=== PATIENT | male | born 1945 | race Caucasian/White ===

== ENCOUNTER 2018-03-09 19:54 | Inpatient (IN) | payer BC, MEDICARE ==
[~2018-03-09] VITALS: Ht 185.4 cm; Wt 148.7 kg
[2018-03-09] MEDS ORDERED: ROXICODONE15 MG ORAL (20:05)
[2018-03-09] MEDS ORDERED: METFORMIN HCL500 M1 ORAL (20:05)
[2018-03-09] MEDS ORDERED: PROTONIX40 MG ORAL (20:05)
--- NOTE | 2018-03-09 20:07 | Emergency Room Report ---
History of Present Illness General Chief Complaint: Altered Level of Consciousness Source: Family Member, EMS Present Illness HPI Patient presents with complaints of altered mental status patient has apparently been feeling confused for the past few days Family reports that today he's just started to act more normal However given the several days of decreased activity confusion Patient was reported speaking essentially gibberish is what was reported Here the patient is awake does appear mildly lethargic and slow to respond There was no reports of chest pain or short of breath patient was febrile here as well and found to be tachycardic Allergies: Coded Allergies: No Known Allergies (Unverified , 03/09/18) Patient History Past Medical History: see triage record Pertinent Family History: none Reviewed Nursing Documentation: PMH: Agreed; PSxH: Agreed Nursing Documentation-PMH Hx Diabetes: Yes Review of Systems All Other Systems: negative except mentioned in HPI Physical Exam Vital Signs Date Time Temp Pulse Resp B/P (MAP) Pulse Ox O2 Delivery O2 Flow Rate FiO2 03/09/18 19:53 101.8 127 14 106/88 95 Room Air 101.8 Sp02 EP Interpretation: reviewed, normal General Appearance: mild distress - Obese and tachycardic Head: normocephalic, atraumatic Eyes: bilateral eye PERRL, bilateral eye EOMI ENT: hearing grossly normal, TMs + canals normal, uvula midline, dry mucus membranes Neck: full range of motion, supple, no meningismus, no bony tend Respiratory: lungs clear, normal breath sounds, no rhonchi, no respiratory distress, no retraction, no accessory muscle use Cardiovascular #1: normal peripheral pulses, no gallop, no JVD, no murmur, tachycardia Gastrointestinal: normal bowel sounds, non tender, soft, no mass, no organomegaly, non-distended, no guarding, no hernia, no pulsatile mass, no rebound Genitourinary: no CVA tenderness Musculoskeletal: other - Significant edema and erythema bilateral lower extremity appears cellulitic Neurologic: responsive - Patient does appear somewhat slow and sluggish to respond no obvious focal deficit, market maker III-XII nml as tested, motor strength/ tone normal, sensory intact Psychiatric: mood/affect normal Skin: warm/dry, palpation normal, other - Poor turgor Lymphatic: normal inspection, no adenopathy Medical Decision Making Diagnostic Impression: Primary Impression: UTI (urinary tract infection) Additional Impressions: Sepsis Cellulitis, leg ER Course Multiple differentials considered Patient is complex requiring extensive blood work and imaging Patient's white blood cell count is dangerously elevated raising concerns of sepsis Especially given the patient's confusion Broad-spectrum antibiotic initiated further IV hydration and patient requires admission for further inpatient care Labs Test 03/09/18 20:45 03/09/18 21:43 Sodium Level 137 MMOL/L (136-145) Potassium Level 5.8 MMOL/L (3.5-5.1) Chloride Level 102 MMOL/L (98-107) Carbon Dioxide Level 20 MMOL/L (21-32) Anion Gap 15 mmol/L (5-15) Blood Urea Nitrogen 82 mg/dL (7-18) Creatinine 2.5 MG/DL (0.55-1.30) Estimat Glomerular Filtration Rate mL/min (>60) Glucose Level 290 MG/DL (74-106) Calcium Level 9.4 MG/DL (8.5-10.1) Total Bilirubin 0.7 MG/DL (0.2-1.0) Aspartate Amino Transf (AST/SGOT) 18 U/L (15-37) Alanine Aminotransferase (ALT/SGPT) 17 U/L (12-78) Alkaline Phosphatase 71 U/L (46-116) Total Creatine Kinase 233 U/L (26-308) Creatine Kinase MB 1.4 NG/ML (0.0-3.6) Creatine Kinase MB Relative Index 0.6 Troponin I 0.000 ng/mL (0.000-0.056) Pro-B-Type Natriuretic Peptide 621 pg/mL (0-125) Total Protein 8.7 G/DL (6.4-8.2) Albumin 2.9 G/DL (3.4-5.0) Globulin 5.8 g/dL Albumin/Globulin Ratio 0.5 (1.0-2.7) Lipase 57 U/L (73-393) White Blood Count 26.0 K/UL (4.8-10.8) Red Blood Count 4.41 M/UL (4.70-6.10) Hemoglobin 12.0 G/DL (14.2-18.0) Hematocrit 37.2 % (42.0-52.0) Mean Corpuscular Volume 84 FL (80-99) Mean Corpuscular Hemoglobin 27.2 PG (27.0-31.0) Mean Corpuscular Hemoglobin Concent 32.2 G/DL (32.0-36.0) Red Cell Distribution Width 15.4 % (11.6-14.8) Platelet Count 188 K/UL (150-450) Mean Platelet Volume 10.1 FL (6.5-10.1) Neutrophils (%) (Auto) % (45.0-75.0) Lymphocytes (%) (Auto) % (20.0-45.0) Monocytes (%) (Auto) % (1.0-10.0) Eosinophils (%) (Auto) % (0.0-3.0) Basophils (%) (Auto) % (0.0-2.0) EKG Diagnostic Results Rate: tachycardiac Rhythm: other ST Segments: other Rhythm Strip Diag. Results EP Interpretation: yes Rate: 110 Rhythm: no PVC's, no ectopy Chest X-Ray Diagnostic Results Chest X-Ray Diagnostic Results : Chest X-Ray Ordered: Yes # of Views/Limited/Complete: 1 View Indication: Chest Pain EP Interpretation: Yes Interpretation: no consolidation, no effusion, no pneumothorax Impression: No acute disease Electronically Signed by: Bentley Zamora DO Last Vital Signs Date Time Temp Pulse Resp B/P (MAP) Pulse Ox O2 Delivery O2 Flow Rate FiO2 03/09/18 19:53 101.8 127 14 106/88 95 Room Air 101.8 Status: improved Disposition: ADMITTED INPATIENT Condition: Critical Bentley Zamora DO Mar 09, 2018 20:07
[2018-03-09] MEDS ORDERED: MULTIVITAMINS1 EAC2 ORAL (20:40)
[2018-03-09] MEDS ORDERED: ALEVE220 M2 PO (20:40)
[2018-03-09] MEDS ORDERED: OXYCODONE HCL30 MG ORAL (20:48)
[2018-03-09] MEDS ORDERED: METFORMIN HCL850 M1 ORAL (20:48)
[2018-03-09] MEDS ORDERED: MELOXICAM15 MG PO (20:48)
[2018-03-09] MEDS ORDERED: FUROSEMIDE40 MG ORAL (20:48)
[2018-03-09] MEDS ORDERED: PANTOPRAZOLE SO40 MG ORAL (20:48)
[2018-03-09] MEDS ORDERED: FOSINOPRIL SODI40 MG PO (20:48)
[2018-03-09] MEDS ORDERED: ZANTAC150 MG ORAL (20:48)
[2018-03-09] MEDS ORDERED: ATORVASTATIN CA40 MG ORAL (20:48)
[2018-03-09] MEDS ORDERED: INVOKANA300 MG PO (20:48)
[2018-03-09] MEDS ORDERED: OXYCONTIN80 MG ORAL (20:48)
[2018-03-09] MEDS ORDERED: NORCO 10-325 T1 EACH ORAL (20:48)
[2018-03-09] MEDS ORDERED: cefTRIAXone 1 GM in NS 55 ML IVPB ONE (21:00)
[2018-03-09 21:31] LABS: ANION GAP 15 mmol/L (5-15); BLOOD UREA NITROGEN 82 mg/dL (7-18); CALCIUM 9.4 MG/DL (8.5-10.1); CARBON DIOXIDE 20 MMOL/L (21-32); CHLORIDE 102 MMOL/L (98-107); CREATININE 2.5 MG/DL (0.55-1.30); POTASSIUM 5.8 MMOL/L (3.5-5.1); SODIUM 137 MMOL/L (136-145)
[2018-03-09 21:34] VITALS: BP 133/48
[2018-03-09 21:43] LABS: ALANINE AMINOTRANSFERASE 17 U/L (12-78); ALBUMIN 2.9 G/DL (3.4-5.0); ALBUMIN/GLOBULIN RATIO 0.5 (1.0-2.7); ALKALINE PHOSPHATASE 71 U/L (46-116); ASPARTATE AMINO TRANSFERASE 18 U/L (15-37); BILIRUBIN,TOTAL 0.7 MG/DL (0.2-1.0); CKMB 1.4 NG/ML (0.0-3.6); CREATINE KINASE 233 U/L (26-308)
[2018-03-09 21:58] LABS: HEMATOCRIT 37.2 % (42.0-52.0); MEAN CORPUSCULAR VOLUME 84 FL (80-99); PLATELET COUNT 188 K/UL (150-450); RED BLOOD COUNT 4.41 M/UL (4.70-6.10); RED CELL DISTRIBUTION WIDTH 15.4 % (11.6-14.8)
[2018-03-09] MEDS ORDERED: Insulin Human Regular 100units/ml 3ml IV ONE (22:00)
[2018-03-09 22:11] LABS: APPEARANCE,URINE CLEAR; BILIRUBIN, URINE NEGATIVE (NEGATIVE); COLOR,URINE PALE YELLOW; GLUCOSE, URINE (UA) 4+ (NEGATIVE); KETONES,URINE 3+ (NEGATIVE); LEUKOCYTE ESTERASE ,URINE NEGATIVE (NEGATIVE); NITRITE,URINE NEGATIVE (NEGATIVE); PH,URINE 5 (4.5-8.0); PROTEIN,URINE 1+ (NEGATIVE); UROBILINOGEN,URINE NORMAL MG/DL (0.0-1.0)
[2018-03-09] MEDS ORDERED: Miralax 17gm pkt ORAL PRN (22:15)
[2018-03-09] MEDS ORDERED: Albuterol/Ipratropium 3ml neb HHN PRN (22:15)
[2018-03-09] MEDS ORDERED: Vancomycin 1.5gm/D5W 250ml 250 ML IVPB ONE (22:15)
[2018-03-09] MEDS ORDERED: OXYCONTIN 80 MG ORAL PRN (22:15)
[2018-03-09] MEDS ORDERED: Nitroglycerin Subl 0.4mg tab SL PRN (22:15)
[2018-03-09] MEDS ORDERED: Atorvastatin 80mg tab ORAL SCH (22:32)
[2018-03-09] MEDS ORDERED: Heparin 5000 units/ml inj SUBQ SCH (22:33)
[2018-03-09 23:26] VITALS: BP 112/43
[2018-03-10] VITALS (13 sets, daily range): BP systolic 89–174; BP diastolic 40–81
[2018-03-10] MEDS ORDERED: Vancomycin 1 GM in D5W 275 ML IVPB SCH (00:30)
[2018-03-10] MEDS ORDERED: oxyCONTIN 20mg tab ORAL ONE (01:25)
[2018-03-10] MEDS ORDERED: Albuterol/Ipratropium 3ml neb HHN PRN ×2 (02:30→20:15)
[2018-03-10] MEDS: NovoLOG Insulin Flexpen SUBQ SCH ×4 (06:45→22:08)
[2018-03-10] MEDS ORDERED: oxyCONTIN 20mg tab ORAL PRN (07:30)
[2018-03-10] MEDS ORDERED: Heparin 5000 units/ml inj SUBQ SCH (09:00)
[2018-03-10] MEDS ORDERED: Cefepime HCl 2 GM in D5W 110 ML IV SCH (09:00)
--- NOTE | 2018-03-10 10:19 | Consultation ---
History of Present Illness General Date patient seen: Mar 10, 2018 Chief Complaint: Altered Level of Consciousness Present Illness HPI 72 y/o M with hx of HTN, HLD, GERD, Dm2 presents to ED on 03/09 with AMS, confusion for the last few days per family. In ED found to be tachycardic and febrile to 102, WBC 26. CXR p, u/a neg. Per , patient has chronic leg swelling and chornic pain from legs takin [place] at home. Some time he sweeps from his legs. In the last 2 days patient has been confused, shaking, mumbling and complaining of worsening pain. cannot tell if legs are worse and how long has wound on R foots has been on because she says "she doesn't look at his legs". Per , patient;s DM2 has been controlled int he last few months with insulin regimen. Also denies prior cellulitis, skin abscess. No CP, SOB. Allergies: Coded Allergies: No Known Allergies (Unverified , 03/09/18) Medication History Scheduled Atorvastatin Calcium* (Atorvastatin Calcium*), 40 MG ORAL BEDTIME, (Reported) Canagliflozin (Invokana), 300 MG PO DAILY, (Reported) Fosinopril Sodium (Fosinopril Sodium), 40 MG PO DAILY, (Reported) Furosemide* (Lasix*), 40 MG ORAL DAILY, (Reported) Meloxicam* (Meloxicam*), 15 MG PO DAILY, (Reported) Metformin Hcl* (Metformin Hcl*), 850 MG ORAL TID, (Reported) Multivitamins* (Multivitamins*), 1 TAB ORAL DAILY, (Reported) Pantoprazole* (Pantoprazole*), 40 MG ORAL DAILY, (Reported) Ranitidine Hcl* (Zantac*), 300 MG ORAL DAILY, (Reported) Scheduled PRN Hydrocodone Bit/Acetaminophen 10-325* ([place] 10-325*), 1 TAB ORAL Q6H PRN for For Pain, (Reported) Naproxen Sodium (Aleve), 220 MG PO Q6HR PRN for For Pain, (Reported) Oxycodone Hcl (Oxycodone Hcl), 30 MG ORAL Q6HR PRN for For Pain, (Reported) Oxycodone Hcl Er* (Oxycontin*), 80 MG ORAL EVERY 12 HOURS PRN for For Pain, ( Reported) Patient History Healthcare decision maker N Resuscitation status Full Code Advanced Directive on File No Patient History Narrative Pmhx: as above Shx: reviewed FHx: non contributory Review of Systems ROS Narrative unable to obtain history obtained from . Physical Exam Physical Exam Narrative General Appearance: mild distress - Obese and tachycardic HEENT: normocephalic, atraumatic, dry mucus membranes Neck: full range of motion, supple, no meningismus, no bony tend Respiratory: lungs clear, normal breath sounds, no rhonchi, no respiratory distress, no retraction, no accessory muscle use Cardiovascular no gallop, no JVD, no murmur, tachycardia Gastrointestinal: normal bowel sounds, non tender, soft, no mass, no organomegaly, non-distended, no guarding, no rebound Genitourinary: no CVA tenderness Musculoskeletal: B/L leg with chornic venous stasis changes and lymphedema with superimposed erythema, warmth; on L leg wrythema extend up laterally to distal thigh. On R foot there is a wound with necrotic center ; no purulent discharge. Neurologic: responsive - Patient does appear somewhat slow and sluggish to respond no obvious focal deficit, collections curator III-XII nml as tested, motor strength/ tone normal, sensory intact Skin: warm/dry, palpation normal, other - Poor turgor Last 24 Hour Vital Signs Date Time Temp Pulse Resp B/P (MAP) Pulse Ox O2 Delivery O2 Flow Rate FiO2 03/10/18 09:43 102.2 03/10/18 08:14 90 Nasal Cannula 3.0 03/10/18 08:14 Nasal Cannula 3.0 03/10/18 08:14 116 22 Nasal Cannula 3.0 32 03/10/18 08:00 102.2 128 20 156/63 91 Room Air 102.2 03/10/18 04:00 100 03/10/18 02:00 Nasal Cannula 2.0 03/10/18 02:00 96 Nasal Cannula 2.0 03/10/18 00:00 101.8 122 22 112/43 94 Room Air 101.8 03/09/18 23:26 101.8 122 22 112/43 94 Room Air 101.8 03/09/18 21:34 99.1 129 18 133/48 94 Room Air 99.1 03/09/18 19:53 101.8 127 14 106/88 95 Room Air 101.8 Intake and Output 03/09/18 03/10/18 19:00 07:00 Intake Total 1805 ml Output Total 200 ml Balance 1605 ml Intake Oral 750 ml IV Total 1055 ml Output Urine Total 200 ml # Voids 3 Laboratory Tests Test 03/09/18 20:45 03/09/18 21:43 03/09/18 22:00 03/09/18 23:22 Sodium Level 137 MMOL/L (136-145) Potassium Level 5.8 MMOL/L (3.5-5.1) H Chloride Level 102 MMOL/L (98-107) Carbon Dioxide Level 20 MMOL/L (21-32) L Anion Gap 15 mmol/L (5-15) Blood Urea Nitrogen 82 mg/dL (7-18) H Creatinine 2.5 MG/DL (0.55-1.30) H Estimat Glomerular Filtration Rate mL/min (>60) Glucose Level 290 MG/DL (74-106) H Calcium Level 9.4 MG/DL (8.5-10.1) Total Bilirubin 0.7 MG/DL (0.2-1.0) Aspartate Amino Transf (AST/SGOT) 18 U/L (15-37) Alanine Aminotransferase (ALT/SGPT) 17 U/L (12-78) Alkaline Phosphatase 71 U/L (46-116) Total Creatine Kinase 233 U/L (26-308) Creatine Kinase MB 1.4 NG/ML (0.0-3.6) Creatine Kinase MB Relative Index 0.6 Troponin I 0.000 ng/mL (0.000-0.056) Pro-B-Type Natriuretic Peptide 621 pg/mL (0-125) H Total Protein 8.7 G/DL (6.4-8.2) H Albumin 2.9 G/DL (3.4-5.0) L Globulin 5.8 g/dL Albumin/Globulin Ratio 0.5 (1.0-2.7) L Lipase 57 U/L (73-393) L White Blood Count 26.0 K/UL (4.8-10.8) *H Red Blood Count 4.41 M/UL (4.70-6.10) L Hemoglobin 12.0 G/DL (14.2-18.0) L Hematocrit 37.2 % (42.0-52.0) L Mean Corpuscular Volume 84 FL (80-99) Mean Corpuscular Hemoglobin 27.2 PG (27.0-31.0) Mean Corpuscular Hemoglobin Concent 32.2 G/DL (32.0-36.0) Red Cell Distribution Width 15.4 % (11.6-14.8) H Platelet Count 188 K/UL (150-450) Mean Platelet Volume 10.1 FL (6.5-10.1) Neutrophils (%) (Auto) % (45.0-75.0) Lymphocytes (%) (Auto) % (20.0-45.0) Monocytes (%) (Auto) % (1.0-10.0) Eosinophils (%) (Auto) % (0.0-3.0) Basophils (%) (Auto) % (0.0-2.0) Differential Total Cells Counted 100 Neutrophils % (Manual) 83 % (45-75) H Lymphocytes % (Manual) 4 % (20-45) L Monocytes % (Manual) 2 % (1-10) Eosinophils % (Manual) 0 % (0-3) Basophils % (Manual) 0 % (0-2) Band Neutrophils 11 % (0-8) H Platelet Estimate Adequate Platelet Morphology Normal Polychromasia 1+ Anisocytosis 1+ Lactic Acid Level 2.30 mmol/L (0.4-2.0) H 2.10 mmol/L (0.66-2.22) Urine Color Pale yellow Urine Appearance Clear Urine pH 5 (4.5-8.0) Urine Specific [place] 1.010 (1.005-1.035) Urine Protein 1+ (NEGATIVE) H Urine Glucose (UA) 4+ (NEGATIVE) H Urine Ketones 3+ (NEGATIVE) H Urine Occult Blood 3+ (NEGATIVE) H Urine Nitrite Negative (NEGATIVE) Urine Bilirubin Negative (NEGATIVE) Urine Urobilinogen Normal MG/DL (0.0-1.0) Urine Leukocyte Esterase Negative (NEGATIVE) Urine RBC 0-2 /HPF (0 - 0) H Urine WBC 0-2 /HPF (0 - 0) Urine Squamous Epithelial Cells Few /LPF (NONE/OCC) Urine Amorphous Sediment Few /LPF (NONE) H Urine Bacteria Few /HPF (NONE) Height (Feet): 6 Height (Inches): 1.00 Weight (Pounds): 367 Medications Current Medications Medications (Trade) Dose Ordered Sig/Nancy Route PRN Reason Start Time Stop Time Status Last Admin Dose Admin Acetaminophen (Tylenol) 650 mg Q4H PRN ORAL fever 03/09/18 22:15 04/08/18 22:14 03/10/18 09:43 Albuterol/ Ipratropium (Albuterol/ Ipratropium) 3 ml Q4H PRN HHN Shortness of Breath 03/10/18 02:30 03/14/18 22:14 Atorvastatin Calcium (Lipitor) 40 mg BEDTIME ORAL 03/10/18 21:00 04/09/18 20:59 Cefepime HCl 2 gm/ Dextrose 110 ml @ 220 mls/hr EVERY 12 HOURS IV 03/10/18 09:00 03/17/18 08:59 03/10/18 09:42 Dextrose (Dextrose 50%) STAT PRN IV Hypoglycemia 03/09/18 22:15 04/08/18 22:14 Heparin Sodium (Porcine) (Heparin 5000 units/ml) 5,000 units EVERY 12 HOURS SUBQ 03/10/18 09:00 04/09/18 08:59 03/10/18 09:44 Insulin Aspart (NovoLOG) BEFORE MEALS AND HS SUBQ 03/10/18 06:30 04/09/18 06:29 03/10/18 06:45 Nitroglycerin (Ntg) 0.4 mg Q5M PRN SL Prn Chest Pain 03/09/18 22:15 04/08/18 22:14 Ondansetron HCl (Zofran) 4 mg Q6H PRN IVP Nausea & Vomiting 03/09/18 22:15 04/08/18 22:14 Oxycodone HCl (OxyCONTIN) 80 mg EVERY 12 HOURS PRN ORAL For Pain 03/10/18 07:30 03/17/18 07:29 Polyethylene Glycol (Miralax) 17 gm DAILYPRN PRN ORAL Constipation 03/09/18 22:15 04/08/18 22:14 Temazepam (Restoril) 15 mg HSPRN PRN ORAL Insomnia 03/09/18 22:15 03/16/18 22:14 Vancomycin HCl 1 gm/Dextrose 275 ml @ 183.3 mls/ hr Q24H IVPB 6/8/18 00:30 03/15/18 00:29 Vancomycin HCl/ Dextrose 250 ml @ 166.667 mls/hr Q24H IVPB 03/10/18 22:00 03/15/18 21:59 Assessment/Plan Assessment/Plan Abx: IV Vanco 03/09- Ceftriaxone x1 03/09 Cefepime 03/10- Assessment: Sepsis 2ry to severe b/l Leg soft tissue infection, R foot necrotic ulcer- suspect bacteremia (Strep > Staph); r/o early necrotizing fascitis, r/o R foot OM +/- abscess. -u/a neg -CXR p -Bcx p Fever/Leukocytosis Lactic acidosis, resolved JOSE HTN HLD GERD Dm2 Plan: -Continue IV Vancomycin and Switch Cefepime to Zosyn and add IV Clindamycin -MRI R foot -Venous and arterial duplex BLE -f/u cx, CXR -Monitor CBC/BMP, temperatures -Cdiff, influenza sc -Sx eval- to monitor for nec fascitis -Pod eval= for R plantar foot ulcer- may need debridement. Thank you for this consultation. Will continue to follow along with you. Discussed with RN, Dr Curry and at bedside. Maranda Wiggins M.D. Mar 10, 2018 10:19
[2018-03-10] MEDS ORDERED: Gadavist 7.5mMol/7.5ml vial IV PRN ×2 (10:45→20:15)
[2018-03-10 11:24] LABS: HEMATOCRIT 30.9 % (42.0-52.0); HEMOGLOBIN 10.2 G/DL (14.2-18.0); MEAN CORPUSCULAR VOLUME 85 FL (80-99); PLATELET COUNT 194 K/UL (150-450); RED BLOOD COUNT 3.65 M/UL (4.70-6.10); RED CELL DISTRIBUTION WIDTH 15.4 % (11.6-14.8); WHITE BLOOD COUNT 15.6 K/UL (4.8-10.8)
[2018-03-10 11:35] LABS: ALANINE AMINOTRANSFERASE 15 U/L (12-78); ALBUMIN 2.1 G/DL (3.4-5.0); ALBUMIN/GLOBULIN RATIO 0.4 (1.0-2.7); ALKALINE PHOSPHATASE 64 U/L (46-116); ANION GAP 9 mmol/L (5-15); ASPARTATE AMINO TRANSFERASE 31 U/L (15-37); BILIRUBIN,TOTAL 0.5 MG/DL (0.2-1.0); BLOOD UREA NITROGEN 71 mg/dL (7-18); CALCIUM 8.8 MG/DL (8.5-10.1); CARBON DIOXIDE 24 MMOL/L (21-32); CHLORIDE 107 MMOL/L (98-107); CREATININE 2.2 MG/DL (0.55-1.30); POTASSIUM 4.8 MMOL/L (3.5-5.1); SODIUM 140 MMOL/L (136-145)
[2018-03-10] MEDS ORDERED: Morphine Sulfate 4mg/ml Inj IVP PRN (12:00)
[2018-03-10] MEDS ORDERED: Piperacillin/Tazobactam 3.375 GM in D5W 110 ML IVPB SCH (12:00)
[2018-03-10] MEDS ORDERED: Clindamycin 600mg 50 ML IV SCH (12:00)
--- NOTE | 2018-03-10 12:33 | Diagnostic Imaging Report ---
Indication: Chest pain Comparison: None A single view chest radiograph was obtained. Findings: No definite infiltrate or pulmonary vascular congestion identified. The heart is enlarged. The aorta is mildly enlarged consistent with atherosclerotic vascular disease. The bones are osteopenic. Impression: No acute disease
--- NOTE | 2018-03-10 12:54 | Pulmonolgy Critical Care Note ---
Critical Care - Asmt/Plan Problems: (1) Acute encephalopathy (2) Sepsis (3) ATN (acute tubular necrosis) (4) Cellulitis, leg (5) UTI (urinary tract infection) (6) Diabetes mellitus (7) Obesity Respiratory: monitor respiratory rate, adjust FIO2, CXR Cardiac: continue to monitor HR/BP, other - echocardiogram Renal: F/U I&O, increase IV fluid, check electrolytes, other Gastrointestinal: continue feedings/current rate Endocrine: monitor blood sugar Hematologic: monitor H/H Neurologic: PRN Ativan, keep patient comfortable Affect: PRN ativan Disposition: keep in ICU Discussed with: nurses, consultants, caser shoe partssr. media manager - Objective Last 24 Hour Vital Signs Date Time Temp Pulse Resp B/P (MAP) Pulse Ox O2 Delivery O2 Flow Rate FiO2 03/10/18 10:42 101.2 03/10/18 09:43 102.2 03/10/18 08:14 90 Nasal Cannula 3.0 03/10/18 08:14 Nasal Cannula 3.0 03/10/18 08:14 116 22 Nasal Cannula 3.0 32 03/10/18 08:11 128 03/10/18 08:00 102.2 128 20 156/63 91 Room Air 102.2 03/10/18 04:00 100 03/10/18 02:00 Nasal Cannula 2.0 03/10/18 02:00 96 Nasal Cannula 2.0 03/10/18 00:00 101.8 122 22 112/43 94 Room Air 101.8 03/09/18 23:26 101.8 122 22 112/43 94 Room Air 101.8 03/09/18 21:34 99.1 129 18 133/48 94 Room Air 99.1 03/09/18 19:53 101.8 127 14 106/88 95 Room Air 101.8 Status: awake Condition: critical, improving HEENT: atraumatic Lungs: clear Heart: HR/BP stable Abdomen: soft Extremities: no C/C/E, edema Accucheck: 197 Critical Care - Subjective ROS Limited/Unobtainable: Yes Interval Events: 72 year old male with hx of CAD, HTN, DM, obesity brought in by paramedics for ALOC. Pt was found to be septic with extensive bilateral lower extremity cellulitis. Condition: critical EKG Rhythm: Sinus Rhythm FI02: 32 Sputum Amount: None I&O: Intake and Output 03/09/18 03/10/18 19:00 07:00 Intake Total 1805 ml Output Total 200 ml Balance 1605 ml Intake Oral 750 ml IV Total 1055 ml Output Urine Total 200 ml # Voids 3 CXR: TAYLA Labs: Laboratory Tests Test 03/09/18 20:45 03/09/18 21:43 03/09/18 22:00 03/09/18 23:22 Sodium Level 137 MMOL/L (136-145) Potassium Level 5.8 MMOL/L (3.5-5.1) H Chloride Level 102 MMOL/L (98-107) Carbon Dioxide Level 20 MMOL/L (21-32) L Anion Gap 15 mmol/L (5-15) Blood Urea Nitrogen 82 mg/dL (7-18) H Creatinine 2.5 MG/DL (0.55-1.30) H Estimat Glomerular Filtration Rate mL/min (>60) Glucose Level 290 MG/DL (74-106) H Calcium Level 9.4 MG/DL (8.5-10.1) Total Bilirubin 0.7 MG/DL (0.2-1.0) Aspartate Amino Transf (AST/SGOT) 18 U/L (15-37) Alanine Aminotransferase (ALT/SGPT) 17 U/L (12-78) Alkaline Phosphatase 71 U/L (46-116) Total Creatine Kinase 233 U/L (26-308) Creatine Kinase MB 1.4 NG/ML (0.0-3.6) Creatine Kinase MB Relative Index 0.6 Troponin I 0.000 ng/mL (0.000-0.056) Pro-B-Type Natriuretic Peptide 621 pg/mL (0-125) H Total Protein 8.7 G/DL (6.4-8.2) H Albumin 2.9 G/DL (3.4-5.0) L Globulin 5.8 g/dL Albumin/Globulin Ratio 0.5 (1.0-2.7) L Lipase 57 U/L (73-393) L White Blood Count 26.0 K/UL (4.8-10.8) *H Red Blood Count 4.41 M/UL (4.70-6.10) L Hemoglobin 12.0 G/DL (14.2-18.0) L Hematocrit 37.2 % (42.0-52.0) L Mean Corpuscular Volume 84 FL (80-99) Mean Corpuscular Hemoglobin 27.2 PG (27.0-31.0) Mean Corpuscular Hemoglobin Concent 32.2 G/DL (32.0-36.0) Red Cell Distribution Width 15.4 % (11.6-14.8) H Platelet Count 188 K/UL (150-450) Mean Platelet Volume 10.1 FL (6.5-10.1) Neutrophils (%) (Auto) % (45.0-75.0) Lymphocytes (%) (Auto) % (20.0-45.0) Monocytes (%) (Auto) % (1.0-10.0) Eosinophils (%) (Auto) % (0.0-3.0) Basophils (%) (Auto) % (0.0-2.0) Differential Total Cells Counted 100 Neutrophils % (Manual) 83 % (45-75) H Lymphocytes % (Manual) 4 % (20-45) L Monocytes % (Manual) 2 % (1-10) Eosinophils % (Manual) 0 % (0-3) Basophils % (Manual) 0 % (0-2) Band Neutrophils 11 % (0-8) H Platelet Estimate Adequate Platelet Morphology Normal Polychromasia 1+ Anisocytosis 1+ Lactic Acid Level 2.30 mmol/L (0.4-2.0) H 2.10 mmol/L (0.66-2.22) Urine Color Pale yellow Urine Appearance Clear Urine pH 5 (4.5-8.0) Urine Specific [place] 1.010 (1.005-1.035) Urine Protein 1+ (NEGATIVE) H Urine Glucose (UA) 4+ (NEGATIVE) H Urine Ketones 3+ (NEGATIVE) H Urine Occult Blood 3+ (NEGATIVE) H Urine Nitrite Negative (NEGATIVE) Urine Bilirubin Negative (NEGATIVE) Urine Urobilinogen Normal MG/DL (0.0-1.0) Urine Leukocyte Esterase Negative (NEGATIVE) Urine RBC 0-2 /HPF (0 - 0) H Urine WBC 0-2 /HPF (0 - 0) Urine Squamous Epithelial Cells Few /LPF (NONE/OCC) Urine Amorphous Sediment Few /LPF (NONE) H Urine Bacteria Few /HPF (NONE) Test 03/10/18 10:55 White Blood Count 15.6 K/UL (4.8-10.8) H Red Blood Count 3.65 M/UL (4.70-6.10) L Hemoglobin 10.2 G/DL (14.2-18.0) L Hematocrit 30.9 % (42.0-52.0) L Mean Corpuscular Volume 85 FL (80-99) Mean Corpuscular Hemoglobin 28.0 PG (27.0-31.0) Mean Corpuscular Hemoglobin Concent 33.1 G/DL (32.0-36.0) Red Cell Distribution Width 15.4 % (11.6-14.8) H Platelet Count 194 K/UL (150-450) Mean Platelet Volume 10.2 FL (6.5-10.1) H Neutrophils (%) (Auto) % (45.0-75.0) Lymphocytes (%) (Auto) % (20.0-45.0) Monocytes (%) (Auto) % (1.0-10.0) Eosinophils (%) (Auto) % (0.0-3.0) Basophils (%) (Auto) % (0.0-2.0) Differential Total Cells Counted 100 Neutrophils % (Manual) 85 % (45-75) H Lymphocytes % (Manual) 9 % (20-45) L Monocytes % (Manual) 2 % (1-10) Eosinophils % (Manual) 0 % (0-3) Basophils % (Manual) 0 % (0-2) Band Neutrophils 4 % (0-8) Platelet Estimate Adequate Platelet Morphology Normal Hypochromasia 1+ Anisocytosis 1+ Sodium Level 140 MMOL/L (136-145) Potassium Level 4.8 MMOL/L (3.5-5.1) Chloride Level 107 MMOL/L (98-107) Carbon Dioxide Level 24 MMOL/L (21-32) Anion Gap 9 mmol/L (5-15) Blood Urea Nitrogen 71 mg/dL (7-18) H Creatinine 2.2 MG/DL (0.55-1.30) H Estimat Glomerular Filtration Rate mL/min (>60) Glucose Level 223 MG/DL (74-106) H Calcium Level 8.8 MG/DL (8.5-10.1) Total Bilirubin 0.5 MG/DL (0.2-1.0) Aspartate Amino Transf (AST/SGOT) 31 U/L (15-37) Alanine Aminotransferase (ALT/SGPT) 15 U/L (12-78) Alkaline Phosphatase 64 U/L (46-116) Total Protein 7.2 G/DL (6.4-8.2) Albumin 2.1 G/DL (3.4-5.0) L Globulin 5.1 g/dL Albumin/Globulin Ratio 0.4 (1.0-2.7) L Zia Li MD Mar 10, 2018 12:54
[2018-03-10 13:20] LABS: CREATINE KINASE 641 U/L (26-308)
--- NOTE | 2018-03-10 13:36 | Consultation ---
History of Present Illness General Date patient seen: Mar 10, 2018 Chief Complaint: Altered Level of Consciousness Reason for Consultation: bilateral lower extremity infection Present Illness HPI 72 year old obese male with multiple medical comorbidities and chronic bilateral lower extremity worsening wounds and history of prior lower extremity DVT presented with altered mental status. as per family, over the past few days he has been more mumbling and not coherent in speech. as he became more altered they decided to bring him to ED for evaluation. during work up noted to be septic with significant leukocytosis, abnormal labs, and bilateral lower extremity wounds. family states wounds have been present for some time now and he does not take good care of them. surgery called to evaluate for possible necrotizing fascitis given severity of wounds and sepsis. patient seen, chart reviewed, patient examined. Allergies: Coded Allergies: No Known Allergies (Unverified , 03/09/18) Medication History Scheduled Atorvastatin Calcium* (Atorvastatin Calcium*), 40 MG ORAL BEDTIME, (Reported) Canagliflozin (Invokana), 300 MG PO DAILY, (Reported) Fosinopril Sodium (Fosinopril Sodium), 40 MG PO DAILY, (Reported) Furosemide* (Lasix*), 40 MG ORAL DAILY, (Reported) Meloxicam* (Meloxicam*), 15 MG PO DAILY, (Reported) Metformin Hcl* (Metformin Hcl*), 850 MG ORAL TID, (Reported) Multivitamins* (Multivitamins*), 1 TAB ORAL DAILY, (Reported) Pantoprazole* (Pantoprazole*), 40 MG ORAL DAILY, (Reported) Ranitidine Hcl* (Zantac*), 300 MG ORAL DAILY, (Reported) Scheduled PRN Hydrocodone Bit/Acetaminophen 10-325* ([place] 10-325*), 1 TAB ORAL Q6H PRN for For Pain, (Reported) Naproxen Sodium (Aleve), 220 MG PO Q6HR PRN for For Pain, (Reported) Oxycodone Hcl (Oxycodone Hcl), 30 MG ORAL Q6HR PRN for For Pain, (Reported) Oxycodone Hcl Er* (Oxycontin*), 80 MG ORAL EVERY 12 HOURS PRN for For Pain, ( Reported) Patient History Limited by: medical condition History Provided By: Family Member, Medical Record, Caregiver, PMD Healthcare decision maker N Resuscitation status Full Code Advanced Directive on File No Past Medical/Surgical History Past Medical/Surgical History: (1) Sepsis (2) Cellulitis, leg (3) Diabetes mellitus (4) UTI (urinary tract infection) (5) Obesity (6) Acute encephalopathy (7) ATN (acute tubular necrosis) Review of Systems ROS Narrative cannot obtain given patients medical condition Physical Exam General Appearance: lethargic, mild distress Lines, tubes and drains: peripheral HEENT: atraumatic, mucous membranes moist Neck: normal inspection Respiratory/Chest: lungs clear, normal breath sounds, no respiratory distress, no accessory muscle use Cardiovascular/Chest: tachycardia Abdomen: normal bowel sounds, non tender, soft, no organomegaly, no mass, other - obese Extremities: other - bilateral lower extremity cellulitis R>L with skin changes that are chronic, right heel ulceration Neurologic: unresponsiveness Last 24 Hour Vital Signs Date Time Temp Pulse Resp B/P (MAP) Pulse Ox O2 Delivery O2 Flow Rate FiO2 03/10/18 10:42 101.2 03/10/18 09:43 102.2 03/10/18 08:14 90 Nasal Cannula 3.0 03/10/18 08:14 Nasal Cannula 3.0 03/10/18 08:14 116 22 Nasal Cannula 3.0 32 03/10/18 08:11 128 03/10/18 08:00 102.2 128 20 156/63 91 Room Air 102.2 03/10/18 04:00 100 03/10/18 02:00 Nasal Cannula 2.0 03/10/18 02:00 96 Nasal Cannula 2.0 03/10/18 00:00 101.8 122 22 112/43 94 Room Air 101.8 03/09/18 23:26 101.8 122 22 112/43 94 Room Air 101.8 03/09/18 21:34 99.1 129 18 133/48 94 Room Air 99.1 03/09/18 19:53 101.8 127 14 106/88 95 Room Air 101.8 Intake and Output 03/09/18 03/10/18 19:00 07:00 Intake Total 1805 ml Output Total 200 ml Balance 1605 ml Intake Oral 750 ml IV Total 1055 ml Output Urine Total 200 ml # Voids 3 Laboratory Tests Test 03/09/18 20:45 03/09/18 21:43 03/09/18 22:00 03/09/18 23:22 Sodium Level 137 MMOL/L (136-145) Potassium Level 5.8 MMOL/L (3.5-5.1) H Chloride Level 102 MMOL/L (98-107) Carbon Dioxide Level 20 MMOL/L (21-32) L Anion Gap 15 mmol/L (5-15) Blood Urea Nitrogen 82 mg/dL (7-18) H Creatinine 2.5 MG/DL (0.55-1.30) H Estimat Glomerular Filtration Rate mL/min (>60) Glucose Level 290 MG/DL (74-106) H Calcium Level 9.4 MG/DL (8.5-10.1) Total Bilirubin 0.7 MG/DL (0.2-1.0) Aspartate Amino Transf (AST/SGOT) 18 U/L (15-37) Alanine Aminotransferase (ALT/SGPT) 17 U/L (12-78) Alkaline Phosphatase 71 U/L (46-116) Total Creatine Kinase 233 U/L (26-308) Creatine Kinase MB 1.4 NG/ML (0.0-3.6) Creatine Kinase MB Relative Index 0.6 Troponin I 0.000 ng/mL (0.000-0.056) Pro-B-Type Natriuretic Peptide 621 pg/mL (0-125) H Total Protein 8.7 G/DL (6.4-8.2) H Albumin 2.9 G/DL (3.4-5.0) L Globulin 5.8 g/dL Albumin/Globulin Ratio 0.5 (1.0-2.7) L Lipase 57 U/L (73-393) L White Blood Count 26.0 K/UL (4.8-10.8) *H Red Blood Count 4.41 M/UL (4.70-6.10) L Hemoglobin 12.0 G/DL (14.2-18.0) L Hematocrit 37.2 % (42.0-52.0) L Mean Corpuscular Volume 84 FL (80-99) Mean Corpuscular Hemoglobin 27.2 PG (27.0-31.0) Mean Corpuscular Hemoglobin Concent 32.2 G/DL (32.0-36.0) Red Cell Distribution Width 15.4 % (11.6-14.8) H Platelet Count 188 K/UL (150-450) Mean Platelet Volume 10.1 FL (6.5-10.1) Neutrophils (%) (Auto) % (45.0-75.0) Lymphocytes (%) (Auto) % (20.0-45.0) Monocytes (%) (Auto) % (1.0-10.0) Eosinophils (%) (Auto) % (0.0-3.0) Basophils (%) (Auto) % (0.0-2.0) Differential Total Cells Counted 100 Neutrophils % (Manual) 83 % (45-75) H Lymphocytes % (Manual) 4 % (20-45) L Monocytes % (Manual) 2 % (1-10) Eosinophils % (Manual) 0 % (0-3) Basophils % (Manual) 0 % (0-2) Band Neutrophils 11 % (0-8) H Platelet Estimate Adequate Platelet Morphology Normal Polychromasia 1+ Anisocytosis 1+ Lactic Acid Level 2.30 mmol/L (0.4-2.0) H 2.10 mmol/L (0.66-2.22) Urine Color Pale yellow Urine Appearance Clear Urine pH 5 (4.5-8.0) Urine Specific [place] 1.010 (1.005-1.035) Urine Protein 1+ (NEGATIVE) H Urine Glucose (UA) 4+ (NEGATIVE) H Urine Ketones 3+ (NEGATIVE) H Urine Occult Blood 3+ (NEGATIVE) H Urine Nitrite Negative (NEGATIVE) Urine Bilirubin Negative (NEGATIVE) Urine Urobilinogen Normal MG/DL (0.0-1.0) Urine Leukocyte Esterase Negative (NEGATIVE) Urine RBC 0-2 /HPF (0 - 0) H Urine WBC 0-2 /HPF (0 - 0) Urine Squamous Epithelial Cells Few /LPF (NONE/OCC) Urine Amorphous Sediment Few /LPF (NONE) H Urine Bacteria Few /HPF (NONE) Test 03/10/18 10:55 White Blood Count 15.6 K/UL (4.8-10.8) H Red Blood Count 3.65 M/UL (4.70-6.10) L Hemoglobin 10.2 G/DL (14.2-18.0) L Hematocrit 30.9 % (42.0-52.0) L Mean Corpuscular Volume 85 FL (80-99) Mean Corpuscular Hemoglobin 28.0 PG (27.0-31.0) Mean Corpuscular Hemoglobin Concent 33.1 G/DL (32.0-36.0) Red Cell Distribution Width 15.4 % (11.6-14.8) H Platelet Count 194 K/UL (150-450) Mean Platelet Volume 10.2 FL (6.5-10.1) H Neutrophils (%) (Auto) % (45.0-75.0) Lymphocytes (%) (Auto) % (20.0-45.0) Monocytes (%) (Auto) % (1.0-10.0) Eosinophils (%) (Auto) % (0.0-3.0) Basophils (%) (Auto) % (0.0-2.0) Differential Total Cells Counted 100 Neutrophils % (Manual) 85 % (45-75) H Lymphocytes % (Manual) 9 % (20-45) L Monocytes % (Manual) 2 % (1-10) Eosinophils % (Manual) 0 % (0-3) Basophils % (Manual) 0 % (0-2) Band Neutrophils 4 % (0-8) Platelet Estimate Adequate Platelet Morphology Normal Hypochromasia 1+ Anisocytosis 1+ Sodium Level 140 MMOL/L (136-145) Potassium Level 4.8 MMOL/L (3.5-5.1) Chloride Level 107 MMOL/L (98-107) Carbon Dioxide Level 24 MMOL/L (21-32) Anion Gap 9 mmol/L (5-15) Blood Urea Nitrogen 71 mg/dL (7-18) H Creatinine 2.2 MG/DL (0.55-1.30) H Estimat Glomerular Filtration Rate mL/min (>60) Glucose Level 223 MG/DL (74-106) H Uric Acid Pending Calcium Level 8.8 MG/DL (8.5-10.1) Total Bilirubin 0.5 MG/DL (0.2-1.0) Aspartate Amino Transf (AST/SGOT) 31 U/L (15-37) Alanine Aminotransferase (ALT/SGPT) 15 U/L (12-78) Alkaline Phosphatase 64 U/L (46-116) Total Creatine Kinase Pending Total Protein 7.2 G/DL (6.4-8.2) Albumin 2.1 G/DL (3.4-5.0) L Globulin 5.1 g/dL Albumin/Globulin Ratio 0.4 (1.0-2.7) L Height (Feet): 6 Height (Inches): 1.00 Weight (Pounds): 367 Medications Current Medications Medications (Trade) Dose Ordered Sig/Nancy Route PRN Reason Start Time Stop Time Status Last Admin Dose Admin Acetaminophen (Tylenol) 650 mg Q4H PRN ORAL fever 03/09/18 22:15 04/08/18 22:14 03/10/18 09:43 Albuterol/ Ipratropium (Albuterol/ Ipratropium) 3 ml Q4H PRN HHN Shortness of Breath 03/10/18 02:30 03/14/18 22:14 Clindamycin HCl/ Dextrose 50 ml @ 100 mls/hr Q8H IV 03/10/18 12:00 03/17/18 23:59 Dextrose (Dextrose 50%) STAT PRN IV Hypoglycemia 03/09/18 22:15 04/08/18 22:14 Gadobutrol (Gadavist) 7.5 mmol NOW PRN IV Radiology Procedure 03/10/18 10:45 03/14/18 10:39 Heparin Sodium (Porcine) (Heparin 5000 units/ml) 5,000 units EVERY 12 HOURS SUBQ 03/10/18 09:00 04/09/18 08:59 03/10/18 09:44 Insulin Aspart (NovoLOG) BEFORE MEALS AND HS SUBQ 03/10/18 06:30 04/09/18 06:29 03/10/18 12:21 Morphine Sulfate (Morphine Sulfate) 2 mg Q4H PRN IVP Severe Pain (Pain Scale 7-10) 03/10/18 12:00 03/17/18 11:59 Nitroglycerin (Ntg) 0.4 mg Q5M PRN SL Prn Chest Pain 03/09/18 22:15 04/08/18 22:14 Ondansetron HCl (Zofran) 4 mg Q6H PRN IVP Nausea & Vomiting 03/09/18 22:15 04/08/18 22:14 Piperacillin Sod/ Tazobactam Sod 3.375 gm/Dextrose 110 ml @ 27.5 mls/hr Q8H IVPB 03/10/18 12:00 03/17/18 23:59 Sodium Chloride 1,000 ml @ 150 mls/hr Q6H40M IV 03/10/18 13:15 04/09/18 13:14 Vancomycin HCl 1 gm/Dextrose 275 ml @ 183.3 mls/ hr Q24H IVPB 03/10/18 00:30 03/15/18 00:29 Vancomycin HCl/ Dextrose 250 ml @ 166.667 mls/hr Q24H IVPB 03/10/18 22:00 03/15/18 21:59 Assessment/Plan Problem List: (1) Sepsis Assessment & Plan: 72M sepsis with fevers, leukocytosis, altered mental status. chronic bilateral lower extremity wounds with cellulitis. concerns for possible necrotizing fascitis initially. unlikely nec fasc given exam. wounds chronic and skin changes chronic. LRINEC score on admission 10 but given chronicity of wounds, other etiology of sepsis, and physical exam unlikely nec fasc. -no acute surgical intervention necessary. -Abx as per ID -podiatry consult -cont with dressings for now -will follow with you thank you for this consultation ICD Codes: A41.9 - Sepsis, unspecified organism SNOMED: 16613748 Qualifiers: Qualified Codes: A41.9 - Sepsis, unspecified organism (2) Cellulitis, leg ICD Codes: L03.119 - Cellulitis of unspecified part of limb SNOMED: 001370399 Leandro Scott Mar 10, 2018 13:36
[2018-03-10] MEDS ORDERED: LORazepam Inj 2mg/ml 1ml IV PRN (14:30)
--- NOTE | 2018-03-10 16:14 | Consultation ---
Consult Note Assessment/Plan A./ 1) Bilateral leg cellulitis 2) Diabetic foot ulcer right heel 3) Diabetic neuropathy P/ 1) Cont abx per ID 2) Wound Care ordered. No surgical intervention indicated at this time 3) Off loading 4) Will follow Thank you !! Rubens Maxwell DPM Mar 10, 2018 16:14
[2018-03-10] MEDS ORDERED: Nitroglycerin Subl 0.4mg tab SL PRN (20:05)
[2018-03-10] MEDS: Clindamycin 600mg 50 ML IV SCH (20:39)
[2018-03-10] MEDS: Piperacillin/Tazobactam 3.375 GM in D5W 110 ML IVPB SCH (20:40)
[2018-03-10] MEDS ORDERED: Atorvastatin 80mg tab ORAL SCH (21:00)
[2018-03-10] MEDS ORDERED: Pantoprazole Inj IVP SCH (21:00)
[2018-03-10] MEDS: Pantoprazole Inj IVP SCH (21:23)
[2018-03-10] MEDS: Heparin 5000 units/ml inj SUBQ SCH (21:30)
[2018-03-10] MEDS ORDERED: Vancomycin 1250mg/D5W 250ml IVPB SCH (22:00)
[2018-03-10] MEDS: Vancomycin 1250mg/D5W 250ml 250 ML IVPB SCH (22:17)
[2018-03-10] MEDS: LORazepam Inj 2mg/ml 1ml IV PRN (22:20)
[2018-03-10] MEDS: Morphine Sulfate 4mg/ml Inj IVP PRN (22:22)
[2018-03-11] VITALS (24 sets, daily range): BP systolic 90–133; BP diastolic 20–77
--- NOTE | 2018-03-11 | History and Physical Report ---
DATE OF ADMISSION: 03/09/2018 TIME: 4 p.m. CONSULTANTS: 1. Zia Li M.D. 2. Bernardo Hammonds M.D. CHIEF COMPLAINT: UTI, sepsis, shock, edema, and lower extremity cellulitis. BRIEF HISTORY: This is a 72-year-old male who presents to [facility] with history of increased weakness, lethargy, and leg swelling, diagnosed with UTI, sepsis, shock, edema, and lower extremity cellulitis. The patient is admitted to intensive care unit due to a low blood pressure. Currently calm, O2 NC, sleeping in bed, not responding to questions. REVIEW OF SYSTEMS: Unavailable. PAST MEDICAL HISTORY: Diabetes, encephalopathy, ATN, obese. PAST SURGICAL HISTORY: Unknown. ALLERGIES: Denies. SOCIAL HISTORY: Unable to obtain, secondary to the patient's condition. PHYSICAL EXAMINATION: GENERAL: O2 NC, lethargic in bed, not responding to questions. VITAL SIGNS: Temperature 99 degrees, pulse 101, respiratory rate 15, and blood pressure 110/57. CARDIOVASCULAR: No murmurs. LUNGS: Poor air exchange. ABDOMEN: Bowel sounds positive. Nontender and nondistended. EXTREMITIES: No cyanosis or clubbing. 1+ edema below mid maxwell, redness, slight swollen, slightly warm, and slightly scaling. LABORATORY DATA: White count 15, hemoglobin and hematocrit 10/30, and platelets 194. Otherwise CBC is normal. BMP showed BUN and creatinine 31/2.2, glucose 223 normal. Urinalysis shows 3+ occult blood, otherwise normal, 4+ glucose, 3+ ketones. MEDICATIONS: Vancomycin, lorazepam, Zosyn, morphine, clindamycin, heparin, insulin, and albuterol. ASSESSMENT: 1. Urinary tract infection. 2. Sepsis. 3. Shock. 4. Anemia. 5. Edema. 6. Lower extremity cellulitis. 7. Acute tubular necrosis. 8. Diabetes. 9. Encephalopathy. 10. Obesity. PLAN: 1. Continue previous medications. 2. Wound care. 3. Blood pressure and blood sugar. 4. Pain control. 5. Dietary followup. 6. OT and pulmonary treatment. 7. OT, PT, and dietary evaluation. 8. CBC and BMP in the morning. 9. We will continue to follow this patient. 10. Dr. Li, Dr. Hammonds, and Dr. Mena to consult. Ok Curry D.O. DR: RENETTA JOB#: [id number] CC:
[2018-03-11 02:30] LABS: APPEARANCE,URINE SLIGHTLY CLOUDY; BILIRUBIN, URINE NEGATIVE (NEGATIVE); COLOR,URINE PALE YELLOW; GLUCOSE, URINE (UA) 4+ (NEGATIVE); KETONES,URINE NEGATIVE (NEGATIVE); LEUKOCYTE ESTERASE ,URINE NEGATIVE (NEGATIVE); NITRITE,URINE NEGATIVE (NEGATIVE); PH,URINE 5 (4.5-8.0); PROTEIN,URINE 2+ (NEGATIVE); UROBILINOGEN,URINE NORMAL MG/DL (0.0-1.0)
[2018-03-11] MEDS: Clindamycin 600mg 50 ML IV SCH ×3 (03:39→20:01)
[2018-03-11] MEDS: Piperacillin/Tazobactam 3.375 GM in D5W 110 ML IVPB SCH ×3 (03:40→20:01)
[2018-03-11] MEDS: LORazepam Inj 2mg/ml 1ml IV PRN ×4 (04:08→22:50)
[2018-03-11 05:37] LABS: HEMATOCRIT 29.7 % (42.0-52.0); HEMOGLOBIN 9.8 G/DL (14.2-18.0); MEAN CORPUSCULAR VOLUME 85 FL (80-99); PLATELET COUNT 155 K/UL (150-450); RED BLOOD COUNT 3.49 M/UL (4.70-6.10); RED CELL DISTRIBUTION WIDTH 15.6 % (11.6-14.8); WHITE BLOOD COUNT 12.9 K/UL (4.8-10.8)
[2018-03-11 05:53] LABS: ALANINE AMINOTRANSFERASE 21 U/L (12-78); ALBUMIN 1.8 G/DL (3.4-5.0); ALBUMIN/GLOBULIN RATIO 0.4 (1.0-2.7); ALKALINE PHOSPHATASE 65 U/L (46-116); ANION GAP 12 mmol/L (5-15); ASPARTATE AMINO TRANSFERASE 47 U/L (15-37); BILIRUBIN,TOTAL 0.5 MG/DL (0.2-1.0); BLOOD UREA NITROGEN 65 mg/dL (7-18); CALCIUM 8.5 MG/DL (8.5-10.1); CARBON DIOXIDE 22 MMOL/L (21-32); CHLORIDE 108 MMOL/L (98-107); CREATININE 2.2 MG/DL (0.55-1.30); POTASSIUM 4.8 MMOL/L (3.5-5.1); SODIUM 141 MMOL/L (136-145)
[2018-03-11 06:13] LABS: PHOSPHORUS 4.6 MG/DL (2.5-4.9)
[2018-03-11] MEDS: NovoLOG Insulin Flexpen SUBQ SCH ×4 (06:29→21:11)
--- NOTE | 2018-03-11 07:11 | Pulmonolgy Critical Care Note ---
Critical Care - Asmt/Plan Assessment/Plan: ASSESSMENT Acute encephalopathy( likely secondary to sepsis) Sepsis with bacteremia Bilateral leg cellulitis Diabetic foot ulcer right heel, r/o osteo Diabetes mellitus type 2 with diabetic neuropathy Lactic acidosis Acute kidney injury possibly on CRI Hypertension Hyperlipidemia Hyperkalemia Obesity PLAN of CARE ICU fluid resuscitation Empiric antibiotic, follow up with cultures, blood cx + GPC 01/04 ID follows. MRI R foot - r/o osteo unable to do due to obesity, get bone scan Supplemental oxygen, pulmonary toilet prn CXR negative IV fluids antipruritic prn watch BP ECHO Arterial and Venous Duplex BLE blood sugar management with sliding scale wound care surgery follows to r/o early necrotizing fasciitis podiatry seen and examined, wound care diabetic ulcer R foot as per podiatry bowel regimen monitor renal parameters, electrolytes, correct electrolytes as needed ,avoid nephrotoxic DVT, GI prophylaxis case discussed and evaluated by supervising physician Critical Care - Objective Last 24 Hour Vital Signs Date Time Temp Pulse Resp B/P (MAP) Pulse Ox O2 Delivery O2 Flow Rate FiO2 03/11/18 06:00 101 16 93/20 97 Nasal Cannula 2.0 03/11/18 05:00 104 17 95/30 97 Nasal Cannula 2.0 03/11/18 04:00 104 03/11/18 04:00 104 18 97/37 97 Nasal Cannula 2.0 03/11/18 03:00 99.9 102 18 90/34 97 Nasal Cannula 2.0 99.9 03/11/18 03:00 99.9 03/11/18 02:00 110 18 121/38 97 Nasal Cannula 2.0 03/11/18 01:52 101.3 03/11/18 01:00 101.3 105 18 93/55 100 Nasal Cannula 2.0 101.3 03/11/18 00:00 103 03/11/18 00:00 102 18 95/57 100 Nasal Cannula 2.0 03/10/18 23:00 100 18 103/40 100 Nasal Cannula 2.0 03/10/18 22:00 99 18 112/81 100 Nasal Cannula 2.0 03/10/18 21:00 92 15 108/56 100 Nasal Cannula 2.0 03/10/18 20:00 99.5 92 15 94/59 98 Nasal Cannula 2.0 99.5 03/10/18 20:00 95 03/10/18 19:50 100 Nasal Cannula 3.0 03/10/18 19:50 Nasal Cannula 3.0 03/10/18 19:49 95 20 Nasal Cannula 3.0 32 03/10/18 19:00 93 18 101/68 100 Nasal Cannula 2.0 03/10/18 18:00 100 18 174/60 100 Nasal Cannula 2.0 03/10/18 17:00 96 20 101/54 99 Nasal Cannula 2.0 03/10/18 16:00 99.8 101 15 110/57 97 Nasal Cannula 2.0 99.8 03/10/18 16:00 100 03/10/18 15:11 99.8 03/10/18 15:00 106 20 97/51 96 Nasal Cannula 2.0 03/10/18 14:41 100.2 03/10/18 14:00 111 20 97/51 94 Nasal Cannula 2.0 03/10/18 13:00 102.0 120 20 89/52 93 Nasal Cannula 2.0 102.0 03/10/18 12:00 101.2 122 20 99/52 95 Nasal Cannula 2.0 101.2 03/10/18 11:50 122 03/10/18 10:42 101.2 03/10/18 09:43 102.2 03/10/18 08:14 90 Nasal Cannula 3.0 03/10/18 08:14 Nasal Cannula 3.0 03/10/18 08:14 116 22 Nasal Cannula 3.0 32 03/10/18 08:11 128 03/10/18 08:00 102.2 128 20 156/63 91 Room Air 102.2 Status: awake Condition: critical HEENT: atraumatic Lungs: clear Heart: HR/BP stable Abdomen: soft - obese, non-tender, active bowel sounds Extremities: other - bilateral lower legs cellulitis, with chronic skin changes , R heel ulcer Micro: Microbiology Date/Time Source Procedure Growth Status 03/10/18 17:00 Nasopharynx Influenza Types A,B Antigen (FLORENCIO) - Final Complete Accucheck: 211 Critical Care - Subjective ROS Limited/Unobtainable: Yes Interval Events: leukocytosis trending down , afebrile this am, but febrile at night blood cx 4/4 GPC no signs of resp distress creat down to 2.2 Condition: critical EKG Rhythm: Sinus Rhythm FI02: 32 Sputum Amount: None Fluids: 1/2 NS at 150 I&O: Intake and Output 03/10/18 03/11/18 19:00 07:00 Intake Total 960.0 ml 2118.75 ml Output Total 1400 ml Balance 960.0 ml 718.75 ml Intake Oral 90 ml IV Total 910.0 ml 2028.75 ml Other 50 ml Output Urine Total 1400 ml # Voids 2 CXR: 03/11 Increased pulmonary vascular markings suggestive of congestion. Ramona Cazares [employer] Mar 11, 2018 07:11
[2018-03-11] MEDS: Pantoprazole Inj IVP SCH ×2 (08:34→20:56)
[2018-03-11] MEDS: Heparin 5000 units/ml inj SUBQ SCH ×2 (08:36→20:57)
[2018-03-11] MEDS: Dakin's 0.125% Soln (Quarter Strength) 16oz TOPIC SCH (08:37)
[2018-03-11] MEDS: Morphine Sulfate 4mg/ml Inj IVP PRN ×3 (08:55→20:03)
[2018-03-11] MEDS ORDERED: Dakin's 0.125% Soln (Quarter Strength) 16oz TOPIC SCH (09:00)
--- NOTE | 2018-03-11 09:41 | General Progress Note ---
Assessment/Plan Problem List: (1) Sepsis ICD Codes: A41.9 - Sepsis, unspecified organism SNOMED: 71596971 (2) Cellulitis, leg ICD Codes: L03.119 - Cellulitis of unspecified part of limb SNOMED: 718346374 (3) UTI (urinary tract infection) ICD Codes: N39.0 - Urinary tract infection, site not specified SNOMED: 14596822 (4) Diabetes mellitus ICD Codes: E11.9 - Type 2 diabetes mellitus without complications SNOMED: 35146778 (5) Obesity ICD Codes: E66.9 - Obesity, unspecified SNOMED: 326103942, 264876356 (6) Acute encephalopathy ICD Codes: G93.40 - Encephalopathy, unspecified SNOMED: 15592743, 250221058 (7) ATN (acute tubular necrosis) ICD Codes: N17.0 - Acute kidney failure with tubular necrosis SNOMED: 84931331 Status: unchanged Assessment/Plan o2 pulm tx abx wound care neph f/u cbc bmp am Subjective Constitutional: Reports: weakness Allergies: Coded Allergies: No Known Allergies (Unverified , 03/09/18) All Systems: reviewed and negative except above Subjective 02nc sleep Objective Last 24 Hour Vital Signs Date Time Temp Pulse Resp B/P (MAP) Pulse Ox O2 Delivery O2 Flow Rate FiO2 03/11/18 08:55 98.7 03/11/18 08:00 98.8 96 20 103/47 96 Nasal Cannula 2.0 98.8 03/11/18 07:00 97 18 99/42 97 Nasal Cannula 2.0 03/11/18 06:00 101 16 93/20 97 Nasal Cannula 2.0 03/11/18 05:00 104 17 95/30 97 Nasal Cannula 2.0 03/11/18 04:00 104 03/11/18 04:00 104 18 97/37 97 Nasal Cannula 2.0 03/11/18 03:00 99.9 102 18 90/34 97 Nasal Cannula 2.0 99.9 03/11/18 03:00 99.9 03/11/18 02:00 110 18 121/38 97 Nasal Cannula 2.0 03/11/18 01:52 101.3 03/11/18 01:00 101.3 105 18 93/55 100 Nasal Cannula 2.0 101.3 03/11/18 00:00 103 03/11/18 00:00 102 18 95/57 100 Nasal Cannula 2.0 03/10/18 23:00 100 18 103/40 100 Nasal Cannula 2.0 03/10/18 22:00 99 18 112/81 100 Nasal Cannula 2.0 03/10/18 21:00 92 15 108/56 100 Nasal Cannula 2.0 03/10/18 20:00 99.5 92 15 94/59 98 Nasal Cannula 2.0 99.5 03/10/18 20:00 95 03/10/18 19:50 100 Nasal Cannula 3.0 03/10/18 19:50 Nasal Cannula 3.0 03/10/18 19:49 95 20 Nasal Cannula 3.0 32 03/10/18 19:00 93 18 101/68 100 Nasal Cannula 2.0 03/10/18 18:00 100 18 174/60 100 Nasal Cannula 2.0 03/10/18 17:00 96 20 101/54 99 Nasal Cannula 2.0 03/10/18 16:00 99.8 101 15 110/57 97 Nasal Cannula 2.0 99.8 03/10/18 16:00 100 03/10/18 15:11 99.8 03/10/18 15:00 106 20 97/51 96 Nasal Cannula 2.0 03/10/18 14:41 100.2 03/10/18 14:00 111 20 97/51 94 Nasal Cannula 2.0 03/10/18 13:00 102.0 120 20 89/52 93 Nasal Cannula 2.0 102.0 03/10/18 12:00 101.2 122 20 99/52 95 Nasal Cannula 2.0 101.2 03/10/18 11:50 122 03/10/18 10:42 101.2 03/10/18 09:43 102.2 Intake and Output 03/10/18 03/11/18 19:00 07:00 Intake Total 960.0 ml 2118.75 ml Output Total 1400 ml Balance 960.0 ml 718.75 ml Intake Oral 90 ml IV Total 910.0 ml 2028.75 ml Other 50 ml Output Urine Total 1400 ml # Voids 2 Laboratory Tests 03/10/18 10:55: White Blood Count 15.6H, Red Blood Count 3.65L, Hemoglobin 10.2L, Hematocrit 30.9L, Mean Corpuscular Volume 85, Mean Corpuscular Hemoglobin 28.0, Mean Corpuscular Hemoglobin Concent 33.1, Red Cell Distribution Width 15.4H, Platelet Count 194, Mean Platelet Volume 10.2H, Neutrophils (%) (Auto) , Lymphocytes (%) (Auto) , Monocytes (%) (Auto) , Eosinophils (%) (Auto) , Basophils (%) (Auto) , Differential Total Cells Counted 100, Neutrophils % ( Manual) 85H, Lymphocytes % (Manual) 9L, Monocytes % (Manual) 2, Eosinophils % ( Manual) 0, Basophils % (Manual) 0, Band Neutrophils 4, Platelet Estimate Adequate, Platelet Morphology Normal, Hypochromasia 1+, Anisocytosis 1+, Sodium Level 140, Potassium Level 4.8, Chloride Level 107, Carbon Dioxide Level 24, Anion Gap 9, Blood Urea Nitrogen 71H, Creatinine 2.2H, Estimat Glomerular Filtration Rate , Glucose Level 223H, Uric Acid 10.1H, Calcium Level 8.8, Total Bilirubin 0.5, Aspartate Amino Transf (AST/SGOT) 31, Alanine Aminotransferase ( ALT/SGPT) 15, Alkaline Phosphatase 64, Total Creatine Kinase 641H, Total Protein 7.2, Albumin 2.1L, Globulin 5.1, Albumin/Globulin Ratio 0.4L 03/10/18 17:10: Lactic Acid Level 1.80 03/10/18 22:00: Urine Color Pale yellow, Urine Appearance Slightly cloudy, Urine pH 5, Urine Specific [place] 1.015, Urine Protein 2+H, Urine Glucose (UA) 4+H, Urine Ketones Negative, Urine Occult Blood 4+H, Urine Nitrite Negative, Urine Bilirubin Negative, Urine Urobilinogen Normal, Urine Leukocyte Esterase Negative , Urine RBC 2-4H, Urine WBC 0-2, Urine Squamous Epithelial Cells Occasional, Urine Amorphous Sediment ModerateH, Urine Bacteria Few, Urine Eosinophils None seen, Urine Random Sodium 23, Urine Potassium Timed 33 03/11/18 04:30: White Blood Count 12.9H, Red Blood Count 3.49L, Hemoglobin 9.8L, Hematocrit 29.7L, Mean Corpuscular Volume 85, Mean Corpuscular Hemoglobin 28.2, Mean Corpuscular Hemoglobin Concent 33.1, Red Cell Distribution Width 15.6H, Platelet Count 155, Mean Platelet Volume 10.1, Neutrophils (%) (Auto) , Lymphocytes (%) (Auto) , Monocytes (%) (Auto) , Eosinophils (%) (Auto) , Basophils (%) (Auto) , Neutrophils % (Manual) [Pending], Lymphocytes % (Manual) [Pending], Platelet Estimate [Pending], Platelet Morphology [Pending], Sodium Level 141, Potassium Level 4.8, Chloride Level 108H, Carbon Dioxide Level 22, Anion Gap 12, Blood Urea Nitrogen 65H, Creatinine 2.2H, Estimat Glomerular Filtration Rate , Glucose Level 237H, Calcium Level 8.5, Total Bilirubin 0.5, Aspartate Amino Transf (AST/SGOT) 47H, Alanine Aminotransferase (ALT/SGPT) 21, Alkaline Phosphatase 65, Total Protein 6.8, Albumin 1.8L, Globulin 5.0, Albumin/ Globulin Ratio 0.4L, Erythrocyte Sedimentation Rate 115H, Phosphorus Level 4.6, Magnesium Level 2.8H, C-Reactive Protein, Quantitative 45.8H Height (Feet): 6 Height (Inches): 1.00 Weight (Pounds): 341 General Appearance: lethargic EENT: normal ENT inspection Neck: normal alignment Cardiovascular: normal peripheral pulses, normal rate, regular rhythm Respiratory/Chest: chest wall non-tender, lungs clear, normal breath sounds Abdomen: normal bowel sounds, non tender, soft Extremities: normal inspection Edema: 1+ Arm (L), 1+ Arm (R), 1+ Leg (L), 1+ Leg (R), 1+ Pedal (L), 1+ Pedal ( R), 1+ Generalized Edema: trace edema Neurologic: motor weakness Skin: normal pigmentation, warm/dry Ok Curry DO Mar 11, 2018 09:41
--- NOTE | 2018-03-11 10:11 | Diagnostic Imaging Report ---
INDICATION: Dyspnea COMPARISON: Chest x-ray dated 03/09/18 FINDINGS: Single frontal view demonstrates a normal cardiomediastinal silhouette. Increased pulmonary vascular markings suggestive of congestion. No pleural effusions. The visualized osseous structures are within normal limits. IMPRESSION: Increased pulmonary vascular markings suggestive of congestion.
[2018-03-11] MEDS ORDERED: Tubing IV Secondary IV ONE (10:49)
[2018-03-11] MEDS ORDERED: 1/2 NS 1000ml IV ONE (10:49)
--- NOTE | 2018-03-11 12:56 | General Surgery Progress Note ---
General Surgery-Progress Note Subjective Symptoms: improved Additional Comments leukocytosis improving. still not alert and oriented but more comfortable. Objective Last 24 Hour Vital Signs Date Time Temp Pulse Resp B/P (MAP) Pulse Ox O2 Delivery O2 Flow Rate FiO2 03/11/18 11:00 92 18 98/47 95 Nasal Cannula 2.0 03/11/18 10:00 96 18 93/40 95 Nasal Cannula 2.0 03/11/18 09:25 98.6 03/11/18 09:00 96 18 121/51 97 Nasal Cannula 2.0 03/11/18 08:55 98.7 03/11/18 08:23 95 Nasal Cannula 3.0 03/11/18 08:23 Nasal Cannula 3.0 03/11/18 08:23 95 22 Nasal Cannula 3.0 32 03/11/18 08:00 98.8 96 20 103/47 96 Nasal Cannula 2.0 98.8 03/11/18 08:00 97 03/11/18 07:00 97 18 99/42 97 Nasal Cannula 2.0 03/11/18 06:00 101 16 93/20 97 Nasal Cannula 2.0 03/11/18 05:00 104 17 95/30 97 Nasal Cannula 2.0 03/11/18 04:00 104 03/11/18 04:00 104 18 97/37 97 Nasal Cannula 2.0 03/11/18 03:00 99.9 102 18 90/34 97 Nasal Cannula 2.0 99.9 03/11/18 03:00 99.9 03/11/18 02:00 110 18 121/38 97 Nasal Cannula 2.0 03/11/18 01:52 101.3 03/11/18 01:00 101.3 105 18 93/55 100 Nasal Cannula 2.0 101.3 03/11/18 00:00 103 03/11/18 00:00 102 18 95/57 100 Nasal Cannula 2.0 03/10/18 23:00 100 18 103/40 100 Nasal Cannula 2.0 03/10/18 22:00 99 18 112/81 100 Nasal Cannula 2.0 03/10/18 21:00 92 15 108/56 100 Nasal Cannula 2.0 03/10/18 20:00 99.5 92 15 94/59 98 Nasal Cannula 2.0 99.5 03/10/18 20:00 95 03/10/18 19:50 100 Nasal Cannula 3.0 03/10/18 19:50 Nasal Cannula 3.0 03/10/18 19:49 95 20 Nasal Cannula 3.0 32 03/10/18 19:00 93 18 101/68 100 Nasal Cannula 2.0 03/10/18 18:00 100 18 174/60 100 Nasal Cannula 2.0 03/10/18 17:00 96 20 101/54 99 Nasal Cannula 2.0 03/10/18 16:00 99.8 101 15 110/57 97 Nasal Cannula 2.0 99.8 03/10/18 16:00 100 03/10/18 15:11 99.8 03/10/18 15:00 106 20 97/51 96 Nasal Cannula 2.0 03/10/18 14:41 100.2 03/10/18 14:00 111 20 97/51 94 Nasal Cannula 2.0 03/10/18 13:00 102.0 120 20 89/52 93 Nasal Cannula 2.0 102.0 I&O Intake and Output 03/10/18 03/11/18 19:00 07:00 Intake Total 960.0 ml 2118.75 ml Output Total 1400 ml Balance 960.0 ml 718.75 ml Intake Oral 90 ml IV Total 910.0 ml 2028.75 ml Other 50 ml Output Urine Total 1400 ml # Voids 2 Wound: clean, dry Drains: none Cardiovascular: RSR Respiratory: clear Abdomen: soft, flat, non-tender, present bowel sounds Extremities: edema, tenderness Laboratory Tests Test 03/10/18 17:10 03/10/18 22:00 03/11/18 04:30 Lactic Acid Level 1.80 mmol/L (0.4-2.0) Urine Color Pale yellow Urine Appearance Slightly cloudy Urine pH 5 (4.5-8.0) Urine Specific [place] 1.015 (1.005-1.035) Urine Protein 2+ (NEGATIVE) H Urine Glucose (UA) 4+ (NEGATIVE) H Urine Ketones Negative (NEGATIVE) Urine Occult Blood 4+ (NEGATIVE) H Urine Nitrite Negative (NEGATIVE) Urine Bilirubin Negative (NEGATIVE) Urine Urobilinogen Normal MG/DL (0.0-1.0) Urine Leukocyte Esterase Negative (NEGATIVE) Urine RBC 2-4 /HPF (0 - 0) H Urine WBC 0-2 /HPF (0 - 0) Urine Squamous Epithelial Cells Occasional /LPF Urine Amorphous Sediment Moderate /LPF (NONE) H Urine Bacteria Few /HPF (NONE) Urine Eosinophils None seen Urine Random Sodium 23 mmol/L (20-110) Urine Potassium Timed 33 mmol/L (12-62) White Blood Count 12.9 K/UL (4.8-10.8) H Red Blood Count 3.49 M/UL (4.70-6.10) L Hemoglobin 9.8 G/DL (14.2-18.0) L Hematocrit 29.7 % (42.0-52.0) L Mean Corpuscular Volume 85 FL (80-99) Mean Corpuscular Hemoglobin 28.2 PG (27.0-31.0) Mean Corpuscular Hemoglobin Concent 33.1 G/DL (32.0-36.0) Red Cell Distribution Width 15.6 % (11.6-14.8) H Platelet Count 155 K/UL (150-450) Mean Platelet Volume 10.1 FL (6.5-10.1) Neutrophils (%) (Auto) % (45.0-75.0) Lymphocytes (%) (Auto) % (20.0-45.0) Monocytes (%) (Auto) % (1.0-10.0) Eosinophils (%) (Auto) % (0.0-3.0) Basophils (%) (Auto) % (0.0-2.0) Differential Total Cells Counted 100 Neutrophils % (Manual) 81 % (45-75) H Lymphocytes % (Manual) 3 % (20-45) L Monocytes % (Manual) 5 % (1-10) Eosinophils % (Manual) 2 % (0-3) Basophils % (Manual) 1 % (0-2) Band Neutrophils 8 % (0-8) Platelet Estimate Adequate Platelet Morphology Normal Erythrocyte Sedimentation Rate 115 MM/HR (0-20) H Sodium Level 141 MMOL/L (136-145) Potassium Level 4.8 MMOL/L (3.5-5.1) Chloride Level 108 MMOL/L (98-107) H Carbon Dioxide Level 22 MMOL/L (21-32) Anion Gap 12 mmol/L (5-15) Blood Urea Nitrogen 65 mg/dL (7-18) H Creatinine 2.2 MG/DL (0.55-1.30) H Estimat Glomerular Filtration Rate mL/min (>60) Glucose Level 237 MG/DL (74-106) H Calcium Level 8.5 MG/DL (8.5-10.1) Phosphorus Level 4.6 MG/DL (2.5-4.9) Magnesium Level 2.8 MG/DL (1.8-2.4) H Total Bilirubin 0.5 MG/DL (0.2-1.0) Aspartate Amino Transf (AST/SGOT) 47 U/L (15-37) H Alanine Aminotransferase (ALT/SGPT) 21 U/L (12-78) Alkaline Phosphatase 65 U/L (46-116) C-Reactive Protein, Quantitative 45.8 mg/dL (0.00-0.90) H Total Protein 6.8 G/DL (6.4-8.2) Albumin 1.8 G/DL (3.4-5.0) L Globulin 5.0 g/dL Albumin/Globulin Ratio 0.4 (1.0-2.7) L Plan Problems: (1) Sepsis Assessment & Plan: 72M sepsis with fevers, leukocytosis, altered mental status. chronic bilateral lower extremity wounds with cellulitis. concerns for possible necrotizing fascitis initially. unlikely nec fasc given exam. wounds chronic and skin changes chronic. leukocytosis improving today. overall somewhat better today. -no acute surgical intervention necessary. -Abx as per ID -appreciate podiatry input -cont with dressings for now -will follow with you thank you for this consultation (2) Cellulitis, leg Leandro Scott Mar 11, 2018 12:56
--- NOTE | 2018-03-11 16:18 | Consultation ---
Consult Note Consult Note asked to eval for high Cr Patient presents with complaints of altered mental status patient has apparently been feeling confused for the past few days Family reports that today he's just started to act more normal However given the several days of decreased activity confusion Patient was reported speaking essentially gibberish is what was reported Here the patient is awake does appear mildly lethargic and slow to respond There was no reports of chest pain or short of breath patient was febrile here as well and found to be tachycardic No Known Allergies (Unverified , 03/09/18) Hx Diabetes: Yes examined in ICU Meds , data reviewed discussed with RN . Assessment/Plan Renal failure- likely Diabetic nephropathy UTI , Sepsis , Cellulitis DM Obesity Acute Encephalopathy HypoAlbuminemia, Likely NS Pulmonary support- 2D Echo Kidney TIN gomez Antibiotics Monitor renal parameters avoid Nephrotoxics DIA WALSH Mar 11, 2018 16:18
[2018-03-11] MEDS: Vancomycin 1250mg/D5W 250ml 250 ML IVPB SCH (22:21)
[2018-03-12] VITALS (15 sets, daily range): BP systolic 120–145; BP diastolic 48–71
[2018-03-12] MEDS: Clindamycin 600mg 50 ML IV SCH ×3 (04:00→20:37)
[2018-03-12] MEDS: Piperacillin/Tazobactam 3.375 GM in D5W 110 ML IVPB SCH ×2 (04:00→12:39)
[2018-03-12] MEDS: LORazepam Inj 2mg/ml 1ml IV PRN ×2 (04:37→09:35)
[2018-03-12 05:24] LABS: BASOPHILS % (AUTO) 0.7 % (0.0-2.0); EOSINOPHILS % (AUTO) 2.5 % (0.0-3.0); HEMATOCRIT 30.5 % (42.0-52.0); HEMOGLOBIN 9.9 G/DL (14.2-18.0); LYMPHOCYTES % (AUTO) 7.3 % (20.0-45.0); MEAN CORPUSCULAR VOLUME 85 FL (80-99); MONOCYTES % (AUTO) 13.4 % (1.0-10.0); NEUTROPHILS % (AUTO) 76.2 % (45.0-75.0); PLATELET COUNT 158 K/UL (150-450); RED BLOOD COUNT 3.58 M/UL (4.70-6.10); RED CELL DISTRIBUTION WIDTH 16.1 % (11.6-14.8); WHITE BLOOD COUNT 11.8 K/UL (4.8-10.8)
[2018-03-12 05:47] LABS: AMMONIA 17 umol/L (11-32)
[2018-03-12 05:58] LABS: ALANINE AMINOTRANSFERASE 24 U/L (12-78); ALBUMIN 1.8 G/DL (3.4-5.0); ALBUMIN/GLOBULIN RATIO 0.3 (1.0-2.7); ALKALINE PHOSPHATASE 69 U/L (46-116); ANION GAP 13 mmol/L (5-15); ASPARTATE AMINO TRANSFERASE 35 U/L (15-37); BILIRUBIN,TOTAL 0.5 MG/DL (0.2-1.0); BLOOD UREA NITROGEN 53 mg/dL (7-18); CALCIUM 8.9 MG/DL (8.5-10.1); CARBON DIOXIDE 22 MMOL/L (21-32); CHLORIDE 107 MMOL/L (98-107); CHOLESTEROL 92 MG/DL (< 200); CREATINE KINASE 286 U/L (26-308); GAMMA GLUTAMYL TRANSPEPTIDASE 11 U/L (5-85); HDL CHOLESTEROL 12 MG/DL (40-60); POTASSIUM 4.8 MMOL/L (3.5-5.1); SODIUM 142 MMOL/L (136-145); TRIGLYCERIDES 168 MG/DL (30-150)
[2018-03-12] MEDS: NovoLOG Insulin Flexpen SUBQ SCH ×4 (06:10→20:37)
[2018-03-12] MEDS: Morphine Sulfate 4mg/ml Inj IVP PRN ×2 (07:04→11:53)
--- NOTE | 2018-03-12 07:35 | Pulmonolgy Critical Care Note ---
Critical Care - Asmt/Plan Assessment/Plan: ASSESSMENT Acute encephalopathy( likely secondary to sepsis) Sepsis with bacteremia Bilateral leg cellulitis Diabetic foot ulcer right heel, r/o osteo Diabetes mellitus type 2 with diabetic neuropathy Elevated troponin Lactic acidosis Acute kidney injury possibly on CRI moderate pulmonary HTN elevated troponin Hypertension Hyperlipidemia Hyperkalemia Obesity PLAN of CARE ICU decrease IVF rate to 75 watch BP closely single episode of elevated troponin, no cardiac complaints, ECG no acute changes cardio follows will check another troponinx2 but presentation not c/w ACS Empiric antibiotic, follow up with cultures, blood cx + GPC 01/04 ID follows. MRI R foot - r/o osteo unable to do due to obesity, get bone scan on Tuesday Supplemental oxygen, pulmonary toilet prn CXR negative fup with CXR in am IV fluids antipruritic prn ECHO with pEF 55% and RVSP of 55 c/w3 mod pulm HTN Arterial and Venous Duplex BLE blood sugar management with sliding scale pain management, pain specialist consult wound care surgery follows to r/o early necrotizing fasciitis podiatry seen and examined, wound care diabetic ulcer R foot as per podiatry bowel regimen monitor renal parameters, electrolytes, correct electrolytes as needed ,avoid nephrotoxic DVT, GI prophylaxis transfer to [facility] case discussed and evaluated by supervising physician Critical Care - Objective Last 24 Hour Vital Signs Date Time Temp Pulse Resp B/P (MAP) Pulse Ox O2 Delivery O2 Flow Rate FiO2 03/12/18 07:00 93 18 137/64 98 Nasal Cannula 2.0 03/12/18 06:00 93 18 130/60 98 Nasal Cannula 2.0 03/12/18 05:00 93 18 132/58 98 Nasal Cannula 2.0 03/12/18 04:00 98.6 90 18 133/56 98 Nasal Cannula 2.0 98.6 03/12/18 04:00 92 03/12/18 03:00 93 18 123/53 96 Nasal Cannula 2.0 03/12/18 02:00 93 18 120/48 96 Nasal Cannula 2.0 03/12/18 01:00 94 18 127/59 97 Nasal Cannula 2.0 03/12/18 00:00 96 03/12/18 00:00 98.6 95 18 133/58 97 Nasal Cannula 2.0 98.6 03/11/18 23:00 95 18 130/56 97 Nasal Cannula 2.0 03/11/18 22:00 95 17 133/58 97 Nasal Cannula 2.0 03/11/18 21:00 95 18 122/52 97 Nasal Cannula 2.0 03/11/18 20:00 98.7 95 18 115/56 97 Nasal Cannula 2.0 98.7 03/11/18 20:00 93 03/11/18 19:25 96 20 Nasal Cannula 3.0 32 03/11/18 19:25 97 Nasal Cannula 3.0 32 03/11/18 19:25 Nasal Cannula 3.0 32 03/11/18 19:00 95 18 107/52 97 Nasal Cannula 2.0 03/11/18 18:00 91 18 114/50 99 Nasal Cannula 2.0 03/11/18 17:00 93 18 92/41 99 Nasal Cannula 2.0 03/11/18 16:12 98.6 03/11/18 16:00 92 03/11/18 16:00 98.6 94 20 92/44 99 Nasal Cannula 2.0 98.6 03/11/18 15:42 98.8 03/11/18 15:00 92 20 118/46 97 Nasal Cannula 2.0 03/11/18 14:00 91 18 112/46 94 Nasal Cannula 2.0 03/11/18 13:00 94 18 104/46 94 Nasal Cannula 2.0 03/11/18 12:00 96 03/11/18 12:00 98.4 94 20 99/77 97 Nasal Cannula 2.0 98.4 03/11/18 11:00 92 18 98/47 95 Nasal Cannula 2.0 03/11/18 10:00 96 18 93/40 95 Nasal Cannula 2.0 03/11/18 09:00 96 18 121/51 97 Nasal Cannula 2.0 03/11/18 08:55 98.7 03/11/18 08:23 95 Nasal Cannula 3.0 03/11/18 08:23 Nasal Cannula 3.0 03/11/18 08:23 95 22 Nasal Cannula 3.0 32 03/11/18 08:00 98.8 96 20 103/47 96 Nasal Cannula 2.0 98.8 03/11/18 08:00 97 Objective: Status: awake, drowsy Condition: improving HEENT: atraumatic Lungs: clear Heart: HR/BP stable Abdomen: soft, obese, non-tender, active bowel sounds Extremities: bilateral lower legs cellulitis, with chronic skin changes, R heel ulcer Micro: Microbiology Date/Time Source Procedure Growth Status 03/09/18 21:43 Blood Blood Culture - Preliminary Gram Positive Cocci Resulted 03/09/18 21:30 Blood Blood Culture - Preliminary Gram Positive Cocci Resulted 03/10/18 17:00 Nasopharynx Influenza Types A,B Antigen (FLORENCIO) - Final Complete Accucheck: 211 Critical Care - Subjective ROS Limited/Unobtainable: Yes Interval Events: leukocytosis trending down, afebrile BP better elevated troponin this am, pro BNP 2936 creat at 2.0 Condition: improving EKG Rhythm: Sinus Rhythm FI02: 32 Sputum Amount: None Fluids: 1/2 NS at 150 I&O: Intake and Output 03/11/18 03/12/18 19:00 07:00 Intake Total 1910.0 ml 1760.0005 ml Output Total 1800 ml 1060 ml Balance 110.0 ml 700.0005 ml Intake Oral 50 ml 300 ml IV Total 1810.0 ml 1460.0005 ml Other 50 ml Output Urine Total 1800 ml 1060 ml CXR: Increased pulmonary vascular markings suggestive of congestion. Ramona Cazares [employer] Mar 12, 2018 07:35
[2018-03-12] MEDS ORDERED: Albuterol/Ipratropium 3ml neb HHN PRN ×2 (08:15→16:15)
--- NOTE | 2018-03-12 08:45 | General Progress Note ---
Assessment/Plan Problem List: (1) Sepsis ICD Codes: A41.9 - Sepsis, unspecified organism SNOMED: 52294583 Qualifiers: Qualified Codes: A41.9 - Sepsis, unspecified organism (2) Cellulitis, leg ICD Codes: L03.119 - Cellulitis of unspecified part of limb SNOMED: 390521676 (3) UTI (urinary tract infection) ICD Codes: N39.0 - Urinary tract infection, site not specified SNOMED: 32723004 (4) Diabetes mellitus ICD Codes: E11.9 - Type 2 diabetes mellitus without complications SNOMED: 67494602 (5) Obesity ICD Codes: E66.9 - Obesity, unspecified SNOMED: 815658768, 948755725 (6) Acute encephalopathy ICD Codes: G93.40 - Encephalopathy, unspecified SNOMED: 95730746, 685961745 (7) ATN (acute tubular necrosis) ICD Codes: N17.0 - Acute kidney failure with tubular necrosis SNOMED: 85190024 Status: unchanged Assessment/Plan o2 pulm tx abx wound care neph f/u cardio eval cbc bmp am Subjective Constitutional: Reports: weakness Allergies: Coded Allergies: No Known Allergies (Unverified , 03/09/18) All Systems: reviewed and negative except above Subjective 02nc sleep Objective Last 24 Hour Vital Signs Date Time Temp Pulse Resp B/P (MAP) Pulse Ox O2 Delivery O2 Flow Rate FiO2 03/12/18 07:00 93 18 137/64 98 Nasal Cannula 2.0 03/12/18 06:00 93 18 130/60 98 Nasal Cannula 2.0 03/12/18 05:00 93 18 132/58 98 Nasal Cannula 2.0 03/12/18 04:00 98.6 90 18 133/56 98 Nasal Cannula 2.0 98.6 03/12/18 04:00 92 03/12/18 03:00 93 18 123/53 96 Nasal Cannula 2.0 03/12/18 02:00 93 18 120/48 96 Nasal Cannula 2.0 03/12/18 01:00 94 18 127/59 97 Nasal Cannula 2.0 03/12/18 00:00 96 03/12/18 00:00 98.6 95 18 133/58 97 Nasal Cannula 2.0 98.6 03/11/18 23:00 95 18 130/56 97 Nasal Cannula 2.0 03/11/18 22:00 95 17 133/58 97 Nasal Cannula 2.0 03/11/18 21:00 95 18 122/52 97 Nasal Cannula 2.0 03/11/18 20:00 98.7 95 18 115/56 97 Nasal Cannula 2.0 98.7 03/11/18 20:00 93 03/11/18 19:25 96 20 Nasal Cannula 3.0 32 03/11/18 19:25 97 Nasal Cannula 3.0 32 03/11/18 19:25 Nasal Cannula 3.0 32 03/11/18 19:00 95 18 107/52 97 Nasal Cannula 2.0 03/11/18 18:00 91 18 114/50 99 Nasal Cannula 2.0 03/11/18 17:00 93 18 92/41 99 Nasal Cannula 2.0 03/11/18 16:12 98.6 03/11/18 16:00 92 03/11/18 16:00 98.6 94 20 92/44 99 Nasal Cannula 2.0 98.6 03/11/18 15:42 98.8 03/11/18 15:00 92 20 118/46 97 Nasal Cannula 2.0 03/11/18 14:00 91 18 112/46 94 Nasal Cannula 2.0 03/11/18 13:00 94 18 104/46 94 Nasal Cannula 2.0 03/11/18 12:00 96 03/11/18 12:00 98.4 94 20 99/77 97 Nasal Cannula 2.0 98.4 03/11/18 11:00 92 18 98/47 95 Nasal Cannula 2.0 03/11/18 10:00 96 18 93/40 95 Nasal Cannula 2.0 03/11/18 09:00 96 18 121/51 97 Nasal Cannula 2.0 03/11/18 08:55 98.7 Intake and Output 03/11/18 03/12/18 19:00 07:00 Intake Total 1910.0 ml 1760.0005 ml Output Total 1800 ml 1060 ml Balance 110.0 ml 700.0005 ml Intake Oral 50 ml 300 ml IV Total 1810.0 ml 1460.0005 ml Other 50 ml Output Urine Total 1800 ml 1060 ml Laboratory Tests 03/11/18 21:30: Vancomycin Level Trough 9.8 03/12/18 04:55: White Blood Count 11.8H, Red Blood Count 3.58L, Hemoglobin 9.9L, Hematocrit 30.5L, Mean Corpuscular Volume 85, Mean Corpuscular Hemoglobin 27.7, Mean Corpuscular Hemoglobin Concent 32.5, Red Cell Distribution Width 16.1H, Platelet Count 158, Mean Platelet Volume 10.0, Neutrophils (%) (Auto) 76.2H, Lymphocytes (%) (Auto) 7.3L, Monocytes (%) (Auto) 13.4H, Eosinophils (%) (Auto) 2.5, Basophils (%) (Auto) 0.7, Sodium Level 142, Potassium Level 4.8, Chloride Level 107, Carbon Dioxide Level 22, Anion Gap 13, Blood Urea Nitrogen 53H, Creatinine 2.0H, Estimat Glomerular Filtration Rate , Glucose Level 214H, Uric Acid 7.7H, Calcium Level 8.9, Phosphorus Level 4.0, Magnesium Level 3.0H, Total Bilirubin 0.5, Gamma Glutamyl Transpeptidase 11, Aspartate Amino Transf (AST/ SGOT) 35, Alanine Aminotransferase (ALT/SGPT) 24, Alkaline Phosphatase 69, Ammonia 17, Total Creatine Kinase 286, Troponin I 0.130H, Pro-B-Type Natriuretic Peptide [Pending], Total Protein 7.2, Albumin 1.8L, Globulin 5.4, Albumin/Globulin Ratio 0.3L, Triglycerides Level 168H, Cholesterol Level 92, LDL Cholesterol 41, HDL Cholesterol 12L, Cholesterol/HDL Ratio 7.7H, Lipase 631H , Vitamin B12 Level 1378H, Thyroid Stimulating Hormone (TSH) 0.678, Cortisol AM Sample [Pending] Height (Feet): 6 Height (Inches): 1.00 Weight (Pounds): 338 General Appearance: lethargic EENT: normal ENT inspection Neck: normal alignment Cardiovascular: normal peripheral pulses, normal rate, regular rhythm Respiratory/Chest: chest wall non-tender, lungs clear, normal breath sounds Abdomen: normal bowel sounds, non tender, soft Extremities: normal inspection Edema: 1+ Arm (L), 1+ Arm (R), 1+ Leg (L), 1+ Leg (R), 1+ Pedal (L), 1+ Pedal ( R), 1+ Generalized Edema: trace edema Neurologic: motor weakness Skin: normal pigmentation, warm/dry Ok Curry DO Mar 12, 2018 08:45
[2018-03-12] MEDS: Pantoprazole Inj IVP SCH ×2 (08:46→20:15)
[2018-03-12] MEDS: Heparin 5000 units/ml inj SUBQ SCH ×2 (08:47→20:38)
[2018-03-12] MEDS: Dakin's 0.125% Soln (Quarter Strength) 16oz TOPIC SCH (08:49)
--- NOTE | 2018-03-12 10:14 | Nephrology Progress Note ---
Assessment/Plan Problem List: (1) Diabetic nephropathy (2) Cellulitis, leg (3) UTI (urinary tract infection) (4) Sepsis (5) Acute encephalopathy (6) Obesity Assessment Renal failure- likely Diabetic nephropathy UTI , Sepsis , Cellulitis DM Obesity Acute Encephalopathy HypoAlbuminemia, Likely NS Plan Pulmonary support- 2D Echo pending Kidney TIN pending gomez Antibiotics Monitor renal parameters avoid Nephrotoxics Subjective ROS Limited/Unobtainable: No Constitutional: Reports: malaise, weakness Objective Objective Last 24 Hour Vital Signs Date Time Temp Pulse Resp B/P (MAP) Pulse Ox O2 Delivery O2 Flow Rate FiO2 03/12/18 08:00 98.4 91 20 143/62 98 Nasal Cannula 2.0 98.4 03/12/18 07:00 93 18 137/64 98 Nasal Cannula 2.0 03/12/18 06:00 93 18 130/60 98 Nasal Cannula 2.0 03/12/18 05:00 93 18 132/58 98 Nasal Cannula 2.0 03/12/18 04:00 98.6 90 18 133/56 98 Nasal Cannula 2.0 98.6 03/12/18 04:00 92 03/12/18 03:00 93 18 123/53 96 Nasal Cannula 2.0 03/12/18 02:00 93 18 120/48 96 Nasal Cannula 2.0 03/12/18 01:00 94 18 127/59 97 Nasal Cannula 2.0 03/12/18 00:00 96 03/12/18 00:00 98.6 95 18 133/58 97 Nasal Cannula 2.0 98.6 03/11/18 23:00 95 18 130/56 97 Nasal Cannula 2.0 03/11/18 22:00 95 17 133/58 97 Nasal Cannula 2.0 03/11/18 21:00 95 18 122/52 97 Nasal Cannula 2.0 03/11/18 20:00 98.7 95 18 115/56 97 Nasal Cannula 2.0 98.7 03/11/18 20:00 93 03/11/18 19:25 96 20 Nasal Cannula 3.0 32 03/11/18 19:25 97 Nasal Cannula 3.0 32 03/11/18 19:25 Nasal Cannula 3.0 32 03/11/18 19:00 95 18 107/52 97 Nasal Cannula 2.0 03/11/18 18:00 91 18 114/50 99 Nasal Cannula 2.0 03/11/18 17:00 93 18 92/41 99 Nasal Cannula 2.0 03/11/18 16:12 98.6 03/11/18 16:00 92 03/11/18 16:00 98.6 94 20 92/44 99 Nasal Cannula 2.0 98.6 03/11/18 15:42 98.8 03/11/18 15:00 92 20 118/46 97 Nasal Cannula 2.0 03/11/18 14:00 91 18 112/46 94 Nasal Cannula 2.0 03/11/18 13:00 94 18 104/46 94 Nasal Cannula 2.0 03/11/18 12:00 96 03/11/18 12:00 98.4 94 20 99/77 97 Nasal Cannula 2.0 98.4 03/11/18 11:00 92 18 98/47 95 Nasal Cannula 2.0 Intake and Output 03/11/18 03/12/18 19:00 07:00 Intake Total 1910.0 ml 1760.0005 ml Output Total 1800 ml 1060 ml Balance 110.0 ml 700.0005 ml Intake Oral 50 ml 300 ml IV Total 1810.0 ml 1460.0005 ml Other 50 ml Output Urine Total 1800 ml 1060 ml Laboratory Tests 03/11/18 21:30: Vancomycin Level Trough 9.8 03/12/18 04:55: White Blood Count 11.8H, Red Blood Count 3.58L, Hemoglobin 9.9L, Hematocrit 30.5L, Mean Corpuscular Volume 85, Mean Corpuscular Hemoglobin 27.7, Mean Corpuscular Hemoglobin Concent 32.5, Red Cell Distribution Width 16.1H, Platelet Count 158, Mean Platelet Volume 10.0, Neutrophils (%) (Auto) 76.2H, Lymphocytes (%) (Auto) 7.3L, Monocytes (%) (Auto) 13.4H, Eosinophils (%) (Auto) 2.5, Basophils (%) (Auto) 0.7, Sodium Level 142, Potassium Level 4.8, Chloride Level 107, Carbon Dioxide Level 22, Anion Gap 13, Blood Urea Nitrogen 53H, Creatinine 2.0H, Estimat Glomerular Filtration Rate , Glucose Level 214H, Uric Acid 7.7H, Calcium Level 8.9, Phosphorus Level 4.0, Magnesium Level 3.0H, Total Bilirubin 0.5, Gamma Glutamyl Transpeptidase 11, Aspartate Amino Transf (AST/ SGOT) 35, Alanine Aminotransferase (ALT/SGPT) 24, Alkaline Phosphatase 69, Ammonia 17, Total Creatine Kinase 286, Troponin I 0.130H, Pro-B-Type Natriuretic Peptide 2936H, Total Protein 7.2, Albumin 1.8L, Globulin 5.4, Albumin/Globulin Ratio 0.3L, Triglycerides Level 168H, Cholesterol Level 92, LDL Cholesterol 41, HDL Cholesterol 12L, Cholesterol/HDL Ratio 7.7H, Lipase 631H , Vitamin B12 Level 1378H, Thyroid Stimulating Hormone (TSH) 0.678, Cortisol AM Sample [Pending] 03/12/18 10:03: Arterial Blood pH 7.380, Arterial Blood Partial Pressure CO2 38.4, Arterial Blood Partial Pressure O2 86.6, Arterial Blood HCO3 22.7, Arterial Blood Oxygen Saturation 94.6, Arterial Blood Base Excess -2.0, Matt Test Positive Height (Feet): 6 Height (Inches): 1.00 Weight (Pounds): 338 General Appearance: no apparent distress, lethargic Cardiovascular: normal rate Respiratory/Chest: decreased breath sounds Abdomen: distended DIA WALSH Mar 12, 2018 10:14
--- NOTE | 2018-03-12 12:14 | Infectious Diseases Prog Note ---
Assessment/Plan Assessment/Plan Assessment: Sepsis severe b/l Leg soft tissue infection, R foot necrotic ulcer- suspect bacteremia (Strep > Staph); r/o early necrotizing fascitis, r/o R foot OM +/- abscess. Bacteremia -Bcx :GPC in chain -u/a neg -CXR L:NAPD Fever, SP Leukocytosis improving Lactic acidosis, resolved elev lipase Influenza sc : neg JOSE, improving HTN HLD GERD Dm2 Plan: -Continue IV Vancomycin and IV Clindamycin d# 3 , DC Zosyn d # 3 ( iv view of +ve blood Cx : Strp ) 03/10 SP Switch Cefepime d# 1 -MRI R foot -Venous and arterial duplex BLE -f/u cx, CXR -Monitor CBC/BMP, temperatures -Cdiff, -Sx eval- to monitor for nec fascitis -Pod following may need MRI of Back when more stable ( LBP has worsen recently ) Ro discitis . Subjective Allergies: Coded Allergies: No Known Allergies (Unverified , 03/09/18) Subjective Afebrile Objective Vital Signs Last 24 Hour Vital Signs Date Time Temp Pulse Resp B/P (MAP) Pulse Ox O2 Delivery O2 Flow Rate FiO2 03/12/18 11:53 98.4 03/12/18 10:00 91 19 140/68 97 Nasal Cannula 2.0 03/12/18 09:00 94 19 144/68 96 Nasal Cannula 2.0 03/12/18 08:00 98.4 91 20 143/62 98 Nasal Cannula 2.0 98.4 03/12/18 08:00 87 03/12/18 07:00 93 18 137/64 98 Nasal Cannula 2.0 03/12/18 06:00 93 18 130/60 98 Nasal Cannula 2.0 03/12/18 05:00 93 18 132/58 98 Nasal Cannula 2.0 03/12/18 04:00 98.6 90 18 133/56 98 Nasal Cannula 2.0 98.6 03/12/18 04:00 92 03/12/18 03:00 93 18 123/53 96 Nasal Cannula 2.0 03/12/18 02:00 93 18 120/48 96 Nasal Cannula 2.0 03/12/18 01:00 94 18 127/59 97 Nasal Cannula 2.0 03/12/18 00:00 96 03/12/18 00:00 98.6 95 18 133/58 97 Nasal Cannula 2.0 98.6 03/11/18 23:00 95 18 130/56 97 Nasal Cannula 2.0 03/11/18 22:00 95 17 133/58 97 Nasal Cannula 2.0 03/11/18 21:00 95 18 122/52 97 Nasal Cannula 2.0 03/11/18 20:00 98.7 95 18 115/56 97 Nasal Cannula 2.0 98.7 03/11/18 20:00 93 03/11/18 19:25 96 20 Nasal Cannula 3.0 32 03/11/18 19:25 97 Nasal Cannula 3.0 32 03/11/18 19:25 Nasal Cannula 3.0 32 03/11/18 19:00 95 18 107/52 97 Nasal Cannula 2.0 03/11/18 18:00 91 18 114/50 99 Nasal Cannula 2.0 03/11/18 17:00 93 18 92/41 99 Nasal Cannula 2.0 03/11/18 16:12 98.6 03/11/18 16:00 92 03/11/18 16:00 98.6 94 20 92/44 99 Nasal Cannula 2.0 98.6 03/11/18 15:42 98.8 03/11/18 15:00 92 20 118/46 97 Nasal Cannula 2.0 03/11/18 14:00 91 18 112/46 94 Nasal Cannula 2.0 03/11/18 13:00 94 18 104/46 94 Nasal Cannula 2.0 Height (Feet): 6 Height (Inches): 1.00 Weight (Pounds): 338 HEENT: anicteric Respiratory/Chest: normal breath sounds Cardiovascular: regularly irregular Abdomen: non distended Microbiology Date/Time Source Procedure Growth Status 03/09/18 21:43 Blood Blood Culture - Preliminary Gram Positive Cocci Resulted 03/09/18 21:30 Blood Blood Culture - Preliminary Gram Positive Cocci Resulted 03/10/18 17:00 Nasopharynx Influenza Types A,B Antigen (FLORENCIO) - Final Complete Laboratory Tests Test 03/11/18 21:30 03/12/18 04:55 03/12/18 10:03 Vancomycin Level Trough 9.8 ug/mL (5.0-12.0) White Blood Count 11.8 K/UL (4.8-10.8) H Red Blood Count 3.58 M/UL (4.70-6.10) L Hemoglobin 9.9 G/DL (14.2-18.0) L Hematocrit 30.5 % (42.0-52.0) L Mean Corpuscular Volume 85 FL (80-99) Mean Corpuscular Hemoglobin 27.7 PG (27.0-31.0) Mean Corpuscular Hemoglobin Concent 32.5 G/DL (32.0-36.0) Red Cell Distribution Width 16.1 % (11.6-14.8) H Platelet Count 158 K/UL (150-450) Mean Platelet Volume 10.0 FL (6.5-10.1) Neutrophils (%) (Auto) 76.2 % (45.0-75.0) H Lymphocytes (%) (Auto) 7.3 % (20.0-45.0) L Monocytes (%) (Auto) 13.4 % (1.0-10.0) H Eosinophils (%) (Auto) 2.5 % (0.0-3.0) Basophils (%) (Auto) 0.7 % (0.0-2.0) Sodium Level 142 MMOL/L (136-145) Potassium Level 4.8 MMOL/L (3.5-5.1) Chloride Level 107 MMOL/L (98-107) Carbon Dioxide Level 22 MMOL/L (21-32) Anion Gap 13 mmol/L (5-15) Blood Urea Nitrogen 53 mg/dL (7-18) H Creatinine 2.0 MG/DL (0.55-1.30) H Estimat Glomerular Filtration Rate mL/min (>60) Glucose Level 214 MG/DL (74-106) H Uric Acid 7.7 MG/DL (2.6-7.2) H Calcium Level 8.9 MG/DL (8.5-10.1) Phosphorus Level 4.0 MG/DL (2.5-4.9) Magnesium Level 3.0 MG/DL (1.8-2.4) H Total Bilirubin 0.5 MG/DL (0.2-1.0) Gamma Glutamyl Transpeptidase 11 U/L (5-85) Aspartate Amino Transf (AST/SGOT) 35 U/L (15-37) Alanine Aminotransferase (ALT/SGPT) 24 U/L (12-78) Alkaline Phosphatase 69 U/L (46-116) Ammonia 17 umol/L (11-32) Total Creatine Kinase 286 U/L (26-308) Troponin I 0.130 ng/mL (0.000-0.056) Pro-B-Type Natriuretic Peptide 2936 pg/mL (0-125) H Total Protein 7.2 G/DL (6.4-8.2) Albumin 1.8 G/DL (3.4-5.0) L Globulin 5.4 g/dL Albumin/Globulin Ratio 0.3 (1.0-2.7) L Triglycerides Level 168 MG/DL (30-150) H Cholesterol Level 92 MG/DL (< 200) LDL Cholesterol 41 mg/dL (<100) HDL Cholesterol 12 MG/DL (40-60) L Cholesterol/HDL Ratio 7.7 (3.3-4.4) H Lipase 631 U/L (73-393) H Vitamin B12 Level 1378 PG/ML (193-986) H Thyroid Stimulating Hormone (TSH) 0.678 uiU/mL (0.358-3.740) Cortisol AM Sample Pending Arterial Blood pH 7.380 (7.350-7.450) Arterial Blood Partial Pressure CO2 38.4 mmHg (35.0-45.0) Arterial Blood Partial Pressure O2 86.6 mmHg (75.0-100.0) Arterial Blood HCO3 22.7 mmol/L (22.0-26.0) Arterial Blood Oxygen Saturation 94.6 % (92.0-98.0) Arterial Blood Base Excess -2.0 Matt Test Positive Current Medications Medications (Trade) Dose Ordered Sig/Nancy Route PRN Reason Start Time Stop Time Status Last Admin Dose Admin Acetaminophen (Tylenol) 650 mg Q4H PRN ORAL fever (temp>100.5F) 03/10/18 20:15 04/09/18 20:14 03/11/18 01:52 Albuterol/ Ipratropium (Albuterol/ Ipratropium) 3 ml Q4H PRN HHN Shortness of Breath 03/12/18 08:15 03/16/18 08:14 Clindamycin HCl/ Dextrose 50 ml @ 100 mls/hr Q8HR@0400,1200,2000 IV 03/10/18 20:15 03/17/18 20:14 03/12/18 11:52 Dextrose (Dextrose 50%) 25 ml STAT PRN IV Hypoglycemia 03/10/18 20:15 04/09/18 20:14 Dextrose (Dextrose 50%) 50 ml STAT PRN IV Hypoglycemia 03/10/18 20:15 04/08/18 20:14 Gadobutrol (Gadavist) 7.5 mmol NOW PRN IV Radiology Procedure 03/10/18 20:15 03/12/18 20:14 Heparin Sodium (Porcine) (Heparin 5000 units/ml) 5,000 units EVERY 12 HOURS SUBQ 03/10/18 21:00 04/09/18 08:59 03/12/18 08:47 Insulin Aspart (NovoLOG) BEFORE MEALS AND HS SUBQ 03/10/18 21:00 04/09/18 06:29 03/12/18 12:08 Lorazepam (Ativan 2mg/ml 1ml) 1 mg Q4H PRN IV For Anxiety 03/10/18 20:15 03/17/18 20:14 03/12/18 09:35 Morphine Sulfate (Morphine Sulfate) 2 mg Q4H PRN IVP Severe Pain (Pain Scale 7-10) 03/10/18 20:15 03/17/18 20:14 03/12/18 11:53 Nitroglycerin (Ntg) 0.4 mg Q5M PRN SL Prn Chest Pain 03/10/18 20:05 04/08/18 22:14 Ondansetron HCl (Zofran) 4 mg Q6H PRN IVP Nausea & Vomiting 03/10/18 20:15 04/08/18 20:14 Pantoprazole (Protonix) 40 mg EVERY 12 HOURS IVP 03/10/18 21:00 04/09/18 20:59 03/12/18 08:46 Piperacillin Sod/ Tazobactam Sod 3.375 gm/Dextrose 110 ml @ 27.5 mls/hr Q8HR@0400,1200,2000 IVPB 03/10/18 20:15 03/17/18 20:14 03/12/18 04:00 Sodium Hypochlorite (Dakin's Quarter Strength) 1 applic DAILY TOPIC 03/11/18 09:00 04/10/18 08:59 03/12/18 08:49 Sodium Chloride 1,000 ml @ 75 mls/hr [id number] IV 03/12/18 20:15 04/09/18 20:14 Vancomycin HCl (Vanco rx to dose) 1 ea DAILY PRN MISC RX TO DOSE VANCO 03/11/18 09:00 04/09/18 13:59 Vancomycin HCl/ Dextrose 250 ml @ 166.667 mls/hr Q24H IVPB 03/10/18 22:00 03/15/18 21:59 03/11/18 22:21 Bernardo Hammonds MD Mar 12, 2018 12:14
--- NOTE | 2018-03-12 13:13 | Consultation ---
History of Present Illness General Date patient seen: Mar 12, 2018 Chief Complaint: Altered Level of Consciousness Reason for Consultation: bilateral lower extremity infection Present Illness Allergies: Coded Allergies: No Known Allergies (Unverified , 03/09/18) Medication History Scheduled Atorvastatin Calcium* (Atorvastatin Calcium*), 40 MG ORAL BEDTIME, (Reported) Canagliflozin (Invokana), 300 MG PO DAILY, (Reported) Fosinopril Sodium (Fosinopril Sodium), 40 MG PO DAILY, (Reported) Furosemide* (Lasix*), 40 MG ORAL DAILY, (Reported) Meloxicam* (Meloxicam*), 15 MG PO DAILY, (Reported) Metformin Hcl* (Metformin Hcl*), 850 MG ORAL TID, (Reported) Multivitamins* (Multivitamins*), 1 TAB ORAL DAILY, (Reported) Pantoprazole* (Pantoprazole*), 40 MG ORAL DAILY, (Reported) Ranitidine Hcl* (Zantac*), 300 MG ORAL DAILY, (Reported) Scheduled PRN Hydrocodone Bit/Acetaminophen 10-325* ([place] 10-325*), 1 TAB ORAL Q6H PRN for For Pain, (Reported) Naproxen Sodium (Aleve), 220 MG PO Q6HR PRN for For Pain, (Reported) Oxycodone Hcl (Oxycodone Hcl), 30 MG ORAL Q6HR PRN for For Pain, (Reported) Oxycodone Hcl Er* (Oxycontin*), 80 MG ORAL EVERY 12 HOURS PRN for For Pain, ( Reported) Patient History Healthcare decision maker N Resuscitation status Full Code Advanced Directive on File No Physical Exam Last 24 Hour Vital Signs Date Time Temp Pulse Resp B/P (MAP) Pulse Ox O2 Delivery O2 Flow Rate FiO2 03/12/18 12:38 98.4 03/12/18 11:53 98.4 03/12/18 10:00 91 19 140/68 97 Nasal Cannula 2.0 03/12/18 09:00 94 19 144/68 96 Nasal Cannula 2.0 03/12/18 08:00 98.4 91 20 143/62 98 Nasal Cannula 2.0 98.4 03/12/18 08:00 87 03/12/18 07:00 93 18 137/64 98 Nasal Cannula 2.0 03/12/18 06:00 93 18 130/60 98 Nasal Cannula 2.0 03/12/18 05:00 93 18 132/58 98 Nasal Cannula 2.0 03/12/18 04:00 98.6 90 18 133/56 98 Nasal Cannula 2.0 98.6 03/12/18 04:00 92 03/12/18 03:00 93 18 123/53 96 Nasal Cannula 2.0 03/12/18 02:00 93 18 120/48 96 Nasal Cannula 2.0 03/12/18 01:00 94 18 127/59 97 Nasal Cannula 2.0 03/12/18 00:00 96 03/12/18 00:00 98.6 95 18 133/58 97 Nasal Cannula 2.0 98.6 03/11/18 23:00 95 18 130/56 97 Nasal Cannula 2.0 03/11/18 22:00 95 17 133/58 97 Nasal Cannula 2.0 03/11/18 21:00 95 18 122/52 97 Nasal Cannula 2.0 03/11/18 20:00 98.7 95 18 115/56 97 Nasal Cannula 2.0 98.7 03/11/18 20:00 93 03/11/18 19:25 96 20 Nasal Cannula 3.0 32 03/11/18 19:25 97 Nasal Cannula 3.0 32 03/11/18 19:25 Nasal Cannula 3.0 32 03/11/18 19:00 95 18 107/52 97 Nasal Cannula 2.0 03/11/18 18:00 91 18 114/50 99 Nasal Cannula 2.0 03/11/18 17:00 93 18 92/41 99 Nasal Cannula 2.0 03/11/18 16:00 92 03/11/18 16:00 98.6 94 20 92/44 99 Nasal Cannula 2.0 98.6 03/11/18 15:42 98.8 03/11/18 15:00 92 20 118/46 97 Nasal Cannula 2.0 03/11/18 14:00 91 18 112/46 94 Nasal Cannula 2.0 Intake and Output 03/11/18 03/12/18 19:00 07:00 Intake Total 1910.0 ml 1760.0005 ml Output Total 1800 ml 1060 ml Balance 110.0 ml 700.0005 ml Intake Oral 50 ml 300 ml IV Total 1810.0 ml 1460.0005 ml Other 50 ml Output Urine Total 1800 ml 1060 ml Laboratory Tests Test 6/9/18 21:30 03/12/18 04:55 03/12/18 10:03 03/12/18 12:25 Vancomycin Level Trough 9.8 ug/mL (5.0-12.0) White Blood Count 11.8 K/UL (4.8-10.8) H Red Blood Count 3.58 M/UL (4.70-6.10) L Hemoglobin 9.9 G/DL (14.2-18.0) L Hematocrit 30.5 % (42.0-52.0) L Mean Corpuscular Volume 85 FL (80-99) Mean Corpuscular Hemoglobin 27.7 PG (27.0-31.0) Mean Corpuscular Hemoglobin Concent 32.5 G/DL (32.0-36.0) Red Cell Distribution Width 16.1 % (11.6-14.8) H Platelet Count 158 K/UL (150-450) Mean Platelet Volume 10.0 FL (6.5-10.1) Neutrophils (%) (Auto) 76.2 % (45.0-75.0) H Lymphocytes (%) (Auto) 7.3 % (20.0-45.0) L Monocytes (%) (Auto) 13.4 % (1.0-10.0) H Eosinophils (%) (Auto) 2.5 % (0.0-3.0) Basophils (%) (Auto) 0.7 % (0.0-2.0) Sodium Level 142 MMOL/L (136-145) Potassium Level 4.8 MMOL/L (3.5-5.1) Chloride Level 107 MMOL/L (98-107) Carbon Dioxide Level 22 MMOL/L (21-32) Anion Gap 13 mmol/L (5-15) Blood Urea Nitrogen 53 mg/dL (7-18) H Creatinine 2.0 MG/DL (0.55-1.30) H Estimat Glomerular Filtration Rate mL/min (>60) Glucose Level 214 MG/DL (74-106) H Uric Acid 7.7 MG/DL (2.6-7.2) H Calcium Level 8.9 MG/DL (8.5-10.1) Phosphorus Level 4.0 MG/DL (2.5-4.9) Magnesium Level 3.0 MG/DL (1.8-2.4) H Total Bilirubin 0.5 MG/DL (0.2-1.0) Gamma Glutamyl Transpeptidase 11 U/L (5-85) Aspartate Amino Transf (AST/SGOT) 35 U/L (15-37) Alanine Aminotransferase (ALT/SGPT) 24 U/L (12-78) Alkaline Phosphatase 69 U/L (46-116) Ammonia 17 umol/L (11-32) Total Creatine Kinase 286 U/L (26-308) Troponin I 0.130 ng/mL (0.000-0.056) 0.099 ng/mL (0.000-0.056) Pro-B-Type Natriuretic Peptide 2936 pg/mL (0-125) H Total Protein 7.2 G/DL (6.4-8.2) Albumin 1.8 G/DL (3.4-5.0) L Globulin 5.4 g/dL Albumin/Globulin Ratio 0.3 (1.0-2.7) L Triglycerides Level 168 MG/DL (30-150) H Cholesterol Level 92 MG/DL (< 200) LDL Cholesterol 41 mg/dL (<100) HDL Cholesterol 12 MG/DL (40-60) L Cholesterol/HDL Ratio 7.7 (3.3-4.4) H Lipase 631 U/L (73-393) H Vitamin B12 Level 1378 PG/ML (193-986) H Thyroid Stimulating Hormone (TSH) 0.678 uiU/mL (0.358-3.740) Cortisol AM Sample Pending Arterial Blood pH 7.380 (7.350-7.450) Arterial Blood Partial Pressure CO2 38.4 mmHg (35.0-45.0) Arterial Blood Partial Pressure O2 86.6 mmHg (75.0-100.0) Arterial Blood HCO3 22.7 mmol/L (22.0-26.0) Arterial Blood Oxygen Saturation 94.6 % (92.0-98.0) Arterial Blood Base Excess -2.0 Matt Test Positive Height (Feet): 6 Height (Inches): 1.00 Weight (Pounds): 338 Medications Current Medications Medications (Trade) Dose Ordered Sig/Nancy Route PRN Reason Start Time Stop Time Status Last Admin Dose Admin Acetaminophen (Tylenol) 650 mg Q4H PRN ORAL fever (temp>100.5F) 03/10/18 20:15 04/09/18 20:14 03/11/18 01:52 Albuterol/ Ipratropium (Albuterol/ Ipratropium) 3 ml Q4H PRN HHN Shortness of Breath 03/12/18 08:15 03/16/18 08:14 Clindamycin HCl/ Dextrose 50 ml @ 100 mls/hr Q8HR@0400,1200,2000 IV 03/10/18 20:15 03/17/18 20:14 03/12/18 11:52 Dextrose (Dextrose 50%) 25 ml STAT PRN IV Hypoglycemia 03/10/18 20:15 04/09/18 20:14 Dextrose (Dextrose 50%) 50 ml STAT PRN IV Hypoglycemia 03/10/18 20:15 04/08/18 20:14 Gadobutrol (Gadavist) 7.5 mmol NOW PRN IV Radiology Procedure 03/10/18 20:15 03/12/18 20:14 Heparin Sodium (Porcine) (Heparin 5000 units/ml) 5,000 units EVERY 12 HOURS SUBQ 03/10/18 21:00 04/09/18 08:59 03/12/18 08:47 Insulin Aspart (NovoLOG) BEFORE MEALS AND HS SUBQ 03/10/18 21:00 04/09/18 06:29 03/12/18 12:08 Lorazepam (Ativan 2mg/ml 1ml) 1 mg Q4H PRN IV For Anxiety 03/10/18 20:15 03/17/18 20:14 03/12/18 09:35 Morphine Sulfate (Morphine Sulfate) 2 mg Q4H PRN IVP Severe Pain (Pain Scale 7-10) 03/10/18 20:15 03/17/18 20:14 03/12/18 11:53 Nitroglycerin (Ntg) 0.4 mg Q5M PRN SL Prn Chest Pain 03/10/18 20:05 04/08/18 22:14 Ondansetron HCl (Zofran) 4 mg Q6H PRN IVP Nausea & Vomiting 03/10/18 20:15 04/08/18 20:14 Pantoprazole (Protonix) 40 mg EVERY 12 HOURS IVP 03/10/18 21:00 04/09/18 20:59 03/12/18 08:46 Piperacillin Sod/ Tazobactam Sod 3.375 gm/Dextrose 110 ml @ 27.5 mls/hr Q8HR@0400,1200,2000 IVPB 03/10/18 20:15 03/17/18 20:14 03/12/18 12:39 Sodium Hypochlorite (Dakin's Quarter Strength) 1 applic DAILY TOPIC 03/11/18 09:00 04/10/18 08:59 03/12/18 08:49 Sodium Chloride 1,000 ml @ 75 mls/hr [id number] IV 03/12/18 20:15 04/09/18 20:14 Vancomycin HCl (Vanco rx to dose) 1 ea DAILY PRN MISC RX TO DOSE VANCO 03/11/18 09:00 04/09/18 13:59 Vancomycin HCl/ Dextrose 250 ml @ 166.667 mls/hr Q24H IVPB 03/10/18 22:00 03/15/18 21:59 03/11/18 22:21 Assessment/Plan Assessment/Plan (1) Altered level of consciousness (2) Acute encephalopathy (3) B/L LE cellulitis (4) Right heel ulcer (5) Peripheral neuropathy (6) Chronic pain syndrome (7) Narcotic tolerance seen dictated Antonio Whitten Mar 12, 2018 13:13
[2018-03-12] MEDS ORDERED: Hydromorphone 0.5mg/0.5ml inj IVP PRN (13:15)
--- NOTE | 2018-03-12 13:36 | General Surgery Progress Note ---
General Surgery-Progress Note Subjective Symptoms: improved Additional Comments leukocytosis improving. trop trending down Objective Last 24 Hour Vital Signs Date Time Temp Pulse Resp B/P (MAP) Pulse Ox O2 Delivery O2 Flow Rate FiO2 03/12/18 12:38 98.4 03/12/18 12:00 94 21 137/61 96 Nasal Cannula 2.0 03/12/18 11:53 98.4 03/12/18 11:00 93 21 136/66 97 Nasal Cannula 2.0 03/12/18 10:00 91 19 140/68 97 Nasal Cannula 2.0 03/12/18 09:00 94 19 144/68 96 Nasal Cannula 2.0 03/12/18 08:00 98.4 91 20 143/62 98 Nasal Cannula 2.0 98.4 03/12/18 08:00 87 03/12/18 07:00 93 18 137/64 98 Nasal Cannula 2.0 03/12/18 06:00 93 18 130/60 98 Nasal Cannula 2.0 03/12/18 05:00 93 18 132/58 98 Nasal Cannula 2.0 03/12/18 04:00 98.6 90 18 133/56 98 Nasal Cannula 2.0 98.6 03/12/18 04:00 92 03/12/18 03:00 93 18 123/53 96 Nasal Cannula 2.0 03/12/18 02:00 93 18 120/48 96 Nasal Cannula 2.0 03/12/18 01:00 94 18 127/59 97 Nasal Cannula 2.0 03/12/18 00:00 96 03/12/18 00:00 98.6 95 18 133/58 97 Nasal Cannula 2.0 98.6 03/11/18 23:00 95 18 130/56 97 Nasal Cannula 2.0 03/11/18 22:00 95 17 133/58 97 Nasal Cannula 2.0 03/11/18 21:00 95 18 122/52 97 Nasal Cannula 2.0 03/11/18 20:00 98.7 95 18 115/56 97 Nasal Cannula 2.0 98.7 03/11/18 20:00 93 03/11/18 19:25 96 20 Nasal Cannula 3.0 32 03/11/18 19:25 97 Nasal Cannula 3.0 32 03/11/18 19:25 Nasal Cannula 3.0 32 03/11/18 19:00 95 18 107/52 97 Nasal Cannula 2.0 03/11/18 18:00 91 18 114/50 99 Nasal Cannula 2.0 03/11/18 17:00 93 18 92/41 99 Nasal Cannula 2.0 03/11/18 16:00 92 03/11/18 16:00 98.6 94 20 92/44 99 Nasal Cannula 2.0 98.6 03/11/18 15:42 98.8 03/11/18 15:00 92 20 118/46 97 Nasal Cannula 2.0 03/11/18 14:00 91 18 112/46 94 Nasal Cannula 2.0 I&O Intake and Output 03/11/18 03/12/18 19:00 07:00 Intake Total 1910.0 ml 1910.0005 ml Output Total 1800 ml 1060 ml Balance 110.0 ml 850.0005 ml Intake Oral 50 ml 300 ml IV Total 1810.0 ml 1610.0005 ml Other 50 ml Output Urine Total 1800 ml 1060 ml Dressing: dry Wound: clean Drains: none Cardiovascular: RSR Respiratory: clear Abdomen: soft Extremities: edema, tenderness, cyanosis Laboratory Tests Test 03/11/18 21:30 03/12/18 04:55 03/12/18 10:03 03/12/18 12:25 Vancomycin Level Trough 9.8 ug/mL (5.0-12.0) White Blood Count 11.8 K/UL (4.8-10.8) H Red Blood Count 3.58 M/UL (4.70-6.10) L Hemoglobin 9.9 G/DL (14.2-18.0) L Hematocrit 30.5 % (42.0-52.0) L Mean Corpuscular Volume 85 FL (80-99) Mean Corpuscular Hemoglobin 27.7 PG (27.0-31.0) Mean Corpuscular Hemoglobin Concent 32.5 G/DL (32.0-36.0) Red Cell Distribution Width 16.1 % (11.6-14.8) H Platelet Count 158 K/UL (150-450) Mean Platelet Volume 10.0 FL (6.5-10.1) Neutrophils (%) (Auto) 76.2 % (45.0-75.0) H Lymphocytes (%) (Auto) 7.3 % (20.0-45.0) L Monocytes (%) (Auto) 13.4 % (1.0-10.0) H Eosinophils (%) (Auto) 2.5 % (0.0-3.0) Basophils (%) (Auto) 0.7 % (0.0-2.0) Sodium Level 142 MMOL/L (136-145) Potassium Level 4.8 MMOL/L (3.5-5.1) Chloride Level 107 MMOL/L (98-107) Carbon Dioxide Level 22 MMOL/L (21-32) Anion Gap 13 mmol/L (5-15) Blood Urea Nitrogen 53 mg/dL (7-18) H Creatinine 2.0 MG/DL (0.55-1.30) H Estimat Glomerular Filtration Rate mL/min (>60) Glucose Level 214 MG/DL (74-106) H Uric Acid 7.7 MG/DL (2.6-7.2) H Calcium Level 8.9 MG/DL (8.5-10.1) Phosphorus Level 4.0 MG/DL (2.5-4.9) Magnesium Level 3.0 MG/DL (1.8-2.4) H Total Bilirubin 0.5 MG/DL (0.2-1.0) Gamma Glutamyl Transpeptidase 11 U/L (5-85) Aspartate Amino Transf (AST/SGOT) 35 U/L (15-37) Alanine Aminotransferase (ALT/SGPT) 24 U/L (12-78) Alkaline Phosphatase 69 U/L (46-116) Ammonia 17 umol/L (11-32) Total Creatine Kinase 286 U/L (26-308) Troponin I 0.130 ng/mL (0.000-0.056) 0.099 ng/mL (0.000-0.056) Pro-B-Type Natriuretic Peptide 2936 pg/mL (0-125) H Total Protein 7.2 G/DL (6.4-8.2) Albumin 1.8 G/DL (3.4-5.0) L Globulin 5.4 g/dL Albumin/Globulin Ratio 0.3 (1.0-2.7) L Triglycerides Level 168 MG/DL (30-150) H Cholesterol Level 92 MG/DL (< 200) LDL Cholesterol 41 mg/dL (<100) HDL Cholesterol 12 MG/DL (40-60) L Cholesterol/HDL Ratio 7.7 (3.3-4.4) H Lipase 631 U/L (73-393) H Vitamin B12 Level 1378 PG/ML (193-986) H Thyroid Stimulating Hormone (TSH) 0.678 uiU/mL (0.358-3.740) Cortisol AM Sample Pending Arterial Blood pH 7.380 (7.350-7.450) Arterial Blood Partial Pressure CO2 38.4 mmHg (35.0-45.0) Arterial Blood Partial Pressure O2 86.6 mmHg (75.0-100.0) Arterial Blood HCO3 22.7 mmol/L (22.0-26.0) Arterial Blood Oxygen Saturation 94.6 % (92.0-98.0) Arterial Blood Base Excess -2.0 Matt Test Positive Plan Problems: (1) Sepsis Assessment & Plan: 72M sepsis with fevers, leukocytosis, altered mental status. chronic bilateral lower extremity wounds with cellulitis. concerns for possible necrotizing fascitis initially. unlikely nec fasc given exam. wounds chronic and skin changes chronic. LRINEC score on admission 10 but given chronicity of wounds, other etiology of sepsis, and physical exam unlikely nec fasc. -no acute surgical intervention necessary. -Abx as per ID -podiatry consult -cont with dressings for now -will follow with you thank you for this consultation (2) Cellulitis, leg Leandro Scott Mar 12, 2018 13:36
[2018-03-12] MEDS ORDERED: Nitroglycerin Subl 0.4mg tab SL PRN (15:45)
[2018-03-12] MEDS ORDERED: Gadavist 7.5mMol/7.5ml vial IV PRN (15:45)
[2018-03-12] MEDS ORDERED: LORazepam Inj 2mg/ml 1ml IV PRN (16:15)
[2018-03-12] MEDS ORDERED: 1/2 NS 1000ml IV ONE (17:13)
[2018-03-12] MEDS ORDERED: NS 500ML ONE (17:13)
--- NOTE | 2018-03-12 17:15 | Cardiac Electrophysiology PN ---
Subjective Subjective [id number] Objective Last 24 Hour Vital Signs Date Time Temp Pulse Resp B/P (MAP) Pulse Ox O2 Delivery O2 Flow Rate FiO2 03/12/18 16:00 95 03/12/18 15:21 98.4 03/12/18 12:38 98.4 03/12/18 12:00 98.7 94 21 137/61 96 Nasal Cannula 2.0 98.7 03/12/18 12:00 93 03/12/18 11:53 98.4 03/12/18 11:00 93 21 136/66 97 Nasal Cannula 2.0 03/12/18 10:01 Nasal Cannula 2.0 28 03/12/18 10:01 93 20 Nasal Cannula 2.0 28 03/12/18 10:01 96 Nasal Cannula 2.0 28 03/12/18 10:00 91 19 140/68 97 Nasal Cannula 2.0 03/12/18 09:00 94 19 144/68 96 Nasal Cannula 2.0 03/12/18 08:00 98.4 91 20 143/62 98 Nasal Cannula 2.0 98.4 03/12/18 08:00 87 03/12/18 07:00 93 18 137/64 98 Nasal Cannula 2.0 03/12/18 06:00 93 18 130/60 98 Nasal Cannula 2.0 03/12/18 05:00 93 18 132/58 98 Nasal Cannula 2.0 03/12/18 04:00 98.6 90 18 133/56 98 Nasal Cannula 2.0 98.6 03/12/18 04:00 92 03/12/18 03:00 93 18 123/53 96 Nasal Cannula 2.0 03/12/18 02:00 93 18 120/48 96 Nasal Cannula 2.0 03/12/18 01:00 94 18 127/59 97 Nasal Cannula 2.0 03/12/18 00:00 96 03/12/18 00:00 98.6 95 18 133/58 97 Nasal Cannula 2.0 98.6 03/11/18 23:00 95 18 130/56 97 Nasal Cannula 2.0 03/11/18 22:00 95 17 133/58 97 Nasal Cannula 2.0 03/11/18 21:00 95 18 122/52 97 Nasal Cannula 2.0 03/11/18 20:00 98.7 95 18 115/56 97 Nasal Cannula 2.0 98.7 03/11/18 20:00 93 03/11/18 19:25 96 20 Nasal Cannula 3.0 32 03/11/18 19:25 97 Nasal Cannula 3.0 32 03/11/18 19:25 Nasal Cannula 3.0 32 03/11/18 19:00 95 18 107/52 97 Nasal Cannula 2.0 03/11/18 18:00 91 18 114/50 99 Nasal Cannula 2.0 Intake and Output 03/11/18 03/12/18 19:00 07:00 Intake Total 1910.0 ml 1910.0005 ml Output Total 1800 ml 1060 ml Balance 110.0 ml 850.0005 ml Intake Oral 50 ml 300 ml IV Total 1810.0 ml 1610.0005 ml Other 50 ml Output Urine Total 1800 ml 1060 ml Laboratory Tests Test 03/11/18 21:30 03/12/18 04:55 03/12/18 10:03 03/12/18 12:25 Vancomycin Level Trough 9.8 ug/mL (5.0-12.0) White Blood Count 11.8 K/UL (4.8-10.8) H Red Blood Count 3.58 M/UL (4.70-6.10) L Hemoglobin 9.9 G/DL (14.2-18.0) L Hematocrit 30.5 % (42.0-52.0) L Mean Corpuscular Volume 85 FL (80-99) Mean Corpuscular Hemoglobin 27.7 PG (27.0-31.0) Mean Corpuscular Hemoglobin Concent 32.5 G/DL (32.0-36.0) Red Cell Distribution Width 16.1 % (11.6-14.8) H Platelet Count 158 K/UL (150-450) Mean Platelet Volume 10.0 FL (6.5-10.1) Neutrophils (%) (Auto) 76.2 % (45.0-75.0) H Lymphocytes (%) (Auto) 7.3 % (20.0-45.0) L Monocytes (%) (Auto) 13.4 % (1.0-10.0) H Eosinophils (%) (Auto) 2.5 % (0.0-3.0) Basophils (%) (Auto) 0.7 % (0.0-2.0) Sodium Level 142 MMOL/L (136-145) Potassium Level 4.8 MMOL/L (3.5-5.1) Chloride Level 107 MMOL/L (98-107) Carbon Dioxide Level 22 MMOL/L (21-32) Anion Gap 13 mmol/L (5-15) Blood Urea Nitrogen 53 mg/dL (7-18) H Creatinine 2.0 MG/DL (0.55-1.30) H Estimat Glomerular Filtration Rate mL/min (>60) Glucose Level 214 MG/DL (74-106) H Uric Acid 7.7 MG/DL (2.6-7.2) H Calcium Level 8.9 MG/DL (8.5-10.1) Phosphorus Level 4.0 MG/DL (2.5-4.9) Magnesium Level 3.0 MG/DL (1.8-2.4) H Total Bilirubin 0.5 MG/DL (0.2-1.0) Gamma Glutamyl Transpeptidase 11 U/L (5-85) Aspartate Amino Transf (AST/SGOT) 35 U/L (15-37) Alanine Aminotransferase (ALT/SGPT) 24 U/L (12-78) Alkaline Phosphatase 69 U/L (46-116) Ammonia 17 umol/L (11-32) Total Creatine Kinase 286 U/L (26-308) Troponin I 0.130 ng/mL (0.000-0.056) 0.099 ng/mL (0.000-0.056) Pro-B-Type Natriuretic Peptide 2936 pg/mL (0-125) H Total Protein 7.2 G/DL (6.4-8.2) Albumin 1.8 G/DL (3.4-5.0) L Globulin 5.4 g/dL Albumin/Globulin Ratio 0.3 (1.0-2.7) L Triglycerides Level 168 MG/DL (30-150) H Cholesterol Level 92 MG/DL (< 200) LDL Cholesterol 41 mg/dL (<100) HDL Cholesterol 12 MG/DL (40-60) L Cholesterol/HDL Ratio 7.7 (3.3-4.4) H Lipase 631 U/L (73-393) H Vitamin B12 Level 1378 PG/ML (193-986) H Thyroid Stimulating Hormone (TSH) 0.678 uiU/mL (0.358-3.740) Cortisol AM Sample Pending Arterial Blood pH 7.380 (7.350-7.450) Arterial Blood Partial Pressure CO2 38.4 mmHg (35.0-45.0) Arterial Blood Partial Pressure O2 86.6 mmHg (75.0-100.0) Arterial Blood HCO3 22.7 mmol/L (22.0-26.0) Arterial Blood Oxygen Saturation 94.6 % (92.0-98.0) Arterial Blood Base Excess -2.0 Matt Test Positive Microbiology Date/Time Source Procedure Growth Status 03/09/18 21:43 Blood Blood Culture - Preliminary Gram Positive Cocci Resulted 03/09/18 21:30 Blood Blood Culture - Preliminary Gram Positive Cocci Resulted 03/10/18 17:00 Nasopharynx Influenza Types A,B Antigen (FLORENCIO) - Final Complete Yong Oconnell MD Mar 12, 2018 17:15
[2018-03-12] MEDS: Hydromorphone 0.5mg/0.5ml inj IVP PRN (20:14)
--- NOTE | 2018-03-12 21:30 | Consultation ---
DATE OF CONSULTATION: 03/12/2018 PAIN MANAGEMENT CONSULTATION CONSULTING PHYSICIAN: Pennie Liz M.D. REFERRING PHYSICIAN: Zia Li M.D. PHYSICIAN TANK COOPER: ALKA Enriquez. CHIEF COMPLAINT: Generalized body pain. HISTORY OF PRESENT ILLNESS: This is a 72-year-old male, who is being seen on the ICU of [facility] for initial comprehensive pain management consultation. The patient at this time is lying in the bed and is disoriented. is at bedside who has provided most of the history for the patient. I discussed the patient's care with the nurse as well. He was found to have severe lethargy, weakness, possible UTI, sepsis with lower extremity cellulitis and open wounds. He has history of high doses of opioid usage due to chronic pain caused by low back surgeries and was taking OxyContin 80 mg twice a day at times as per the patient's , oxycodone 30 mg 3 times a day as needed as well, and [place] 10/325mg 4 times a day as needed for pain which was prescribed by Dr. Kaur, the residential installer, seen on [facility]. At this time, the patient again is disoriented and not answering questions, moaning and groaning in the bed, on morphine 2 mg IV every 4 hours with minimal pain relief, having issues with kidney function, being seen by Dr. Mena who diagnosed the patient with diabetic nephropathy and renal failure. At this time, I discussed with the patient's at bedside. The patient is not medically stable enough to receive high doses of opioids and that the patient's pain will be taken care of to the best of our abilities to keep the patient stable and not make the patient have any further issues such as respiratory depression which is caused by opioid medication. Morphine will be discontinued due to it being excreted through the kidneys. We will start the patient on Dilaudid 0.5 mg IV every 4 hours as needed for severe pain as well as adding parameters to hold for oversedation or systolic blood pressure below 90 or diastolic blood pressure below 60 or respiratory rate below 12 or oxygen saturation below 90%. The patient's at bedside understands and agrees with the plan at this time. PAST MEDICAL HISTORY: As per the patient's , morbid obesity and diabetes mellitus. PAST SURGICAL HISTORY: Lumbar surgery and left wrist open reduction and internal fixation. SOCIAL HISTORY: Unknown. ALLERGIES: No known drug allergies. MEDICATIONS: On Richmond, oxycodone, OxyContin. REVIEW OF SYSTEMS: Unable to obtain due to the patient's mental status. PHYSICAL EXAMINATION: GENERAL: Altered mental status. VITAL SIGNS: Blood pressure 140/68, heart rate is 91, oxygen saturation 93%, respirations 19, temperature is 98.4 degrees Fahrenheit. HEENT: PERRLA. NECK: Range of motion is decreased due to patients condition. LUNGS: Decreased breath sounds bilaterally. HEART: S1 and S2 regular. ABDOMEN: Obese. BACK: Range of motion is decreased in flexion and extension with surgical scar noted in midline of lumbar spine. EXTREMITIES: No cyanosis, no clubbing with wounds noted on the lower extremities. Bandages applied. ASSESSMENT AND PLAN: This is a 72-year-old male with acute loss of consciousness, acute encephalopathy, bilateral lower extremity cellulitis, right foot ulcer, peripheral neuropathy, chronic pain syndrome, and narcotic tolerance. The patient will be discontinued off the morphine and started on Dilaudid 0.5 mg IV every 4 hours as needed for severe pain. Parameters will be set to hold for opioids for oversedation or systolic blood pressure below 90 or diastolic blood pressure below 60 or respiratory rate below 12 or oxygen saturation below 92%. The patient's family at bedside understands and agrees with the plan. The patient was discussed with Dr. Liz and Dr. Liz concurred. We will follow the patient. Thank you very much for the courtesy of this consultation. Pennie Liz M.D. ALKA Miller DR: Praveen JOB#: [id number] CC: BLAYNE
[2018-03-12] MEDS ORDERED: Vancomycin 1250mg/D5W 250ml 250 ML IVPB SCH (22:00)
--- NOTE | 2018-03-12 22:45 | Consultation ---
DATE OF CONSULTATION: 03/12/2018 CARDIOLOGY CONSULTATION. CONSULTING PHYSICIAN: Yong Oconnell M.D. REFERRING PHYSICIAN: Ok Curry D.O. REASON FOR CONSULTATION: Hypertension and tachycardia. HISTORY OF PRESENT ILLNESS: The patient is a 72-year-old gentleman with history of hypertension and diabetes, was brought in to the emergency room for altered mental status over the last two days. The patient was admitted and found to be tachycardic and a temperature of 101.8. The heart rate was about 130 beats per minute. The patient was evaluated by Infectious Diseases and was started on IV antibiotics. At the time of my evaluation, the patient is still altered and was not able to provide any meaningful information. Most information was obtained by review of the records and interviewing the patient's at the bedside. REVIEW OF SYSTEMS: Cannot be obtained. PAST MEDICAL HISTORY: Includes as mentioned above. SOCIAL HISTORY: He lives at home. Does not smoke or drink alcohol. FAMILY HISTORY: Noncontributory. PHYSICAL EXAMINATION: VITAL SIGNS: Blood pressure is 137/61, pulse 94, respirations 18, and he is afebrile. HEAD AND NECK: Showed no JVD. LUNGS: Clear. CARDIOVASCULAR: Shows regular S1 and S2 with no gallop or murmur. ABDOMEN: Obese. EXTREMITIES: Bilateral lower extremity edema and cellulitis. LABORATORY DATA: [place] [address], today is 11.8, hemoglobin 9.9, hematocrit of 30, and platelet count was 158. Sodium 142, potassium 4.8, BUN of 53, creatinine of 2, and glucose of 214. Troponin is . BNP is 2936. Lactic acid is 1.8. BUN was 31 and creatinine of 2.2. ASSESSMENT AND PLAN: 1. Troponin elevation. EKG showed sinus rhythm with nonspecific ST-T wave abnormalities. His echocardiogram showed an ejection fraction of 55%. Repeat troponin in the morning. We will start on IV antibiotics. Hold off on beta-karis in view of borderline low blood pressure and sepsis. 2. History of hypertension, currently off antihypertensives. 3. Sepsis, on broad-spectrum IV antibiotics, vancomycin and clindamycin. Further evaluation by Infectious Disease and Surgery. 4. Diabetes. 5. Urinary tract infection. 6. Cellulitis of the legs. 7. Hyperkalemia. 8. Renal failure. 9. Elevated brain natriuretic peptide. Ejection fraction is normal. It could be due to diastolic dysfunction. Thank you very much, Dr. Curry, for allowing me to participate in the care of this patient. Please do not hesitate to contact me for any questions regarding my evaluation. The case was discussed in detail with the patient's at the bedside. Yong Oconnell M.D. DR: Ismael JOB#: [id number] CC:
[2018-03-13] VITALS: BP 144/59
[2018-03-13] MEDS: Hydromorphone 0.5mg/0.5ml inj IVP PRN ×6 (00:28→22:33)
[2018-03-13] MEDS: Clindamycin 600mg 50 ML IV SCH (03:48)
[2018-03-13 04:00] VITALS: BP 129/70
[2018-03-13] MEDS: NovoLOG Insulin Flexpen SUBQ SCH ×4 (06:02→22:02)
[2018-03-13 06:45] LABS: BASOPHILS % (AUTO) 0.6 % (0.0-2.0); EOSINOPHILS % (AUTO) 0.6 % (0.0-3.0); HEMATOCRIT 32.2 % (42.0-52.0); LYMPHOCYTES % (AUTO) 8.2 % (20.0-45.0); MEAN CORPUSCULAR VOLUME 85 FL (80-99); MONOCYTES % (AUTO) 11.6 % (1.0-10.0); PLATELET COUNT 182 K/UL (150-450); RED BLOOD COUNT 3.79 M/UL (4.70-6.10); RED CELL DISTRIBUTION WIDTH 15.7 % (11.6-14.8); WHITE BLOOD COUNT 10.8 K/UL (4.8-10.8)
[2018-03-13 07:07] LABS: ANION GAP 15 mmol/L (5-15); BLOOD UREA NITROGEN 45 mg/dL (7-18); CALCIUM 9.9 MG/DL (8.5-10.1); CARBON DIOXIDE 21 MMOL/L (21-32); CHLORIDE 110 MMOL/L (98-107); CHOLESTEROL 114 MG/DL (< 200); CREATININE 1.8 MG/DL (0.55-1.30); HDL CHOLESTEROL 15 MG/DL (40-60); POTASSIUM 4.8 MMOL/L (3.5-5.1); SODIUM 146 MMOL/L (136-145); TRIGLYCERIDES 159 MG/DL (30-150)
[2018-03-13 08:00] VITALS: BP 144/65
[2018-03-13] MEDS ORDERED: Dakin's 0.125% Soln (Quarter Strength) 16oz TOPIC SCH (09:00)
[2018-03-13] MEDS: Pantoprazole Inj IVP SCH ×2 (09:25→21:58)
[2018-03-13] MEDS: Heparin 5000 units/ml inj SUBQ SCH ×2 (09:27→22:00)
--- NOTE | 2018-03-13 10:08 | Infectious Diseases Prog Note ---
Assessment/Plan Assessment/Plan Sepsis;improving severe b/l Leg soft tissue infection, improving GBS bacteremia- 2ry to above -/ Bcx /+ R Foot necrotic ulcer- r/o OM, abscess -u/a neg -CXR L:NAPD Fever, SP Leukocytosis, resolved Lactic acidosis, resolved elev lipase Influenza sc : neg JOSE, improving HTN HLD GERD Dm2 Plan: -Switch IV Vancomycin and IV Clindamycin d# 4 to IV Unasyn for GBS bacteremia , cellulitis and R foot necrotic ulcer -03/12 SP Zosyn #3 -03/10 SP Cefepime d# 1 -f/u Venous and arterial duplex BLE -f/u Bone scan (could not fit on CT or MRI machine due to body habitus) -f/u cx -Monitor CBC/BMP, temperatures -Sx, Podiatry f/u Subjective Allergies: Coded Allergies: No Known Allergies (Unverified , 03/09/18) Subjective afebrile in >48hrs leukocytosis resolved for bone scan today Objective Vital Signs Last 24 Hour Vital Signs Date Time Temp Pulse Resp B/P (MAP) Pulse Ox O2 Delivery O2 Flow Rate FiO2 03/13/18 09:11 98.7 03/13/18 08:00 98.7 86 24 144/65 94 Nasal Cannula 2.0 98.7 03/13/18 07:32 86 22 Nasal Cannula 2.0 28 03/13/18 07:32 94 Nasal Cannula 2.0 28 03/13/18 07:32 Nasal Cannula 2.0 28 03/13/18 04:00 88 03/13/18 04:00 98.7 88 24 129/70 94 Nasal Cannula 2.0 98.7 03/13/18 00:00 92 03/13/18 00:00 98.8 90 24 144/59 94 Nasal Cannula 2.0 98.8 03/12/18 20:00 96 03/12/18 20:00 98.9 94 24 145/68 95 Nasal Cannula 2.0 98.9 03/12/18 19:41 96 Nasal Cannula 2.0 28 03/12/18 19:41 Nasal Cannula 2.0 28 03/12/18 19:41 96 20 Nasal Cannula 2.0 28 03/12/18 16:00 99.3 94 20 142/71 93 Nasal Cannula 2.0 99.3 03/12/18 16:00 95 03/12/18 15:21 98.4 03/12/18 12:38 98.4 03/12/18 12:00 98.7 94 21 137/61 96 Nasal Cannula 2.0 98.7 03/12/18 12:00 93 03/12/18 11:53 98.4 03/12/18 11:00 93 21 136/66 97 Nasal Cannula 2.0 03/12/18 10:01 Nasal Cannula 2.0 28 03/12/18 10:01 93 20 Nasal Cannula 2.0 28 03/12/18 10:01 96 Nasal Cannula 2.0 28 03/12/18 10:00 91 19 140/68 97 Nasal Cannula 2.0 Height (Feet): 6 Height (Inches): 1.00 Weight (Pounds): 343 Objective General Appearance: obese, no acute distress HEENT: normocephalic, atraumatic, dry mucus membranes Neck: full range of motion, supple, no meningismus, no bony tend Respiratory: lungs clear, normal breath sounds, no rhonchi, no respiratory distress, no retraction, no accessory muscle use Cardiovascular no gallop, no JVD, no murmur, tachycardia Gastrointestinal: normal bowel sounds, non tender, soft, no mass, no organomegaly, non-distended, no guarding, no rebound Musculoskeletal: B/L leg with chornic venous stasis changes and lymphedema with superimposed erythema, warmth; on L leg wrythema extend up laterally to distal thigh. On R foot there is a wound with necrotic center ; no purulent discharge.; improving Microbiology Date/Time Source Procedure Growth Status 03/10/18 17:00 Nasopharynx Influenza Types A,B Antigen (FLORENCIO) - Final Complete 03/10/18 22:00 Urine,Clean Catch Urine Culture - Preliminary NO GROWTH Resulted Laboratory Tests Test 03/12/18 10:03 03/12/18 12:25 03/12/18 18:00 03/12/18 18:20 Arterial Blood pH 7.380 (7.350-7.450) Arterial Blood Partial Pressure CO2 38.4 mmHg (35.0-45.0) Arterial Blood Partial Pressure O2 86.6 mmHg (75.0-100.0) Arterial Blood HCO3 22.7 mmol/L (22.0-26.0) Arterial Blood Oxygen Saturation 94.6 % (92.0-98.0) Arterial Blood Base Excess -2.0 Matt Test Positive Troponin I 0.099 ng/mL (0.000-0.056) 0.072 ng/mL (0.000-0.056) Urine Collection Time 24 HRS Urine Total Volume 5700 ML Urine Total Protein mg/dL 86 mg/dL Urine Total Protein 24 Hour 85.5 G/24HR (< 0.1) H Test 03/13/18 05:15 White Blood Count 10.8 K/UL (4.8-10.8) Red Blood Count 3.79 M/UL (4.70-6.10) L Hemoglobin 10.0 G/DL (14.2-18.0) L Hematocrit 32.2 % (42.0-52.0) L Mean Corpuscular Volume 85 FL (80-99) Mean Corpuscular Hemoglobin 26.4 PG (27.0-31.0) L Mean Corpuscular Hemoglobin Concent 31.1 G/DL (32.0-36.0) L Red Cell Distribution Width 15.7 % (11.6-14.8) H Platelet Count 182 K/UL (150-450) Mean Platelet Volume 10.2 FL (6.5-10.1) H Neutrophils (%) (Auto) 79.0 % (45.0-75.0) H Lymphocytes (%) (Auto) 8.2 % (20.0-45.0) L Monocytes (%) (Auto) 11.6 % (1.0-10.0) H Eosinophils (%) (Auto) 0.6 % (0.0-3.0) Basophils (%) (Auto) 0.6 % (0.0-2.0) Sodium Level 146 MMOL/L (136-145) H Potassium Level 4.8 MMOL/L (3.5-5.1) Chloride Level 110 MMOL/L (98-107) H Carbon Dioxide Level 21 MMOL/L (21-32) Anion Gap 15 mmol/L (5-15) Blood Urea Nitrogen 45 mg/dL (7-18) H Creatinine 1.8 MG/DL (0.55-1.30) H Estimat Glomerular Filtration Rate mL/min (>60) Glucose Level 234 MG/DL (74-106) H Calcium Level 9.9 MG/DL (8.5-10.1) Troponin I 0.094 ng/mL (0.000-0.056) Triglycerides Level 159 MG/DL (30-150) H Cholesterol Level 114 MG/DL (< 200) LDL Cholesterol 70 mg/dL (<100) HDL Cholesterol 15 MG/DL (40-60) L Cholesterol/HDL Ratio 7.6 (3.3-4.4) H Thyroid Stimulating Hormone (TSH) 0.612 uiU/mL (0.358-3.740) Free Thyroxine 0.93 NG/DL (0.76-1.46) Current Medications Medications (Trade) Dose Ordered Sig/Nancy Route PRN Reason Start Time Stop Time Status Last Admin Dose Admin Acetaminophen (Tylenol) 650 mg Q4H PRN ORAL fever (temp>100.5F) 03/12/18 16:15 04/09/18 20:14 Albuterol/ Ipratropium (Albuterol/ Ipratropium) 3 ml Q4H PRN HHN Shortness of Breath 03/12/18 16:15 03/16/18 08:14 Clindamycin HCl/ Dextrose 50 ml @ 100 mls/hr Q8HR@0400,1200,2000 IV 03/12/18 20:00 03/17/18 20:14 03/13/18 03:48 Dextrose (Dextrose 50%) 25 ml STAT PRN IV Hypoglycemia 03/12/18 16:00 04/09/18 15:59 Dextrose (Dextrose 50%) 50 ml STAT PRN IV Hypoglycemia 03/12/18 16:00 04/08/18 15:59 Heparin Sodium (Porcine) (Heparin 5000 units/ml) 5,000 units EVERY 12 HOURS SUBQ 03/12/18 21:00 04/09/18 08:59 03/13/18 09:27 Hydromorphone HCl (Dilaudid) 0.5 mg Q4H PRN IVP severe pain (7-10) 03/12/18 19:21 03/19/18 19:20 03/13/18 09:11 Insulin Aspart (NovoLOG) BEFORE MEALS AND HS SUBQ 03/12/18 16:30 04/09/18 06:29 03/13/18 06:02 Lidocaine (Xylocaine 5% cream) 1 applic Q6H TOPIC 03/12/18 20:00 04/11/18 13:59 03/13/18 09:38 Lorazepam (Ativan 2mg/ml 1ml) 1 mg Q4H PRN IV For Anxiety 03/12/18 16:15 03/17/18 20:14 Nitroglycerin (Ntg) 0.4 mg Q5M PRN SL Prn Chest Pain 03/12/18 15:45 04/08/18 22:14 Ondansetron HCl (Zofran) 4 mg Q6H PRN IVP Nausea & Vomiting 03/12/18 16:00 04/08/18 15:59 Pantoprazole (Protonix) 40 mg EVERY 12 HOURS IVP 03/12/18 21:00 04/09/18 20:59 03/13/18 09:25 Sodium Hypochlorite (Dakin's Quarter Strength) 1 applic DAILY TOPIC 03/13/18 09:00 04/10/18 08:59 03/13/18 09:00 Sodium Chloride 1,000 ml @ 75 mls/hr [id number] IV 03/12/18 16:00 04/09/18 15:59 03/13/18 05:12 Vancomycin HCl (Vanco rx to dose) 1 ea DAILY PRN MISC RX TO DOSE VANCO 03/13/18 09:00 04/09/18 13:59 Vancomycin HCl/ Dextrose 250 ml @ 166.667 mls/hr Q24H IVPB 03/12/18 22:00 03/15/18 21:59 03/12/18 22:20 Maranda Wiggins M.D. Mar 13, 2018 10:08
--- NOTE | 2018-03-13 10:08 | Diagnostic Imaging Report ---
Indication: Cough, shortness of breath Technique: One view of the chest Comparison: 03/11/2018 Findings: Body habitus limits evaluation. Patient is slightly rotated to the right. There is mild interstitial congestion which appears stable. The heart is borderline enlarged. Pleural spaces are grossly clear Impression: Unchanged, over one day, findings as above.
--- NOTE | 2018-03-13 10:52 | Pulmonology Progress Note ---
Assessment/Plan Problems: (1) Acute encephalopathy (2) Bacteremia (3) ATN (acute tubular necrosis) (4) Sepsis (5) Cellulitis, leg (6) UTI (urinary tract infection) (7) Diabetic nephropathy (8) Obesity (9) Diabetes mellitus Respiratory: monitor respiratory rate, adjust FIO2 Cardiac: continue to monitor HR/BP Renal: F/U I&O, keep IV fluid Infectious Disease: check cultures, continue antibiotics Endocrine: monitor blood sugar Hematologic: monitor H/H, transfuse if hgb<8.5 Neurologic: keep patient comfortable Affect: PRN ativan Prophylaxis: Protonix, Heparin Time Spent (Minutes): 40 Notes Reviewed: synthetic chemist, cardio Discussed with: nurses, consultants, bilingual case manager Subjective Interval Events: mental status better, responds to simple questions Allergies: Coded Allergies: No Known Allergies (Unverified , 03/09/18) Objective Last 24 Hour Vital Signs Date Time Temp Pulse Resp B/P (MAP) Pulse Ox O2 Delivery O2 Flow Rate FiO2 03/13/18 09:11 98.7 03/13/18 08:00 98.7 86 24 144/65 94 Nasal Cannula 2.0 98.7 03/13/18 07:32 86 22 Nasal Cannula 2.0 28 03/13/18 07:32 94 Nasal Cannula 2.0 28 03/13/18 07:32 Nasal Cannula 2.0 28 03/13/18 04:00 88 03/13/18 04:00 98.7 88 24 129/70 94 Nasal Cannula 2.0 98.7 03/13/18 00:00 92 03/13/18 00:00 98.8 90 24 144/59 94 Nasal Cannula 2.0 98.8 03/12/18 20:00 96 03/12/18 20:00 98.9 94 24 145/68 95 Nasal Cannula 2.0 98.9 03/12/18 19:41 96 Nasal Cannula 2.0 28 03/12/18 19:41 Nasal Cannula 2.0 28 03/12/18 19:41 96 20 Nasal Cannula 2.0 28 03/12/18 16:00 99.3 94 20 142/71 93 Nasal Cannula 2.0 99.3 03/12/18 16:00 95 03/12/18 15:21 98.4 03/12/18 12:38 98.4 03/12/18 12:00 98.7 94 21 137/61 96 Nasal Cannula 2.0 98.7 03/12/18 12:00 93 03/12/18 11:53 98.4 03/12/18 11:00 93 21 136/66 97 Nasal Cannula 2.0 Intake and Output 03/12/18 03/13/18 19:00 07:00 Intake Total 340.0 ml 1325.000 ml Output Total 1930 ml 2850 ml Balance -1590.0 ml -1525.000 ml Intake Oral 0 ml 75 ml IV Total 340.0 ml 1250.000 ml Output Urine Total 1930 ml 2850 ml General Appearance: WD/WN HEENT: normocephalic, atraumatic Respiratory/Chest: chest wall non-tender, lungs clear, normal breath sounds Cardiovascular: normal peripheral pulses, normal rate Abdomen: normal bowel sounds, soft, non tender Genitourinary: normal external genitalia Skin: rash Microbiology Date/Time Source Procedure Growth Status 03/10/18 17:00 Nasopharynx Influenza Types A,B Antigen (FLORENCIO) - Final Complete 03/10/18 22:00 Urine,Clean Catch Urine Culture - Preliminary NO GROWTH Resulted Laboratory Tests 03/12/18 12:25: Troponin I 0.099H 03/12/18 18:00: Urine Collection Time 24, Urine Total Volume 5700, Urine Total Protein mg/dL 86 , Urine Total Protein 24 Hour 85.5H 03/12/18 18:20: Troponin I 0.072H 03/13/18 05:15: Troponin I 0.094H, White Blood Count 10.8, Red Blood Count 3.79L, Hemoglobin 10.0L, Hematocrit 32.2L, Mean Corpuscular Volume 85, Mean Corpuscular Hemoglobin 26.4L, Mean Corpuscular Hemoglobin Concent 31.1L, Red Cell Distribution Width 15.7H, Platelet Count 182, Mean Platelet Volume 10.2H, Neutrophils (%) (Auto) 79.0H, Lymphocytes (%) (Auto) 8.2L, Monocytes (%) (Auto) 11.6H, Eosinophils (%) (Auto) 0.6, Basophils (%) (Auto) 0.6, Sodium Level 146H, Potassium Level 4.8, Chloride Level 110H, Carbon Dioxide Level 21, Anion Gap 15 , Blood Urea Nitrogen 45H, Creatinine 1.8H, Estimat Glomerular Filtration Rate , Glucose Level 234H, Calcium Level 9.9, Triglycerides Level 159H, Cholesterol Level 114, LDL Cholesterol 70, HDL Cholesterol 15L, Cholesterol/HDL Ratio 7.6H, Thyroid Stimulating Hormone (TSH) 0.612, Free Thyroxine 0.93 Current Medications Medications (Trade) Dose Ordered Sig/Nancy Route PRN Reason Start Time Stop Time Status Last Admin Dose Admin Acetaminophen (Tylenol) 650 mg Q4H PRN ORAL fever (temp>100.5F) 03/12/18 16:15 04/09/18 20:14 Albuterol/ Ipratropium (Albuterol/ Ipratropium) 3 ml Q4H PRN HHN Shortness of Breath 03/12/18 16:15 03/16/18 08:14 Ampicillin Sodium/ Sulbactam Sodium 3 gm/Sodium Chloride 275 ml @ 275 mls/hr Q6HR IVPB 03/13/18 12:00 03/20/18 11:59 Dextrose (Dextrose 50%) 25 ml STAT PRN IV Hypoglycemia 03/12/18 16:00 04/09/18 15:59 Dextrose (Dextrose 50%) 50 ml STAT PRN IV Hypoglycemia 03/12/18 16:00 04/08/18 15:59 Heparin Sodium (Porcine) (Heparin 5000 units/ml) 5,000 units EVERY 12 HOURS SUBQ 03/12/18 21:00 04/09/18 08:59 03/13/18 09:27 Hydromorphone HCl (Dilaudid) 0.5 mg Q4H PRN IVP severe pain (7-10) 03/12/18 19:21 03/19/18 19:20 03/13/18 09:11 Insulin Aspart (NovoLOG) BEFORE MEALS AND HS SUBQ 03/12/18 16:30 04/09/18 06:29 03/13/18 06:02 Lidocaine (Xylocaine 5% cream) 1 applic Q6H TOPIC 03/12/18 20:00 04/11/18 13:59 03/13/18 09:38 Lorazepam (Ativan 2mg/ml 1ml) 1 mg Q4H PRN IV For Anxiety 03/12/18 16:15 03/17/18 20:14 Nitroglycerin (Ntg) 0.4 mg Q5M PRN SL Prn Chest Pain 03/12/18 15:45 04/08/18 22:14 Ondansetron HCl (Zofran) 4 mg Q6H PRN IVP Nausea & Vomiting 03/12/18 16:00 04/08/18 15:59 Pantoprazole (Protonix) 40 mg EVERY 12 HOURS IVP 03/12/18 21:00 04/09/18 20:59 03/13/18 09:25 Sodium Hypochlorite (Dakin's Quarter Strength) 1 applic DAILY TOPIC 03/13/18 09:00 04/10/18 08:59 03/13/18 09:00 Sodium Chloride 1,000 ml @ 75 mls/hr [id number] IV 03/12/18 16:00 04/09/18 15:59 03/13/18 05:12 Zia Li MD Mar 13, 2018 10:52
[2018-03-13 12:00] VITALS: BP 146/75
[2018-03-13] MEDS ORDERED: SULBACTAM SOD IVPB SCH (12:00)
[2018-03-13] MEDS ORDERED: NS IVPB SCH (12:00)
[2018-03-13] MEDS ORDERED: AMPICILLIN IVPB SCH (12:00)
[2018-03-13] MEDS ORDERED: Hydromorphone 0.5mg/0.5ml inj IVP PRN (13:30)
--- NOTE | 2018-03-13 13:33 | Cardiology Report ---
APPROVED REPORT EKG Measurement Heart [id number] Normal sinus rhythm Low voltage QRS Borderline ECG
--- NOTE | 2018-03-13 13:46 | General Progress Note ---
Assessment/Plan Problem List: (1) Sepsis ICD Codes: A41.9 - Sepsis, unspecified organism SNOMED: 01367204 Qualifiers: Qualified Codes: A41.9 - Sepsis, unspecified organism (2) Cellulitis, leg ICD Codes: L03.119 - Cellulitis of unspecified part of limb SNOMED: 887183818 (3) UTI (urinary tract infection) ICD Codes: N39.0 - Urinary tract infection, site not specified SNOMED: 16548524 (4) Diabetes mellitus ICD Codes: E11.9 - Type 2 diabetes mellitus without complications SNOMED: 86744950 (5) Obesity ICD Codes: E66.9 - Obesity, unspecified SNOMED: 624149012, 089039988 (6) Acute encephalopathy ICD Codes: G93.40 - Encephalopathy, unspecified SNOMED: 03470515, 436822313 (7) ATN (acute tubular necrosis) ICD Codes: N17.0 - Acute kidney failure with tubular necrosis SNOMED: 78776008 Status: unchanged Assessment/Plan o2 pulm tx abx wound care neph f/u cardio eval cbc bmp am ltach eval aru eval Subjective Constitutional: Reports: weakness Allergies: Coded Allergies: No Known Allergies (Unverified , 03/09/18) All Systems: reviewed and negative except above Subjective 02nc sleep Objective Last 24 Hour Vital Signs Date Time Temp Pulse Resp B/P (MAP) Pulse Ox O2 Delivery O2 Flow Rate FiO2 03/13/18 13:15 98.7 03/13/18 09:41 98.7 03/13/18 09:11 98.7 03/13/18 08:00 98.7 86 24 144/65 94 Nasal Cannula 2.0 98.7 03/13/18 08:00 87 03/13/18 07:32 86 22 Nasal Cannula 2.0 28 03/13/18 07:32 94 Nasal Cannula 2.0 28 03/13/18 07:32 Nasal Cannula 2.0 28 03/13/18 04:00 88 03/13/18 04:00 98.7 88 24 129/70 94 Nasal Cannula 2.0 98.7 03/13/18 00:00 92 03/13/18 00:00 98.8 90 24 144/59 94 Nasal Cannula 2.0 98.8 03/12/18 20:00 96 03/12/18 20:00 98.9 94 24 145/68 95 Nasal Cannula 2.0 98.9 03/12/18 19:41 96 Nasal Cannula 2.0 28 03/12/18 19:41 Nasal Cannula 2.0 28 03/12/18 19:41 96 20 Nasal Cannula 2.0 28 03/12/18 16:00 99.3 94 20 142/71 93 Nasal Cannula 2.0 99.3 03/12/18 16:00 95 03/12/18 15:21 98.4 Intake and Output 03/12/18 03/13/18 19:00 07:00 Intake Total 340.0 ml 1325.000 ml Output Total 1930 ml 2850 ml Balance -1590.0 ml -1525.000 ml Intake Oral 0 ml 75 ml IV Total 340.0 ml 1250.000 ml Output Urine Total 1930 ml 2850 ml Laboratory Tests 03/12/18 18:00: Urine Collection Time 24, Urine Total Volume 5700, Urine Total Protein mg/dL 86 , Urine Total Protein 24 Hour 85.5H 03/12/18 18:20: Troponin I 0.072H 03/13/18 05:15: Troponin I 0.094H, White Blood Count 10.8, Red Blood Count 3.79L, Hemoglobin 10.0L, Hematocrit 32.2L, Mean Corpuscular Volume 85, Mean Corpuscular Hemoglobin 26.4L, Mean Corpuscular Hemoglobin Concent 31.1L, Red Cell Distribution Width 15.7H, Platelet Count 182, Mean Platelet Volume 10.2H, Neutrophils (%) (Auto) 79.0H, Lymphocytes (%) (Auto) 8.2L, Monocytes (%) (Auto) 11.6H, Eosinophils (%) (Auto) 0.6, Basophils (%) (Auto) 0.6, Sodium Level 146H, Potassium Level 4.8, Chloride Level 110H, Carbon Dioxide Level 21, Anion Gap 15 , Blood Urea Nitrogen 45H, Creatinine 1.8H, Estimat Glomerular Filtration Rate , Glucose Level 234H, Calcium Level 9.9, Triglycerides Level 159H, Cholesterol Level 114, LDL Cholesterol 70, HDL Cholesterol 15L, Cholesterol/HDL Ratio 7.6H, Thyroid Stimulating Hormone (TSH) 0.612, Free Thyroxine 0.93 Height (Feet): 6 Height (Inches): 1.00 Weight (Pounds): 343 General Appearance: lethargic EENT: normal ENT inspection Neck: normal alignment Cardiovascular: normal peripheral pulses, normal rate, regular rhythm Respiratory/Chest: chest wall non-tender, decreased breath sounds Abdomen: normal bowel sounds, non tender, soft Extremities: normal inspection Edema: 1+ Arm (L), 1+ Arm (R), 1+ Leg (L), 1+ Leg (R), 1+ Pedal (L), 1+ Pedal ( R), 1+ Generalized Edema: trace edema Neurologic: motor weakness Skin: normal pigmentation, warm/dry Ok Curry DO Mar 13, 2018 13:46
--- NOTE | 2018-03-13 15:17 | General Surgery Progress Note ---
General Surgery-Progress Note Subjective Symptoms: improved Additional Comments leukocytosis resolved. wounds stable. Objective Last 24 Hour Vital Signs Date Time Temp Pulse Resp B/P (MAP) Pulse Ox O2 Delivery O2 Flow Rate FiO2 03/13/18 13:15 98.7 03/13/18 12:00 98.3 88 22 146/75 94 Nasal Cannula 2.0 98.3 03/13/18 12:00 88 03/13/18 09:41 98.7 03/13/18 09:11 98.7 03/13/18 08:00 98.7 86 24 144/65 94 Nasal Cannula 2.0 98.7 03/13/18 08:00 87 03/13/18 07:32 86 22 Nasal Cannula 2.0 28 03/13/18 07:32 94 Nasal Cannula 2.0 28 03/13/18 07:32 Nasal Cannula 2.0 28 03/13/18 04:00 88 03/13/18 04:00 98.7 88 24 129/70 94 Nasal Cannula 2.0 98.7 03/13/18 00:00 92 03/13/18 00:00 98.8 90 24 144/59 94 Nasal Cannula 2.0 98.8 03/12/18 20:00 96 03/12/18 20:00 98.9 94 24 145/68 95 Nasal Cannula 2.0 98.9 03/12/18 19:41 96 Nasal Cannula 2.0 28 03/12/18 19:41 Nasal Cannula 2.0 28 03/12/18 19:41 96 20 Nasal Cannula 2.0 28 03/12/18 16:00 99.3 94 20 142/71 93 Nasal Cannula 2.0 99.3 03/12/18 16:00 95 03/12/18 15:21 98.4 I&O Intake and Output 03/12/18 03/13/18 19:00 07:00 Intake Total 340.0 ml 1325.000 ml Output Total 1930 ml 2850 ml Balance -1590.0 ml -1525.000 ml Intake Oral 0 ml 75 ml IV Total 340.0 ml 1250.000 ml Output Urine Total 1930 ml 2850 ml Wound: clean, dry Drains: none Cardiovascular: RSR Respiratory: clear Abdomen: soft, flat, non-tender, present bowel sounds Extremities: edema, tenderness Laboratory Tests Test 03/12/18 18:00 03/12/18 18:20 03/13/18 05:15 Urine Collection Time 24 HRS Urine Total Volume 5700 ML Urine Total Protein mg/dL 86 mg/dL Urine Total Protein 24 Hour 85.5 G/24HR (< 0.1) H Troponin I 0.072 ng/mL (0.000-0.056) 0.094 ng/mL (0.000-0.056) White Blood Count 10.8 K/UL (4.8-10.8) Red Blood Count 3.79 M/UL (4.70-6.10) L Hemoglobin 10.0 G/DL (14.2-18.0) L Hematocrit 32.2 % (42.0-52.0) L Mean Corpuscular Volume 85 FL (80-99) Mean Corpuscular Hemoglobin 26.4 PG (27.0-31.0) L Mean Corpuscular Hemoglobin Concent 31.1 G/DL (32.0-36.0) L Red Cell Distribution Width 15.7 % (11.6-14.8) H Platelet Count 182 K/UL (150-450) Mean Platelet Volume 10.2 FL (6.5-10.1) H Neutrophils (%) (Auto) 79.0 % (45.0-75.0) H Lymphocytes (%) (Auto) 8.2 % (20.0-45.0) L Monocytes (%) (Auto) 11.6 % (1.0-10.0) H Eosinophils (%) (Auto) 0.6 % (0.0-3.0) Basophils (%) (Auto) 0.6 % (0.0-2.0) Sodium Level 146 MMOL/L (136-145) H Potassium Level 4.8 MMOL/L (3.5-5.1) Chloride Level 110 MMOL/L (98-107) H Carbon Dioxide Level 21 MMOL/L (21-32) Anion Gap 15 mmol/L (5-15) Blood Urea Nitrogen 45 mg/dL (7-18) H Creatinine 1.8 MG/DL (0.55-1.30) H Estimat Glomerular Filtration Rate mL/min (>60) Glucose Level 234 MG/DL (74-106) H Calcium Level 9.9 MG/DL (8.5-10.1) Triglycerides Level 159 MG/DL (30-150) H Cholesterol Level 114 MG/DL (< 200) LDL Cholesterol 70 mg/dL (<100) HDL Cholesterol 15 MG/DL (40-60) L Cholesterol/HDL Ratio 7.6 (3.3-4.4) H Thyroid Stimulating Hormone (TSH) 0.612 uiU/mL (0.358-3.740) Free Thyroxine 0.93 NG/DL (0.76-1.46) Plan Problems: (1) Sepsis Assessment & Plan: 72M sepsis with fevers, leukocytosis, altered mental status. chronic bilateral lower extremity wounds with cellulitis. concerns for possible necrotizing fascitis initially. unlikely nec fasc given exam. wounds chronic and skin changes chronic. LRINEC score on admission 10 but given chronicity of wounds, other etiology of sepsis, and physical exam unlikely nec fasc. leukocytosis since resolved. edema improving. cellulitis improving. -no acute surgical intervention necessary. -keep legs elevated -cont with dressings for now -will follow with you thank you for this consultation (2) Cellulitis, leg Leandro Scott Mar 13, 2018 15:16
[2018-03-13 16:00] VITALS: BP 144/75
--- NOTE | 2018-03-13 16:13 | Nephrology Progress Note ---
Assessment/Plan Problem List: (1) Diabetic nephropathy (2) Cellulitis, leg (3) UTI (urinary tract infection) (4) Sepsis (5) Acute encephalopathy (6) Obesity Assessment Renal failure- likely Diabetic nephropathy Cr lower UTI , Sepsis , Cellulitis DM Obesity Acute Encephalopathy HypoAlbuminemia, Likely NS Plan Pulmonary support- 2D Echo 55% EjFx Kidney TIN pending gomez Antibiotics Monitor renal parameters avoid Nephrotoxics Subjective ROS Limited/Unobtainable: No Constitutional: Reports: malaise Objective Objective Last 24 Hour Vital Signs Date Time Temp Pulse Resp B/P (MAP) Pulse Ox O2 Delivery O2 Flow Rate FiO2 03/13/18 13:45 98.7 03/13/18 13:15 98.7 03/13/18 12:00 98.3 88 22 146/75 94 Nasal Cannula 2.0 98.3 03/13/18 12:00 88 03/13/18 09:11 98.7 03/13/18 08:00 98.7 86 24 144/65 94 Nasal Cannula 2.0 98.7 03/13/18 08:00 87 03/13/18 07:32 86 22 Nasal Cannula 2.0 28 03/13/18 07:32 94 Nasal Cannula 2.0 28 03/13/18 07:32 Nasal Cannula 2.0 28 03/13/18 04:00 88 03/13/18 04:00 98.7 88 24 129/70 94 Nasal Cannula 2.0 98.7 03/13/18 00:00 92 03/13/18 00:00 98.8 90 24 144/59 94 Nasal Cannula 2.0 98.8 03/12/18 20:00 96 03/12/18 20:00 98.9 94 24 145/68 95 Nasal Cannula 2.0 98.9 03/12/18 19:41 96 Nasal Cannula 2.0 28 03/12/18 19:41 Nasal Cannula 2.0 28 03/12/18 19:41 96 20 Nasal Cannula 2.0 28 Intake and Output 03/12/18 03/13/18 19:00 07:00 Intake Total 340.0 ml 1325.000 ml Output Total 1930 ml 2850 ml Balance -1590.0 ml -1525.000 ml Intake Oral 0 ml 75 ml IV Total 340.0 ml 1250.000 ml Output Urine Total 1930 ml 2850 ml Laboratory Tests 03/12/18 18:00: Urine Collection Time 24, Urine Total Volume 5700, Urine Total Protein mg/dL 86 , Urine Total Protein 24 Hour 85.5H 03/12/18 18:20: Troponin I 0.072H 03/13/18 05:15: Troponin I 0.094H, White Blood Count 10.8, Red Blood Count 3.79L, Hemoglobin 10.0L, Hematocrit 32.2L, Mean Corpuscular Volume 85, Mean Corpuscular Hemoglobin 26.4L, Mean Corpuscular Hemoglobin Concent 31.1L, Red Cell Distribution Width 15.7H, Platelet Count 182, Mean Platelet Volume 10.2H, Neutrophils (%) (Auto) 79.0H, Lymphocytes (%) (Auto) 8.2L, Monocytes (%) (Auto) 11.6H, Eosinophils (%) (Auto) 0.6, Basophils (%) (Auto) 0.6, Sodium Level 146H, Potassium Level 4.8, Chloride Level 110H, Carbon Dioxide Level 21, Anion Gap 15 , Blood Urea Nitrogen 45H, Creatinine 1.8H, Estimat Glomerular Filtration Rate , Glucose Level 234H, Calcium Level 9.9, Triglycerides Level 159H, Cholesterol Level 114, LDL Cholesterol 70, HDL Cholesterol 15L, Cholesterol/HDL Ratio 7.6H, Thyroid Stimulating Hormone (TSH) 0.612, Free Thyroxine 0.93 Height (Feet): 6 Height (Inches): 1.00 Weight (Pounds): 343 DIA WALSH Mar 13, 2018 16:13
[2018-03-13] MEDS ORDERED: Tubing IV Secondary IV ONE (17:02)
[2018-03-13] MEDS ORDERED: 1/2 NS 1000ml IV ONE (17:02)
[2018-03-13] MEDS ORDERED: Nitroglycerin Subl 0.4mg tab SL PRN (17:20)
--- NOTE | 2018-03-13 17:44 | General Progress Note ---
Assessment/Plan Assessment/Plan (1) Altered level of consciousness (2) Acute encephalopathy (3) B/L LE cellulitis (4) Right heel ulcer (5) Peripheral neuropathy (6) Chronic pain syndrome (7) Narcotic tolerance Patient will be continued on Dilaudid D/w Dr. Liz and he concurred. Subjective Date patient seen: Mar 13, 2018 Time patient seen: 05:15 - pm Constitutional: Reports: weakness HEENT: Reports: no symptoms Cardiovascular: Reports: no symptoms Respiratory: Reports: no symptoms Gastrointestinal/Abdominal: Reports: no symptoms Genitourinary: Reports: no symptoms Neurologic/Psychiatric: Reports: numbness, weakness Endocrine: Reports: no symptoms Hematologic/Lymphatic: Reports: no symptoms Allergies: Coded Allergies: No Known Allergies (Unverified , 03/09/18) Subjective Patient is more alert and answers simple questions. In bed with daughter at bed side. He continues to have pain which has been tolerated. Dilaudid was given 6 doses in the last 24hrs and was changed to Q3H PRN as per Dr. Li. Objective Last 24 Hour Vital Signs Date Time Temp Pulse Resp B/P (MAP) Pulse Ox O2 Delivery O2 Flow Rate FiO2 03/13/18 16:22 98.7 03/13/18 16:00 99.6 83 24 144/75 94 Nasal Cannula 2.0 99.6 03/13/18 16:00 84 03/13/18 13:45 98.7 03/13/18 13:15 98.7 03/13/18 12:00 98.3 88 22 146/75 94 Nasal Cannula 2.0 98.3 03/13/18 12:00 88 03/13/18 09:11 98.7 03/13/18 08:00 98.7 86 24 144/65 94 Nasal Cannula 2.0 98.7 03/13/18 08:00 87 03/13/18 07:32 86 22 Nasal Cannula 2.0 28 03/13/18 07:32 94 Nasal Cannula 2.0 28 03/13/18 07:32 Nasal Cannula 2.0 28 03/13/18 04:00 88 03/13/18 04:00 98.7 88 24 129/70 94 Nasal Cannula 2.0 98.7 03/13/18 00:00 92 03/13/18 00:00 98.8 90 24 144/59 94 Nasal Cannula 2.0 98.8 03/12/18 20:00 96 03/12/18 20:00 98.9 94 24 145/68 95 Nasal Cannula 2.0 98.9 03/12/18 19:41 96 Nasal Cannula 2.0 28 03/12/18 19:41 Nasal Cannula 2.0 28 03/12/18 19:41 96 20 Nasal Cannula 2.0 28 Intake and Output 03/12/18 03/13/18 19:00 07:00 Intake Total 340.0 ml 1325.000 ml Output Total 1930 ml 2850 ml Balance -1590.0 ml -1525.000 ml Intake Oral 0 ml 75 ml IV Total 340.0 ml 1250.000 ml Output Urine Total 1930 ml 2850 ml Laboratory Tests 03/12/18 18:00: Urine Collection Time 24, Urine Total Volume 5700, Urine Total Protein mg/dL 86 , Urine Total Protein 24 Hour 85.5H 03/12/18 18:20: Troponin I 0.072H 03/13/18 05:15: Troponin I 0.094H, White Blood Count 10.8, Red Blood Count 3.79L, Hemoglobin 10.0L, Hematocrit 32.2L, Mean Corpuscular Volume 85, Mean Corpuscular Hemoglobin 26.4L, Mean Corpuscular Hemoglobin Concent 31.1L, Red Cell Distribution Width 15.7H, Platelet Count 182, Mean Platelet Volume 10.2H, Neutrophils (%) (Auto) 79.0H, Lymphocytes (%) (Auto) 8.2L, Monocytes (%) (Auto) 11.6H, Eosinophils (%) (Auto) 0.6, Basophils (%) (Auto) 0.6, Sodium Level 146H, Potassium Level 4.8, Chloride Level 110H, Carbon Dioxide Level 21, Anion Gap 15 , Blood Urea Nitrogen 45H, Creatinine 1.8H, Estimat Glomerular Filtration Rate , Glucose Level 234H, Calcium Level 9.9, C-Reactive Protein, Quantitative > 70.0H, Triglycerides Level 159H, Cholesterol Level 114, LDL Cholesterol 70, HDL Cholesterol 15L, Cholesterol/HDL Ratio 7.6H, Thyroid Stimulating Hormone (TSH) 0.612, Free Thyroxine 0.93 Height (Feet): 6 Height (Inches): 1.00 Weight (Pounds): 343 Objective GENERAL: Alert. HEENT: PERRLA. LUNGS: Decreased breath sounds bilaterally. HEART: S1 and S2 regular. ABDOMEN: Obese. BACK: Range of motion is decreased in flexion and extension with surgical scar noted in midline of lumbar spine. EXTREMITIES: No cyanosis, no clubbing with wounds noted on the lower extremities. Bandages applied. Antonio Whitten Mar 13, 2018 17:44
[2018-03-13] MEDS: NS IVPB SCH (18:40)
[2018-03-13] MEDS: AMPICILLIN IVPB SCH (18:40)
[2018-03-13] MEDS: SULBACTAM SOD IVPB SCH (18:40)
--- NOTE | 2018-03-13 19:29 | Cardiac Electrophysiology PN ---
Assessment/Plan Assessment/Plan 1. Troponin elevation. 0.07 and 0.09. Levels are flat and no CP. EKG showed sinus rhythm with nonspecific ST-T wave abnormalities. His echocardiogram showed an ejection fraction of 55%. Likely due to renal failure. Hold off on beta-karis in view of borderline low blood pressure and sepsis. 2. Hypertension, currently off antihypertensives. 3. Sepsis, on broad-spectrum IV antibiotics, vancomycin and clindamycin. 4. Diabetes. 5. Urinary tract infection. 6. Cellulitis of the legs. 7. Hyperkalemia. 8. Renal failure. 9. Elevated brain natriuretic peptide. Ejection fraction is normal. It could be due to diastolic dysfunction. Subjective Subjective Still confused. On iv Lasix Objective Last 24 Hour Vital Signs Date Time Temp Pulse Resp B/P (MAP) Pulse Ox O2 Delivery O2 Flow Rate FiO2 03/13/18 16:22 98.7 03/13/18 16:00 99.6 83 24 144/75 94 Nasal Cannula 2.0 99.6 03/13/18 16:00 84 03/13/18 13:45 98.7 03/13/18 13:15 98.7 03/13/18 12:00 98.3 88 22 146/75 94 Nasal Cannula 2.0 98.3 03/13/18 12:00 88 03/13/18 09:11 98.7 03/13/18 08:00 98.7 86 24 144/65 94 Nasal Cannula 2.0 98.7 03/13/18 08:00 87 03/13/18 07:32 86 22 Nasal Cannula 2.0 28 03/13/18 07:32 94 Nasal Cannula 2.0 28 03/13/18 07:32 Nasal Cannula 2.0 28 03/13/18 04:00 88 03/13/18 04:00 98.7 88 24 129/70 94 Nasal Cannula 2.0 98.7 03/13/18 00:00 92 03/13/18 00:00 98.8 90 24 144/59 94 Nasal Cannula 2.0 98.8 03/12/18 20:00 96 03/12/18 20:00 98.9 94 24 145/68 95 Nasal Cannula 2.0 98.9 03/12/18 19:41 96 Nasal Cannula 2.0 28 03/12/18 19:41 Nasal Cannula 2.0 28 03/12/18 19:41 96 20 Nasal Cannula 2.0 28 Intake and Output 03/12/18 03/13/18 19:00 07:00 Intake Total 340.0 ml 1325.000 ml Output Total 1930 ml 2850 ml Balance -1590.0 ml -1525.000 ml Intake Oral 0 ml 75 ml IV Total 340.0 ml 1250.000 ml Output Urine Total 1930 ml 2850 ml Laboratory Tests Test 03/13/18 05:15 White Blood Count 10.8 K/UL (4.8-10.8) Red Blood Count 3.79 M/UL (4.70-6.10) L Hemoglobin 10.0 G/DL (14.2-18.0) L Hematocrit 32.2 % (42.0-52.0) L Mean Corpuscular Volume 85 FL (80-99) Mean Corpuscular Hemoglobin 26.4 PG (27.0-31.0) L Mean Corpuscular Hemoglobin Concent 31.1 G/DL (32.0-36.0) L Red Cell Distribution Width 15.7 % (11.6-14.8) H Platelet Count 182 K/UL (150-450) Mean Platelet Volume 10.2 FL (6.5-10.1) H Neutrophils (%) (Auto) 79.0 % (45.0-75.0) H Lymphocytes (%) (Auto) 8.2 % (20.0-45.0) L Monocytes (%) (Auto) 11.6 % (1.0-10.0) H Eosinophils (%) (Auto) 0.6 % (0.0-3.0) Basophils (%) (Auto) 0.6 % (0.0-2.0) Sodium Level 146 MMOL/L (136-145) H Potassium Level 4.8 MMOL/L (3.5-5.1) Chloride Level 110 MMOL/L (98-107) H Carbon Dioxide Level 21 MMOL/L (21-32) Anion Gap 15 mmol/L (5-15) Blood Urea Nitrogen 45 mg/dL (7-18) H Creatinine 1.8 MG/DL (0.55-1.30) H Estimat Glomerular Filtration Rate mL/min (>60) Glucose Level 234 MG/DL (74-106) H Calcium Level 9.9 MG/DL (8.5-10.1) Troponin I 0.094 ng/mL (0.000-0.056) C-Reactive Protein, Quantitative > 70.0 mg/dL (0.00-0.90) H Triglycerides Level 159 MG/DL (30-150) H Cholesterol Level 114 MG/DL (< 200) LDL Cholesterol 70 mg/dL (<100) HDL Cholesterol 15 MG/DL (40-60) L Cholesterol/HDL Ratio 7.6 (3.3-4.4) H Thyroid Stimulating Hormone (TSH) 0.612 uiU/mL (0.358-3.740) Free Thyroxine 0.93 NG/DL (0.76-1.46) Microbiology Date/Time Source Procedure Growth Status 03/10/18 22:00 Urine,Clean Catch Urine Culture - Preliminary NO GROWTH Resulted Objective HEAD AND NECK: Showed no JVD. LUNGS: Clear. CARDIOVASCULAR: Shows regular S1 and S2 with no gallop or murmur. ABDOMEN: Obese. EXTREMITIES: Bilateral lower extremity edema and cellulitis. Yong Oconnell MD Mar 13, 2018 19:29
[2018-03-13 20:00] VITALS: BP 147/71
[2018-03-13] MEDS ORDERED: Albuterol/Ipratropium 3ml neb HHN PRN (20:15)
[2018-03-13] MEDS ORDERED: NovoLOG Insulin Flexpen SUBQ SCH (21:00)
[2018-03-14] VITALS: BP 155/80
[2018-03-14] MEDS: NS IVPB SCH ×5 (01:41→23:56)
[2018-03-14] MEDS: AMPICILLIN IVPB SCH ×5 (01:41→23:56)
[2018-03-14] MEDS: SULBACTAM SOD IVPB SCH ×5 (01:41→23:56)
[2018-03-14] MEDS: Hydromorphone 0.5mg/0.5ml inj IVP PRN ×8 (01:42→23:04)
[2018-03-14 04:00] VITALS: BP 150/75
[2018-03-14] MEDS: NovoLOG Insulin Flexpen SUBQ SCH ×4 (07:04→20:41)
[2018-03-14 07:33] LABS: BASOPHILS % (AUTO) 1.1 % (0.0-2.0); EOSINOPHILS % (AUTO) 0.2 % (0.0-3.0); HEMATOCRIT 32.6 % (42.0-52.0); HEMOGLOBIN 10.4 G/DL (14.2-18.0); LYMPHOCYTES % (AUTO) 9.5 % (20.0-45.0); MEAN CORPUSCULAR VOLUME 85 FL (80-99); MONOCYTES % (AUTO) 12.3 % (1.0-10.0); NEUTROPHILS % (AUTO) 76.9 % (45.0-75.0); PLATELET COUNT 206 K/UL (150-450); RED BLOOD COUNT 3.82 M/UL (4.70-6.10); RED CELL DISTRIBUTION WIDTH 16.2 % (11.6-14.8); WHITE BLOOD COUNT 9.7 K/UL (4.8-10.8)
[2018-03-14 07:48] LABS: BLOOD UREA NITROGEN 2 mg/dL (7-18)
[2018-03-14 07:58] LABS: ALANINE AMINOTRANSFERASE 27 U/L (12-78); ALBUMIN 2.1 G/DL (3.4-5.0); ALKALINE PHOSPHATASE 67 U/L (46-116); ASPARTATE AMINO TRANSFERASE 21 U/L (15-37); BILIRUBIN,DIRECT 0.2 MG/DL (0.0-0.3); BILIRUBIN,TOTAL 0.7 MG/DL (0.2-1.0); PHOSPHORUS 4.8 MG/DL (2.5-4.9)
[2018-03-14 08:00] VITALS: BP 149/75
[2018-03-14 08:00] LABS: ANION GAP 18 mmol/L (5-15); CALCIUM 8.8 MG/DL (8.5-10.1); CARBON DIOXIDE 21 MMOL/L (21-32); CHLORIDE 113 MMOL/L (98-107); CREATININE 1.8 MG/DL (0.55-1.30); POTASSIUM 4.7 MMOL/L (3.5-5.1); SODIUM 151 MMOL/L (136-145)
[2018-03-14] MEDS: Pantoprazole Inj IVP SCH (08:26)
[2018-03-14] MEDS: Heparin 5000 units/ml inj SUBQ SCH ×2 (08:28→19:56)
--- NOTE | 2018-03-14 09:13 | General Progress Note ---
Assessment/Plan Assessment/Plan (1) Altered level of consciousness (2) Acute encephalopathy (3) B/L LE cellulitis (4) Right heel ulcer (5) Peripheral neuropathy (6) Chronic pain syndrome (7) Narcotic tolerance Patient will be continued on Dilaudid increased to 1mg IV Q3H PRN severe pain and start Percocet 10/325mg PO 1 tab Q4H PRN moderate breakthrough pain. D/w Dr. Liz and he concurred. Subjective Date patient seen: Mar 14, 2018 Time patient seen: 07:15 - am Constitutional: Reports: weakness HEENT: Reports: no symptoms Cardiovascular: Reports: no symptoms Respiratory: Reports: no symptoms Gastrointestinal/Abdominal: Reports: no symptoms Genitourinary: Reports: no symptoms Neurologic/Psychiatric: Reports: numbness, tingling, weakness Endocrine: Reports: no symptoms Hematologic/Lymphatic: Reports: no symptoms Allergies: Coded Allergies: No Known Allergies (Unverified , 03/09/18) Subjective Patient laying in the bed and is more oriented. His pain has been severe and has gotten 4 doses of the Dilaudid in the last 24hrs. He has minimal relief with current strength of Dilaudid. Kidney function is still not optimal to start pt on Neurontin or lyrica at this time. I d/w the nurse about medication changes. Objective Last 24 Hour Vital Signs Date Time Temp Pulse Resp B/P (MAP) Pulse Ox O2 Delivery O2 Flow Rate FiO2 03/14/18 04:00 91 03/14/18 04:00 98.7 91 20 150/75 94 Nasal Cannula 2.0 98.7 03/14/18 00:00 92 03/14/18 00:00 98.5 92 20 155/80 93 Nasal Cannula 2.0 98.5 03/13/18 20:00 95 03/13/18 20:00 99.0 89 20 147/71 93 Nasal Cannula 2.0 99.0 03/13/18 19:45 94 Nasal Cannula 2.0 28 03/13/18 19:45 83 20 Nasal Cannula 2.0 28 03/13/18 19:45 Nasal Cannula 2.0 28 03/13/18 16:22 98.7 03/13/18 16:00 99.6 83 24 144/75 94 Nasal Cannula 2.0 99.6 03/13/18 16:00 84 03/13/18 13:45 98.7 03/13/18 13:15 98.7 03/13/18 12:00 98.3 88 22 146/75 94 Nasal Cannula 2.0 98.3 03/13/18 12:00 88 03/13/18 09:11 98.7 Intake and Output 03/13/18 03/14/18 19:00 07:00 Intake Total 35 ml 1575 ml Output Total 400 ml 2000 ml Balance -365 ml -425 ml IV Total 35 ml 1575 ml Output Urine Total 400 ml 2000 ml # Bowel Movements 5 Laboratory Tests 03/14/18 07:00: White Blood Count 9.7, Red Blood Count 3.82L, Hemoglobin 10.4L, Hematocrit 32.6L , Mean Corpuscular Volume 85, Mean Corpuscular Hemoglobin 27.3, Mean Corpuscular Hemoglobin Concent 32.0, Red Cell Distribution Width 16.2H, Platelet Count 206, Mean Platelet Volume 9.3, Neutrophils (%) (Auto) 76.9H, Lymphocytes (%) (Auto) 9.5L, Monocytes (%) (Auto) 12.3H, Eosinophils (%) (Auto) 0.2, Basophils (%) (Auto) 1.1, Erythrocyte Sedimentation Rate 116H, Sodium Level 151H, Potassium Level 4.7, Chloride Level 113H, Carbon Dioxide Level 21, Anion Gap 18H, Blood Urea Nitrogen 2L, Creatinine 1.8H, Estimat Glomerular Filtration Rate , Glucose Level 288H, Uric Acid 10.5H, Calcium Level 8.8, Phosphorus Level 4.8, Magnesium Level 2.7H, Total Bilirubin 0.7, Direct Bilirubin 0.2, Aspartate Amino Transf (AST/SGOT) 21, Alanine Aminotransferase ( ALT/SGPT) 27, Alkaline Phosphatase 67, Troponin I 0.120H, C-Reactive Protein, Quantitative 25.2H, Pro-B-Type Natriuretic Peptide 7548H, Total Protein 6.9, Albumin 2.1L Height (Feet): 6 Height (Inches): 1.00 Weight (Pounds): 343 Objective GENERAL: Alert. Awake. Oriented. HEENT: PERRLA. LUNGS: Decreased breath sounds bilaterally. HEART: S1 and S2 regular. ABDOMEN: Obese. BACK: Range of motion is decreased in flexion and extension with surgical scar noted in midline of lumbar spine. EXTREMITIES: No cyanosis, no clubbing with wounds noted on the lower extremities. Bandages applied. Antonio Whitten Mar 14, 2018 09:13
--- NOTE | 2018-03-14 10:32 | Diagnostic Imaging Report ---
Indication: Reason For Exam: RENAL-A Technique: Grayscale and duplex images of the kidneys, retroperitoneum, and bladder were obtained. Comparison: none Findings: Right kidney measures 13.7 cm in length. Left kidney measures 15.6 cm in length. Both kidneys demonstrate normal echogenicity. No hydronephrosis. No focal abnormality. There is some perinephric fluid bilaterally, however. Normal inferior vena cava. Bladder is not visualized due to overlying bowel gas. Reportedly, there is a Serna catheter. No free fluid demonstrated Impression: Negative for hydronephrosis Bilateral perinephric fluid, nonspecific as regards etiology Nonvisualized bladder due to bowel gas. Probably empty due to the presence of Serna catheter.
[2018-03-14] MEDS: Dakin's 0.125% Soln (Quarter Strength) 16oz TOPIC SCH (11:28)
--- NOTE | 2018-03-14 11:51 | Nephrology Progress Note ---
Assessment/Plan Problem List: (1) Diabetic nephropathy (2) Cellulitis, leg (3) UTI (urinary tract infection) (4) Sepsis (5) Acute encephalopathy (6) Obesity (7) Elevated troponin I level Assessment Renal failure- likely Diabetic nephropathy Cr lower UTI , Sepsis , Cellulitis DM Obesity Acute Encephalopathy HypoAlbuminemia, Likely NS Plan change IV to D5W- start Starlix stool softner Nitro PO Pulmonary support- 2D Echo 55% EjFx Kidney TIN pending gomez Antibiotics Monitor renal parameters avoid Nephrotoxics Subjective ROS Limited/Unobtainable: No Constitutional: Reports: malaise Objective Objective Last 24 Hour Vital Signs Date Time Temp Pulse Resp B/P (MAP) Pulse Ox O2 Delivery O2 Flow Rate FiO2 03/14/18 11:13 97.2 03/14/18 10:11 97.2 03/14/18 08:00 97.2 84 20 149/75 94 Nasal Cannula 2.0 97.2 03/14/18 04:00 91 03/14/18 04:00 98.7 91 20 150/75 94 Nasal Cannula 2.0 98.7 03/14/18 00:00 92 03/14/18 00:00 98.5 92 20 155/80 93 Nasal Cannula 2.0 98.5 03/13/18 20:00 95 03/13/18 20:00 99.0 89 20 147/71 93 Nasal Cannula 2.0 99.0 03/13/18 19:45 94 Nasal Cannula 2.0 28 03/13/18 19:45 83 20 Nasal Cannula 2.0 28 03/13/18 19:45 Nasal Cannula 2.0 28 03/13/18 16:22 98.7 03/13/18 16:00 99.6 83 24 144/75 94 Nasal Cannula 2.0 99.6 03/13/18 16:00 84 03/13/18 13:45 98.7 03/13/18 13:15 98.7 03/13/18 12:00 98.3 88 22 146/75 94 Nasal Cannula 2.0 98.3 03/13/18 12:00 88 Intake and Output 03/13/18 03/14/18 19:00 07:00 Intake Total 35 ml 1575 ml Output Total 400 ml 2000 ml Balance -365 ml -425 ml IV Total 35 ml 1575 ml Output Urine Total 400 ml 2000 ml # Bowel Movements 5 Laboratory Tests 03/14/18 07:00: White Blood Count 9.7, Red Blood Count 3.82L, Hemoglobin 10.4L, Hematocrit 32.6L , Mean Corpuscular Volume 85, Mean Corpuscular Hemoglobin 27.3, Mean Corpuscular Hemoglobin Concent 32.0, Red Cell Distribution Width 16.2H, Platelet Count 206, Mean Platelet Volume 9.3, Neutrophils (%) (Auto) 76.9H, Lymphocytes (%) (Auto) 9.5L, Monocytes (%) (Auto) 12.3H, Eosinophils (%) (Auto) 0.2, Basophils (%) (Auto) 1.1, Erythrocyte Sedimentation Rate 116H, Sodium Level 151H, Potassium Level 4.7, Chloride Level 113H, Carbon Dioxide Level 21, Anion Gap 18H, Blood Urea Nitrogen 2L, Creatinine 1.8H, Estimat Glomerular Filtration Rate , Glucose Level 288H, Uric Acid 10.5H, Calcium Level 8.8, Phosphorus Level 4.8, Magnesium Level 2.7H, Total Bilirubin 0.7, Direct Bilirubin 0.2, Aspartate Amino Transf (AST/SGOT) 21, Alanine Aminotransferase ( ALT/SGPT) 27, Alkaline Phosphatase 67, Troponin I 0.120H, C-Reactive Protein, Quantitative 25.2H, Pro-B-Type Natriuretic Peptide 7548H, Total Protein 6.9, Albumin 2.1L Height (Feet): 6 Height (Inches): 1.00 Weight (Pounds): 343 General Appearance: no apparent distress Cardiovascular: regular rhythm Respiratory/Chest: decreased breath sounds Abdomen: soft Extremities: other - swollen LEs Objective no other change DIA WALSH Mar 14, 2018 11:51
[2018-03-14 12:00] VITALS: BP 168/83
[2018-03-14] MEDS ORDERED: Imdur 30mg tab ORAL ONE (12:00)
[2018-03-14] MEDS: Docusate 100mg cap ORAL SCH ×2 (12:30→17:43)
[2018-03-14] MEDS: Nitroglycerin Patch 0.4mg TDERMAL SCH (12:32)
--- NOTE | 2018-03-14 12:57 | Cardiology Report ---
APPROVED REPORT EXAM: Two-dimensional and M-mode echocardiogram with Doppler and color Doppler. INDICATION Left Ventricular Function M-Mode DIMENSIONS IVSd1.2 (0.7-1.1cm)Left Atrium (MM)3.6 (1.6-4.0cm) LVDd4.4 (3.5-5.6cm)Aortic Root3.3 (2.0-3.7cm) PWd1.1 (0.7-1.1cm)Aortic Cusp Exc.2.3 (1.5-2.0cm) LVDs2.2 (2.5-4.0cm) PWs2.2 cm Technically difficult and limited study due to patient body habitus. Study quality precludes accurate assessment of regional wall motion. Normal left ventricular chamber size, systolic function and wall motion to the extent visualized Left ventricular ejection fraction estimated to be 55 %. Mild left ventricular hypertrophy. No evidence of pericardial effusion. right atrial and right ventricular enlargement. Left atrial chamber sizes is within normal limits. Mild focal aortic valve sclerosis with adequate cusp excursion. Mildly thickened mitral valve leaflets with normal excursion. Mild mitral annulus and aortic root calcification. Pulmonic valve not visualized. Normal tricuspid valve structure. IVC dilated at 2.3 cm without physiological collapse, estimated RAP is 15 mmHg. A color flow and spectral Doppler study was performed and revealed: No aortic insufficiency. Mild mitral regurgitation. Mitral diastolic velocities suggest mild left ventricular diastolic dysfunction (Grade I). Mild tricuspid regurgitation. Tricuspid systolic velocities suggests peak right ventricular systolic pressure of 55 mmHg, consistent with moderate pulmonary hypertension.
--- NOTE | 2018-03-14 14:00 | Pulmonology Progress Note ---
Assessment/Plan Problems: (1) Acute encephalopathy (2) Bacteremia (3) ATN (acute tubular necrosis) (4) Sepsis (5) Cellulitis, leg (6) UTI (urinary tract infection) (7) Diabetic nephropathy (8) Obesity (9) Diabetes mellitus Assessment/Plan improving continue abx check cultures wound care check cultures sliding scale diabetic diet. Subjective ROS Limited/Unobtainable: No Constitutional: Reports: no symptoms HEENT: Repors: no symptoms Respiratory: Reports: no symptoms Allergies: Coded Allergies: No Known Allergies (Unverified , 03/09/18) Objective Last 24 Hour Vital Signs Date Time Temp Pulse Resp B/P (MAP) Pulse Ox O2 Delivery O2 Flow Rate FiO2 03/14/18 12:32 168/83 03/14/18 12:31 168/83 03/14/18 12:30 95 Nasal Cannula 2.0 28 03/14/18 12:30 Nasal Cannula 2.0 28 03/14/18 12:30 95 20 Nasal Cannula 2.0 28 03/14/18 11:13 97.2 03/14/18 10:11 97.2 03/14/18 08:00 97.2 84 20 149/75 94 Nasal Cannula 2.0 97.2 03/14/18 04:00 91 03/14/18 04:00 98.7 91 20 150/75 94 Nasal Cannula 2.0 98.7 03/14/18 00:00 92 03/14/18 00:00 98.5 92 20 155/80 93 Nasal Cannula 2.0 98.5 03/13/18 20:00 95 03/13/18 20:00 99.0 89 20 147/71 93 Nasal Cannula 2.0 99.0 03/13/18 19:45 94 Nasal Cannula 2.0 28 03/13/18 19:45 83 20 Nasal Cannula 2.0 28 03/13/18 19:45 Nasal Cannula 2.0 28 03/13/18 16:22 98.7 03/13/18 16:00 99.6 83 24 144/75 94 Nasal Cannula 2.0 99.6 03/13/18 16:00 84 Intake and Output 03/13/18 03/14/18 19:00 07:00 Intake Total 35 ml 1575 ml Output Total 400 ml 2000 ml Balance -365 ml -425 ml IV Total 35 ml 1575 ml Output Urine Total 400 ml 2000 ml # Bowel Movements 5 General Appearance: WD/WN HEENT: normocephalic, atraumatic Respiratory/Chest: chest wall non-tender, lungs clear Cardiovascular: normal peripheral pulses, normal rate Abdomen: normal bowel sounds, soft, non tender Genitourinary: normal external genitalia Extremities: no clubbing Neurologic/Psychiatric: property handler II-XII grossly normal Microbiology Date/Time Source Procedure Growth Status 03/13/18 10:25 Blood Blood Culture - Preliminary Resulted Laboratory Tests 03/14/18 07:00: White Blood Count 9.7, Red Blood Count 3.82L, Hemoglobin 10.4L, Hematocrit 32.6L , Mean Corpuscular Volume 85, Mean Corpuscular Hemoglobin 27.3, Mean Corpuscular Hemoglobin Concent 32.0, Red Cell Distribution Width 16.2H, Platelet Count 206, Mean Platelet Volume 9.3, Neutrophils (%) (Auto) 76.9H, Lymphocytes (%) (Auto) 9.5L, Monocytes (%) (Auto) 12.3H, Eosinophils (%) (Auto) 0.2, Basophils (%) (Auto) 1.1, Erythrocyte Sedimentation Rate 116H, Sodium Level 151H, Potassium Level 4.7, Chloride Level 113H, Carbon Dioxide Level 21, Anion Gap 18H, Blood Urea Nitrogen 2L, Creatinine 1.8H, Estimat Glomerular Filtration Rate , Glucose Level 288H, Uric Acid 10.5H, Calcium Level 8.8, Phosphorus Level 4.8, Magnesium Level 2.7H, Total Bilirubin 0.7, Direct Bilirubin 0.2, Aspartate Amino Transf (AST/SGOT) 21, Alanine Aminotransferase ( ALT/SGPT) 27, Alkaline Phosphatase 67, Troponin I 0.120H, C-Reactive Protein, Quantitative 25.2H, Pro-B-Type Natriuretic Peptide 7548H, Total Protein 6.9, Albumin 2.1L 03/14/18 12:09: C-Reactive Protein, Quantitative 15.5H Current Medications Medications (Trade) Dose Ordered Sig/Nancy Route PRN Reason Start Time Stop Time Status Last Admin Dose Admin Acetaminophen (Tylenol) 650 mg Q4H PRN ORAL fever (temp>100.5F) 03/13/18 18:00 04/09/18 17:59 Albuterol/ Ipratropium (Albuterol/ Ipratropium) 3 ml Q4H PRN HHN Shortness of Breath 03/13/18 20:15 03/16/18 08:14 Ampicillin Sodium/ Sulbactam Sodium 3 gm/Sodium Chloride 275 ml @ 275 mls/hr Q6HR IVPB 03/13/18 18:00 03/20/18 11:59 03/14/18 12:33 Dextrose 1,000 ml @ 75 mls/hr [id number] IV 03/14/18 11:45 04/13/18 11:44 03/14/18 12:36 Dextrose (Dextrose 50%) 25 ml STAT PRN IV Hypoglycemia 03/13/18 17:30 04/12/18 17:29 Dextrose (Dextrose 50%) 50 ml STAT PRN IV Hypoglycemia 03/13/18 17:30 04/12/18 17:29 Docusate Sodium (Colace) 100 mg THREE TIMES A DAY ORAL 03/14/18 13:00 04/13/18 12:59 03/14/18 12:30 Heparin Sodium (Porcine) (Heparin 5000 units/ml) 5,000 units EVERY 12 HOURS SUBQ 03/13/18 21:00 04/09/18 08:59 03/14/18 08:28 Hydromorphone HCl (Dilaudid) 1 mg Q3H PRN IVP severe pain (7-10) 03/14/18 10:30 03/21/18 10:29 03/14/18 12:30 Insulin Aspart (NovoLOG) BEFORE MEALS AND HS SUBQ 03/13/18 18:00 04/12/18 17:59 03/14/18 11:26 Isosorbide Mononitrate (Imdur) 30 mg DAILY ORAL 03/15/18 09:00 04/14/18 08:59 Lansoprazole (Prevacid) 30 mg BID ORAL 03/14/18 18:00 04/13/18 17:59 Lidocaine (Xylocaine 5% cream) 1 applic Q6H TOPIC 03/13/18 20:00 04/11/18 13:59 03/14/18 11:28 Lorazepam (Ativan 2mg/ml 1ml) 1 mg Q4H PRN IV For Anxiety 03/13/18 20:15 03/17/18 20:14 Nateglinide (Starlix) 60 mg TIAC ORAL 03/14/18 16:30 04/13/18 16:29 Nitroglycerin (Ntg) 0.4 mg Q5M PRN SL Prn Chest Pain 03/13/18 17:20 04/08/18 22:14 Nitroglycerin (Ntg) 1 patch Q24H TDERMAL 03/14/18 12:00 04/13/18 11:59 03/14/18 12:32 Ondansetron HCl (Zofran) 4 mg Q6H PRN IVP Nausea & Vomiting 03/13/18 22:00 04/08/18 15:59 Oxycodone/ Acetaminophen (Percocet 10/325) 1 tab Q4H PRN ORAL moderate break through pain 03/14/18 09:15 03/21/18 09:14 03/14/18 10:11 Sodium Hypochlorite (Dakin's Quarter Strength) 1 applic DAILY TOPIC 03/14/18 09:00 04/10/18 08:59 03/14/18 11:28 Zia Li MD Mar 14, 2018 14:00
--- NOTE | 2018-03-14 14:29 | General Surgery Progress Note ---
General Surgery-Progress Note Subjective Symptoms: improved Additional Comments more responsive today. tracking. comfortable. family at bedside. Objective Last 24 Hour Vital Signs Date Time Temp Pulse Resp B/P (MAP) Pulse Ox O2 Delivery O2 Flow Rate FiO2 03/14/18 12:32 168/83 18 12:31 168/83 03/14/18 12:30 95 Nasal Cannula 2.0 28 03/14/18 12:30 Nasal Cannula 2.0 28 03/14/18 12:30 95 20 Nasal Cannula 2.0 28 03/14/18 12:00 99.0 89 20 168/83 96 Nasal Cannula 2.0 99.0 03/14/18 12:00 89 03/14/18 11:13 97.2 03/14/18 10:11 97.2 03/14/18 08:00 97.2 84 20 149/75 94 Nasal Cannula 2.0 97.2 03/14/18 04:00 91 03/14/18 04:00 98.7 91 20 150/75 94 Nasal Cannula 2.0 98.7 03/14/18 00:00 92 03/14/18 00:00 98.5 92 20 155/80 93 Nasal Cannula 2.0 98.5 03/13/18 20:00 95 03/13/18 20:00 99.0 89 20 147/71 93 Nasal Cannula 2.0 99.0 03/13/18 19:45 94 Nasal Cannula 2.0 28 03/13/18 19:45 83 20 Nasal Cannula 2.0 28 03/13/18 19:45 Nasal Cannula 2.0 28 03/13/18 16:22 98.7 03/13/18 16:00 99.6 83 24 144/75 94 Nasal Cannula 2.0 99.6 03/13/18 16:00 84 I&O Intake and Output 03/13/18 03/14/18 19:00 07:00 Intake Total 35 ml 1575 ml Output Total 400 ml 2000 ml Balance -365 ml -425 ml IV Total 35 ml 1575 ml Output Urine Total 400 ml 2000 ml # Bowel Movements 5 Dressing: dry Wound: clean, dry Drains: none Cardiovascular: RSR Respiratory: clear Abdomen: soft, flat, non-tender Extremities: edema, other - edema much improved Laboratory Tests Test 03/14/18 07:00 03/14/18 12:09 White Blood Count 9.7 K/UL (4.8-10.8) Red Blood Count 3.82 M/UL (4.70-6.10) L Hemoglobin 10.4 G/DL (14.2-18.0) L Hematocrit 32.6 % (42.0-52.0) L Mean Corpuscular Volume 85 FL (80-99) Mean Corpuscular Hemoglobin 27.3 PG (27.0-31.0) Mean Corpuscular Hemoglobin Concent 32.0 G/DL (32.0-36.0) Red Cell Distribution Width 16.2 % (11.6-14.8) H Platelet Count 206 K/UL (150-450) Mean Platelet Volume 9.3 FL (6.5-10.1) Neutrophils (%) (Auto) 76.9 % (45.0-75.0) H Lymphocytes (%) (Auto) 9.5 % (20.0-45.0) L Monocytes (%) (Auto) 12.3 % (1.0-10.0) H Eosinophils (%) (Auto) 0.2 % (0.0-3.0) Basophils (%) (Auto) 1.1 % (0.0-2.0) Erythrocyte Sedimentation Rate 116 MM/HR (0-20) H Sodium Level 151 MMOL/L (136-145) H Potassium Level 4.7 MMOL/L (3.5-5.1) Chloride Level 113 MMOL/L (98-107) H Carbon Dioxide Level 21 MMOL/L (21-32) Anion Gap 18 mmol/L (5-15) H Blood Urea Nitrogen 2 mg/dL (7-18) L Creatinine 1.8 MG/DL (0.55-1.30) H Estimat Glomerular Filtration Rate mL/min (>60) Glucose Level 288 MG/DL (74-106) H Uric Acid 10.5 MG/DL (2.6-7.2) H Calcium Level 8.8 MG/DL (8.5-10.1) Phosphorus Level 4.8 MG/DL (2.5-4.9) Magnesium Level 2.7 MG/DL (1.8-2.4) H Total Bilirubin 0.7 MG/DL (0.2-1.0) Direct Bilirubin 0.2 MG/DL (0.0-0.3) Aspartate Amino Transf (AST/SGOT) 21 U/L (15-37) Alanine Aminotransferase (ALT/SGPT) 27 U/L (12-78) Alkaline Phosphatase 67 U/L (46-116) Troponin I 0.120 ng/mL (0.000-0.056) C-Reactive Protein, Quantitative 25.2 mg/dL (0.00-0.90) H 15.5 mg/dL (0.00-0.90) H Pro-B-Type Natriuretic Peptide 7548 pg/mL (0-125) H Total Protein 6.9 G/DL (6.4-8.2) Albumin 2.1 G/DL (3.4-5.0) L Plan Problems: (1) Sepsis Assessment & Plan: 72M sepsis with fevers, leukocytosis, altered mental status. chronic bilateral lower extremity wounds with cellulitis. concerns for possible necrotizing fascitis initially. unlikely nec fasc given exam. wounds chronic and skin changes chronic. LRINEC score on admission 10 but given chronicity of wounds, other etiology of sepsis, and physical exam unlikely nec fasc. leukocytosis since resolved. edema improving. cellulitis improving. -no acute surgical intervention necessary. -keep legs elevated -cont with dressings for now -will follow with you thank you for this consultation (2) Cellulitis, leg Leandro Scott Mar 14, 2018 14:29
--- NOTE | 2018-03-14 14:48 | General Progress Note ---
Assessment/Plan Problem List: (1) Sepsis ICD Codes: A41.9 - Sepsis, unspecified organism SNOMED: 58768325 Qualifiers: Qualified Codes: A41.9 - Sepsis, unspecified organism (2) Cellulitis, leg ICD Codes: L03.119 - Cellulitis of unspecified part of limb SNOMED: 177297115 (3) UTI (urinary tract infection) ICD Codes: N39.0 - Urinary tract infection, site not specified SNOMED: 36825148 (4) Diabetes mellitus ICD Codes: E11.9 - Type 2 diabetes mellitus without complications SNOMED: 25928289 (5) Obesity ICD Codes: E66.9 - Obesity, unspecified SNOMED: 816379354, 892058947 (6) Acute encephalopathy ICD Codes: G93.40 - Encephalopathy, unspecified SNOMED: 07730670, 772498247 (7) ATN (acute tubular necrosis) ICD Codes: N17.0 - Acute kidney failure with tubular necrosis SNOMED: 08645505 Status: unchanged Assessment/Plan o2 pulm tx abx wound care neph f/u cardio eval cbc bmp am ltach eval aru eval Subjective Constitutional: Reports: weakness Allergies: Coded Allergies: No Known Allergies (Unverified , 03/09/18) All Systems: reviewed and negative except above Subjective 02nc sleep Objective Last 24 Hour Vital Signs Date Time Temp Pulse Resp B/P (MAP) Pulse Ox O2 Delivery O2 Flow Rate FiO2 03/14/18 12:32 168/83 03/14/18 12:31 168/83 03/14/18 12:30 95 Nasal Cannula 2.0 28 03/14/18 12:30 Nasal Cannula 2.0 28 03/14/18 12:30 95 20 Nasal Cannula 2.0 28 03/14/18 12:00 99.0 89 20 168/83 96 Nasal Cannula 2.0 99.0 03/14/18 12:00 89 03/14/18 11:13 97.2 03/14/18 10:11 97.2 03/14/18 08:00 90 03/14/18 08:00 97.2 84 20 149/75 94 Nasal Cannula 2.0 97.2 03/14/18 04:00 91 03/14/18 04:00 98.7 91 20 150/75 94 Nasal Cannula 2.0 98.7 03/14/18 00:00 92 03/14/18 00:00 98.5 92 20 155/80 93 Nasal Cannula 2.0 98.5 03/13/18 20:00 95 03/13/18 20:00 99.0 89 20 147/71 93 Nasal Cannula 2.0 99.0 03/13/18 19:45 94 Nasal Cannula 2.0 28 03/13/18 19:45 83 20 Nasal Cannula 2.0 28 03/13/18 19:45 Nasal Cannula 2.0 28 03/13/18 16:22 98.7 03/13/18 16:00 99.6 83 24 144/75 94 Nasal Cannula 2.0 99.6 03/13/18 16:00 84 Intake and Output 03/13/18 03/14/18 19:00 07:00 Intake Total 35 ml 1575 ml Output Total 400 ml 2000 ml Balance -365 ml -425 ml IV Total 35 ml 1575 ml Output Urine Total 400 ml 2000 ml # Bowel Movements 5 Laboratory Tests 03/14/18 07:00: White Blood Count 9.7, Red Blood Count 3.82L, Hemoglobin 10.4L, Hematocrit 32.6L , Mean Corpuscular Volume 85, Mean Corpuscular Hemoglobin 27.3, Mean Corpuscular Hemoglobin Concent 32.0, Red Cell Distribution Width 16.2H, Platelet Count 206, Mean Platelet Volume 9.3, Neutrophils (%) (Auto) 76.9H, Lymphocytes (%) (Auto) 9.5L, Monocytes (%) (Auto) 12.3H, Eosinophils (%) (Auto) 0.2, Basophils (%) (Auto) 1.1, Erythrocyte Sedimentation Rate 116H, Sodium Level 151H, Potassium Level 4.7, Chloride Level 113H, Carbon Dioxide Level 21, Anion Gap 18H, Blood Urea Nitrogen 2L, Creatinine 1.8H, Estimat Glomerular Filtration Rate , Glucose Level 288H, Uric Acid 10.5H, Calcium Level 8.8, Phosphorus Level 4.8, Magnesium Level 2.7H, Total Bilirubin 0.7, Direct Bilirubin 0.2, Aspartate Amino Transf (AST/SGOT) 21, Alanine Aminotransferase ( ALT/SGPT) 27, Alkaline Phosphatase 67, Troponin I 0.120H, C-Reactive Protein, Quantitative 25.2H, Pro-B-Type Natriuretic Peptide 7548H, Total Protein 6.9, Albumin 2.1L 03/14/18 12:09: C-Reactive Protein, Quantitative 15.5H Height (Feet): 6 Height (Inches): 1.00 Weight (Pounds): 343 General Appearance: lethargic EENT: normal ENT inspection Neck: normal alignment Cardiovascular: normal peripheral pulses, normal rate, regular rhythm Respiratory/Chest: chest wall non-tender, decreased breath sounds Abdomen: normal bowel sounds, non tender, soft Extremities: normal inspection Edema: 1+ Arm (L), 1+ Arm (R), 1+ Leg (L), 1+ Leg (R), 1+ Pedal (L), 1+ Pedal ( R), 1+ Generalized Edema: trace edema Neurologic: motor weakness Skin: normal pigmentation, warm/dry Ok Curry DO Mar 14, 2018 14:48
--- NOTE | 2018-03-14 15:23 | Cardiology Report ---
APPROVED REPORT EKG Measurement Heart [id number] Sinus tachycardia Low voltage QRS Borderline ECG
--- NOTE | 2018-03-14 15:46 | Cardiac Electrophysiology PN ---
Assessment/Plan Assessment/Plan 1. Troponin elevation. 0.07,0.09 and 0.1. Levels are flat and no CP. EKG showed sinus rhythm with nonspecific ST-T wave abnormalities. His echocardiogram showed an ejection fraction of 55%. Likely due to renal failure. Start Lopressor 25 bid 2. Hypertension, On Imdur. add Lopressor 25 bid 3. Sepsis, on broad-spectrum IV antibiotics 4. Diabetes. 5. Urinary tract infection. 6. Cellulitis of the legs. 7. Hyperkalemia. 8. Renal failure.Cr 1.8 9. Elevated brain natriuretic peptide. EF is normal. It could be due to diastolic dysfunction. DW RN and sister Subjective Subjective More alert today. Daughter at bedside. No CP or SOB. His pain meds were increased Objective Last 24 Hour Vital Signs Date Time Temp Pulse Resp B/P (MAP) Pulse Ox O2 Delivery O2 Flow Rate FiO2 03/14/18 12:32 168/83 03/14/18 12:31 168/83 03/14/18 12:30 95 Nasal Cannula 2.0 28 03/14/18 12:30 Nasal Cannula 2.0 28 03/14/18 12:30 95 20 Nasal Cannula 2.0 28 03/14/18 12:00 99.0 89 20 168/83 96 Nasal Cannula 2.0 99.0 03/14/18 12:00 89 03/14/18 11:13 97.2 03/14/18 10:11 97.2 03/14/18 08:00 90 03/14/18 08:00 97.2 84 20 149/75 94 Nasal Cannula 2.0 97.2 03/14/18 04:00 91 03/14/18 04:00 98.7 91 20 150/75 94 Nasal Cannula 2.0 98.7 03/14/18 00:00 92 03/14/18 00:00 98.5 92 20 155/80 93 Nasal Cannula 2.0 98.5 03/13/18 20:00 95 03/13/18 20:00 99.0 89 20 147/71 93 Nasal Cannula 2.0 99.0 03/13/18 19:45 94 Nasal Cannula 2.0 28 03/13/18 19:45 83 20 Nasal Cannula 2.0 28 03/13/18 19:45 Nasal Cannula 2.0 28 6/11/18 16:22 98.7 03/13/18 16:00 99.6 83 24 144/75 94 Nasal Cannula 2.0 99.6 03/13/18 16:00 84 Intake and Output 03/13/18 03/14/18 19:00 07:00 Intake Total 35 ml 1575 ml Output Total 400 ml 2000 ml Balance -365 ml -425 ml IV Total 35 ml 1575 ml Output Urine Total 400 ml 2000 ml # Bowel Movements 5 Laboratory Tests Test 03/14/18 07:00 03/14/18 12:09 White Blood Count 9.7 K/UL (4.8-10.8) Red Blood Count 3.82 M/UL (4.70-6.10) L Hemoglobin 10.4 G/DL (14.2-18.0) L Hematocrit 32.6 % (42.0-52.0) L Mean Corpuscular Volume 85 FL (80-99) Mean Corpuscular Hemoglobin 27.3 PG (27.0-31.0) Mean Corpuscular Hemoglobin Concent 32.0 G/DL (32.0-36.0) Red Cell Distribution Width 16.2 % (11.6-14.8) H Platelet Count 206 K/UL (150-450) Mean Platelet Volume 9.3 FL (6.5-10.1) Neutrophils (%) (Auto) 76.9 % (45.0-75.0) H Lymphocytes (%) (Auto) 9.5 % (20.0-45.0) L Monocytes (%) (Auto) 12.3 % (1.0-10.0) H Eosinophils (%) (Auto) 0.2 % (0.0-3.0) Basophils (%) (Auto) 1.1 % (0.0-2.0) Erythrocyte Sedimentation Rate 116 MM/HR (0-20) H Sodium Level 151 MMOL/L (136-145) H Potassium Level 4.7 MMOL/L (3.5-5.1) Chloride Level 113 MMOL/L (98-107) H Carbon Dioxide Level 21 MMOL/L (21-32) Anion Gap 18 mmol/L (5-15) H Blood Urea Nitrogen 2 mg/dL (7-18) L Creatinine 1.8 MG/DL (0.55-1.30) H Estimat Glomerular Filtration Rate mL/min (>60) Glucose Level 288 MG/DL (74-106) H Uric Acid 10.5 MG/DL (2.6-7.2) H Calcium Level 8.8 MG/DL (8.5-10.1) Phosphorus Level 4.8 MG/DL (2.5-4.9) Magnesium Level 2.7 MG/DL (1.8-2.4) H Total Bilirubin 0.7 MG/DL (0.2-1.0) Direct Bilirubin 0.2 MG/DL (0.0-0.3) Aspartate Amino Transf (AST/SGOT) 21 U/L (15-37) Alanine Aminotransferase (ALT/SGPT) 27 U/L (12-78) Alkaline Phosphatase 67 U/L (46-116) Troponin I 0.120 ng/mL (0.000-0.056) C-Reactive Protein, Quantitative 25.2 mg/dL (0.00-0.90) H 15.5 mg/dL (0.00-0.90) H Pro-B-Type Natriuretic Peptide 7548 pg/mL (0-125) H Total Protein 6.9 G/DL (6.4-8.2) Albumin 2.1 G/DL (3.4-5.0) L Microbiology Date/Time Source Procedure Growth Status 03/13/18 10:25 Blood Blood Culture - Preliminary Resulted Objective HEAD AND NECK: Showed no JVD. LUNGS: Clear. CARDIOVASCULAR: Shows regular S1 and S2 with no gallop or murmur. ABDOMEN: Obese. EXTREMITIES: Bilateral lower extremity edema and cellulitis.Dressing dry Yong Oconnell MD Mar 14, 2018 15:46
--- NOTE | 2018-03-14 15:47 | Infectious Diseases Prog Note ---
Assessment/Plan Assessment/Plan Sepsis;improving severe b/l Leg soft tissue infection, improving GBS bacteremia- 2ry to above -/ Bcx 4/4+; 03/13 1/2 GPC clusters (r/p CONS vs Staph auresu) -v. duplex: no DVT R Foot necrotic ulcer- r/o OM, abscess -bone scan p -u/a neg -CXR L:NAPD Fever, SP Leukocytosis, resolved Lactic acidosis, resolved elev lipase Influenza sc : neg JOSE, improving HTN HLD GERD Dm2 Plan: -Continue IV Unasyn abx d#5for GBS bacteremia, cellulitis and R foot necrotic ulcer -Resume IV Vancomcyin given GPC in clusters bacteremia pending ID -2 sets of Bcx -03/13 SP IV Vanco and Clinda #4 -03/12 SP Zosyn #3 -03/10 SP Cefepime d# 1 -f/u arterial duplex BLE -f/u Bone scan (could not fit on CT or MRI machine due to body habitus) -f/u cx -Monitor CBC/BMP, temperatures -Sx, Podiatry f/u Subjective Allergies: Coded Allergies: No Known Allergies (Unverified , 03/09/18) Subjective afebrile in >72hrs no leukocytosis bacteremia GPC clusters Objective Vital Signs Last 24 Hour Vital Signs Date Time Temp Pulse Resp B/P (MAP) Pulse Ox O2 Delivery O2 Flow Rate FiO2 03/14/18 12:32 168/83 03/14/18 12:31 168/83 03/14/18 12:30 95 Nasal Cannula 2.0 28 03/14/18 12:30 Nasal Cannula 2.0 28 03/14/18 12:30 95 20 Nasal Cannula 2.0 28 03/14/18 12:00 99.0 89 20 168/83 96 Nasal Cannula 2.0 99.0 03/14/18 12:00 89 03/14/18 11:13 97.2 03/14/18 10:11 97.2 03/14/18 08:00 90 03/14/18 08:00 97.2 84 20 149/75 94 Nasal Cannula 2.0 97.2 03/14/18 04:00 91 03/14/18 04:00 98.7 91 20 150/75 94 Nasal Cannula 2.0 98.7 03/14/18 00:00 92 03/14/18 00:00 98.5 92 20 155/80 93 Nasal Cannula 2.0 98.5 03/13/18 20:00 95 03/13/18 20:00 99.0 89 20 147/71 93 Nasal Cannula 2.0 99.0 03/13/18 19:45 94 Nasal Cannula 2.0 28 03/13/18 19:45 83 20 Nasal Cannula 2.0 28 03/13/18 19:45 Nasal Cannula 2.0 28 03/13/18 16:22 98.7 03/13/18 16:00 99.6 83 24 144/75 94 Nasal Cannula 2.0 99.6 03/13/18 16:00 84 Height (Feet): 6 Height (Inches): 1.00 Weight (Pounds): 343 Objective General Appearance: obese, no acute distress HEENT: normocephalic, atraumatic, dry mucus membranes Neck: full range of motion, supple, no meningismus, no bony tend Respiratory: lungs clear, normal breath sounds, no rhonchi, no respiratory distress, no retraction, no accessory muscle use Cardiovascular no gallop, no JVD, no murmur, tachycardia Gastrointestinal: normal bowel sounds, non tender, soft, no mass, no organomegaly, non-distended, no guarding, no rebound Musculoskeletal: B/L leg with chornic venous stasis changes and lymphedema with superimposed erythema, warmth; on L leg wrythema extend up laterally to distal thigh. On R foot there is a wound with necrotic center ; no purulent discharge.; improving Microbiology Date/Time Source Procedure Growth Status 03/13/18 10:25 Blood Blood Culture - Preliminary Resulted Laboratory Tests Test 03/14/18 07:00 03/14/18 12:09 White Blood Count 9.7 K/UL (4.8-10.8) Red Blood Count 3.82 M/UL (4.70-6.10) L Hemoglobin 10.4 G/DL (14.2-18.0) L Hematocrit 32.6 % (42.0-52.0) L Mean Corpuscular Volume 85 FL (80-99) Mean Corpuscular Hemoglobin 27.3 PG (27.0-31.0) Mean Corpuscular Hemoglobin Concent 32.0 G/DL (32.0-36.0) Red Cell Distribution Width 16.2 % (11.6-14.8) H Platelet Count 206 K/UL (150-450) Mean Platelet Volume 9.3 FL (6.5-10.1) Neutrophils (%) (Auto) 76.9 % (45.0-75.0) H Lymphocytes (%) (Auto) 9.5 % (20.0-45.0) L Monocytes (%) (Auto) 12.3 % (1.0-10.0) H Eosinophils (%) (Auto) 0.2 % (0.0-3.0) Basophils (%) (Auto) 1.1 % (0.0-2.0) Erythrocyte Sedimentation Rate 116 MM/HR (0-20) H Sodium Level 151 MMOL/L (136-145) H Potassium Level 4.7 MMOL/L (3.5-5.1) Chloride Level 113 MMOL/L (98-107) H Carbon Dioxide Level 21 MMOL/L (21-32) Anion Gap 18 mmol/L (5-15) H Blood Urea Nitrogen 2 mg/dL (7-18) L Creatinine 1.8 MG/DL (0.55-1.30) H Estimat Glomerular Filtration Rate mL/min (>60) Glucose Level 288 MG/DL (74-106) H Uric Acid 10.5 MG/DL (2.6-7.2) H Calcium Level 8.8 MG/DL (8.5-10.1) Phosphorus Level 4.8 MG/DL (2.5-4.9) Magnesium Level 2.7 MG/DL (1.8-2.4) H Total Bilirubin 0.7 MG/DL (0.2-1.0) Direct Bilirubin 0.2 MG/DL (0.0-0.3) Aspartate Amino Transf (AST/SGOT) 21 U/L (15-37) Alanine Aminotransferase (ALT/SGPT) 27 U/L (12-78) Alkaline Phosphatase 67 U/L (46-116) Troponin I 0.120 ng/mL (0.000-0.056) C-Reactive Protein, Quantitative 25.2 mg/dL (0.00-0.90) H 15.5 mg/dL (0.00-0.90) H Pro-B-Type Natriuretic Peptide 7548 pg/mL (0-125) H Total Protein 6.9 G/DL (6.4-8.2) Albumin 2.1 G/DL (3.4-5.0) L Current Medications Medications (Trade) Dose Ordered Sig/Nancy Route PRN Reason Start Time Stop Time Status Last Admin Dose Admin Acetaminophen (Tylenol) 650 mg Q4H PRN ORAL fever (temp>100.5F) 03/13/18 18:00 04/09/18 17:59 Albuterol/ Ipratropium (Albuterol/ Ipratropium) 3 ml Q4H PRN HHN Shortness of Breath 03/13/18 20:15 03/16/18 08:14 Ampicillin Sodium/ Sulbactam Sodium 3 gm/Sodium Chloride 275 ml @ 275 mls/hr Q6HR IVPB 03/13/18 18:00 03/20/18 11:59 03/14/18 12:33 Dextrose 1,000 ml @ 75 mls/hr [id number] IV 03/14/18 11:45 04/13/18 11:44 03/14/18 12:36 Dextrose (Dextrose 50%) 25 ml STAT PRN IV Hypoglycemia 03/13/18 17:30 04/12/18 17:29 Dextrose (Dextrose 50%) 50 ml STAT PRN IV Hypoglycemia 03/13/18 17:30 04/12/18 17:29 Docusate Sodium (Colace) 100 mg THREE TIMES A DAY ORAL 03/14/18 13:00 04/13/18 12:59 03/14/18 12:30 Heparin Sodium (Porcine) (Heparin 5000 units/ml) 5,000 units EVERY 12 HOURS SUBQ 03/13/18 21:00 04/09/18 08:59 03/14/18 08:28 Hydromorphone HCl (Dilaudid) 1 mg Q3H PRN IVP severe pain (7-10) 03/14/18 10:30 03/21/18 10:29 03/14/18 12:30 Insulin Aspart (NovoLOG) BEFORE MEALS AND HS SUBQ 03/13/18 18:00 04/12/18 17:59 03/14/18 11:26 Isosorbide Mononitrate (Imdur) 30 mg DAILY ORAL 03/15/18 09:00 04/14/18 08:59 Lansoprazole (Prevacid) 30 mg BID ORAL 03/14/18 18:00 04/13/18 17:59 Lidocaine (Xylocaine 5% cream) 1 applic Q6H TOPIC 03/13/18 20:00 04/11/18 13:59 03/14/18 11:28 Lorazepam (Ativan 2mg/ml 1ml) 1 mg Q4H PRN IV For Anxiety 03/13/18 20:15 03/17/18 20:14 Nateglinide (Starlix) 60 mg TIAC ORAL 03/14/18 16:30 04/13/18 16:29 Nitroglycerin (Ntg) 0.4 mg Q5M PRN SL Prn Chest Pain 03/13/18 17:20 04/08/18 22:14 Nitroglycerin (Ntg) 1 patch Q24H TDERMAL 03/14/18 12:00 04/13/18 11:59 03/14/18 12:32 Ondansetron HCl (Zofran) 4 mg Q6H PRN IVP Nausea & Vomiting 03/13/18 22:00 04/08/18 15:59 Oxycodone/ Acetaminophen (Percocet 10/325) 1 tab Q4H PRN ORAL moderate break through pain 03/14/18 09:15 03/21/18 09:14 03/14/18 15:13 Sodium Hypochlorite (Dakin's Quarter Strength) 1 applic DAILY TOPIC 03/14/18 09:00 04/10/18 08:59 03/14/18 11:28 Maranda Wiggins M.D. Mar 14, 2018 15:47
[2018-03-14] MEDS ORDERED: 1/2 NS 1000ml IV ONE (15:55)
[2018-03-14 16:00] VITALS: BP 144/78
[2018-03-14] MEDS: Nateglinide 60mg tab ORAL SCH (16:35)
[2018-03-14] MEDS ORDERED: Vancomycin 1250mg/D5W 250ml 250 ML IVPB SCH ×2 (17:00)
[2018-03-14 20:00] VITALS: BP 145/74
[2018-03-14] MEDS: Metoprolol 25mg tab ORAL SCH (20:40)
[2018-03-14] MEDS: LORazepam Inj 2mg/ml 1ml IV PRN (22:22)
[2018-03-15] MEDS: Hydromorphone 0.5mg/0.5ml inj IVP PRN ×3 (02:56→21:57)
[2018-03-15] MEDS: LORazepam Inj 2mg/ml 1ml IV PRN (03:36)
[2018-03-15 04:00] VITALS: BP 133/75
[2018-03-15] MEDS: NS IVPB SCH ×4 (05:19→23:23)
[2018-03-15] MEDS: AMPICILLIN IVPB SCH ×4 (05:19→23:23)
[2018-03-15] MEDS: SULBACTAM SOD IVPB SCH ×4 (05:19→23:23)
[2018-03-15] MEDS: Nateglinide 60mg tab ORAL SCH ×2 (06:03→11:48)
[2018-03-15] MEDS: NovoLOG Insulin Flexpen SUBQ SCH ×6 (06:05→21:04)
[2018-03-15 08:00] VITALS: BP 139/81
[2018-03-15] MEDS: Docusate 100mg cap ORAL SCH ×3 (08:42→17:10)
[2018-03-15] MEDS: Metoprolol 25mg tab ORAL SCH ×2 (08:42→21:03)
[2018-03-15] MEDS: Heparin 5000 units/ml inj SUBQ SCH ×2 (08:43→21:02)
[2018-03-15] MEDS: Dakin's 0.125% Soln (Quarter Strength) 16oz TOPIC SCH (08:43)
[2018-03-15] MEDS ORDERED: Imdur 30mg tab ORAL SCH (09:00)
--- NOTE | 2018-03-15 09:10 | General Progress Note ---
Assessment/Plan Assessment/Plan (1) Altered level of consciousness (2) Acute encephalopathy (3) B/L LE cellulitis (4) Right heel ulcer (5) Peripheral neuropathy (6) Chronic pain syndrome (7) Narcotic tolerance Patient will be continued on Dilaudid and Percocet. D/w Dr. Liz and he concurred. Subjective Date patient seen: Mar 15, 2018 Time patient seen: 07:00 - am Allergies: Coded Allergies: No Known Allergies (Unverified , 03/09/18) Subjective Constitutional: Reports: weakness HEENT: Reports: no symptoms Cardiovascular: Reports: no symptoms Respiratory: Reports: no symptoms Gastrointestinal/Abdominal: Reports: no symptoms Genitourinary: Reports: no symptoms Neurologic/Psychiatric: Reports: numbness, tingling, weakness Endocrine: Reports: no symptoms Hematologic/Lymphatic: Reports: no symptoms Subjective In bed no signs of pain at bed side has been receiving the Dilaudid and Percocet going for bone scan. Objective Last 24 Hour Vital Signs Date Time Temp Pulse Resp B/P (MAP) Pulse Ox O2 Delivery O2 Flow Rate FiO2 03/15/18 08:42 88 139/81 03/15/18 08:42 139/81 03/15/18 04:00 98.3 96 20 133/75 93 Nasal Cannula 2.0 98.3 03/15/18 03:49 89 03/15/18 00:00 84 03/14/18 20:40 89 145/74 03/14/18 20:00 99.8 89 20 145/74 93 99.8 03/14/18 19:52 96 03/14/18 19:30 Nasal Cannula 2.0 28 03/14/18 19:30 94 Nasal Cannula 2.0 28 03/14/18 19:30 90 20 Nasal Cannula 2.0 28 03/14/18 16:00 94 03/14/18 16:00 99.5 99 20 144/78 96 Nasal Cannula 2.0 99.5 03/14/18 12:32 168/83 03/14/18 12:31 168/83 03/14/18 12:30 95 Nasal Cannula 2.0 28 03/14/18 12:30 Nasal Cannula 2.0 28 03/14/18 12:30 95 20 Nasal Cannula 2.0 28 03/14/18 12:00 99.0 89 20 168/83 96 Nasal Cannula 2.0 99.0 03/14/18 12:00 89 03/14/18 11:13 97.2 03/14/18 10:11 97.2 Intake and Output 03/14/18 03/15/18 19:00 07:00 Intake Total 1125 ml 1645 ml Output Total 1300 ml 1400 ml Balance -175 ml 245 ml Intake Oral 600 ml 240 ml IV Total 525 ml 1405 ml Output Urine Total 1300 ml 1400 ml # Bowel Movements 1 2 Laboratory Tests 03/14/18 12:09: C-Reactive Protein, Quantitative 15.5H Height (Feet): 6 Height (Inches): 1.00 Weight (Pounds): 333 Objective GENERAL: Alert. Awake. Oriented. HEENT: PERRLA. LUNGS: Decreased breath sounds bilaterally. HEART: S1 and S2 regular. ABDOMEN: Obese. BACK: Range of motion is decreased in flexion and extension with surgical scar noted in midline of lumbar spine. EXTREMITIES: No cyanosis, no clubbing with wounds noted on the lower extremities. Bandages applied. Antonio Whitten Mar 15, 2018 09:10
[2018-03-15 11:13] LABS: BASOPHILS % (AUTO) 1.4 % (0.0-2.0); EOSINOPHILS % (AUTO) 1.5 % (0.0-3.0); HEMATOCRIT 30.9 % (42.0-52.0); HEMOGLOBIN 9.5 G/DL (14.2-18.0); LYMPHOCYTES % (AUTO) 12.6 % (20.0-45.0); MEAN CORPUSCULAR VOLUME 86 FL (80-99); MONOCYTES % (AUTO) 11.3 % (1.0-10.0); NEUTROPHILS % (AUTO) 73.3 % (45.0-75.0); PLATELET COUNT 219 K/UL (150-450); RED BLOOD COUNT 3.62 M/UL (4.70-6.10); RED CELL DISTRIBUTION WIDTH 15.7 % (11.6-14.8); WHITE BLOOD COUNT 12.1 K/UL (4.8-10.8)
[2018-03-15 11:47] LABS: ALANINE AMINOTRANSFERASE 22 U/L (12-78); ALBUMIN/GLOBULIN RATIO 0.4 (1.0-2.7); ALKALINE PHOSPHATASE 56 U/L (46-116); ANION GAP 13 mmol/L (5-15); ASPARTATE AMINO TRANSFERASE 15 U/L (15-37); BILIRUBIN,TOTAL 0.5 MG/DL (0.2-1.0); BLOOD UREA NITROGEN 48 mg/dL (7-18); CALCIUM 8.6 MG/DL (8.5-10.1); CARBON DIOXIDE 25 MMOL/L (21-32); CHLORIDE 113 MMOL/L (98-107); CREATININE 1.7 MG/DL (0.55-1.30); PHOSPHORUS 4.5 MG/DL (2.5-4.9); SODIUM 151 MMOL/L (136-145)
--- NOTE | 2018-03-15 11:48 | Diagnostic Imaging Report ---
APPROVED REPORT CPT Code: 19886 Present Symptoms Comments: BILATERAL LEGS SWELLING. BILATERAL: Imaging reveals a patent deep venous system bilaterally. There is no evidence of thrombus within the femoral, popliteal or tibial segments. The greater saphenous veins are also within normal limits. Doppler indicates normal spontaneous flow within these segments. Left calf veins were not well visualized due to patient's body habitus.
[2018-03-15] MEDS: Nitroglycerin Patch 0.4mg TDERMAL SCH (11:49)
[2018-03-15 12:00] VITALS: BP 150/74
--- NOTE | 2018-03-15 12:42 | Cardiac Electrophysiology PN ---
Assessment/Plan Assessment/Plan 1. Troponin elevation. 0.07,0.09 and 0.1. Levels are flat and no CP. EKG showed sinus rhythm with nonspecific ST-T wave abnormalities. His echocardiogram showed an ejection fraction of 55%. Likely due to renal failure Cr 1.8 On Lopressor 25 bid 2. Hypertension, On Imdur 30 and Lopressor 25 bid 3. Sepsis, on broad-spectrum IV antibiotics 4. Elevated brain natriuretic peptide. EF is normal. It could be due to diastolic dysfunction. 5. Urinary tract infection. 6. Cellulitis of the legs. 7. Hyperkalemia. 8. Renal failure.Cr 1.7 DW RN and sister DC tele Subjective Subjective Was agitated last night and got sedation. Had first part ob Bone scan today. Daughter at bedside. Objective Last 24 Hour Vital Signs Date Time Temp Pulse Resp B/P (MAP) Pulse Ox O2 Delivery O2 Flow Rate FiO2 03/15/18 11:49 139/81 03/15/18 08:42 88 139/81 03/15/18 08:42 139/81 03/15/18 08:00 84 03/15/18 08:00 97.3 88 21 139/81 93 Nasal Cannula 97.3 03/15/18 07:55 94 Nasal Cannula 2.0 28 03/15/18 07:55 88 20 Nasal Cannula 2.0 28 03/15/18 07:55 Nasal Cannula 2.0 28 03/15/18 04:00 98.3 96 20 133/75 93 Nasal Cannula 2.0 98.3 03/15/18 03:49 89 03/15/18 00:00 84 03/14/18 20:40 89 145/74 03/14/18 20:00 99.8 89 20 145/74 93 99.8 03/14/18 19:52 96 03/14/18 19:30 Nasal Cannula 2.0 28 03/14/18 19:30 94 Nasal Cannula 2.0 28 03/14/18 19:30 90 20 Nasal Cannula 2.0 28 03/14/18 16:00 94 03/14/18 16:00 99.5 99 20 144/78 96 Nasal Cannula 2.0 99.5 Intake and Output 03/14/18 03/15/18 19:00 07:00 Intake Total 1125 ml 1645 ml Output Total 1300 ml 1400 ml Balance -175 ml 245 ml Intake Oral 600 ml 240 ml IV Total 525 ml 1405 ml Output Urine Total 1300 ml 1400 ml # Bowel Movements 1 2 Laboratory Tests Test 03/15/18 11:00 White Blood Count 12.1 K/UL (4.8-10.8) H Red Blood Count 3.62 M/UL (4.70-6.10) L Hemoglobin 9.5 G/DL (14.2-18.0) L Hematocrit 30.9 % (42.0-52.0) L Mean Corpuscular Volume 86 FL (80-99) Mean Corpuscular Hemoglobin 26.3 PG (27.0-31.0) L Mean Corpuscular Hemoglobin Concent 30.7 G/DL (32.0-36.0) L Red Cell Distribution Width 15.7 % (11.6-14.8) H Platelet Count 219 K/UL (150-450) Mean Platelet Volume 8.7 FL (6.5-10.1) Neutrophils (%) (Auto) 73.3 % (45.0-75.0) Lymphocytes (%) (Auto) 12.6 % (20.0-45.0) L Monocytes (%) (Auto) 11.3 % (1.0-10.0) H Eosinophils (%) (Auto) 1.5 % (0.0-3.0) Basophils (%) (Auto) 1.4 % (0.0-2.0) Sodium Level 151 MMOL/L (136-145) H Potassium Level 4.0 MMOL/L (3.5-5.1) Chloride Level 113 MMOL/L (98-107) H Carbon Dioxide Level 25 MMOL/L (21-32) Anion Gap 13 mmol/L (5-15) Blood Urea Nitrogen 48 mg/dL (7-18) H Creatinine 1.7 MG/DL (0.55-1.30) H Estimat Glomerular Filtration Rate mL/min (>60) Glucose Level 270 MG/DL (74-106) H Uric Acid 9.1 MG/DL (2.6-7.2) H Calcium Level 8.6 MG/DL (8.5-10.1) Phosphorus Level 4.5 MG/DL (2.5-4.9) Magnesium Level 2.6 MG/DL (1.8-2.4) H Total Bilirubin 0.5 MG/DL (0.2-1.0) Aspartate Amino Transf (AST/SGOT) 15 U/L (15-37) Alanine Aminotransferase (ALT/SGPT) 22 U/L (12-78) Alkaline Phosphatase 56 U/L (46-116) Troponin I 0.106 ng/mL (0.000-0.056) Pro-B-Type Natriuretic Peptide 4286 pg/mL (0-125) H Total Protein 7.0 G/DL (6.4-8.2) Albumin 2.0 G/DL (3.4-5.0) L Globulin 5.0 g/dL Albumin/Globulin Ratio 0.4 (1.0-2.7) L Microbiology Date/Time Source Procedure Growth Status 03/13/18 10:25 Blood Blood Culture - Preliminary Gram Positive Cocci Resulted 03/13/18 10:10 Blood Blood Culture - Preliminary NO GROWTH AFTER 24 HOURS Resulted 03/14/18 07:00 Stool Clostridium difficile Toxin Assay - Final Complete Objective HEAD AND NECK: Showed no JVD. LUNGS: Coarse rhonchi. CARDIOVASCULAR: Shows regular S1 and S2 with no gallop or murmur. ABDOMEN: Obese. EXTREMITIES: Bilateral lower extremity edema and cellulitis.Dressing dry Yong Oconnell MD Mar 15, 2018 12:42
--- NOTE | 2018-03-15 13:03 | General Progress Note ---
Assessment/Plan Problem List: (1) Sepsis ICD Codes: A41.9 - Sepsis, unspecified organism SNOMED: 85935888 Qualifiers: Qualified Codes: A41.9 - Sepsis, unspecified organism (2) Cellulitis, leg ICD Codes: L03.119 - Cellulitis of unspecified part of limb SNOMED: 081574984 (3) UTI (urinary tract infection) ICD Codes: N39.0 - Urinary tract infection, site not specified SNOMED: 63656534 (4) Diabetes mellitus ICD Codes: E11.9 - Type 2 diabetes mellitus without complications SNOMED: 42453261 (5) Obesity ICD Codes: E66.9 - Obesity, unspecified SNOMED: 892481120, 747749195 (6) Acute encephalopathy ICD Codes: G93.40 - Encephalopathy, unspecified SNOMED: 46843388, 747793263 (7) ATN (acute tubular necrosis) ICD Codes: N17.0 - Acute kidney failure with tubular necrosis SNOMED: 56277132 Status: unchanged Assessment/Plan o2 pulm tx abx wound care neph f/u cardio eval cbc bmp am ltach eval aru eval Subjective Constitutional: Reports: weakness Allergies: Coded Allergies: No Known Allergies (Unverified , 03/09/18) All Systems: reviewed and negative except above Subjective 02nc sleep Objective Last 24 Hour Vital Signs Date Time Temp Pulse Resp B/P (MAP) Pulse Ox O2 Delivery O2 Flow Rate FiO2 03/15/18 11:49 139/81 03/15/18 08:42 88 139/81 03/15/18 08:42 139/81 03/15/18 08:00 84 03/15/18 08:00 97.3 88 21 139/81 93 Nasal Cannula 97.3 03/15/18 07:55 94 Nasal Cannula 2.0 28 03/15/18 07:55 88 20 Nasal Cannula 2.0 28 03/15/18 07:55 Nasal Cannula 2.0 28 03/15/18 04:00 98.3 96 20 133/75 93 Nasal Cannula 2.0 98.3 03/15/18 03:49 89 03/15/18 00:00 84 03/14/18 20:40 89 145/74 03/14/18 20:00 99.8 89 20 145/74 93 99.8 03/14/18 19:52 96 03/14/18 19:30 Nasal Cannula 2.0 28 03/14/18 19:30 94 Nasal Cannula 2.0 28 03/14/18 19:30 90 20 Nasal Cannula 2.0 28 03/14/18 16:00 94 03/14/18 16:00 99.5 99 20 144/78 96 Nasal Cannula 2.0 99.5 Intake and Output 03/14/18 03/15/18 19:00 07:00 Intake Total 1125 ml 1645 ml Output Total 1300 ml 1400 ml Balance -175 ml 245 ml Intake Oral 600 ml 240 ml IV Total 525 ml 1405 ml Output Urine Total 1300 ml 1400 ml # Bowel Movements 1 2 Laboratory Tests 03/15/18 11:00: White Blood Count 12.1H, Red Blood Count 3.62L, Hemoglobin 9.5L, Hematocrit 30.9L, Mean Corpuscular Volume 86, Mean Corpuscular Hemoglobin 26.3L, Mean Corpuscular Hemoglobin Concent 30.7L, Red Cell Distribution Width 15.7H, Platelet Count 219, Mean Platelet Volume 8.7, Neutrophils (%) (Auto) 73.3, Lymphocytes (%) (Auto) 12.6L, Monocytes (%) (Auto) 11.3H, Eosinophils (%) (Auto ) 1.5, Basophils (%) (Auto) 1.4, Sodium Level 151H, Potassium Level 4.0, Chloride Level 113H, Carbon Dioxide Level 25, Anion Gap 13, Blood Urea Nitrogen 48H, Creatinine 1.7H, Estimat Glomerular Filtration Rate , Glucose Level 270H, Uric Acid 9.1H, Calcium Level 8.6, Phosphorus Level 4.5, Magnesium Level 2.6H, Total Bilirubin 0.5, Aspartate Amino Transf (AST/SGOT) 15, Alanine Aminotransferase (ALT/SGPT) 22, Alkaline Phosphatase 56, Troponin I 0.106H, Pro- B-Type Natriuretic Peptide 4286H, Total Protein 7.0, Albumin 2.0L, Globulin 5.0 , Albumin/Globulin Ratio 0.4L Height (Feet): 6 Height (Inches): 1.00 Weight (Pounds): 333 General Appearance: lethargic EENT: normal ENT inspection Neck: normal alignment Cardiovascular: normal peripheral pulses, normal rate, regular rhythm Respiratory/Chest: chest wall non-tender, decreased breath sounds Abdomen: normal bowel sounds, non tender, soft Extremities: normal inspection Edema: 1+ Arm (L), 1+ Arm (R), 1+ Leg (L), 1+ Leg (R), 1+ Pedal (L), 1+ Pedal ( R), 1+ Generalized Neurologic: motor weakness Skin: normal pigmentation, warm/dry Ok Curry DO Mar 15, 2018 13:03
--- NOTE | 2018-03-15 15:18 | Pulmonology Progress Note ---
Assessment/Plan Problems: (1) Acute encephalopathy (2) Bacteremia (3) ATN (acute tubular necrosis) (4) Sepsis (5) Cellulitis, leg (6) UTI (urinary tract infection) (7) Diabetic nephropathy (8) Obesity (9) Diabetes mellitus Assessment/Plan med/surg bun/creatine decreasing improving continue abx check cultures wound care check cultures sliding scale diabetic diet. Subjective ROS Limited/Unobtainable: No Constitutional: Reports: no symptoms HEENT: Repors: no symptoms Respiratory: Reports: no symptoms Allergies: Coded Allergies: No Known Allergies (Unverified , 03/09/18) Objective Last 24 Hour Vital Signs Date Time Temp Pulse Resp B/P (MAP) Pulse Ox O2 Delivery O2 Flow Rate FiO2 03/15/18 12:00 97.1 84 21 150/74 97 Nasal Cannula 97.1 03/15/18 12:00 84 03/15/18 11:49 139/81 03/15/18 08:42 88 139/81 03/15/18 08:42 139/81 03/15/18 08:00 84 03/15/18 08:00 97.3 88 21 139/81 93 Nasal Cannula 97.3 03/15/18 07:55 94 Nasal Cannula 2.0 28 03/15/18 07:55 88 20 Nasal Cannula 2.0 28 03/15/18 07:55 Nasal Cannula 2.0 28 03/15/18 04:00 98.3 96 20 133/75 93 Nasal Cannula 2.0 98.3 03/15/18 03:49 89 03/15/18 00:00 84 03/14/18 20:40 89 145/74 03/14/18 20:00 99.8 89 20 145/74 93 99.8 03/14/18 19:52 96 03/14/18 19:30 Nasal Cannula 2.0 28 03/14/18 19:30 94 Nasal Cannula 2.0 28 03/14/18 19:30 90 20 Nasal Cannula 2.0 28 03/14/18 16:00 94 03/14/18 16:00 99.5 99 20 144/78 96 Nasal Cannula 2.0 99.5 Intake and Output 03/14/18 03/15/18 19:00 07:00 Intake Total 1125 ml 1645 ml Output Total 1300 ml 1400 ml Balance -175 ml 245 ml Intake Oral 600 ml 240 ml IV Total 525 ml 1405 ml Output Urine Total 1300 ml 1400 ml # Bowel Movements 1 2 General Appearance: WD/WN HEENT: normocephalic, atraumatic Respiratory/Chest: chest wall non-tender, lungs clear Cardiovascular: normal peripheral pulses, normal rate Abdomen: normal bowel sounds, soft, non tender Genitourinary: normal external genitalia Extremities: no cyanosis Skin: no rash Microbiology Date/Time Source Procedure Growth Status 03/13/18 10:25 Blood Blood Culture - Preliminary Gram Positive Cocci Resulted 03/13/18 10:10 Blood Blood Culture - Preliminary NO GROWTH AFTER 24 HOURS Resulted 03/14/18 07:00 Stool Clostridium difficile Toxin Assay - Final Complete Laboratory Tests 03/15/18 11:00: White Blood Count 12.1H, Red Blood Count 3.62L, Hemoglobin 9.5L, Hematocrit 30.9L, Mean Corpuscular Volume 86, Mean Corpuscular Hemoglobin 26.3L, Mean Corpuscular Hemoglobin Concent 30.7L, Red Cell Distribution Width 15.7H, Platelet Count 219, Mean Platelet Volume 8.7, Neutrophils (%) (Auto) 73.3, Lymphocytes (%) (Auto) 12.6L, Monocytes (%) (Auto) 11.3H, Eosinophils (%) (Auto ) 1.5, Basophils (%) (Auto) 1.4, Sodium Level 151H, Potassium Level 4.0, Chloride Level 113H, Carbon Dioxide Level 25, Anion Gap 13, Blood Urea Nitrogen 48H, Creatinine 1.7H, Estimat Glomerular Filtration Rate , Glucose Level 270H, Uric Acid 9.1H, Calcium Level 8.6, Phosphorus Level 4.5, Magnesium Level 2.6H, Total Bilirubin 0.5, Aspartate Amino Transf (AST/SGOT) 15, Alanine Aminotransferase (ALT/SGPT) 22, Alkaline Phosphatase 56, Troponin I 0.106H, Pro- B-Type Natriuretic Peptide 4286H, Total Protein 7.0, Albumin 2.0L, Globulin 5.0 , Albumin/Globulin Ratio 0.4L Current Medications Medications (Trade) Dose Ordered Sig/Nancy Route PRN Reason Start Time Stop Time Status Last Admin Dose Admin Acetaminophen (Tylenol) 650 mg Q4H PRN ORAL fever (temp>100.5F) 03/13/18 18:00 04/09/18 17:59 Albuterol/ Ipratropium (Albuterol/ Ipratropium) 3 ml Q4H PRN HHN Shortness of Breath 03/13/18 20:15 03/16/18 08:14 Ampicillin Sodium/ Sulbactam Sodium 3 gm/Sodium Chloride 275 ml @ 275 mls/hr Q6HR IVPB 03/13/18 18:00 03/20/18 11:59 03/15/18 11:58 Dextrose 1,000 ml @ 75 mls/hr [id number] IV 03/14/18 11:45 04/13/18 11:44 03/15/18 14:41 Dextrose (Dextrose 50%) 25 ml STAT PRN IV Hypoglycemia 03/13/18 17:30 04/12/18 17:29 Dextrose (Dextrose 50%) 50 ml STAT PRN IV Hypoglycemia 03/13/18 17:30 04/12/18 17:29 Docusate Sodium (Colace) 100 mg THREE TIMES A DAY ORAL 03/14/18 13:00 04/13/18 12:59 03/15/18 08:42 Heparin Sodium (Porcine) (Heparin 5000 units/ml) 5,000 units EVERY 12 HOURS SUBQ 03/13/18 21:00 04/09/18 08:59 03/15/18 08:43 Hydromorphone HCl (Dilaudid) 1 mg Q3H PRN IVP severe pain (7-10) 03/14/18 10:30 03/21/18 10:29 03/15/18 14:23 Insulin Aspart (NovoLOG) BEFORE MEALS AND HS SUBQ 03/13/18 18:00 04/12/18 17:59 03/15/18 12:13 Isosorbide Mononitrate (Imdur) 30 mg DAILY ORAL 03/15/18 09:00 04/14/18 08:59 03/15/18 08:42 Lansoprazole (Prevacid) 30 mg BID ORAL 03/14/18 18:00 04/13/18 17:59 03/15/18 08:42 Lidocaine (Xylocaine 5% cream) 1 applic Q6H TOPIC 03/13/18 20:00 04/11/18 13:59 03/15/18 14:20 Lorazepam (Ativan 2mg/ml 1ml) 1 mg Q4H PRN IV For Anxiety 03/13/18 20:15 03/17/18 20:14 03/15/18 03:36 Metoprolol Tartrate (Lopressor) 25 mg Q12HR ORAL 03/14/18 21:00 04/13/18 20:59 03/15/18 08:42 Nateglinide (Starlix) 60 mg TIAC ORAL 03/14/18 16:30 04/13/18 16:29 03/15/18 11:48 Nitroglycerin (Ntg) 0.4 mg Q5M PRN SL Prn Chest Pain 03/13/18 17:20 04/08/18 22:14 Nitroglycerin (Ntg) 1 patch Q24H TDERMAL 03/14/18 12:00 04/13/18 11:59 03/15/18 11:49 Ondansetron HCl (Zofran) 4 mg Q6H PRN IVP Nausea & Vomiting 03/13/18 22:00 04/08/18 15:59 Oxycodone/ Acetaminophen (Percocet 10/325) 1 tab Q4H PRN ORAL moderate break through pain 03/14/18 09:15 03/21/18 09:14 03/15/18 00:27 Sodium Hypochlorite (Dakin's Quarter Strength) 1 applic DAILY TOPIC 03/14/18 09:00 04/10/18 08:59 03/15/18 08:43 Vancomycin HCl (Vanco rx to dose) 1 ea DAILY PRN MISC Per rx protocol 03/14/18 15:45 04/13/18 15:44 Vancomycin HCl/ Dextrose 250 ml @ 166.667 mls/hr Q24H IVPB 03/14/18 17:00 03/19/18 16:59 03/14/18 16:35 Zia Li MD Mar 15, 2018 15:18
--- NOTE | 2018-03-15 15:41 | Nephrology Progress Note ---
Assessment/Plan Problem List: (1) Diabetic nephropathy (2) Cellulitis, leg (3) UTI (urinary tract infection) (4) Sepsis (5) Acute encephalopathy (6) Obesity (7) Elevated troponin I level Assessment Renal failure- likely Diabetic nephropathy Cr lower 1.7 today UTI , Sepsis , Cellulitis DM Obesity Acute Encephalopathy HypoAlbuminemia, Likely NS Plan change IV to D5W- up dose Starlix stool softner Nitro PO Pulmonary support- 2D Echo 55% EjFx Kidney TIN Negative for hydronephrosis gomez Antibiotics Monitor renal parameters avoid Nephrotoxics Subjective ROS Limited/Unobtainable: No Constitutional: Reports: malaise, weakness Objective Objective Last 24 Hour Vital Signs Date Time Temp Pulse Resp B/P (MAP) Pulse Ox O2 Delivery O2 Flow Rate FiO2 03/15/18 12:00 97.1 84 21 150/74 97 Nasal Cannula 97.1 03/15/18 12:00 84 03/15/18 11:49 139/81 03/15/18 08:42 88 139/81 03/15/18 08:42 139/81 03/15/18 08:00 84 03/15/18 08:00 97.3 88 21 139/81 93 Nasal Cannula 97.3 03/15/18 07:55 94 Nasal Cannula 2.0 28 03/15/18 07:55 88 20 Nasal Cannula 2.0 28 03/15/18 07:55 Nasal Cannula 2.0 28 03/15/18 04:00 98.3 96 20 133/75 93 Nasal Cannula 2.0 98.3 03/15/18 03:49 89 03/15/18 00:00 84 03/14/18 20:40 89 145/74 03/14/18 20:00 99.8 89 20 145/74 93 99.8 03/14/18 19:52 96 03/14/18 19:30 Nasal Cannula 2.0 28 03/14/18 19:30 94 Nasal Cannula 2.0 28 03/14/18 19:30 90 20 Nasal Cannula 2.0 28 03/14/18 16:00 94 03/14/18 16:00 99.5 99 20 144/78 96 Nasal Cannula 2.0 99.5 Intake and Output 03/14/18 03/15/18 19:00 07:00 Intake Total 1125 ml 1645 ml Output Total 1300 ml 1400 ml Balance -175 ml 245 ml Intake Oral 600 ml 240 ml IV Total 525 ml 1405 ml Output Urine Total 1300 ml 1400 ml # Bowel Movements 1 2 Laboratory Tests 03/15/18 11:00: White Blood Count 12.1H, Red Blood Count 3.62L, Hemoglobin 9.5L, Hematocrit 30.9L, Mean Corpuscular Volume 86, Mean Corpuscular Hemoglobin 26.3L, Mean Corpuscular Hemoglobin Concent 30.7L, Red Cell Distribution Width 15.7H, Platelet Count 219, Mean Platelet Volume 8.7, Neutrophils (%) (Auto) 73.3, Lymphocytes (%) (Auto) 12.6L, Monocytes (%) (Auto) 11.3H, Eosinophils (%) (Auto ) 1.5, Basophils (%) (Auto) 1.4, Sodium Level 151H, Potassium Level 4.0, Chloride Level 113H, Carbon Dioxide Level 25, Anion Gap 13, Blood Urea Nitrogen 48H, Creatinine 1.7H, Estimat Glomerular Filtration Rate , Glucose Level 270H, Uric Acid 9.1H, Calcium Level 8.6, Phosphorus Level 4.5, Magnesium Level 2.6H, Total Bilirubin 0.5, Aspartate Amino Transf (AST/SGOT) 15, Alanine Aminotransferase (ALT/SGPT) 22, Alkaline Phosphatase 56, Troponin I 0.106H, Pro- B-Type Natriuretic Peptide 4286H, Total Protein 7.0, Albumin 2.0L, Globulin 5.0 , Albumin/Globulin Ratio 0.4L Height (Feet): 6 Height (Inches): 1.00 Weight (Pounds): 333 General Appearance: no apparent distress Cardiovascular: regular rhythm Respiratory/Chest: decreased breath sounds Abdomen: distended Objective no other change DIA WALSH Mar 15, 2018 15:41
--- NOTE | 2018-03-15 15:54 | Diagnostic Imaging Report ---
Indication: Right heel ulcer Technique: IV administration 26.2 mCi 99 M technetium MDP. Flow, blood pool, and static images were obtained over the feet and ankles Comparison: No comparison plain radiographs are available Findings: Flow images demonstrate mild symmetric hyperemia, predominantly of the ankles. Blood pool images demonstrate slight increased activity in the plantar surface of the heel on the right. On the static images, no abnormal increased activity is seen in the right heel, and no increased activity is seen in the region of the soft tissue abnormality. Increased static activity is seen scattered throughout the right mid foot, and involving the third fourth and fifth distal toes. There is some increased activity also in the left midfoot Impression: Increased blood pool activity in the plantar surface of the right heel, likely related to stated clinical history of right heel ulcer. No abnormal osseous activity to suggest acute osteomyelitis Foci of abnormal static activity without corresponding focal hyperemia on flow and blood pool images in the bilateral mid feet, and right toes, most likely representing degenerative changes. Plain film correlation would be useful, however.
[2018-03-15 16:00] VITALS: BP 130/68
--- NOTE | 2018-03-15 16:36 | General Surgery Progress Note ---
General Surgery-Progress Note Subjective Symptoms: improved Additional Comments more awake. no acute events. Objective Last 24 Hour Vital Signs Date Time Temp Pulse Resp B/P (MAP) Pulse Ox O2 Delivery O2 Flow Rate FiO2 03/15/18 12:00 97.1 84 21 150/74 97 Nasal Cannula 97.1 03/15/18 12:00 84 03/15/18 11:49 139/81 03/15/18 08:42 88 139/81 03/15/18 08:42 139/81 03/15/18 08:00 84 03/15/18 08:00 97.3 88 21 139/81 93 Nasal Cannula 97.3 03/15/18 07:55 94 Nasal Cannula 2.0 28 03/15/18 07:55 88 20 Nasal Cannula 2.0 28 03/15/18 07:55 Nasal Cannula 2.0 28 03/15/18 04:00 98.3 96 20 133/75 93 Nasal Cannula 2.0 98.3 03/15/18 03:49 89 03/15/18 00:00 84 03/14/18 20:40 89 145/74 03/14/18 20:00 99.8 89 20 145/74 93 99.8 03/14/18 19:52 96 03/14/18 19:30 Nasal Cannula 2.0 28 03/14/18 19:30 94 Nasal Cannula 2.0 28 03/14/18 19:30 90 20 Nasal Cannula 2.0 28 I&O Intake and Output 03/14/18 03/15/18 19:00 07:00 Intake Total 1125 ml 1645 ml Output Total 1300 ml 1400 ml Balance -175 ml 245 ml Intake Oral 600 ml 240 ml IV Total 525 ml 1405 ml Output Urine Total 1300 ml 1400 ml # Bowel Movements 1 2 Drains: none Cardiovascular: RSR Respiratory: clear Abdomen: soft, flat, non-tender, present bowel sounds Extremities: edema, tenderness Laboratory Tests Test 03/15/18 11:00 White Blood Count 12.1 K/UL (4.8-10.8) H Red Blood Count 3.62 M/UL (4.70-6.10) L Hemoglobin 9.5 G/DL (14.2-18.0) L Hematocrit 30.9 % (42.0-52.0) L Mean Corpuscular Volume 86 FL (80-99) Mean Corpuscular Hemoglobin 26.3 PG (27.0-31.0) L Mean Corpuscular Hemoglobin Concent 30.7 G/DL (32.0-36.0) L Red Cell Distribution Width 15.7 % (11.6-14.8) H Platelet Count 219 K/UL (150-450) Mean Platelet Volume 8.7 FL (6.5-10.1) Neutrophils (%) (Auto) 73.3 % (45.0-75.0) Lymphocytes (%) (Auto) 12.6 % (20.0-45.0) L Monocytes (%) (Auto) 11.3 % (1.0-10.0) H Eosinophils (%) (Auto) 1.5 % (0.0-3.0) Basophils (%) (Auto) 1.4 % (0.0-2.0) Sodium Level 151 MMOL/L (136-145) H Potassium Level 4.0 MMOL/L (3.5-5.1) Chloride Level 113 MMOL/L (98-107) H Carbon Dioxide Level 25 MMOL/L (21-32) Anion Gap 13 mmol/L (5-15) Blood Urea Nitrogen 48 mg/dL (7-18) H Creatinine 1.7 MG/DL (0.55-1.30) H Estimat Glomerular Filtration Rate mL/min (>60) Glucose Level 270 MG/DL (74-106) H Uric Acid 9.1 MG/DL (2.6-7.2) H Calcium Level 8.6 MG/DL (8.5-10.1) Phosphorus Level 4.5 MG/DL (2.5-4.9) Magnesium Level 2.6 MG/DL (1.8-2.4) H Total Bilirubin 0.5 MG/DL (0.2-1.0) Aspartate Amino Transf (AST/SGOT) 15 U/L (15-37) Alanine Aminotransferase (ALT/SGPT) 22 U/L (12-78) Alkaline Phosphatase 56 U/L (46-116) Troponin I 0.106 ng/mL (0.000-0.056) Pro-B-Type Natriuretic Peptide 4286 pg/mL (0-125) H Total Protein 7.0 G/DL (6.4-8.2) Albumin 2.0 G/DL (3.4-5.0) L Globulin 5.0 g/dL Albumin/Globulin Ratio 0.4 (1.0-2.7) L Plan Problems: (1) Sepsis Assessment & Plan: 72M sepsis with fevers, leukocytosis, altered mental status. chronic bilateral lower extremity wounds with cellulitis. concerns for possible necrotizing fascitis initially. unlikely nec fasc given exam. wounds chronic and skin changes chronic. LRINEC score on admission 10 but given chronicity of wounds, other etiology of sepsis, and physical exam unlikely nec fasc. edema improving. cellulitis improving. -no acute surgical intervention necessary. -keep legs elevated -cont with dressings for now -will follow with you thank you for this consultation (2) Cellulitis, leg Leandro Scott Mar 15, 2018 16:36
[2018-03-15] MEDS ORDERED: Albuterol/Ipratropium 3ml neb HHN PRN (16:45)
[2018-03-15] MEDS ORDERED: LORazepam Inj 2mg/ml 1ml IV PRN (16:45)
[2018-03-15] MEDS ORDERED: Nitroglycerin Subl 0.4mg tab SL PRN (17:00)
[2018-03-15] MEDS ORDERED: Vancomycin 1250mg/D5W 250ml 250 ML IVPB SCH (17:00)
[2018-03-15] MEDS ORDERED: Tubing IV Secondary IV ONE (19:23)
--- NOTE | 2018-03-15 19:33 | Infectious Diseases Prog Note ---
Assessment/Plan Assessment/Plan Sepsis;improving severe b/l Leg soft tissue infection, improving GBS bacteremia- 2ry to above -/ Bcx 4/4+; 03/13 1/2 GPC clusters (r/p CONS vs Staph auresu) -v. duplex: no DVT R Foot necrotic ulcer- no evidence of Osteo on bone scan -bone scan Increased blood pool activity in the plantar surface of the right heel, likely related to stated clinical history of right heel ulcer. No abnormal osseous activity to suggest acute osteomyelitis. Foci of abnormal static activity without corresponding focal hyperemia on flow and blood pool images in the bilateral mid feet, and right toes, most likely representing degenerative changes. Plain film correlation would be useful, however. -u/a neg -CXR :NAPD Fever, SP Leukocytosis, recurrent, mild Lactic acidosis, resolved elev lipase Influenza sc : neg JOSE, improving HTN HLD GERD Dm2 Plan: -Continue IV Unasyn abx d#03/16 for GBS bacteremia, cellulitis and R foot necrotic ulcer -if worsening Leukocytosis, will switch to Zosyn -Resume IV Vancomycin #2 given GPC in clusters bacteremia pending ID -f/u repeast 2 sets of Bcx -03/13 SP IV Vanco and Clinda #4 -03/12 SP Zosyn #3 -03/10 SP Cefepime d# 1 -f/u arterial duplex BLE -f/u cx -Monitor CBC/BMP, temperatures -Sx, Podiatry f/u Subjective Allergies: Coded Allergies: No Known Allergies (Unverified , 03/09/18) Subjective afebrile mild leukocytosis to 12 repeat bcx p transferred to Med surg Objective Vital Signs Last 24 Hour Vital Signs Date Time Temp Pulse Resp B/P (MAP) Pulse Ox O2 Delivery O2 Flow Rate FiO2 03/15/18 18:09 Nasal Cannula 2.0 28 03/15/18 18:09 95 Nasal Cannula 2.0 28 03/15/18 18:08 76 20 Nasal Cannula 2.0 28 03/15/18 16:00 98.8 79 18 130/68 97 Nasal Cannula 98.8 03/15/18 12:00 97.1 84 21 150/74 97 Nasal Cannula 97.1 03/15/18 12:00 84 03/15/18 11:49 139/81 03/15/18 08:42 88 139/81 03/15/18 08:42 139/81 03/15/18 08:00 84 03/15/18 08:00 97.3 88 21 139/81 93 Nasal Cannula 97.3 03/15/18 07:55 94 Nasal Cannula 2.0 28 03/15/18 07:55 88 20 Nasal Cannula 2.0 28 03/15/18 07:55 Nasal Cannula 2.0 28 03/15/18 04:00 98.3 96 20 133/75 93 Nasal Cannula 2.0 98.3 03/15/18 03:49 89 03/15/18 00:00 84 03/14/18 20:40 89 145/74 03/14/18 20:00 99.8 89 20 145/74 93 99.8 03/14/18 19:52 96 03/14/18 19:30 Nasal Cannula 2.0 28 03/14/18 19:30 94 Nasal Cannula 2.0 28 03/14/18 19:30 90 20 Nasal Cannula 2.0 28 Height (Feet): 6 Height (Inches): 1.00 Weight (Pounds): 333 Objective General Appearance: obese, no acute distress HEENT: normocephalic, atraumatic, dry mucus membranes Neck: full range of motion, supple, no meningismus, no bony tend Respiratory: lungs clear, normal breath sounds, no rhonchi, no respiratory distress, no retraction, no accessory muscle use Cardiovascular no gallop, no JVD, no murmur, tachycardia Gastrointestinal: normal bowel sounds, non tender, soft, no mass, no organomegaly, non-distended, no guarding, no rebound Musculoskeletal: B/L leg with chornic venous stasis changes and lymphedema with superimposed erythema, warmth; on L leg wrythema extend up laterally to distal thigh. On R foot there is a wound with necrotic center ; no purulent discharge.; improving Microbiology Date/Time Source Procedure Growth Status 03/13/18 10:25 Blood Blood Culture - Preliminary Gram Positive Cocci Resulted 03/13/18 10:10 Blood Blood Culture - Preliminary NO GROWTH AFTER 24 HOURS Resulted 03/14/18 07:00 Stool Clostridium difficile Toxin Assay - Final Complete Laboratory Tests Test 03/15/18 11:00 White Blood Count 12.1 K/UL (4.8-10.8) H Red Blood Count 3.62 M/UL (4.70-6.10) L Hemoglobin 9.5 G/DL (14.2-18.0) L Hematocrit 30.9 % (42.0-52.0) L Mean Corpuscular Volume 86 FL (80-99) Mean Corpuscular Hemoglobin 26.3 PG (27.0-31.0) L Mean Corpuscular Hemoglobin Concent 30.7 G/DL (32.0-36.0) L Red Cell Distribution Width 15.7 % (11.6-14.8) H Platelet Count 219 K/UL (150-450) Mean Platelet Volume 8.7 FL (6.5-10.1) Neutrophils (%) (Auto) 73.3 % (45.0-75.0) Lymphocytes (%) (Auto) 12.6 % (20.0-45.0) L Monocytes (%) (Auto) 11.3 % (1.0-10.0) H Eosinophils (%) (Auto) 1.5 % (0.0-3.0) Basophils (%) (Auto) 1.4 % (0.0-2.0) Sodium Level 151 MMOL/L (136-145) H Potassium Level 4.0 MMOL/L (3.5-5.1) Chloride Level 113 MMOL/L (98-107) H Carbon Dioxide Level 25 MMOL/L (21-32) Anion Gap 13 mmol/L (5-15) Blood Urea Nitrogen 48 mg/dL (7-18) H Creatinine 1.7 MG/DL (0.55-1.30) H Estimat Glomerular Filtration Rate mL/min (>60) Glucose Level 270 MG/DL (74-106) H Uric Acid 9.1 MG/DL (2.6-7.2) H Calcium Level 8.6 MG/DL (8.5-10.1) Phosphorus Level 4.5 MG/DL (2.5-4.9) Magnesium Level 2.6 MG/DL (1.8-2.4) H Total Bilirubin 0.5 MG/DL (0.2-1.0) Aspartate Amino Transf (AST/SGOT) 15 U/L (15-37) Alanine Aminotransferase (ALT/SGPT) 22 U/L (12-78) Alkaline Phosphatase 56 U/L (46-116) Troponin I 0.106 ng/mL (0.000-0.056) Pro-B-Type Natriuretic Peptide 4286 pg/mL (0-125) H Total Protein 7.0 G/DL (6.4-8.2) Albumin 2.0 G/DL (3.4-5.0) L Globulin 5.0 g/dL Albumin/Globulin Ratio 0.4 (1.0-2.7) L Current Medications Medications (Trade) Dose Ordered Sig/Nancy Route PRN Reason Start Time Stop Time Status Last Admin Dose Admin Acetaminophen (Tylenol) 650 mg Q4H PRN ORAL fever (temp>100.5F) 03/15/18 17:00 04/09/18 16:59 Albuterol/ Ipratropium (Albuterol/ Ipratropium) 3 ml Q4H PRN HHN Shortness of Breath 03/15/18 16:45 03/16/18 16:44 Ampicillin Sodium/ Sulbactam Sodium 3 gm/Sodium Chloride 275 ml @ 275 mls/hr Q6HR IVPB 03/15/18 18:00 03/20/18 11:59 03/15/18 18:42 Dextrose 1,000 ml @ 75 mls/hr [id number] IV 03/15/18 16:45 04/13/18 16:44 Dextrose (Dextrose 50%) 25 ml STAT PRN IV Hypoglycemia 03/15/18 17:00 04/12/18 16:59 Dextrose (Dextrose 50%) 50 ml STAT PRN IV Hypoglycemia 03/15/18 17:30 04/12/18 17:29 Docusate Sodium (Colace) 100 mg THREE TIMES A DAY ORAL 03/15/18 18:00 04/13/18 12:59 03/15/18 17:10 Heparin Sodium (Porcine) (Heparin 5000 units/ml) 5,000 units EVERY 12 HOURS SUBQ 03/15/18 21:00 04/09/18 08:59 Hydromorphone HCl (Dilaudid) 1 mg Q3H PRN IVP severe pain (7-10) 03/15/18 16:45 03/22/18 16:44 Insulin Aspart (NovoLOG) BEFORE MEALS AND HS SUBQ 03/15/18 17:30 04/12/18 17:29 Isosorbide Mononitrate (Imdur) 30 mg DAILY ORAL 03/16/18 09:00 04/14/18 08:59 Lansoprazole (Prevacid) 30 mg BID ORAL 03/15/18 18:00 04/13/18 17:59 03/15/18 17:10 Lidocaine (Xylocaine 5% cream) 1 applic Q6H TOPIC 03/15/18 20:00 04/11/18 13:59 Lorazepam (Ativan 2mg/ml 1ml) 1 mg Q4H PRN IV For Anxiety 03/15/18 16:45 03/17/18 16:44 Metoprolol Tartrate (Lopressor) 25 mg Q12HR ORAL 03/15/18 21:00 04/13/18 20:59 Nateglinide (Starlix) 120 mg TIAC ORAL 03/15/18 16:45 04/13/18 16:44 Nitroglycerin (Ntg) 0.4 mg Q5M PRN SL Prn Chest Pain 03/15/18 17:00 04/08/18 16:59 Nitroglycerin (Ntg) 1 patch Q24H TDERMAL 03/16/18 12:00 04/13/18 11:59 Ondansetron HCl (Zofran) 4 mg Q6H PRN IVP Nausea & Vomiting 03/15/18 17:00 04/08/18 16:59 Oxycodone/ Acetaminophen (Percocet 10/325) 1 tab Q4H PRN ORAL moderate break through pain 03/15/18 16:45 03/21/18 16:44 Sodium Hypochlorite (Dakin's Quarter Strength) 1 applic DAILY TOPIC 03/16/18 09:00 04/10/18 08:59 Vancomycin HCl (Vanco rx to dose) 1 ea DAILY PRN MISC Per rx protocol 03/15/18 17:00 04/14/18 16:59 Vancomycin HCl/ Dextrose 250 ml @ 166.667 mls/hr Q24H IVPB 03/15/18 17:00 03/19/18 16:59 03/15/18 17:59 Maranda Wiggins M.D. Mar 15, 2018 19:33
[2018-03-15 20:00] VITALS: BP 119/53
[2018-03-16] VITALS: BP 134/71
[2018-03-16] MEDS: Hydromorphone 0.5mg/0.5ml inj IVP PRN ×3 (01:48→18:30)
[2018-03-16 04:00] VITALS: BP 156/73
[2018-03-16] MEDS: NS IVPB SCH ×4 (06:36→22:07)
[2018-03-16] MEDS: AMPICILLIN IVPB SCH ×4 (06:36→22:07)
[2018-03-16] MEDS: SULBACTAM SOD IVPB SCH ×4 (06:36→22:07)
[2018-03-16] MEDS: NovoLOG Insulin Flexpen SUBQ SCH ×4 (06:38→22:10)
[2018-03-16 08:00] VITALS: BP 134/65
[2018-03-16] MEDS ORDERED: D5NS 1000ml IV ONE (08:27)
[2018-03-16] MEDS: Imdur 30mg tab ORAL SCH (09:33)
[2018-03-16] MEDS: Docusate 100mg cap ORAL SCH ×3 (09:33→18:26)
[2018-03-16] MEDS: Metoprolol 25mg tab ORAL SCH ×2 (09:33→22:09)
[2018-03-16] MEDS: Dakin's 0.125% Soln (Quarter Strength) 16oz TOPIC SCH (09:34)
[2018-03-16] MEDS: Heparin 5000 units/ml inj SUBQ SCH ×2 (09:35→22:10)
--- NOTE | 2018-03-16 10:53 | General Surgery Progress Note ---
General Surgery-Progress Note Subjective Additional Comments no acute events. doing well. Objective Last 24 Hour Vital Signs Date Time Temp Pulse Resp B/P (MAP) Pulse Ox O2 Delivery O2 Flow Rate FiO2 03/16/18 09:33 60 134/65 03/16/18 09:33 134/65 03/16/18 08:00 97.5 60 18 134/65 94 Nasal Cannula 97.5 03/16/18 04:00 97.2 72 18 156/73 96 Nasal Cannula 97.2 03/16/18 00:00 97.7 71 18 134/71 96 Nasal Cannula 97.7 03/15/18 21:03 82 119/53 03/15/18 20:00 98.0 82 18 119/53 94 Nasal Cannula 98.0 03/15/18 18:09 Nasal Cannula 2.0 28 03/15/18 18:09 95 Nasal Cannula 2.0 28 03/15/18 18:08 76 20 Nasal Cannula 2.0 28 03/15/18 16:00 98.8 79 18 130/68 97 Nasal Cannula 98.8 03/15/18 12:00 97.1 84 21 150/74 97 Nasal Cannula 97.1 03/15/18 12:00 84 03/15/18 11:49 139/81 I&O Intake and Output 03/15/18 03/16/18 19:00 07:00 Intake Total 725 ml 3550 ml Output Total 1200 ml 2650 ml Balance -475 ml 900 ml Intake Oral 3000 ml IV Total 725 ml 550 ml Output Urine Total 1200 ml 2500 ml Stool Total 150 ml # Bowel Movements 1 Cardiovascular: RSR Respiratory: clear Abdomen: soft, flat, non-tender, present bowel sounds Extremities: edema, tenderness Laboratory Tests Test 03/15/18 11:00 White Blood Count 12.1 K/UL (4.8-10.8) H Red Blood Count 3.62 M/UL (4.70-6.10) L Hemoglobin 9.5 G/DL (14.2-18.0) L Hematocrit 30.9 % (42.0-52.0) L Mean Corpuscular Volume 86 FL (80-99) Mean Corpuscular Hemoglobin 26.3 PG (27.0-31.0) L Mean Corpuscular Hemoglobin Concent 30.7 G/DL (32.0-36.0) L Red Cell Distribution Width 15.7 % (11.6-14.8) H Platelet Count 219 K/UL (150-450) Mean Platelet Volume 8.7 FL (6.5-10.1) Neutrophils (%) (Auto) 73.3 % (45.0-75.0) Lymphocytes (%) (Auto) 12.6 % (20.0-45.0) L Monocytes (%) (Auto) 11.3 % (1.0-10.0) H Eosinophils (%) (Auto) 1.5 % (0.0-3.0) Basophils (%) (Auto) 1.4 % (0.0-2.0) Sodium Level 151 MMOL/L (136-145) H Potassium Level 4.0 MMOL/L (3.5-5.1) Chloride Level 113 MMOL/L (98-107) H Carbon Dioxide Level 25 MMOL/L (21-32) Anion Gap 13 mmol/L (5-15) Blood Urea Nitrogen 48 mg/dL (7-18) H Creatinine 1.7 MG/DL (0.55-1.30) H Estimat Glomerular Filtration Rate mL/min (>60) Glucose Level 270 MG/DL (74-106) H Uric Acid 9.1 MG/DL (2.6-7.2) H Calcium Level 8.6 MG/DL (8.5-10.1) Phosphorus Level 4.5 MG/DL (2.5-4.9) Magnesium Level 2.6 MG/DL (1.8-2.4) H Total Bilirubin 0.5 MG/DL (0.2-1.0) Aspartate Amino Transf (AST/SGOT) 15 U/L (15-37) Alanine Aminotransferase (ALT/SGPT) 22 U/L (12-78) Alkaline Phosphatase 56 U/L (46-116) Troponin I 0.106 ng/mL (0.000-0.056) Pro-B-Type Natriuretic Peptide 4286 pg/mL (0-125) H Total Protein 7.0 G/DL (6.4-8.2) Albumin 2.0 G/DL (3.4-5.0) L Globulin 5.0 g/dL Albumin/Globulin Ratio 0.4 (1.0-2.7) L Plan Problems: (1) Sepsis Assessment & Plan: 72M sepsis with fevers, leukocytosis, altered mental status. chronic bilateral lower extremity wounds with cellulitis. concerns for possible necrotizing fascitis initially. unlikely nec fasc given exam. wounds chronic and skin changes chronic. LRINEC score on admission 10 but given chronicity of wounds, other etiology of sepsis, and physical exam unlikely nec fasc. edema improving. cellulitis improving. -no acute surgical intervention necessary. -keep legs elevated -cont with dressings for now -will follow with you thank you for this consultation (2) Cellulitis, leg Leandro Scott Mar 16, 2018 10:53
[2018-03-16 11:14] LABS: BASOPHILS % (AUTO) 1.3 % (0.0-2.0); EOSINOPHILS % (AUTO) 6.5 % (0.0-3.0); HEMATOCRIT 33.5 % (42.0-52.0); HEMOGLOBIN 10.1 G/DL (14.2-18.0); LYMPHOCYTES % (AUTO) 14.4 % (20.0-45.0); MEAN CORPUSCULAR VOLUME 86 FL (80-99); MONOCYTES % (AUTO) 8.1 % (1.0-10.0); NEUTROPHILS % (AUTO) 69.7 % (45.0-75.0); PLATELET COUNT 235 K/UL (150-450); RED BLOOD COUNT 3.89 M/UL (4.70-6.10); RED CELL DISTRIBUTION WIDTH 15.7 % (11.6-14.8); WHITE BLOOD COUNT 12.2 K/UL (4.8-10.8)
--- NOTE | 2018-03-16 11:17 | Infectious Diseases Prog Note ---
Assessment/Plan Assessment/Plan Sepsis;improving severe b/l Leg soft tissue infection, improving GBS bacteremia- 2ry to above -03/09 Bcx 4/4+; 03/13 1/2 CoNS (contaminant); 03/14 BCx NTd -v. duplex: no DVT R Foot necrotic ulcer- no evidence of Osteo on bone scan -bone scan Increased blood pool activity in the plantar surface of the right heel, likely related to stated clinical history of right heel ulcer. No abnormal osseous activity to suggest acute osteomyelitis. Foci of abnormal static activity without corresponding focal hyperemia on flow and blood pool images in the bilateral mid feet, and right toes, most likely representing degenerative changes. Plain film correlation would be useful, however. -u/a neg -CXR :NAPD Fever, SP Leukocytosis, recurrent, mild- CBC pending today Lactic acidosis, resolved elev lipase Influenza sc : neg JOSE, improving HTN HLD GERD Dm2 Plan: -Continue IV Unasyn abx d#04/15 for GBS bacteremia, cellulitis and R foot necrotic ulcer; upon discharge, can be transitioned to IV Ceftriaxone 2g qd for easier dosing. -if worsening Leukocytosis, will switch to Zosyn -D/c IV Vancomycin #3 -03/13 SP IV Vanco and Clinda #4 -6/10 SP Zosyn #3 -6/8 SP Cefepime d# 1 -f/u repeast 2 sets of Bcx -f/u arterial duplex BLE -f/u cx -Monitor CBC/BMP, temperatures -Sx, Podiatry f/u Subjective Allergies: Coded Allergies: No Known Allergies (Unverified , 03/09/18) Subjective afebrile mild leukocytosis to 12; CBC pending repeat bcx NTD Objective Vital Signs Last 24 Hour Vital Signs Date Time Temp Pulse Resp B/P (MAP) Pulse Ox O2 Delivery O2 Flow Rate FiO2 03/16/18 09:33 60 134/65 03/16/18 09:33 134/65 03/16/18 08:00 97.5 60 18 134/65 94 Nasal Cannula 97.5 03/16/18 04:00 97.2 72 18 156/73 96 Nasal Cannula 97.2 03/16/18 00:00 97.7 71 18 134/71 96 Nasal Cannula 97.7 03/15/18 21:03 82 119/53 03/15/18 20:00 98.0 82 18 119/53 94 Nasal Cannula 98.0 03/15/18 18:09 Nasal Cannula 2.0 28 03/15/18 18:09 95 Nasal Cannula 2.0 28 03/15/18 18:08 76 20 Nasal Cannula 2.0 28 03/15/18 16:00 98.8 79 18 130/68 97 Nasal Cannula 98.8 03/15/18 12:00 97.1 84 21 150/74 97 Nasal Cannula 97.1 03/15/18 12:00 84 03/15/18 11:49 139/81 Height (Feet): 6 Height (Inches): 1.00 Weight (Pounds): 345 Objective General Appearance: obese, no acute distress HEENT: normocephalic, atraumatic, dry mucus membranes Neck: full range of motion, supple, no meningismus, no bony tend Respiratory: lungs clear, normal breath sounds, no rhonchi, no respiratory distress, no retraction, no accessory muscle use Cardiovascular no gallop, no JVD, no murmur, tachycardia Gastrointestinal: normal bowel sounds, non tender, soft, no mass, no organomegaly, non-distended, no guarding, no rebound Musculoskeletal: B/L leg with chornic venous stasis changes and lymphedema with superimposed erythema, warmth; on L leg wrythema extend up laterally to distal thigh. On R foot there is a wound with necrotic center ; no purulent discharge.; improving Microbiology Date/Time Source Procedure Growth Status 03/14/18 16:15 Blood Blood Culture - Preliminary NO GROWTH AFTER 24 HOURS Resulted 03/14/18 16:00 Blood Blood Culture - Preliminary NO GROWTH AFTER 24 HOURS Resulted 03/14/18 21:30 Stool Stool Culture - Preliminary NORMAL FECAL ADAMS. Resulted 03/14/18 07:00 Stool Clostridium difficile Toxin Assay - Final Complete Laboratory Tests Test 03/16/18 10:00 White Blood Count Pending Red Blood Count Pending Hemoglobin Pending Hematocrit Pending Mean Corpuscular Volume Pending Mean Corpuscular Hemoglobin Pending Mean Corpuscular Hemoglobin Concent Pending Red Cell Distribution Width Pending Platelet Count Pending Mean Platelet Volume Pending Neutrophils (%) (Auto) Pending Lymphocytes (%) (Auto) Pending Monocytes (%) (Auto) Pending Eosinophils (%) (Auto) Pending Basophils (%) (Auto) Pending Sodium Level Pending Potassium Level Pending Chloride Level Pending Carbon Dioxide Level Pending Blood Urea Nitrogen Pending Creatinine Pending Estimat Glomerular Filtration Rate Pending Glucose Level Pending Calcium Level Pending Current Medications Medications (Trade) Dose Ordered Sig/Nancy Route PRN Reason Start Time Stop Time Status Last Admin Dose Admin Acetaminophen (Tylenol) 650 mg Q4H PRN ORAL fever (temp>100.5F) 03/15/18 17:00 04/09/18 16:59 Albuterol/ Ipratropium (Albuterol/ Ipratropium) 3 ml Q4H PRN HHN Shortness of Breath 03/15/18 16:45 03/16/18 16:44 Ampicillin Sodium/ Sulbactam Sodium 3 gm/Sodium Chloride 275 ml @ 275 mls/hr Q6HR IVPB 03/15/18 18:00 03/20/18 11:59 03/16/18 06:36 Dextrose 1,000 ml @ 75 mls/hr [id number] IV 03/15/18 16:45 04/13/18 16:44 03/16/18 06:43 Dextrose (Dextrose 50%) 25 ml STAT PRN IV Hypoglycemia 03/15/18 17:00 04/12/18 16:59 Dextrose (Dextrose 50%) 50 ml STAT PRN IV Hypoglycemia 03/15/18 17:30 04/12/18 17:29 Docusate Sodium (Colace) 100 mg THREE TIMES A DAY ORAL 03/15/18 18:00 04/13/18 12:59 03/16/18 09:33 Heparin Sodium (Porcine) (Heparin 5000 units/ml) 5,000 units EVERY 12 HOURS SUBQ 03/15/18 21:00 04/09/18 08:59 03/16/18 09:35 Hydromorphone HCl (Dilaudid) 1 mg Q3H PRN IVP severe pain (7-10) 03/15/18 16:45 03/22/18 16:44 03/16/18 01:48 Insulin Aspart (NovoLOG) BEFORE MEALS AND HS SUBQ 03/15/18 17:30 04/12/18 17:29 03/16/18 06:38 Isosorbide Mononitrate (Imdur) 30 mg DAILY ORAL 03/16/18 09:00 04/14/18 08:59 03/16/18 09:33 Lansoprazole (Prevacid) 30 mg BID ORAL 03/15/18 18:00 04/13/18 17:59 03/16/18 09:32 Lidocaine (Xylocaine 5% cream) 1 applic Q6H TOPIC 03/15/18 20:00 04/11/18 13:59 03/16/18 09:34 Lorazepam (Ativan 2mg/ml 1ml) 1 mg Q4H PRN IV For Anxiety 03/15/18 16:45 03/17/18 16:44 03/16/18 00:01 Metoprolol Tartrate (Lopressor) 25 mg Q12HR ORAL 03/15/18 21:00 04/13/18 20:59 03/16/18 09:33 Nateglinide (Starlix) 120 mg TIAC ORAL 03/15/18 16:45 04/13/18 16:44 03/16/18 06:44 Nitroglycerin (Ntg) 0.4 mg Q5M PRN SL Prn Chest Pain 03/15/18 17:00 04/08/18 16:59 Nitroglycerin (Ntg) 1 patch Q24H TDERMAL 03/16/18 12:00 04/13/18 11:59 Ondansetron HCl (Zofran) 4 mg Q6H PRN IVP Nausea & Vomiting 03/15/18 17:00 04/08/18 16:59 Oxycodone/ Acetaminophen (Percocet 10/325) 1 tab Q4H PRN ORAL moderate break through pain 03/15/18 16:45 03/21/18 16:44 Sodium Hypochlorite (Dakin's Quarter Strength) 1 applic DAILY TOPIC 03/16/18 09:00 04/10/18 08:59 03/16/18 09:34 Vancomycin HCl (Vanco rx to dose) 1 ea DAILY PRN MISC Per rx protocol 03/15/18 17:00 04/14/18 16:59 Vancomycin HCl/ Dextrose 250 ml @ 166.667 mls/hr Q24H IVPB 03/15/18 17:00 03/19/18 16:59 03/15/18 17:59 Maranda Wiggins M.D. Mar 16, 2018 11:17
--- NOTE | 2018-03-16 11:33 | Podiatric Progress Note ---
Assessment/Plan Patient Jamir Farmer is a 72 year old male who was admitted on Mar 09, 2018 at 20:35 with Assessment/Plan A./ 1) Bilateral leg cellulitis - resolving 2) Diabetic foot ulcer right heel stable 3) Diabetic neuropathy P/ 1) Cont abx per ID. Bone scan reviewed - NEG osteo 2) Cont wound care with Dakins. No surgical intervention indicated at this time 3) Off loading 4) Will follow Subjective Allergies: Coded Allergies: No Known Allergies (Unverified , 03/09/18) Subjective Patient is alert and verbal. Says he is feeling much better. Objective Exam Last 24 Hour Vital Signs Date Time Temp Pulse Resp B/P (MAP) Pulse Ox O2 Delivery O2 Flow Rate FiO2 03/16/18 09:33 60 134/65 03/16/18 09:33 134/65 03/16/18 08:00 97.5 60 18 134/65 94 Nasal Cannula 97.5 03/16/18 04:00 97.2 72 18 156/73 96 Nasal Cannula 97.2 03/16/18 00:00 97.7 71 18 134/71 96 Nasal Cannula 97.7 03/15/18 21:03 82 119/53 03/15/18 20:00 98.0 82 18 119/53 94 Nasal Cannula 98.0 03/15/18 18:09 Nasal Cannula 2.0 28 03/15/18 18:09 95 Nasal Cannula 2.0 28 03/15/18 18:08 76 20 Nasal Cannula 2.0 28 03/15/18 16:00 98.8 79 18 130/68 97 Nasal Cannula 98.8 03/15/18 12:00 97.1 84 21 150/74 97 Nasal Cannula 97.1 03/15/18 12:00 84 03/15/18 11:49 139/81 Laboratory Tests Test 03/16/18 10:00 White Blood Count 12.2 K/UL (4.8-10.8) H Red Blood Count 3.89 M/UL (4.70-6.10) L Hemoglobin 10.1 G/DL (14.2-18.0) L Hematocrit 33.5 % (42.0-52.0) L Mean Corpuscular Volume 86 FL (80-99) Mean Corpuscular Hemoglobin 25.9 PG (27.0-31.0) L Mean Corpuscular Hemoglobin Concent 30.1 G/DL (32.0-36.0) L Red Cell Distribution Width 15.7 % (11.6-14.8) H Platelet Count 235 K/UL (150-450) Mean Platelet Volume 10.4 FL (6.5-10.1) H Neutrophils (%) (Auto) 69.7 % (45.0-75.0) Lymphocytes (%) (Auto) 14.4 % (20.0-45.0) L Monocytes (%) (Auto) 8.1 % (1.0-10.0) Eosinophils (%) (Auto) 6.5 % (0.0-3.0) H Basophils (%) (Auto) 1.3 % (0.0-2.0) Sodium Level Pending Potassium Level Pending Chloride Level Pending Carbon Dioxide Level Pending Blood Urea Nitrogen Pending Creatinine Pending Estimat Glomerular Filtration Rate Pending Glucose Level Pending Calcium Level Pending Microbiology Date/Time Source Procedure Growth Status 03/14/18 16:15 Blood Blood Culture - Preliminary NO GROWTH AFTER 24 HOURS Resulted 03/10/18 17:00 Nasopharynx Influenza Types A,B Antigen (FLORENCIO) - Final Complete 03/14/18 21:30 Stool Stool Culture - Preliminary NORMAL FECAL ADAMS. Resulted 03/10/18 22:00 Urine,Clean Catch Urine Culture - Final NO GROWTH AFTER 48 HOURS Complete Dermatological Dermatological Narrative right heel wound has slough, no signs of acute infection. bilateral leg erythema is darkening. Rubens Maxwell DPM Mar 16, 2018 11:33
[2018-03-16 11:37] VITALS: BP 123/54
[2018-03-16] MEDS: Nitroglycerin Patch 0.4mg TDERMAL SCH (11:39)
[2018-03-16 11:59] LABS: ANION GAP 9 mmol/L (5-15); BLOOD UREA NITROGEN 36 mg/dL (7-18); CALCIUM 8.4 MG/DL (8.5-10.1); CARBON DIOXIDE 27 MMOL/L (21-32); CHLORIDE 106 MMOL/L (98-107); CREATININE 1.4 MG/DL (0.55-1.30); POTASSIUM 3.9 MMOL/L (3.5-5.1); SODIUM 142 MMOL/L (136-145)
--- NOTE | 2018-03-16 13:14 | Nephrology Progress Note ---
Assessment/Plan Problem List: (1) Diabetic nephropathy (2) Cellulitis, leg (3) UTI (urinary tract infection) (4) Sepsis (5) Acute encephalopathy (6) Obesity (7) Elevated troponin I level Assessment Renal failure- likely Diabetic nephropathy Cr lower 1.4 today UTI , Sepsis , Cellulitis DM Obesity Acute Encephalopathy HypoAlbuminemia, Likely NS Plan DC IV up dose Starlix stool softner Nitro PO Pulmonary support- 2D Echo 55% EjFx Kidney TIN Negative for hydronephrosis gomez Antibiotics Monitor renal parameters avoid Nephrotoxics Subjective ROS Limited/Unobtainable: No Constitutional: Reports: malaise Objective Objective Last 24 Hour Vital Signs Date Time Temp Pulse Resp B/P (MAP) Pulse Ox O2 Delivery O2 Flow Rate FiO2 03/16/18 11:39 123/54 03/16/18 11:37 97.3 60 18 123/54 95 Nasal Cannula 97.3 03/16/18 10:05 95 Nasal Cannula 2.0 28 03/16/18 10:05 82 20 Nasal Cannula 2.0 28 03/16/18 10:05 Nasal Cannula 2.0 28 03/16/18 09:33 60 134/65 03/16/18 09:33 134/65 03/16/18 08:00 97.5 60 18 134/65 94 Nasal Cannula 97.5 03/16/18 04:00 97.2 72 18 156/73 96 Nasal Cannula 97.2 03/16/18 00:00 97.7 71 18 134/71 96 Nasal Cannula 97.7 03/15/18 21:03 82 119/53 03/15/18 20:00 98.0 82 18 119/53 94 Nasal Cannula 98.0 03/15/18 18:09 Nasal Cannula 2.0 28 03/15/18 18:09 95 Nasal Cannula 2.0 28 03/15/18 18:08 76 20 Nasal Cannula 2.0 28 03/15/18 16:00 98.8 79 18 130/68 97 Nasal Cannula 98.8 Intake and Output 03/15/18 03/16/18 19:00 07:00 Intake Total 725 ml 3550 ml Output Total 1200 ml 2650 ml Balance -475 ml 900 ml Intake Oral 3000 ml IV Total 725 ml 550 ml Output Urine Total 1200 ml 2500 ml Stool Total 150 ml # Bowel Movements 1 Laboratory Tests 03/16/18 10:00: White Blood Count 12.2H, Red Blood Count 3.89L, Hemoglobin 10.1L, Hematocrit 33.5L, Mean Corpuscular Volume 86, Mean Corpuscular Hemoglobin 25.9L, Mean Corpuscular Hemoglobin Concent 30.1L, Red Cell Distribution Width 15.7H, Platelet Count 235, Mean Platelet Volume 10.4H, Neutrophils (%) (Auto) 69.7, Lymphocytes (%) (Auto) 14.4L, Monocytes (%) (Auto) 8.1, Eosinophils (%) (Auto) 6.5H, Basophils (%) (Auto) 1.3, Sodium Level 142, Potassium Level 3.9, Chloride Level 106, Carbon Dioxide Level 27, Anion Gap 9, Blood Urea Nitrogen 36H, Creatinine 1.4H, Estimat Glomerular Filtration Rate , Glucose Level 208H, Calcium Level 8.4L Height (Feet): 6 Height (Inches): 1.00 Weight (Pounds): 345 General Appearance: no apparent distress Cardiovascular: normal rate Respiratory/Chest: decreased breath sounds Abdomen: soft Objective no other change DIA WALSH Mar 16, 2018 13:14
--- NOTE | 2018-03-16 13:54 | General Progress Note ---
Assessment/Plan Problem List: (1) Sepsis ICD Codes: A41.9 - Sepsis, unspecified organism SNOMED: 42055741 Qualifiers: Qualified Codes: A41.9 - Sepsis, unspecified organism (2) Cellulitis, leg ICD Codes: L03.119 - Cellulitis of unspecified part of limb SNOMED: 427690834 (3) UTI (urinary tract infection) ICD Codes: N39.0 - Urinary tract infection, site not specified SNOMED: 88019940 (4) Diabetes mellitus ICD Codes: E11.9 - Type 2 diabetes mellitus without complications SNOMED: 85528213 (5) Obesity ICD Codes: E66.9 - Obesity, unspecified SNOMED: 964412960, 750240208 (6) Acute encephalopathy ICD Codes: G93.40 - Encephalopathy, unspecified SNOMED: 51279971, 606177185 (7) ATN (acute tubular necrosis) ICD Codes: N17.0 - Acute kidney failure with tubular necrosis SNOMED: 44023539 Status: stable, progressing Assessment/Plan o2 pulm tx abx wound care neph f/u cardio eval cbc bmp am aru eval Subjective Constitutional: Reports: weakness Allergies: Coded Allergies: No Known Allergies (Unverified , 03/09/18) All Systems: reviewed and negative except above Subjective bed calm Objective Last 24 Hour Vital Signs Date Time Temp Pulse Resp B/P (MAP) Pulse Ox O2 Delivery O2 Flow Rate FiO2 03/16/18 11:39 123/54 03/16/18 11:37 97.3 60 18 123/54 95 Nasal Cannula 97.3 03/16/18 10:05 95 Nasal Cannula 2.0 28 03/16/18 10:05 82 20 Nasal Cannula 2.0 28 03/16/18 10:05 Nasal Cannula 2.0 28 03/16/18 09:33 60 134/65 03/16/18 09:33 134/65 03/16/18 08:00 97.5 60 18 134/65 94 Nasal Cannula 97.5 03/16/18 04:00 97.2 72 18 156/73 96 Nasal Cannula 97.2 03/16/18 00:00 97.7 71 18 134/71 96 Nasal Cannula 97.7 03/15/18 21:03 82 119/53 03/15/18 20:00 98.0 82 18 119/53 94 Nasal Cannula 98.0 03/15/18 18:09 Nasal Cannula 2.0 28 03/15/18 18:09 95 Nasal Cannula 2.0 28 03/15/18 18:08 76 20 Nasal Cannula 2.0 28 03/15/18 16:00 98.8 79 18 130/68 97 Nasal Cannula 98.8 Intake and Output 03/15/18 03/16/18 19:00 07:00 Intake Total 725 ml 3550 ml Output Total 1200 ml 2650 ml Balance -475 ml 900 ml Intake Oral 3000 ml IV Total 725 ml 550 ml Output Urine Total 1200 ml 2500 ml Stool Total 150 ml # Bowel Movements 1 Laboratory Tests 03/16/18 10:00: White Blood Count 12.2H, Red Blood Count 3.89L, Hemoglobin 10.1L, Hematocrit 33.5L, Mean Corpuscular Volume 86, Mean Corpuscular Hemoglobin 25.9L, Mean Corpuscular Hemoglobin Concent 30.1L, Red Cell Distribution Width 15.7H, Platelet Count 235, Mean Platelet Volume 10.4H, Neutrophils (%) (Auto) 69.7, Lymphocytes (%) (Auto) 14.4L, Monocytes (%) (Auto) 8.1, Eosinophils (%) (Auto) 6.5H, Basophils (%) (Auto) 1.3, Sodium Level 142, Potassium Level 3.9, Chloride Level 106, Carbon Dioxide Level 27, Anion Gap 9, Blood Urea Nitrogen 36H, Creatinine 1.4H, Estimat Glomerular Filtration Rate , Glucose Level 208H, Calcium Level 8.4L Height (Feet): 6 Height (Inches): 1.00 Weight (Pounds): 345 General Appearance: lethargic EENT: normal ENT inspection Neck: normal alignment Cardiovascular: normal peripheral pulses, normal rate, regular rhythm Respiratory/Chest: chest wall non-tender, decreased breath sounds Abdomen: normal bowel sounds, non tender, soft Extremities: normal inspection Edema: 1+ Arm (L), 1+ Arm (R), 1+ Leg (L), 1+ Leg (R), 1+ Pedal (L), 1+ Pedal ( R), 1+ Generalized Edema: trace edema Neurologic: motor weakness Skin: normal pigmentation, warm/dry Ok Curry DO Mar 16, 2018 13:54
--- NOTE | 2018-03-16 14:14 | Pulmonology Progress Note ---
Assessment/Plan Problems: (1) Acute encephalopathy (2) Bacteremia (3) ATN (acute tubular necrosis) (4) Sepsis (5) Cellulitis, leg (6) UTI (urinary tract infection) (7) Diabetic nephropathy (8) Obesity (9) Diabetes mellitus Assessment/Plan more alert med/surg bun/creatine decreasing improving continue abx check cultures wound care check cultures sliding scale diabetic diet. Subjective ROS Limited/Unobtainable: No Constitutional: Reports: no symptoms HEENT: Repors: no symptoms Respiratory: Reports: no symptoms Allergies: Coded Allergies: No Known Allergies (Unverified , 03/09/18) Objective Last 24 Hour Vital Signs Date Time Temp Pulse Resp B/P (MAP) Pulse Ox O2 Delivery O2 Flow Rate FiO2 03/16/18 11:39 123/54 03/16/18 11:37 97.3 60 18 123/54 95 Nasal Cannula 97.3 03/16/18 10:05 95 Nasal Cannula 2.0 28 03/16/18 10:05 82 20 Nasal Cannula 2.0 28 03/16/18 10:05 Nasal Cannula 2.0 28 03/16/18 09:33 60 134/65 03/16/18 09:33 134/65 03/16/18 08:00 97.5 60 18 134/65 94 Nasal Cannula 97.5 03/16/18 04:00 97.2 72 18 156/73 96 Nasal Cannula 97.2 03/16/18 00:00 97.7 71 18 134/71 96 Nasal Cannula 97.7 03/15/18 21:03 82 119/53 03/15/18 20:00 98.0 82 18 119/53 94 Nasal Cannula 98.0 03/15/18 18:09 Nasal Cannula 2.0 28 03/15/18 18:09 95 Nasal Cannula 2.0 28 03/15/18 18:08 76 20 Nasal Cannula 2.0 28 03/15/18 16:00 98.8 79 18 130/68 97 Nasal Cannula 98.8 Intake and Output 03/15/18 03/16/18 19:00 07:00 Intake Total 725 ml 3550 ml Output Total 1200 ml 2650 ml Balance -475 ml 900 ml Intake Oral 3000 ml IV Total 725 ml 550 ml Output Urine Total 1200 ml 2500 ml Stool Total 150 ml # Bowel Movements 1 General Appearance: WD/WN HEENT: normocephalic, atraumatic Respiratory/Chest: chest wall non-tender, lungs clear Cardiovascular: normal peripheral pulses, normal rate Abdomen: normal bowel sounds, soft, non tender Genitourinary: normal external genitalia Extremities: no cyanosis Neurologic/Psychiatric: icing coater II-XII grossly normal Microbiology Date/Time Source Procedure Growth Status 03/14/18 16:15 Blood Blood Culture - Preliminary NO GROWTH AFTER 24 HOURS Resulted 03/14/18 16:00 Blood Blood Culture - Preliminary NO GROWTH AFTER 24 HOURS Resulted 03/14/18 21:30 Stool Stool Culture - Preliminary NORMAL FECAL ADAMS. Resulted 03/14/18 07:00 Stool Clostridium difficile Toxin Assay - Final Complete Laboratory Tests 03/16/18 10:00: White Blood Count 12.2H, Red Blood Count 3.89L, Hemoglobin 10.1L, Hematocrit 33.5L, Mean Corpuscular Volume 86, Mean Corpuscular Hemoglobin 25.9L, Mean Corpuscular Hemoglobin Concent 30.1L, Red Cell Distribution Width 15.7H, Platelet Count 235, Mean Platelet Volume 10.4H, Neutrophils (%) (Auto) 69.7, Lymphocytes (%) (Auto) 14.4L, Monocytes (%) (Auto) 8.1, Eosinophils (%) (Auto) 6.5H, Basophils (%) (Auto) 1.3, Sodium Level 142, Potassium Level 3.9, Chloride Level 106, Carbon Dioxide Level 27, Anion Gap 9, Blood Urea Nitrogen 36H, Creatinine 1.4H, Estimat Glomerular Filtration Rate , Glucose Level 208H, Calcium Level 8.4L Current Medications Medications (Trade) Dose Ordered Sig/Nancy Route PRN Reason Start Time Stop Time Status Last Admin Dose Admin Acetaminophen (Tylenol) 650 mg Q4H PRN ORAL fever (temp>100.5F) 03/15/18 17:00 04/09/18 16:59 Albuterol/ Ipratropium (Albuterol/ Ipratropium) 3 ml Q4H PRN HHN Shortness of Breath 03/15/18 16:45 03/16/18 16:44 Ampicillin Sodium/ Sulbactam Sodium 3 gm/Sodium Chloride 275 ml @ 275 mls/hr Q6HR IVPB 03/15/18 18:00 03/20/18 11:59 03/16/18 11:38 Dextrose (Dextrose 50%) 25 ml STAT PRN IV Hypoglycemia 03/15/18 17:00 04/12/18 16:59 Dextrose (Dextrose 50%) 50 ml STAT PRN IV Hypoglycemia 03/15/18 17:30 04/12/18 17:29 Docusate Sodium (Colace) 100 mg THREE TIMES A DAY ORAL 03/15/18 18:00 04/13/18 12:59 03/16/18 12:53 Heparin Sodium (Porcine) (Heparin 5000 units/ml) 5,000 units EVERY 12 HOURS SUBQ 03/15/18 21:00 04/09/18 08:59 03/16/18 09:35 Hydromorphone HCl (Dilaudid) 1 mg Q3H PRN IVP severe pain (7-10) 03/15/18 16:45 03/22/18 16:44 03/16/18 12:52 Insulin Aspart (NovoLOG) BEFORE MEALS AND HS SUBQ 03/15/18 17:30 04/12/18 17:29 03/16/18 11:40 Isosorbide Mononitrate (Imdur) 30 mg DAILY ORAL 03/16/18 09:00 04/14/18 08:59 03/16/18 09:33 Lansoprazole (Prevacid) 30 mg BID ORAL 03/15/18 18:00 04/13/18 17:59 03/16/18 09:32 Lidocaine (Xylocaine 5% cream) 1 applic Q6H TOPIC 03/15/18 20:00 04/11/18 13:59 03/16/18 12:53 Lorazepam (Ativan 2mg/ml 1ml) 1 mg Q4H PRN IV For Anxiety 03/15/18 16:45 03/17/18 16:44 03/16/18 00:01 Metoprolol Tartrate (Lopressor) 25 mg Q12HR ORAL 03/15/18 21:00 04/13/18 20:59 03/16/18 09:33 Nateglinide (Starlix) 120 mg TIAC ORAL 03/15/18 16:45 04/13/18 16:44 03/16/18 11:38 Nitroglycerin (Ntg) 0.4 mg Q5M PRN SL Prn Chest Pain 03/15/18 17:00 04/08/18 16:59 Nitroglycerin (Ntg) 1 patch Q24H TDERMAL 03/16/18 12:00 04/13/18 11:59 03/16/18 11:39 Ondansetron HCl (Zofran) 4 mg Q6H PRN IVP Nausea & Vomiting 03/15/18 17:00 04/08/18 16:59 Oxycodone/ Acetaminophen (Percocet 10/325) 1 tab Q4H PRN ORAL moderate break through pain 03/15/18 16:45 03/21/18 16:44 Sodium Hypochlorite (Dakin's Quarter Strength) 1 applic DAILY TOPIC 03/16/18 09:00 04/10/18 08:59 03/16/18 09:34 Zia Li MD Mar 16, 2018 14:14
--- NOTE | 2018-03-16 14:16 | General Progress Note ---
Assessment/Plan Assessment/Plan (1) Altered level of consciousness (2) Acute encephalopathy (3) B/L LE cellulitis (4) Right heel ulcer (5) Peripheral neuropathy (6) Chronic pain syndrome (7) Narcotic tolerance Patient will be continued on Dilaudid and Percocet. We will start Lyrica 50mg TID. D/w Dr. Liz and he concurred. Subjective Date patient seen: Mar 16, 2018 Time patient seen: 01:15 - pm Allergies: Coded Allergies: No Known Allergies (Unverified , 03/09/18) Subjective Constitutional: Reports: weakness HEENT: Reports: no symptoms Cardiovascular: Reports: no symptoms Respiratory: Reports: no symptoms Gastrointestinal/Abdominal: Reports: no symptoms Genitourinary: Reports: no symptoms Neurologic/Psychiatric: Reports: numbness, tingling, weakness Endocrine: Reports: no symptoms Hematologic/Lymphatic: Reports: no symptoms Subjective Patient is in bed and reports that he continues to have pain which is achy. Receiving the Dilaudid 4 doses and Percocet 1 dose in the last 24hrs. He was advised to ask for Percocet if needed. Had been on Lyrica 150mg TID as out pt which will be restarted at lower dosage. Objective Last 24 Hour Vital Signs Date Time Temp Pulse Resp B/P (MAP) Pulse Ox O2 Delivery O2 Flow Rate FiO2 03/16/18 11:39 123/54 03/16/18 11:37 97.3 60 18 123/54 95 Nasal Cannula 97.3 03/16/18 10:05 95 Nasal Cannula 2.0 28 03/16/18 10:05 82 20 Nasal Cannula 2.0 28 03/16/18 10:05 Nasal Cannula 2.0 28 03/16/18 09:33 60 134/65 03/16/18 09:33 134/65 03/16/18 08:00 97.5 60 18 134/65 94 Nasal Cannula 97.5 03/16/18 04:00 97.2 72 18 156/73 96 Nasal Cannula 97.2 03/16/18 00:00 97.7 71 18 134/71 96 Nasal Cannula 97.7 03/15/18 21:03 82 119/53 03/15/18 20:00 98.0 82 18 119/53 94 Nasal Cannula 98.0 03/15/18 18:09 Nasal Cannula 2.0 28 03/15/18 18:09 95 Nasal Cannula 2.0 28 03/15/18 18:08 76 20 Nasal Cannula 2.0 28 03/15/18 16:00 98.8 79 18 130/68 97 Nasal Cannula 98.8 Intake and Output 03/15/18 03/16/18 19:00 07:00 Intake Total 725 ml 3550 ml Output Total 1200 ml 2650 ml Balance -475 ml 900 ml Intake Oral 3000 ml IV Total 725 ml 550 ml Output Urine Total 1200 ml 2500 ml Stool Total 150 ml # Bowel Movements 1 Laboratory Tests 03/16/18 10:00: White Blood Count 12.2H, Red Blood Count 3.89L, Hemoglobin 10.1L, Hematocrit 33.5L, Mean Corpuscular Volume 86, Mean Corpuscular Hemoglobin 25.9L, Mean Corpuscular Hemoglobin Concent 30.1L, Red Cell Distribution Width 15.7H, Platelet Count 235, Mean Platelet Volume 10.4H, Neutrophils (%) (Auto) 69.7, Lymphocytes (%) (Auto) 14.4L, Monocytes (%) (Auto) 8.1, Eosinophils (%) (Auto) 6.5H, Basophils (%) (Auto) 1.3, Sodium Level 142, Potassium Level 3.9, Chloride Level 106, Carbon Dioxide Level 27, Anion Gap 9, Blood Urea Nitrogen 36H, Creatinine 1.4H, Estimat Glomerular Filtration Rate , Glucose Level 208H, Calcium Level 8.4L Height (Feet): 6 Height (Inches): 1.00 Weight (Pounds): 345 Objective GENERAL: Alert. Awake. Oriented. HEENT: PERRLA. LUNGS: Decreased breath sounds bilaterally. HEART: S1 and S2 regular. ABDOMEN: Obese. BACK: Range of motion is decreased in flexion and extension with surgical scar noted in midline of lumbar spine. EXTREMITIES: No cyanosis, no clubbing with wounds noted on the lower extremities. Bandages applied. Antonio Whitten Mar 16, 2018 14:16
[2018-03-16] MEDS ORDERED: NS 500ML ONE (15:53)
[2018-03-16 16:00] VITALS: BP 120/54
[2018-03-16] MEDS: Lyrica 50mg cap ORAL SCH (18:29)
--- NOTE | 2018-03-16 18:29 | Cardiac Electrophysiology PN ---
Assessment/Plan Assessment/Plan 1. Troponin elevation. 0.07,0.09 and 0.1. Levels are flat and no CP. EKG showed sinus rhythm with nonspecific ST-T wave abnormalities. His echocardiogram showed an ejection fraction of 55%. Likely due to renal failure Cr 1.8 On Lopressor 25 bid 2. Hypertension, On Imdur 30 and Lopressor 25 bid 3. Sepsis, on broad-spectrum IV antibiotics 4. Elevated brain natriuretic peptide. EF is normal. It could be due to diastolic dysfunction. 5. Urinary tract infection. 6. Cellulitis of the legs. 7. Hyperkalemia. 8. Renal failure.Cr 1.7 DW RN and sister Subjective Subjective More alert. Had Bone scan . No CP or SOB RN and Daughter at bedside. Objective Last 24 Hour Vital Signs Date Time Temp Pulse Resp B/P (MAP) Pulse Ox O2 Delivery O2 Flow Rate FiO2 03/16/18 16:00 97.5 62 18 120/54 95 Nasal Cannula 97.5 03/16/18 11:39 123/54 03/16/18 11:37 97.3 60 18 123/54 95 Nasal Cannula 97.3 03/16/18 10:05 95 Nasal Cannula 2.0 28 03/16/18 10:05 82 20 Nasal Cannula 2.0 28 03/16/18 10:05 Nasal Cannula 2.0 28 03/16/18 09:33 60 134/65 03/16/18 09:33 134/65 03/16/18 08:00 97.5 60 18 134/65 94 Nasal Cannula 97.5 03/16/18 04:00 97.2 72 18 156/73 96 Nasal Cannula 97.2 03/16/18 00:00 97.7 71 18 134/71 96 Nasal Cannula 97.7 03/15/18 21:03 82 119/53 03/15/18 20:00 98.0 82 18 119/53 94 Nasal Cannula 98.0 Intake and Output 03/15/18 03/16/18 19:00 07:00 Intake Total 725 ml 3550 ml Output Total 1200 ml 2650 ml Balance -475 ml 900 ml Intake Oral 3000 ml IV Total 725 ml 550 ml Output Urine Total 1200 ml 2500 ml Stool Total 150 ml # Bowel Movements 1 Laboratory Tests Test 03/16/18 10:00 White Blood Count 12.2 K/UL (4.8-10.8) H Red Blood Count 3.89 M/UL (4.70-6.10) L Hemoglobin 10.1 G/DL (14.2-18.0) L Hematocrit 33.5 % (42.0-52.0) L Mean Corpuscular Volume 86 FL (80-99) Mean Corpuscular Hemoglobin 25.9 PG (27.0-31.0) L Mean Corpuscular Hemoglobin Concent 30.1 G/DL (32.0-36.0) L Red Cell Distribution Width 15.7 % (11.6-14.8) H Platelet Count 235 K/UL (150-450) Mean Platelet Volume 10.4 FL (6.5-10.1) H Neutrophils (%) (Auto) 69.7 % (45.0-75.0) Lymphocytes (%) (Auto) 14.4 % (20.0-45.0) L Monocytes (%) (Auto) 8.1 % (1.0-10.0) Eosinophils (%) (Auto) 6.5 % (0.0-3.0) H Basophils (%) (Auto) 1.3 % (0.0-2.0) Sodium Level 142 MMOL/L (136-145) Potassium Level 3.9 MMOL/L (3.5-5.1) Chloride Level 106 MMOL/L (98-107) Carbon Dioxide Level 27 MMOL/L (21-32) Anion Gap 9 mmol/L (5-15) Blood Urea Nitrogen 36 mg/dL (7-18) H Creatinine 1.4 MG/DL (0.55-1.30) H Estimat Glomerular Filtration Rate mL/min (>60) Glucose Level 208 MG/DL (74-106) H Calcium Level 8.4 MG/DL (8.5-10.1) L Microbiology Date/Time Source Procedure Growth Status 03/14/18 16:15 Blood Blood Culture - Preliminary NO GROWTH AFTER 24 HOURS Resulted 03/14/18 16:00 Blood Blood Culture - Preliminary NO GROWTH AFTER 24 HOURS Resulted 03/14/18 21:30 Stool Stool Culture - Preliminary NORMAL FECAL ADAMS. Resulted 03/14/18 07:00 Stool Clostridium difficile Toxin Assay - Final Complete Objective HEAD AND NECK: Showed no JVD. LUNGS: Coarse rhonchi. CARDIOVASCULAR: Shows regular S1 and S2 with no gallop or murmur. ABDOMEN: Obese. EXTREMITIES: Bilateral lower extremity edema and cellulitis. Yong Oconnell MD Mar 16, 2018 18:29
[2018-03-16 20:00] VITALS: BP 135/59
--- NOTE | 2018-03-16 21:19 | Consultation ---
Consult Note Consult Note NEUROLOGY CONSULTATION: Full note dictated #[id number] 72 y/o, RH, CM with PH of HTN, DM, morbid obesity, LE cellulitis. He was getting increasingly delirious at home and was having fevers and rigors for 2 days [employer]. He was hospitalized on 03/10/18 for sepsis due to LE cellulitis and a UTI. He was in the ICU at first and is now on the floor. ON EXAM: Disoriented to date and name of hosp. Problems with higher cognitive function and language. Generalized LE weakness. Absent DTRs Inability to stand and walk. IMPRESSION: Toxic/metabolic encephalopathy - improving. REC: Aggressive Rx of infection Correct fluid and electrolyte balance Mobilize with PT/OT Dion Lyons M.D., M.S.P.H. DION LYONS Mar 16, 2018 21:19
--- NOTE | 2018-03-16 22:00 | Consultation ---
DATE OF CONSULTATION: 03/16/2018 NEUROLOGY CONSULTATION CONSULTING PHYSICIAN: Jasiel Lyons M.D. REQUESTING PHYSICIAN: Ok Curry D.O. HISTORY: Mr. Jamir Farmer is a 72-year-old, right-handed, gentleman, who does have a past history of hypertension, diabetes mellitus, morbid obesity, and lower extremity cellulitis. He was getting increasingly delirious at home and was having fevers and rigors for two days prior to admission. As a result of that, the paramedics were called in and he was brought in to the [facility] ER. On 03/10/2018, he was admitted to [facility] for sepsis due to lower extremity cellulitis and a urinary tract infection. At first, he had to be in the intensive care unit for a significant drop in blood pressure for which he needed pressors and then he was stabilized and transferred to the floor. He has continued to have a significant alteration in his mental state and thus this consultation was requested. As per Mr. Farmer, his cognitive function and confusion has improved significantly. As per his daughter, who was with him, he is quite correct with regards to that, but he is still not back to his normal self. He denies any weakness on one side or the other, numbness on one side or the other, problems with speech, problems with language, problems with vision, but does state that he has had a neuropathy involving both his lower extremities related to his diabetes for sometime. PAST MEDICAL HISTORY: Significant for hypertension, diabetes mellitus, morbid obesity, and lower extremity cellulitis. FAMILY HISTORY: Significant for diabetes mellitus in other family members. PERSONAL HISTORY: Home: He lives with his . 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 Habits: He used to smoke in the past, but stopped smoking numerous years ago. He does have a rare alcoholic drink. He denies use of any illicit drugs. PRESENT MEDICATIONS: Lyrica 50 mg q.8 hours, nitroglycerin, Imdur, heparin for DVT prophylaxis, metoprolol, Lidoderm patches, ampicillin, Prevacid, Colace, insulin, Tylenol p.r.n., nitroglycerin p.r.n., Zofran p.r.n., Dilaudid p.r.n., Ativan p.r.n., Starlix, and Percocet p.r.n. PHYSICAL EXAMINATION: GENERAL: He is a well-developed, well-nourished, obese, gentleman, lying in bed with his legs bandaged from just below the knees to just above the ankles. VITAL SIGNS: Pulse 95/minute, blood pressure 120/54 mmHg, respirations 18/minute, and temperature 97.5 degrees Fahrenheit. HEAD: Normocephalic and atraumatic. EENT: Examination benign. NECK: No neck rigidity was observed. NEUROLOGIC EXAMINATION: MENTAL STATUS EXAMINATION: He was awake and alert. He was oriented to self and March 2018. He did not know the exact date and did not know the name of the hospital. He was able to recall 3/3 words immediately after 1 minute and after 3 minutes. He was able to remember presidents Trump through Aparicio Senior. His mathematical skills were minimally impaired. His visuospatial function was relatively good. SPEECH: He had no dysarthria. LANGUAGE: He had an anomia for low-frequency words. CRANIAL NERVE EXAMINATION: II: The visual diehl were intact on confrontation testing. III, IV & : The external ocular movements were full and the pupils 3 mm in diameter, equal, round, regular, and reactive to light. V: He had normal facial sensations and the temporales, masseters, and pterygoids functioned normally. VII: He had normal facial expressions and no facial asymmetry. VIII: He was able to hear well bilaterally and had no nystagmus. IX: The palate moved symmetrically on phonation. X: He had no hoarseness of voice. XI: The sternocleidomastoids and trapezii functioned normally. XII: The tongue was in the midline without any fasciculations or atrophy. MOTOR SYSTEM: The tone was normal in all four extremities. Examination of muscle mass revealed no focal wasting. Examination of power revealed G 5/5 power in the upper extremities. In the lower extremities, he also had G 5/5 power except for G 4/5 power in the iliopsoas muscles and G 4+/5 power in the ankle dorsiflexors and toe extensors. SENSORY EXAMINATION: He had intact sensations to pinprick, light touch, and graphesthesia over the exposed parts of his body. REFLEXES: 0 at the biceps, triceps, brachioradialis, knees, and ankles. The plantar responses were flexor bilaterally. COORDINATION: He performed well on [id number] testing. He was unable to perform [id number] testing. STANCE & GAIT: Could not be tested. DIAGNOSTIC IMPRESSION: 1. Mr. Jamir Farmer is a 72-year-old, right-handed, gentleman, with a past history of hypertension, diabetes mellitus, morbid obesity, and lower extremity cellulitis, who two days prior to admission, was becoming increasingly delirious at home and was having fevers and rigors. On being brought to the [facility] emergency room, he was noted to be septic, had lower extremity cellulitis, and a urinary tract infection. He had to be hospitalized on 03/10/2018 at first in the intensive care unit and then was moved to the floor. He had significant alteration in his mental state, which has improved over time, but has not resolved completely. 2. On neurological examination, at this time, he is disoriented to date and the name of the hospital. He has problems with higher cognitive function and language. He has generalized lower extremity weakness, involving both the proximal and distal muscles. He has absent deep tendon reflexes and he is unable to stand and walk. 3. Laboratory data revealed that his WBC count is elevated to 12,200. He is anemic with a hemoglobin of 10.1 G. His BUN is elevated to 36 with a creatinine of 1.4. His blood glucoses are running high with the last blood glucose measured at 208. His B12 level is normal at 1378. His TSH is normal at 0.67. His a.m. cortisol is normal at 22.1. 4. The patient's history and neurological examination are most compatible with a toxic metabolic encephalopathy due to his acute infectious process, sepsis, and underlying metabolic imbalances. His encephalopathy has improved and is continuing to improve at this point in time. RECOMMENDATIONS: 1. Agree with management thus far. 2. Aggressive treatment of acute infectious process as is being done right now. 3. Aggressive treatment to correct the patient's fluid and electrolyte imbalances as is being done right now. 4. The patient should be mobilized with the help of physical and occupational therapy to rehabilitate him. Thank you for entrusting me with the care of Mr. Farmer. I shall follow him with you. Jasiel Lyons M.D., M.S.P.H. DR: BRIDGET JOB#: [id number] MTDD
[2018-03-17] VITALS: BP 135/60
[2018-03-17] MEDS: Hydromorphone 0.5mg/0.5ml inj IVP PRN ×7 (00:12→21:13)
[2018-03-17 04:00] VITALS: BP 130/62
[2018-03-17] MEDS: SULBACTAM SOD IVPB SCH ×4 (06:10→23:57)
[2018-03-17] MEDS: NS IVPB SCH ×4 (06:10→23:57)
[2018-03-17] MEDS: AMPICILLIN IVPB SCH ×4 (06:10→23:57)
[2018-03-17] MEDS: Lyrica 50mg cap ORAL SCH ×3 (06:11→21:12)
[2018-03-17] MEDS: NovoLOG Insulin Flexpen SUBQ SCH ×4 (06:12→21:14)
[2018-03-17 08:00] VITALS: BP 154/73
[2018-03-17] MEDS: Docusate 100mg cap ORAL SCH ×4 (08:29→17:30)
[2018-03-17] MEDS: Imdur 30mg tab ORAL SCH (08:32)
[2018-03-17] MEDS: Metoprolol 25mg tab ORAL SCH ×2 (08:34→21:12)
[2018-03-17] MEDS: Heparin 5000 units/ml inj SUBQ SCH ×2 (08:43→21:13)
--- NOTE | 2018-03-17 08:58 | General Progress Note ---
Assessment/Plan Assessment/Plan (1) Altered level of consciousness (2) Acute encephalopathy (3) B/L LE cellulitis (4) Right heel ulcer (5) Peripheral neuropathy (6) Chronic pain syndrome (7) Narcotic tolerance Patient will be continued on Lyrica, Dilaudid and Percocet. D/w Dr. Liz and he concurred. Subjective Date patient seen: Mar 17, 2018 Time patient seen: 08:00 - am Allergies: Coded Allergies: No Known Allergies (Unverified , 03/09/18) Subjective Constitutional: Reports: weakness HEENT: Reports: no symptoms Cardiovascular: Reports: no symptoms Respiratory: Reports: no symptoms Gastrointestinal/Abdominal: Reports: no symptoms Genitourinary: Reports: no symptoms Neurologic/Psychiatric: Reports: numbness, tingling, weakness Endocrine: Reports: no symptoms Hematologic/Lymphatic: Reports: no symptoms Subjective Patient is in bed sitting up. Reports that he is doing well. Continues to c/o pain which has been tolerated on the Dilaudid 6 doses and Percocet 3 doses in the last 24hrs. He also has started the Lyrica. Objective Last 24 Hour Vital Signs Date Time Temp Pulse Resp B/P (MAP) Pulse Ox O2 Delivery O2 Flow Rate FiO2 03/17/18 08:34 63 154/73 03/17/18 08:32 154/73 03/17/18 04:00 97.0 68 18 130/62 98 Nasal Cannula 2.0 97.0 03/17/18 00:00 97.2 70 18 135/60 97 Nasal Cannula 2.0 97.2 03/16/18 22:09 62 120/54 03/16/18 20:00 96.6 63 18 135/59 97 Nasal Cannula 2.0 96.6 03/16/18 19:37 95 Nasal Cannula 2.0 28 03/16/18 19:37 Nasal Cannula 2.0 28 03/16/18 16:00 97.5 62 18 120/54 95 Nasal Cannula 97.5 03/16/18 11:39 123/54 03/16/18 11:37 97.3 60 18 123/54 95 Nasal Cannula 97.3 03/16/18 10:05 95 Nasal Cannula 2.0 28 03/16/18 10:05 82 20 Nasal Cannula 2.0 28 03/16/18 10:05 Nasal Cannula 2.0 28 03/16/18 09:33 60 134/65 03/16/18 09:33 134/65 Intake and Output 03/16/18 03/17/18 19:00 07:00 Intake Total 1000 ml 875 ml Output Total 750 ml 2720 ml Balance 250 ml -1845 ml Intake Oral 1000 ml 600 ml IV Total 275 ml Output Urine Total 750 ml 2600 ml Stool Total 120 ml # Bowel Movements 1 Laboratory Tests 03/16/18 10:00: White Blood Count 12.2H, Red Blood Count 3.89L, Hemoglobin 10.1L, Hematocrit 33.5L, Mean Corpuscular Volume 86, Mean Corpuscular Hemoglobin 25.9L, Mean Corpuscular Hemoglobin Concent 30.1L, Red Cell Distribution Width 15.7H, Platelet Count 235, Mean Platelet Volume 10.4H, Neutrophils (%) (Auto) 69.7, Lymphocytes (%) (Auto) 14.4L, Monocytes (%) (Auto) 8.1, Eosinophils (%) (Auto) 6.5H, Basophils (%) (Auto) 1.3, Sodium Level 142, Potassium Level 3.9, Chloride Level 106, Carbon Dioxide Level 27, Anion Gap 9, Blood Urea Nitrogen 36H, Creatinine 1.4H, Estimat Glomerular Filtration Rate , Glucose Level 208H, Calcium Level 8.4L Height (Feet): 6 Height (Inches): 1.00 Weight (Pounds): 350 Objective GENERAL: Alert. Awake. Oriented. HEENT: PERRLA. LUNGS: Decreased breath sounds bilaterally. HEART: S1 and S2 regular. ABDOMEN: Obese. BACK: Range of motion is decreased in flexion and extension with surgical scar noted in midline of lumbar spine. EXTREMITIES: No cyanosis, no clubbing with wounds noted on the lower extremities. Bandages applied. Antonio Whitten Mar 17, 2018 08:58
[2018-03-17 09:49] LABS: BASOPHILS % (AUTO) 1.3 % (0.0-2.0); EOSINOPHILS % (AUTO) 7.2 % (0.0-3.0); HEMATOCRIT 30.8 % (42.0-52.0); HEMOGLOBIN 9.6 G/DL (14.2-18.0); LYMPHOCYTES % (AUTO) 15.8 % (20.0-45.0); MEAN CORPUSCULAR VOLUME 85 FL (80-99); MONOCYTES % (AUTO) 7.5 % (1.0-10.0); NEUTROPHILS % (AUTO) 68.2 % (45.0-75.0); PLATELET COUNT 254 K/UL (150-450); RED BLOOD COUNT 3.62 M/UL (4.70-6.10); RED CELL DISTRIBUTION WIDTH 15.6 % (11.6-14.8); WHITE BLOOD COUNT 11.9 K/UL (4.8-10.8)
[2018-03-17 10:06] LABS: ANION GAP 10 mmol/L (5-15); BLOOD UREA NITROGEN 24 mg/dL (7-18); CALCIUM 8.5 MG/DL (8.5-10.1); CARBON DIOXIDE 26 MMOL/L (21-32); CHLORIDE 102 MMOL/L (98-107); CREATININE 1.2 MG/DL (0.55-1.30); POTASSIUM 3.8 MMOL/L (3.5-5.1); SODIUM 138 MMOL/L (136-145)
[2018-03-17] MEDS: Dakin's 0.125% Soln (Quarter Strength) 16oz TOPIC SCH (10:15)
--- NOTE | 2018-03-17 10:26 | Nephrology Progress Note ---
Assessment/Plan Problem List: (1) Diabetic nephropathy (2) Cellulitis, leg (3) UTI (urinary tract infection) (4) Sepsis (5) Acute encephalopathy (6) Obesity (7) Elevated troponin I level Assessment Renal failure- likely Diabetic nephropathy Cr lower 1.4 today UTI , Sepsis , Cellulitis DM Obesity Acute Encephalopathy HypoAlbuminemia, Likely NS Plan DC IV up dose Starlix stool softner Nitro PO Pulmonary support- 2D Echo 55% EjFx Kidney TIN Negative for hydronephrosis gomez Antibiotics Monitor renal parameters avoid Nephrotoxics Subjective ROS Limited/Unobtainable: No Objective Objective Last 24 Hour Vital Signs Date Time Temp Pulse Resp B/P (MAP) Pulse Ox O2 Delivery O2 Flow Rate FiO2 03/17/18 10:16 98.6 03/17/18 09:27 98.6 03/17/18 08:34 63 154/73 03/17/18 08:32 154/73 03/17/18 08:00 98.6 67 20 154/73 95 Nasal Cannula 2.0 98.6 03/17/18 04:00 97.0 68 18 130/62 98 Nasal Cannula 2.0 97.0 03/17/18 00:00 97.2 70 18 135/60 97 Nasal Cannula 2.0 97.2 03/16/18 22:09 62 120/54 03/16/18 20:00 96.6 63 18 135/59 97 Nasal Cannula 2.0 96.6 03/16/18 19:37 95 Nasal Cannula 2.0 28 03/16/18 19:37 Nasal Cannula 2.0 28 03/16/18 16:00 97.5 62 18 120/54 95 Nasal Cannula 97.5 03/16/18 11:39 123/54 03/16/18 11:37 97.3 60 18 123/54 95 Nasal Cannula 97.3 Intake and Output 03/16/18 03/17/18 19:00 07:00 Intake Total 1000 ml 875 ml Output Total 750 ml 2720 ml Balance 250 ml -1845 ml Intake Oral 1000 ml 600 ml IV Total 275 ml Output Urine Total 750 ml 2600 ml Stool Total 120 ml # Bowel Movements 1 Laboratory Tests 03/17/18 08:50: White Blood Count 11.9H, Red Blood Count 3.62L, Hemoglobin 9.6L, Hematocrit 30.8L, Mean Corpuscular Volume 85, Mean Corpuscular Hemoglobin 26.4L, Mean Corpuscular Hemoglobin Concent 31.1L, Red Cell Distribution Width 15.6H, Platelet Count 254, Mean Platelet Volume 10.2H, Neutrophils (%) (Auto) 68.2, Lymphocytes (%) (Auto) 15.8L, Monocytes (%) (Auto) 7.5, Eosinophils (%) (Auto) 7.2H, Basophils (%) (Auto) 1.3, Sodium Level 138, Potassium Level 3.8, Chloride Level 102, Carbon Dioxide Level 26, Anion Gap 10, Blood Urea Nitrogen 24H, Creatinine 1.2, Estimat Glomerular Filtration Rate , Glucose Level 181H, Calcium Level 8.5 Height (Feet): 6 Height (Inches): 1.00 Weight (Pounds): 350 General Appearance: no apparent distress Cardiovascular: normal rate Respiratory/Chest: decreased breath sounds Abdomen: soft Objective no other change DIA WALSH Mar 17, 2018 10:26
--- NOTE | 2018-03-17 10:43 | General Progress Note ---
Assessment/Plan Problem List: (1) Sepsis ICD Codes: A41.9 - Sepsis, unspecified organism SNOMED: 43227099 Qualifiers: Qualified Codes: A41.9 - Sepsis, unspecified organism (2) Cellulitis, leg ICD Codes: L03.119 - Cellulitis of unspecified part of limb SNOMED: 662307484 (3) UTI (urinary tract infection) ICD Codes: N39.0 - Urinary tract infection, site not specified SNOMED: 91986283 (4) Diabetes mellitus ICD Codes: E11.9 - Type 2 diabetes mellitus without complications SNOMED: 37660494 (5) Obesity ICD Codes: E66.9 - Obesity, unspecified SNOMED: 341529575, 299098006 (6) Acute encephalopathy ICD Codes: G93.40 - Encephalopathy, unspecified SNOMED: 30500690, 939945305 (7) ATN (acute tubular necrosis) ICD Codes: N17.0 - Acute kidney failure with tubular necrosis SNOMED: 85862336 Status: stable, progressing Assessment/Plan o2 pulm tx abx wound care neph f/u cardio eval cbc bmp am aru eval Subjective Allergies: Coded Allergies: No Known Allergies (Unverified , 03/09/18) All Systems: reviewed and negative except above Subjective bed calm more alert Objective Last 24 Hour Vital Signs Date Time Temp Pulse Resp B/P (MAP) Pulse Ox O2 Delivery O2 Flow Rate FiO2 03/17/18 10:16 98.6 03/17/18 09:27 98.6 03/17/18 08:34 63 154/73 03/17/18 08:32 154/73 03/17/18 08:00 98.6 67 20 154/73 95 Nasal Cannula 2.0 98.6 03/17/18 04:00 97.0 68 18 130/62 98 Nasal Cannula 2.0 97.0 03/17/18 00:00 97.2 70 18 135/60 97 Nasal Cannula 2.0 97.2 03/16/18 22:09 62 120/54 03/16/18 20:00 96.6 63 18 135/59 97 Nasal Cannula 2.0 96.6 03/16/18 19:37 95 Nasal Cannula 2.0 28 03/16/18 19:37 Nasal Cannula 2.0 28 03/16/18 16:00 97.5 62 18 120/54 95 Nasal Cannula 97.5 03/16/18 11:39 123/54 03/16/18 11:37 97.3 60 18 123/54 95 Nasal Cannula 97.3 Intake and Output 03/16/18 03/17/18 19:00 07:00 Intake Total 1000 ml 875 ml Output Total 750 ml 2720 ml Balance 250 ml -1845 ml Intake Oral 1000 ml 600 ml IV Total 275 ml Output Urine Total 750 ml 2600 ml Stool Total 120 ml # Bowel Movements 1 Laboratory Tests 03/17/18 08:50: White Blood Count 11.9H, Red Blood Count 3.62L, Hemoglobin 9.6L, Hematocrit 30.8L, Mean Corpuscular Volume 85, Mean Corpuscular Hemoglobin 26.4L, Mean Corpuscular Hemoglobin Concent 31.1L, Red Cell Distribution Width 15.6H, Platelet Count 254, Mean Platelet Volume 10.2H, Neutrophils (%) (Auto) 68.2, Lymphocytes (%) (Auto) 15.8L, Monocytes (%) (Auto) 7.5, Eosinophils (%) (Auto) 7.2H, Basophils (%) (Auto) 1.3, Sodium Level 138, Potassium Level 3.8, Chloride Level 102, Carbon Dioxide Level 26, Anion Gap 10, Blood Urea Nitrogen 24H, Creatinine 1.2, Estimat Glomerular Filtration Rate , Glucose Level 181H, Calcium Level 8.5 Height (Feet): 6 Height (Inches): 1.00 Weight (Pounds): 350 General Appearance: lethargic EENT: normal ENT inspection Neck: normal alignment Cardiovascular: normal peripheral pulses, normal rate, regular rhythm Respiratory/Chest: chest wall non-tender, decreased breath sounds Abdomen: normal bowel sounds, non tender, soft Extremities: normal inspection Edema: 1+ Arm (L), 1+ Arm (R), 1+ Leg (L), 1+ Leg (R), 1+ Pedal (L), 1+ Pedal ( R), 1+ Generalized Neurologic: responsive, motor weakness Skin: normal pigmentation, warm/dry Ok Curry DO Mar 17, 2018 10:43
[2018-03-17] MEDS: Nitroglycerin Patch 0.4mg TDERMAL SCH (11:54)
[2018-03-17 12:00] VITALS: BP 134/70
--- NOTE | 2018-03-17 13:06 | Neurology Progress Note ---
Interim History Interim History Interim History Mr. Farmer feels better today. The mind is clearer. He feels a little stronger. He denies any new neurologic symptoms. The legs feel more comfortable. Review of Systems Neuro Review of Systems Benign. Objective Physical Exam Last Vital Signs Date Time Temp Pulse Resp B/P (MAP) Pulse Ox O2 Delivery O2 Flow Rate FiO2 03/17/18 11:54 134/70 03/17/18 10:16 98.6 03/17/18 08:34 63 03/17/18 08:00 20 95 Nasal Cannula 2.0 03/16/18 19:37 28 Laboratory Tests Test 03/17/18 08:50 White Blood Count 11.9 K/UL (4.8-10.8) H Red Blood Count 3.62 M/UL (4.70-6.10) L Hemoglobin 9.6 G/DL (14.2-18.0) L Hematocrit 30.8 % (42.0-52.0) L Mean Corpuscular Volume 85 FL (80-99) Mean Corpuscular Hemoglobin 26.4 PG (27.0-31.0) L Mean Corpuscular Hemoglobin Concent 31.1 G/DL (32.0-36.0) L Red Cell Distribution Width 15.6 % (11.6-14.8) H Platelet Count 254 K/UL (150-450) Mean Platelet Volume 10.2 FL (6.5-10.1) H Neutrophils (%) (Auto) 68.2 % (45.0-75.0) Lymphocytes (%) (Auto) 15.8 % (20.0-45.0) L Monocytes (%) (Auto) 7.5 % (1.0-10.0) Eosinophils (%) (Auto) 7.2 % (0.0-3.0) H Basophils (%) (Auto) 1.3 % (0.0-2.0) Sodium Level 138 MMOL/L (136-145) Potassium Level 3.8 MMOL/L (3.5-5.1) Chloride Level 102 MMOL/L (98-107) Carbon Dioxide Level 26 MMOL/L (21-32) Anion Gap 10 mmol/L (5-15) Blood Urea Nitrogen 24 mg/dL (7-18) H Creatinine 1.2 MG/DL (0.55-1.30) Estimat Glomerular Filtration Rate mL/min (>60) Glucose Level 181 MG/DL (74-106) H Calcium Level 8.5 MG/DL (8.5-10.1) Neurologic Exam Objective PHYSICAL EXAMINATION: GENERAL: He is a well-developed, well-nourished, obese, gentleman, lying in bed with his legs bandaged from just below the knees to just above the ankles. HEAD: Normocephalic and atraumatic. EENT: Examination benign. NECK: No neck rigidity was observed. NEUROLOGIC EXAMINATION: MENTAL STATUS EXAMINATION: He was awake and alert. He was oriented to person, place and time. He was able to recall 3/3 words immediately after 1 minute and after 3 minutes. He was able to remember presidents Trump through Aparicio Senior. His mathematical skills were good. His visuospatial function was relatively good. SPEECH: He had no dysarthria. LANGUAGE: He had an anomia for low-frequency words. CRANIAL NERVE EXAMINATION: II: The visual diehl were intact on confrontation testing. III, IV & : The external ocular movements were full and the pupils 3 mm in diameter, equal, round, regular, and reactive to light. V: He had normal facial sensations and the temporales, masseters, and pterygoids functioned normally. VII: He had normal facial expressions and no facial asymmetry. VIII: He was able to hear well bilaterally and had no nystagmus. IX: The palate moved symmetrically on phonation. X: He had no hoarseness of voice. XI: The sternocleidomastoids and trapezii functioned normally. XII: The tongue was in the midline without any fasciculations or atrophy. MOTOR SYSTEM: The tone was normal in all four extremities. Examination of muscle mass revealed no focal wasting. Examination of power revealed G 5/5 power in the upper extremities. In the lower extremities, he also had G 5/5 power except for G 4/5 power in the iliopsoas muscles and G 4+/5 power in the ankle dorsiflexors and toe extensors. SENSORY EXAMINATION: He had intact sensations to pinprick, light touch, and graphesthesia over the exposed parts of his body. REFLEXES: 0 at the biceps, triceps, brachioradialis, knees, and ankles. The plantar responses were flexor bilaterally. COORDINATION: He performed well on [id number] testing. He was unable to perform [id number] testing. STANCE & GAIT: Could not be tested. Impression/Recommendations Diagnostic Impression 1. Mr. Jamir Farmer is a 72-year-old, right-handed, gentleman, with a past history of hypertension, diabetes mellitus, morbid obesity, and lower extremity cellulitis, who two days prior to admission, was becoming increasingly delirious at home and was having fevers and rigors. On being brought to the [facility] emergency room, he was noted to be septic, had lower extremity cellulitis, and a urinary tract infection. He had to be hospitalized on 03/10/2018 at first in the intensive care unit and then was moved to the floor. He had significant alteration in his mental state, which has improved over time, but had not resolved completely when I was called in to evaluate him. 2. He feels better today. The mind is clearer. He feels a little stronger. He denies any new neurologic symptoms. The legs feel more comfortable. 3. On neurological examination, at this time, he is fully oriented. His mental status examination is close to normal. He has mild problems with language. He has generalized lower extremity weakness, involving both the proximal and distal muscles. He has absent deep tendon reflexes and he is unable to stand and walk. 4. Laboratory data revealed that his WBC count is elevated to 12,200. He is anemic with a hemoglobin of 10.1 G. His BUN is elevated to 36 with a creatinine of 1.4. His blood glucoses are running high with the last blood glucose measured at 208. His B12 level is normal at 1378. His TSH is normal at 0.67. His a.m. cortisol is normal at 22.1. 5. The patient's history and neurological examination are most compatible with a toxic metabolic encephalopathy due to his acute infectious process, sepsis, and underlying metabolic imbalances. His encephalopathy has improved significantly and is continuing to improve. Recommendations 1. Continue present management. 2. Aggressive treatment of acute infectious process as is being done right now. 3. Aggressive treatment to correct the patient's fluid and electrolyte imbalances as is being done right now. 4. Mobilize with the help of physical and occupational therapy. Dion Lewis M.D., MLeninSNikhil. DION LEWIS Mar 17, 2018 13:06
--- NOTE | 2018-03-17 14:30 | General Surgery Progress Note ---
General Surgery-Progress Note Subjective Additional Comments awake today. talkative. does not recall events over the past few days. overall much better. tolerating diet. Objective Last 24 Hour Vital Signs Date Time Temp Pulse Resp B/P (MAP) Pulse Ox O2 Delivery O2 Flow Rate FiO2 03/17/18 11:54 134/70 03/17/18 10:16 98.6 03/17/18 09:27 98.6 03/17/18 08:34 63 154/73 03/17/18 08:32 154/73 03/17/18 08:00 98.6 67 20 154/73 95 Nasal Cannula 2.0 98.6 03/17/18 04:00 97.0 68 18 130/62 98 Nasal Cannula 2.0 97.0 03/17/18 00:00 97.2 70 18 135/60 97 Nasal Cannula 2.0 97.2 03/16/18 22:09 62 120/54 03/16/18 20:00 96.6 63 18 135/59 97 Nasal Cannula 2.0 96.6 03/16/18 19:37 95 Nasal Cannula 2.0 28 03/16/18 19:37 Nasal Cannula 2.0 28 03/16/18 16:00 97.5 62 18 120/54 95 Nasal Cannula 97.5 I&O Intake and Output 03/16/18 03/17/18 19:00 07:00 Intake Total 1000 ml 875 ml Output Total 750 ml 2720 ml Balance 250 ml -1845 ml Intake Oral 1000 ml 600 ml IV Total 275 ml Output Urine Total 750 ml 2600 ml Stool Total 120 ml # Bowel Movements 1 Drains: none Cardiovascular: RSR Abdomen: soft, non-tender, present bowel sounds Extremities: edema, tenderness Laboratory Tests Test 03/17/18 08:50 White Blood Count 11.9 K/UL (4.8-10.8) H Red Blood Count 3.62 M/UL (4.70-6.10) L Hemoglobin 9.6 G/DL (14.2-18.0) L Hematocrit 30.8 % (42.0-52.0) L Mean Corpuscular Volume 85 FL (80-99) Mean Corpuscular Hemoglobin 26.4 PG (27.0-31.0) L Mean Corpuscular Hemoglobin Concent 31.1 G/DL (32.0-36.0) L Red Cell Distribution Width 15.6 % (11.6-14.8) H Platelet Count 254 K/UL (150-450) Mean Platelet Volume 10.2 FL (6.5-10.1) H Neutrophils (%) (Auto) 68.2 % (45.0-75.0) Lymphocytes (%) (Auto) 15.8 % (20.0-45.0) L Monocytes (%) (Auto) 7.5 % (1.0-10.0) Eosinophils (%) (Auto) 7.2 % (0.0-3.0) H Basophils (%) (Auto) 1.3 % (0.0-2.0) Sodium Level 138 MMOL/L (136-145) Potassium Level 3.8 MMOL/L (3.5-5.1) Chloride Level 102 MMOL/L (98-107) Carbon Dioxide Level 26 MMOL/L (21-32) Anion Gap 10 mmol/L (5-15) Blood Urea Nitrogen 24 mg/dL (7-18) H Creatinine 1.2 MG/DL (0.55-1.30) Estimat Glomerular Filtration Rate mL/min (>60) Glucose Level 181 MG/DL (74-106) H Calcium Level 8.5 MG/DL (8.5-10.1) Plan Problems: (1) Sepsis Assessment & Plan: 72M sepsis with fevers, leukocytosis, altered mental status. chronic bilateral lower extremity wounds with cellulitis. concerns for possible necrotizing fascitis initially. unlikely nec fasc given exam. wounds chronic and skin changes chronic. LRINEC score on admission 10 but given chronicity of wounds, other etiology of sepsis, and physical exam unlikely nec fasc. edema improving. cellulitis improving. overall much improved. -no acute surgical intervention necessary. -keep legs elevated -cont with dressings for now -will follow with you thank you for this consultation (2) Cellulitis, leg Leandro Scott Mar 17, 2018 14:30
--- NOTE | 2018-03-17 15:00 | Pulmonology Progress Note ---
Assessment/Plan Problems: (1) Acute encephalopathy (2) Bacteremia (3) ATN (acute tubular necrosis) (4) Sepsis (5) Cellulitis, leg (6) UTI (urinary tract infection) (7) Diabetic nephropathy (8) Obesity (9) Diabetes mellitus Assessment/Plan more alert, comfortable, med/surg bun/creatine decreasing improving continue abx check cultures wound care check cultures sliding scale diabetic diet. Subjective ROS Limited/Unobtainable: No Constitutional: Reports: no symptoms HEENT: Repors: no symptoms Respiratory: Reports: no symptoms Allergies: Coded Allergies: No Known Allergies (Unverified , 03/09/18) Objective Last 24 Hour Vital Signs Date Time Temp Pulse Resp B/P (MAP) Pulse Ox O2 Delivery O2 Flow Rate FiO2 03/17/18 11:54 134/70 03/17/18 10:16 98.6 03/17/18 09:27 98.6 03/17/18 08:34 63 154/73 03/17/18 08:32 154/73 03/17/18 08:00 98.6 67 20 154/73 95 Nasal Cannula 2.0 98.6 03/17/18 04:00 97.0 68 18 130/62 98 Nasal Cannula 2.0 97.0 03/17/18 00:00 97.2 70 18 135/60 97 Nasal Cannula 2.0 97.2 03/16/18 22:09 62 120/54 03/16/18 20:00 96.6 63 18 135/59 97 Nasal Cannula 2.0 96.6 03/16/18 19:37 95 Nasal Cannula 2.0 28 03/16/18 19:37 Nasal Cannula 2.0 28 03/16/18 16:00 97.5 62 18 120/54 95 Nasal Cannula 97.5 Intake and Output 03/16/18 03/17/18 19:00 07:00 Intake Total 1000 ml 875 ml Output Total 750 ml 2720 ml Balance 250 ml -1845 ml Intake Oral 1000 ml 600 ml IV Total 275 ml Output Urine Total 750 ml 2600 ml Stool Total 120 ml # Bowel Movements 1 General Appearance: WD/WN HEENT: normocephalic, atraumatic, PERRL Respiratory/Chest: lungs clear, normal breath sounds Cardiovascular: normal peripheral pulses, regular rhythm, no JVD Abdomen: normal bowel sounds, non distended Genitourinary: normal external genitalia Extremities: no clubbing Skin: no rash Microbiology Date/Time Source Procedure Growth Status 03/14/18 16:15 Blood Blood Culture - Preliminary NO GROWTH AFTER 48 HOURS Resulted 03/14/18 16:00 Blood Blood Culture - Preliminary NO GROWTH AFTER 48 HOURS Resulted 03/14/18 21:30 Stool Stool Culture - Preliminary NORMAL FECAL ADAMS. Resulted Laboratory Tests 03/17/18 08:50: White Blood Count 11.9H, Red Blood Count 3.62L, Hemoglobin 9.6L, Hematocrit 30.8L, Mean Corpuscular Volume 85, Mean Corpuscular Hemoglobin 26.4L, Mean Corpuscular Hemoglobin Concent 31.1L, Red Cell Distribution Width 15.6H, Platelet Count 254, Mean Platelet Volume 10.2H, Neutrophils (%) (Auto) 68.2, Lymphocytes (%) (Auto) 15.8L, Monocytes (%) (Auto) 7.5, Eosinophils (%) (Auto) 7.2H, Basophils (%) (Auto) 1.3, Sodium Level 138, Potassium Level 3.8, Chloride Level 102, Carbon Dioxide Level 26, Anion Gap 10, Blood Urea Nitrogen 24H, Creatinine 1.2, Estimat Glomerular Filtration Rate , Glucose Level 181H, Calcium Level 8.5 Current Medications Medications (Trade) Dose Ordered Sig/Nancy Route PRN Reason Start Time Stop Time Status Last Admin Dose Admin Acetaminophen (Tylenol) 650 mg Q4H PRN ORAL fever (temp>100.5F) 03/15/18 17:00 04/09/18 16:59 Ampicillin Sodium/ Sulbactam Sodium 3 gm/Sodium Chloride 275 ml @ 275 mls/hr Q6HR IVPB 03/15/18 18:00 03/20/18 11:59 03/17/18 12:05 Dextrose (Dextrose 50%) 25 ml STAT PRN IV Hypoglycemia 03/15/18 17:00 04/12/18 16:59 Dextrose (Dextrose 50%) 50 ml STAT PRN IV Hypoglycemia 03/15/18 17:30 04/12/18 17:29 Docusate Sodium (Colace) 100 mg THREE TIMES A DAY ORAL 03/15/18 18:00 04/13/18 12:59 03/17/18 13:59 Heparin Sodium (Porcine) (Heparin 5000 units/ml) 5,000 units EVERY 12 HOURS SUBQ 03/15/18 21:00 04/09/18 08:59 03/17/18 08:43 Hydromorphone HCl (Dilaudid) 1 mg Q3H PRN IVP severe pain (7-10) 03/15/18 16:45 03/22/18 16:44 03/17/18 14:53 Insulin Aspart (NovoLOG) BEFORE MEALS AND HS SUBQ 03/15/18 17:30 04/12/18 17:29 03/17/18 11:58 Isosorbide Mononitrate (Imdur) 30 mg DAILY ORAL 03/16/18 09:00 04/14/18 08:59 03/17/18 08:32 Lansoprazole (Prevacid) 30 mg BID ORAL 03/15/18 18:00 04/13/18 17:59 03/17/18 08:27 Lidocaine (Xylocaine 5% cream) 1 applic Q6H TOPIC 03/15/18 20:00 04/11/18 13:59 03/17/18 14:00 Lorazepam (Ativan 2mg/ml 1ml) 1 mg Q4H PRN IV For Anxiety 03/15/18 16:45 03/17/18 16:44 03/16/18 00:01 Metoprolol Tartrate (Lopressor) 25 mg Q12HR ORAL 03/15/18 21:00 04/13/18 20:59 03/17/18 08:34 Nateglinide (Starlix) 120 mg TIAC ORAL 03/15/18 16:45 04/13/18 16:44 03/17/18 11:51 Nitroglycerin (Ntg) 0.4 mg Q5M PRN SL Prn Chest Pain 03/15/18 17:00 04/08/18 16:59 Nitroglycerin (Ntg) 1 patch Q24H TDERMAL 03/16/18 12:00 04/13/18 11:59 03/17/18 11:54 Ondansetron HCl (Zofran) 4 mg Q6H PRN IVP Nausea & Vomiting 03/15/18 17:00 04/08/18 16:59 Oxycodone/ Acetaminophen (Percocet 10/325) 1 tab Q4H PRN ORAL moderate break through pain 03/15/18 16:45 03/21/18 16:44 03/17/18 08:28 Pregabalin (Lyrica) 50 mg Q8HR ORAL 03/16/18 18:00 04/15/18 17:59 03/17/18 14:00 Sodium Hypochlorite (Dakin's Quarter Strength) 1 applic DAILY TOPIC 03/16/18 09:00 04/10/18 08:59 03/17/18 10:15 Zia Li MD Mar 17, 2018 15:00
--- NOTE | 2018-03-17 15:28 | Cardiac Electrophysiology PN ---
Assessment/Plan Assessment/Plan 1. Troponin Leak. 0.07,0.09 and 0.1. Levels are flat and no CP. EKG showed sinus rhythm with nonspecific ST-T wave abnormalities. His echocardiogram showed an ejection fraction of 55%. Likely due to renal failure as Cr 1.8 On Lopressor 25 bid 2. Hypertension, On Imdur 30 and Lopressor 25 bid 3. Sepsis, on broad-spectrum IV antibiotics 4. Elevated brain natriuretic peptide. EF is normal. It could be due to diastolic dysfunction. 5. Urinary tract infection. 6. Cellulitis of the legs. 7. Hyperkalemia. 8. Renal failure.Resolving Cr 1.2 today DW RN and sister Subjective Subjective Alert. No CP or SOB RN and Daughter at bedside. Objective Last 24 Hour Vital Signs Date Time Temp Pulse Resp B/P (MAP) Pulse Ox O2 Delivery O2 Flow Rate FiO2 03/17/18 12:00 97.4 70 19 134/70 97 Nasal Cannula 2.0 97.4 03/17/18 11:54 134/70 03/17/18 10:16 98.6 03/17/18 09:27 98.6 03/17/18 08:34 63 154/73 03/17/18 08:32 154/73 03/17/18 08:00 98.6 67 20 154/73 95 Nasal Cannula 2.0 98.6 03/17/18 04:00 97.0 68 18 130/62 98 Nasal Cannula 2.0 97.0 03/17/18 00:00 97.2 70 18 135/60 97 Nasal Cannula 2.0 97.2 03/16/18 22:09 62 120/54 03/16/18 20:00 96.6 63 18 135/59 97 Nasal Cannula 2.0 96.6 03/16/18 19:37 95 Nasal Cannula 2.0 28 03/16/18 19:37 Nasal Cannula 2.0 28 03/16/18 16:00 97.5 62 18 120/54 95 Nasal Cannula 97.5 Respiratory/Chest: chest wall non-tender Intake and Output 03/16/18 03/17/18 19:00 07:00 Intake Total 1000 ml 875 ml Output Total 750 ml 2720 ml Balance 250 ml -1845 ml Intake Oral 1000 ml 600 ml IV Total 275 ml Output Urine Total 750 ml 2600 ml Stool Total 120 ml # Bowel Movements 1 Laboratory Tests Test 03/17/18 08:50 White Blood Count 11.9 K/UL (4.8-10.8) H Red Blood Count 3.62 M/UL (4.70-6.10) L Hemoglobin 9.6 G/DL (14.2-18.0) L Hematocrit 30.8 % (42.0-52.0) L Mean Corpuscular Volume 85 FL (80-99) Mean Corpuscular Hemoglobin 26.4 PG (27.0-31.0) L Mean Corpuscular Hemoglobin Concent 31.1 G/DL (32.0-36.0) L Red Cell Distribution Width 15.6 % (11.6-14.8) H Platelet Count 254 K/UL (150-450) Mean Platelet Volume 10.2 FL (6.5-10.1) H Neutrophils (%) (Auto) 68.2 % (45.0-75.0) Lymphocytes (%) (Auto) 15.8 % (20.0-45.0) L Monocytes (%) (Auto) 7.5 % (1.0-10.0) Eosinophils (%) (Auto) 7.2 % (0.0-3.0) H Basophils (%) (Auto) 1.3 % (0.0-2.0) Sodium Level 138 MMOL/L (136-145) Potassium Level 3.8 MMOL/L (3.5-5.1) Chloride Level 102 MMOL/L (98-107) Carbon Dioxide Level 26 MMOL/L (21-32) Anion Gap 10 mmol/L (5-15) Blood Urea Nitrogen 24 mg/dL (7-18) H Creatinine 1.2 MG/DL (0.55-1.30) Estimat Glomerular Filtration Rate mL/min (>60) Glucose Level 181 MG/DL (74-106) H Calcium Level 8.5 MG/DL (8.5-10.1) Microbiology Date/Time Source Procedure Growth Status 03/14/18 16:15 Blood Blood Culture - Preliminary NO GROWTH AFTER 48 HOURS Resulted 03/14/18 16:00 Blood Blood Culture - Preliminary NO GROWTH AFTER 48 HOURS Resulted 03/14/18 21:30 Stool Stool Culture - Preliminary NORMAL FECAL ADAMS. Resulted Objective HEAD AND NECK: Showed no JVD. LUNGS: Coarse rhonchi. CARDIOVASCULAR: Shows regular S1 and S2 with no gallop or murmur. ABDOMEN: Obese. EXTREMITIES: Bilateral lower extremity edema and cellulitis. Yong Oconnell MD Mar 17, 2018 15:28
[2018-03-17 16:00] VITALS: BP 148/68
[2018-03-17 20:00] VITALS: BP 143/59
--- NOTE | 2018-03-17 20:36 | Infectious Diseases Prog Note ---
Assessment/Plan Assessment/Plan Sepsis;resolved severe b/l Leg soft tissue infection, much improved GBS bacteremia- 2ry to above -03/09 Bcx 4/4+; 03/13 1/2 CoNS (contaminant); 03/14 BCx NTd -v. duplex: no DVT R Foot necrotic ulcer- no evidence of Osteo on bone scan -bone scan Increased blood pool activity in the plantar surface of the right heel, likely related to stated clinical history of right heel ulcer. No abnormal osseous activity to suggest acute osteomyelitis. Foci of abnormal static activity without corresponding focal hyperemia on flow and blood pool images in the bilateral mid feet, and right toes, most likely representing degenerative changes. Plain film correlation would be useful, however. -u/a neg -CXR :NAPD Fever, SP Leukocytosis, recurrent, mild; improving Lactic acidosis, resolved elev lipase Influenza sc : neg JOSE; resolving HTN HLD GERD Dm2 Plan: -Continue IV Unasyn abx d#05/16 for GBS bacteremia, cellulitis and R foot necrotic ulcer; upon discharge, can be transitioned to IV Ceftriaxone 2g qd for easier dosing. -if worsening Leukocytosis, will switch to Zosyn -03/16 SP IV Vancomycin #3 -03/13 SP IV Vanco and Clinda #4 -/ SP Zosyn #3 -/ SP Cefepime d# 1 -f/u repeat 2 sets of Bcx -f/u arterial duplex BLE -f/u cx -Monitor CBC/BMP, temperatures -Sx, Podiatry f/u Subjective Allergies: Coded Allergies: No Known Allergies (Unverified , 03/09/18) Subjective afebrile mild leukocytosis to 12; CBC pending repeat bcx NTD Objective Vital Signs Last 24 Hour Vital Signs Date Time Temp Pulse Resp B/P (MAP) Pulse Ox O2 Delivery O2 Flow Rate FiO2 03/17/18 18:38 97.5 03/17/18 16:00 97.5 63 20 148/68 97 Nasal Cannula 2.0 97.5 03/17/18 12:00 97.4 70 19 134/70 97 Nasal Cannula 2.0 97.4 03/17/18 11:54 134/70 03/17/18 10:16 98.6 03/17/18 09:27 98.6 03/17/18 08:34 63 154/73 03/17/18 08:32 154/73 03/17/18 08:00 98.6 67 20 154/73 95 Nasal Cannula 2.0 98.6 03/17/18 04:00 97.0 68 18 130/62 98 Nasal Cannula 2.0 97.0 03/17/18 00:00 97.2 70 18 135/60 97 Nasal Cannula 2.0 97.2 03/16/18 22:09 62 120/54 Height (Feet): 6 Height (Inches): 1.00 Weight (Pounds): 350 Objective General Appearance: obese, no acute distress HEENT: normocephalic, atraumatic, dry mucus membranes Neck: full range of motion, supple, no meningismus, no bony tend Respiratory: lungs clear, normal breath sounds, no rhonchi, no respiratory distress, no retraction, no accessory muscle use Cardiovascular no gallop, no JVD, no murmur, tachycardia Gastrointestinal: normal bowel sounds, non tender, soft, no mass, no organomegaly, non-distended, no guarding, no rebound Musculoskeletal: B/L leg with chornic venous stasis changes and lymphedema with superimposed erythema, warmth; on L leg wrythema extend up laterally to distal thigh. On R foot there is a wound with necrotic center ; no purulent discharge.; improving Microbiology Date/Time Source Procedure Growth Status 03/14/18 21:30 Stool Stool Culture - Preliminary NORMAL FECAL ADAMS. Resulted Laboratory Tests Test 03/17/18 08:50 White Blood Count 11.9 K/UL (4.8-10.8) H Red Blood Count 3.62 M/UL (4.70-6.10) L Hemoglobin 9.6 G/DL (14.2-18.0) L Hematocrit 30.8 % (42.0-52.0) L Mean Corpuscular Volume 85 FL (80-99) Mean Corpuscular Hemoglobin 26.4 PG (27.0-31.0) L Mean Corpuscular Hemoglobin Concent 31.1 G/DL (32.0-36.0) L Red Cell Distribution Width 15.6 % (11.6-14.8) H Platelet Count 254 K/UL (150-450) Mean Platelet Volume 10.2 FL (6.5-10.1) H Neutrophils (%) (Auto) 68.2 % (45.0-75.0) Lymphocytes (%) (Auto) 15.8 % (20.0-45.0) L Monocytes (%) (Auto) 7.5 % (1.0-10.0) Eosinophils (%) (Auto) 7.2 % (0.0-3.0) H Basophils (%) (Auto) 1.3 % (0.0-2.0) Sodium Level 138 MMOL/L (136-145) Potassium Level 3.8 MMOL/L (3.5-5.1) Chloride Level 102 MMOL/L (98-107) Carbon Dioxide Level 26 MMOL/L (21-32) Anion Gap 10 mmol/L (5-15) Blood Urea Nitrogen 24 mg/dL (7-18) H Creatinine 1.2 MG/DL (0.55-1.30) Estimat Glomerular Filtration Rate mL/min (>60) Glucose Level 181 MG/DL (74-106) H Calcium Level 8.5 MG/DL (8.5-10.1) Current Medications Medications (Trade) Dose Ordered Sig/Nancy Route PRN Reason Start Time Stop Time Status Last Admin Dose Admin Acetaminophen (Tylenol) 650 mg Q4H PRN ORAL fever (temp>100.5F) 03/15/18 17:00 04/09/18 16:59 Ampicillin Sodium/ Sulbactam Sodium 3 gm/Sodium Chloride 275 ml @ 275 mls/hr Q6HR IVPB 03/15/18 18:00 03/20/18 11:59 03/17/18 17:21 Dextrose (Dextrose 50%) 25 ml STAT PRN IV Hypoglycemia 03/15/18 17:00 04/12/18 16:59 Dextrose (Dextrose 50%) 50 ml STAT PRN IV Hypoglycemia 03/15/18 17:30 04/12/18 17:29 Docusate Sodium (Colace) 100 mg THREE TIMES A DAY ORAL 03/15/18 18:00 04/13/18 12:59 03/17/18 13:59 Heparin Sodium (Porcine) (Heparin 5000 units/ml) 5,000 units EVERY 12 HOURS SUBQ 03/15/18 21:00 04/09/18 08:59 03/17/18 08:43 Hydromorphone HCl (Dilaudid) 1 mg Q3H PRN IVP severe pain (7-10) 03/15/18 16:45 03/22/18 16:44 03/17/18 18:08 Insulin Aspart (NovoLOG) BEFORE MEALS AND HS SUBQ 03/15/18 17:30 04/12/18 17:29 03/17/18 16:19 Isosorbide Mononitrate (Imdur) 30 mg DAILY ORAL 03/16/18 09:00 04/14/18 08:59 03/17/18 08:32 Lansoprazole (Prevacid) 30 mg BID ORAL 03/15/18 18:00 04/13/18 17:59 03/17/18 17:21 Lidocaine (Xylocaine 5% cream) 1 applic Q6H TOPIC 03/15/18 20:00 04/11/18 13:59 03/17/18 20:16 Metoprolol Tartrate (Lopressor) 25 mg Q12HR ORAL 03/15/18 21:00 04/13/18 20:59 03/17/18 08:34 Nateglinide (Starlix) 120 mg TIAC ORAL 03/15/18 16:45 04/13/18 16:44 03/17/18 16:16 Nitroglycerin (Ntg) 0.4 mg Q5M PRN SL Prn Chest Pain 03/15/18 17:00 04/08/18 16:59 Nitroglycerin (Ntg) 1 patch Q24H TDERMAL 03/16/18 12:00 04/13/18 11:59 03/17/18 11:54 Ondansetron HCl (Zofran) 4 mg Q6H PRN IVP Nausea & Vomiting 03/15/18 17:00 04/08/18 16:59 Oxycodone/ Acetaminophen (Percocet 10/325) 1 tab Q4H PRN ORAL moderate break through pain 03/15/18 16:45 03/21/18 16:44 03/17/18 20:15 Pregabalin (Lyrica) 50 mg Q8HR ORAL 03/16/18 18:00 04/15/18 17:59 03/17/18 14:00 Sodium Hypochlorite (Dakin's Quarter Strength) 1 applic DAILY TOPIC 03/16/18 09:00 04/10/18 08:59 03/17/18 10:15 Maranda Wiggins M.D. Mar 17, 2018 20:36
[2018-03-18] VITALS: BP 135/58
[2018-03-18] MEDS: Hydromorphone 0.5mg/0.5ml inj IVP PRN ×8 (00:02→23:26)
[2018-03-18 04:00] VITALS: BP 132/68
[2018-03-18] MEDS: NS IVPB SCH (06:08)
[2018-03-18] MEDS: AMPICILLIN IVPB SCH (06:08)
[2018-03-18] MEDS: SULBACTAM SOD IVPB SCH (06:08)
[2018-03-18] MEDS: Lyrica 50mg cap ORAL SCH ×3 (06:09→22:30)
[2018-03-18] MEDS: NovoLOG Insulin Flexpen SUBQ SCH ×4 (06:10→20:27)
[2018-03-18 07:28] LABS: BASOPHILS % (AUTO) 1.2 % (0.0-2.0); EOSINOPHILS % (AUTO) 6.7 % (0.0-3.0); HEMATOCRIT 31.6 % (42.0-52.0); HEMOGLOBIN 9.8 G/DL (14.2-18.0); LYMPHOCYTES % (AUTO) 12.2 % (20.0-45.0); MEAN CORPUSCULAR VOLUME 85 FL (80-99); MONOCYTES % (AUTO) 6.4 % (1.0-10.0); NEUTROPHILS % (AUTO) 73.5 % (45.0-75.0); PLATELET COUNT 290 K/UL (150-450); RED BLOOD COUNT 3.72 M/UL (4.70-6.10); RED CELL DISTRIBUTION WIDTH 15.5 % (11.6-14.8); WHITE BLOOD COUNT 12.3 K/UL (4.8-10.8)
[2018-03-18 07:38] LABS: ANION GAP 15 mmol/L (5-15); BLOOD UREA NITROGEN 17 mg/dL (7-18); CALCIUM 8.8 MG/DL (8.5-10.1); CARBON DIOXIDE 23 MMOL/L (21-32); CHLORIDE 102 MMOL/L (98-107); CREATININE 1.2 MG/DL (0.55-1.30); POTASSIUM 3.6 MMOL/L (3.5-5.1); SODIUM 140 MMOL/L (136-145)
[2018-03-18 08:00] VITALS: BP 161/74
[2018-03-18] MEDS: Docusate 100mg cap ORAL SCH ×4 (09:00→17:07)
[2018-03-18] MEDS: Imdur 30mg tab ORAL SCH (09:18)
[2018-03-18] MEDS: Metoprolol 25mg tab ORAL SCH ×2 (09:19→20:26)
[2018-03-18] MEDS: Heparin 5000 units/ml inj SUBQ SCH ×2 (09:21→20:27)
[2018-03-18] MEDS: Dakin's 0.125% Soln (Quarter Strength) 16oz TOPIC SCH (09:22)
--- NOTE | 2018-03-18 10:13 | General Progress Note ---
Assessment/Plan Problem List: (1) Sepsis ICD Codes: A41.9 - Sepsis, unspecified organism SNOMED: 05004451 Qualifiers: Qualified Codes: A41.9 - Sepsis, unspecified organism (2) Cellulitis, leg ICD Codes: L03.119 - Cellulitis of unspecified part of limb SNOMED: 296439496 (3) UTI (urinary tract infection) ICD Codes: N39.0 - Urinary tract infection, site not specified SNOMED: 73661928 (4) Diabetes mellitus ICD Codes: E11.9 - Type 2 diabetes mellitus without complications SNOMED: 00502783 (5) Obesity ICD Codes: E66.9 - Obesity, unspecified SNOMED: 282512456, 826039603 (6) Acute encephalopathy ICD Codes: G93.40 - Encephalopathy, unspecified SNOMED: 23125160, 413397032 (7) ATN (acute tubular necrosis) ICD Codes: N17.0 - Acute kidney failure with tubular necrosis SNOMED: 98001045 Status: stable, progressing Assessment/Plan ot pt diet o2 pulm tx abx wound care neph f/u cardio eval cbc bmp am aru eval Subjective Constitutional: Reports: weakness Allergies: Coded Allergies: No Known Allergies (Unverified , 03/09/18) All Systems: reviewed and negative except above Subjective bed calm more alert Objective Last 24 Hour Vital Signs Date Time Temp Pulse Resp B/P (MAP) Pulse Ox O2 Delivery O2 Flow Rate FiO2 03/18/18 09:48 98.5 03/18/18 09:48 98.5 03/18/18 09:19 98.5 03/18/18 09:19 68 161/74 03/18/18 09:18 161/74 03/18/18 09:18 98.5 03/18/18 08:00 98.5 68 18 161/74 96 Nasal Cannula 2.0 98.5 03/18/18 04:00 97.8 74 20 132/68 96 Nasal Cannula 2.0 97.8 03/18/18 00:00 98.4 68 22 135/58 94 Nasal Cannula 2.0 98.4 03/17/18 21:29 Nasal Cannula 2.0 28 03/17/18 21:29 97 Nasal Cannula 2.0 28 03/17/18 21:12 68 143/59 03/17/18 20:00 98.3 68 22 143/59 96 Nasal Cannula 2.0 98.3 03/17/18 16:00 97.5 63 20 148/68 97 Nasal Cannula 2.0 97.5 03/17/18 12:00 97.4 70 19 134/70 97 Nasal Cannula 2.0 97.4 03/17/18 11:54 134/70 03/17/18 10:16 98.6 Intake and Output 03/17/18 03/18/18 18:59 06:59 Intake Total 1417 ml 1550 ml Output Total 1800 ml 2000 ml Balance -383 ml -450 ml Intake Oral 720 ml 1000 ml IV Total 697 ml 550 ml Output Urine Total 1800 ml 2000 ml Laboratory Tests 03/18/18 06:33: White Blood Count 12.3H, Red Blood Count 3.72L, Hemoglobin 9.8L, Hematocrit 31.6L, Mean Corpuscular Volume 85, Mean Corpuscular Hemoglobin 26.4L, Mean Corpuscular Hemoglobin Concent 31.0L, Red Cell Distribution Width 15.5H, Platelet Count 290, Mean Platelet Volume 10.0, Neutrophils (%) (Auto) 73.5, Lymphocytes (%) (Auto) 12.2L, Monocytes (%) (Auto) 6.4, Eosinophils (%) (Auto) 6.7H, Basophils (%) (Auto) 1.2, Sodium Level 140, Potassium Level 3.6, Chloride Level 102, Carbon Dioxide Level 23, Anion Gap 15, Blood Urea Nitrogen 17, Creatinine 1.2, Estimat Glomerular Filtration Rate , Glucose Level 163H, Calcium Level 8.8 Height (Feet): 6 Height (Inches): 1.00 Weight (Pounds): 350 General Appearance: lethargic EENT: normal ENT inspection Neck: normal alignment Cardiovascular: normal peripheral pulses, normal rate, regular rhythm Respiratory/Chest: chest wall non-tender, lungs clear, normal breath sounds Abdomen: normal bowel sounds, non tender, soft Extremities: normal inspection Edema: 1+ Arm (L), 1+ Arm (R), 1+ Leg (L), 1+ Leg (R), 1+ Pedal (L), 1+ Pedal ( R), 1+ Generalized Neurologic: responsive, motor weakness Skin: normal pigmentation, warm/dry Ok Curry DO Mar 18, 2018 10:13
--- NOTE | 2018-03-18 11:22 | Nephrology Progress Note ---
Assessment/Plan Problem List: (1) ARF (acute renal failure) (2) ATN (acute tubular necrosis) (3) Diabetic nephropathy (4) Diabetes mellitus (5) Sepsis Assessment renal function stable Plan abxs Insulin follow labs Subjective Subjective feels ok Objective Objective Last 24 Hour Vital Signs Date Time Temp Pulse Resp B/P (MAP) Pulse Ox O2 Delivery O2 Flow Rate FiO2 03/18/18 09:48 98.5 03/18/18 09:48 98.5 03/18/18 09:19 98.5 03/18/18 09:19 68 161/74 03/18/18 09:18 161/74 03/18/18 09:18 98.5 03/18/18 08:00 98.5 68 18 161/74 96 Nasal Cannula 2.0 98.5 03/18/18 04:00 97.8 74 20 132/68 96 Nasal Cannula 2.0 97.8 03/18/18 00:00 98.4 68 22 135/58 94 Nasal Cannula 2.0 98.4 03/17/18 21:29 Nasal Cannula 2.0 28 03/17/18 21:29 97 Nasal Cannula 2.0 28 03/17/18 21:12 68 143/59 03/17/18 20:00 98.3 68 22 143/59 96 Nasal Cannula 2.0 98.3 03/17/18 16:00 97.5 63 20 148/68 97 Nasal Cannula 2.0 97.5 03/17/18 12:00 97.4 70 19 134/70 97 Nasal Cannula 2.0 97.4 03/17/18 11:54 134/70 Intake and Output 03/17/18 03/18/18 19:00 07:00 Intake Total 1142 ml 1550 ml Output Total 1800 ml 2000 ml Balance -658 ml -450 ml Intake Oral 720 ml 1000 ml IV Total 422 ml 550 ml Output Urine Total 1800 ml 2000 ml Laboratory Tests 03/18/18 06:33: White Blood Count 12.3H, Red Blood Count 3.72L, Hemoglobin 9.8L, Hematocrit 31.6L, Mean Corpuscular Volume 85, Mean Corpuscular Hemoglobin 26.4L, Mean Corpuscular Hemoglobin Concent 31.0L, Red Cell Distribution Width 15.5H, Platelet Count 290, Mean Platelet Volume 10.0, Neutrophils (%) (Auto) 73.5, Lymphocytes (%) (Auto) 12.2L, Monocytes (%) (Auto) 6.4, Eosinophils (%) (Auto) 6.7H, Basophils (%) (Auto) 1.2, Sodium Level 140, Potassium Level 3.6, Chloride Level 102, Carbon Dioxide Level 23, Anion Gap 15, Blood Urea Nitrogen 17, Creatinine 1.2, Estimat Glomerular Filtration Rate , Glucose Level 163H, Calcium Level 8.8 Height (Feet): 6 Height (Inches): 1.00 Weight (Pounds): 350 Cardiovascular: normal rate Respiratory/Chest: lungs clear Extremities: moderate edema Jimi Goldstein MD Mar 18, 2018 11:22
--- NOTE | 2018-03-18 11:25 | Infectious Diseases Prog Note ---
Assessment/Plan Assessment/Plan Sepsis;resolved severe b/l Leg soft tissue infection, much improved GBS bacteremia- 2ry to above -03/09 Bcx 4/4+; 03/13 1/2 CoNS (contaminant); 03/14 BCx NTd -v. duplex: no DVT R Foot necrotic ulcer- no evidence of Osteo on bone scan -bone scan Increased blood pool activity in the plantar surface of the right heel, likely related to stated clinical history of right heel ulcer. No abnormal osseous activity to suggest acute osteomyelitis. Foci of abnormal static activity without corresponding focal hyperemia on flow and blood pool images in the bilateral mid feet, and right toes, most likely representing degenerative changes. Plain film correlation would be useful, however. -u/a neg -CXR :NAPD Diarrhea -Cdiff neg -stool cx neg Fever, SP Leukocytosis, recurrent, mild; improving Lactic acidosis, resolved elev lipase Influenza sc : neg JOES; resolving HTN HLD GERD Dm2 Plan: -Switch IV Unasyn abx d#06/16 to IV Ceftriaxone 2g qd for easier dosing for GBS bacteremia, cellulitis and R foot necrotic ulcer; upon discharge will continue same regimen via PIV -if worsening Leukocytosis, will switch to Zosyn -03/16 SP IV Vancomycin #3 -6/ SP IV Vanco and Clinda #4 -/10 SP Zosyn #3 -6/8 SP Cefepime d# 1 -f/u repeat 2 sets of Bcx -f/u cx -Monitor CBC/BMP, temperatures -Sx, Podiatry f/u -wound care per hospital protocol Subjective Allergies: Coded Allergies: No Known Allergies (Unverified , 03/09/18) Subjective afebrile mild leukocytosis b/t 11-12 repeat bcx NTD Objective Vital Signs Last 24 Hour Vital Signs Date Time Temp Pulse Resp B/P (MAP) Pulse Ox O2 Delivery O2 Flow Rate FiO2 03/18/18 09:48 98.5 03/18/18 09:48 98.5 03/18/18 09:19 98.5 03/18/18 09:19 68 161/74 03/18/18 09:18 161/74 03/18/18 09:18 98.5 03/18/18 08:00 98.5 68 18 161/74 96 Nasal Cannula 2.0 98.5 03/18/18 04:00 97.8 74 20 132/68 96 Nasal Cannula 2.0 97.8 03/18/18 00:00 98.4 68 22 135/58 94 Nasal Cannula 2.0 98.4 03/17/18 21:29 Nasal Cannula 2.0 28 03/17/18 21:29 97 Nasal Cannula 2.0 28 03/17/18 21:12 68 143/59 03/17/18 20:00 98.3 68 22 143/59 96 Nasal Cannula 2.0 98.3 03/17/18 16:00 97.5 63 20 148/68 97 Nasal Cannula 2.0 97.5 03/17/18 12:00 97.4 70 19 134/70 97 Nasal Cannula 2.0 97.4 03/17/18 11:54 134/70 Height (Feet): 6 Height (Inches): 1.00 Weight (Pounds): 350 Objective General Appearance: obese, no acute distress HEENT: normocephalic, atraumatic, dry mucus membranes Neck: full range of motion, supple, no meningismus, no bony tend Respiratory: lungs clear, normal breath sounds, no rhonchi, no respiratory distress, no retraction, no accessory muscle use Cardiovascular no gallop, no JVD, no murmur, tachycardia Gastrointestinal: normal bowel sounds, non tender, soft, no mass, no organomegaly, non-distended, no guarding, no rebound Musculoskeletal: B/L leg with chornic venous stasis changes and lymphedema with superimposed erythema, warmth; improving On R foot there is a wound with necrotic center ; no purulent discharge.; improving Laboratory Tests Test 03/18/18 06:33 White Blood Count 12.3 K/UL (4.8-10.8) H Red Blood Count 3.72 M/UL (4.70-6.10) L Hemoglobin 9.8 G/DL (14.2-18.0) L Hematocrit 31.6 % (42.0-52.0) L Mean Corpuscular Volume 85 FL (80-99) Mean Corpuscular Hemoglobin 26.4 PG (27.0-31.0) L Mean Corpuscular Hemoglobin Concent 31.0 G/DL (32.0-36.0) L Red Cell Distribution Width 15.5 % (11.6-14.8) H Platelet Count 290 K/UL (150-450) Mean Platelet Volume 10.0 FL (6.5-10.1) Neutrophils (%) (Auto) 73.5 % (45.0-75.0) Lymphocytes (%) (Auto) 12.2 % (20.0-45.0) L Monocytes (%) (Auto) 6.4 % (1.0-10.0) Eosinophils (%) (Auto) 6.7 % (0.0-3.0) H Basophils (%) (Auto) 1.2 % (0.0-2.0) Sodium Level 140 MMOL/L (136-145) Potassium Level 3.6 MMOL/L (3.5-5.1) Chloride Level 102 MMOL/L (98-107) Carbon Dioxide Level 23 MMOL/L (21-32) Anion Gap 15 mmol/L (5-15) Blood Urea Nitrogen 17 mg/dL (7-18) Creatinine 1.2 MG/DL (0.55-1.30) Estimat Glomerular Filtration Rate mL/min (>60) Glucose Level 163 MG/DL (74-106) H Calcium Level 8.8 MG/DL (8.5-10.1) Current Medications Medications (Trade) Dose Ordered Sig/Nancy Route PRN Reason Start Time Stop Time Status Last Admin Dose Admin Acetaminophen (Tylenol) 650 mg Q4H PRN ORAL fever (temp>100.5F) 03/15/18 17:00 04/09/18 16:59 Ampicillin Sodium/ Sulbactam Sodium 3 gm/Sodium Chloride 275 ml @ 275 mls/hr Q6HR IVPB 03/15/18 18:00 03/20/18 11:59 03/18/18 06:08 Dextrose (Dextrose 50%) 25 ml STAT PRN IV Hypoglycemia 03/15/18 17:00 04/12/18 16:59 Dextrose (Dextrose 50%) 50 ml STAT PRN IV Hypoglycemia 03/15/18 17:30 04/12/18 17:29 Docusate Sodium (Colace) 100 mg THREE TIMES A DAY ORAL 03/15/18 18:00 04/13/18 12:59 03/17/18 13:59 Heparin Sodium (Porcine) (Heparin 5000 units/ml) 5,000 units EVERY 12 HOURS SUBQ 03/15/18 21:00 04/09/18 08:59 03/18/18 09:21 Hydromorphone HCl (Dilaudid) 1 mg Q3H PRN IVP severe pain (7-10) 03/15/18 16:45 03/22/18 16:44 03/18/18 09:18 Insulin Aspart (NovoLOG) BEFORE MEALS AND HS SUBQ 03/15/18 17:30 04/12/18 17:29 03/18/18 06:10 Isosorbide Mononitrate (Imdur) 30 mg DAILY ORAL 03/16/18 09:00 04/14/18 08:59 03/18/18 09:18 Lansoprazole (Prevacid) 30 mg BID ORAL 03/15/18 18:00 04/13/18 17:59 03/18/18 09:18 Lidocaine (Xylocaine 5% cream) 1 applic Q6H TOPIC 03/15/18 20:00 04/11/18 13:59 03/18/18 09:17 Metoprolol Tartrate (Lopressor) 25 mg Q12HR ORAL 03/15/18 21:00 04/13/18 20:59 03/18/18 09:19 Nateglinide (Starlix) 120 mg TIAC ORAL 03/15/18 16:45 04/13/18 16:44 03/18/18 06:08 Nitroglycerin (Ntg) 0.4 mg Q5M PRN SL Prn Chest Pain 03/15/18 17:00 04/08/18 16:59 Nitroglycerin (Ntg) 1 patch Q24H TDERMAL 03/16/18 12:00 04/13/18 11:59 03/17/18 11:54 Ondansetron HCl (Zofran) 4 mg Q6H PRN IVP Nausea & Vomiting 03/15/18 17:00 04/08/18 16:59 Oxycodone/ Acetaminophen (Percocet 10/325) 1 tab Q4H PRN ORAL moderate break through pain 03/15/18 16:45 03/21/18 16:44 03/18/18 09:19 Pregabalin (Lyrica) 50 mg Q8HR ORAL 03/16/18 18:00 04/15/18 17:59 03/18/18 06:09 Sodium Hypochlorite (Dakin's Quarter Strength) 1 applic DAILY TOPIC 03/16/18 09:00 04/10/18 08:59 03/18/18 09:22 Maranda Wiggins M.D. Mar 18, 2018 11:25
[2018-03-18 12:00] VITALS: BP 137/66
[2018-03-18] MEDS ORDERED: cefTRIAXone 2 GM in D5W 55 ML IVPB SCH (12:00)
--- NOTE | 2018-03-18 12:03 | Pulmonology Progress Note ---
Assessment/Plan Problems: (1) Acute encephalopathy (2) Bacteremia (3) ATN (acute tubular necrosis) (4) Sepsis (5) Cellulitis, leg (6) UTI (urinary tract infection) (7) Diabetic nephropathy (8) Obesity (9) Diabetes mellitus Assessment/Plan more alert, comfortable, med/surg bun/creatine decreasing improving continue abx check cultures wound care dc rectal tube and gomez pt/ot sliding scale diabetic diet. Subjective ROS Limited/Unobtainable: No Constitutional: Reports: no symptoms HEENT: Repors: no symptoms Respiratory: Reports: no symptoms Allergies: Coded Allergies: No Known Allergies (Unverified , 03/09/18) Objective Last 24 Hour Vital Signs Date Time Temp Pulse Resp B/P (MAP) Pulse Ox O2 Delivery O2 Flow Rate FiO2 03/18/18 09:48 98.5 03/18/18 09:48 98.5 03/18/18 09:19 98.5 03/18/18 09:19 68 161/74 03/18/18 09:18 161/74 03/18/18 09:18 98.5 03/18/18 08:00 98.5 68 18 161/74 96 Nasal Cannula 2.0 98.5 03/18/18 04:00 97.8 74 20 132/68 96 Nasal Cannula 2.0 97.8 03/18/18 00:00 98.4 68 22 135/58 94 Nasal Cannula 2.0 98.4 03/17/18 21:29 Nasal Cannula 2.0 28 03/17/18 21:29 97 Nasal Cannula 2.0 28 03/17/18 21:12 68 143/59 03/17/18 20:00 98.3 68 22 143/59 96 Nasal Cannula 2.0 98.3 03/17/18 16:00 97.5 63 20 148/68 97 Nasal Cannula 2.0 97.5 Intake and Output 03/17/18 03/18/18 19:00 07:00 Intake Total 1142 ml 1550 ml Output Total 1800 ml 2000 ml Balance -658 ml -450 ml Intake Oral 720 ml 1000 ml IV Total 422 ml 550 ml Output Urine Total 1800 ml 2000 ml General Appearance: WD/WN HEENT: normocephalic Respiratory/Chest: chest wall non-tender, lungs clear Cardiovascular: normal peripheral pulses, normal rate Abdomen: normal bowel sounds, soft, non tender Genitourinary: normal external genitalia Extremities: no cyanosis 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 Lymphatic: no neck adenopathy Musculoskeletal: normal muscle bulk Laboratory Tests 03/18/18 06:33: White Blood Count 12.3H, Red Blood Count 3.72L, Hemoglobin 9.8L, Hematocrit 31.6L, Mean Corpuscular Volume 85, Mean Corpuscular Hemoglobin 26.4L, Mean Corpuscular Hemoglobin Concent 31.0L, Red Cell Distribution Width 15.5H, Platelet Count 290, Mean Platelet Volume 10.0, Neutrophils (%) (Auto) 73.5, Lymphocytes (%) (Auto) 12.2L, Monocytes (%) (Auto) 6.4, Eosinophils (%) (Auto) 6.7H, Basophils (%) (Auto) 1.2, Sodium Level 140, Potassium Level 3.6, Chloride Level 102, Carbon Dioxide Level 23, Anion Gap 15, Blood Urea Nitrogen 17, Creatinine 1.2, Estimat Glomerular Filtration Rate , Glucose Level 163H, Calcium Level 8.8 Current Medications Medications (Trade) Dose Ordered Sig/Nancy Route PRN Reason Start Time Stop Time Status Last Admin Dose Admin Acetaminophen (Tylenol) 650 mg Q4H PRN ORAL fever (temp>100.5F) 03/15/18 17:00 04/09/18 16:59 Ceftriaxone Sodium 2 gm/ Sodium Chloride 55 ml @ 110 mls/hr Q24H IVPB 03/18/18 12:00 03/25/18 11:59 Dextrose (Dextrose 50%) 25 ml STAT PRN IV Hypoglycemia 03/15/18 17:00 04/12/18 16:59 Dextrose (Dextrose 50%) 50 ml STAT PRN IV Hypoglycemia 03/15/18 17:30 04/12/18 17:29 Docusate Sodium (Colace) 100 mg THREE TIMES A DAY ORAL 03/15/18 18:00 04/13/18 12:59 03/17/18 13:59 Heparin Sodium (Porcine) (Heparin 5000 units/ml) 5,000 units EVERY 12 HOURS SUBQ 03/15/18 21:00 04/09/18 08:59 03/18/18 09:21 Hydromorphone HCl (Dilaudid) 1 mg Q3H PRN IVP severe pain (7-10) 03/15/18 16:45 03/22/18 16:44 03/18/18 09:18 Insulin Aspart (NovoLOG) BEFORE MEALS AND HS SUBQ 03/15/18 17:30 04/12/18 17:29 03/18/18 06:10 Isosorbide Mononitrate (Imdur) 30 mg DAILY ORAL 03/16/18 09:00 04/14/18 08:59 03/18/18 09:18 Lansoprazole (Prevacid) 30 mg BID ORAL 03/15/18 18:00 04/13/18 17:59 03/18/18 09:18 Lidocaine (Xylocaine 5% cream) 1 applic Q6H TOPIC 03/15/18 20:00 04/11/18 13:59 03/18/18 09:17 Metoprolol Tartrate (Lopressor) 25 mg Q12HR ORAL 03/15/18 21:00 04/13/18 20:59 03/18/18 09:19 Nateglinide (Starlix) 120 mg TIAC ORAL 03/15/18 16:45 04/13/18 16:44 03/18/18 06:08 Nitroglycerin (Ntg) 0.4 mg Q5M PRN SL Prn Chest Pain 03/15/18 17:00 04/08/18 16:59 Nitroglycerin (Ntg) 1 patch Q24H TDERMAL 03/16/18 12:00 04/13/18 11:59 03/17/18 11:54 Ondansetron HCl (Zofran) 4 mg Q6H PRN IVP Nausea & Vomiting 03/15/18 17:00 04/08/18 16:59 Oxycodone/ Acetaminophen (Percocet 10/325) 1 tab Q4H PRN ORAL moderate break through pain 03/15/18 16:45 03/21/18 16:44 03/18/18 09:19 Pregabalin (Lyrica) 50 mg Q8HR ORAL 03/16/18 18:00 04/15/18 17:59 03/18/18 06:09 Sodium Hypochlorite (Dakin's Quarter Strength) 1 applic DAILY TOPIC 03/16/18 09:00 04/10/18 08:59 03/18/18 09:22 Zia Li MD Mar 18, 2018 12:03
[2018-03-18] MEDS: Nitroglycerin Patch 0.4mg TDERMAL SCH (12:28)
[2018-03-18] MEDS: cefTRIAXone 2 GM in NS 55 ML IVPB SCH (12:42)
--- NOTE | 2018-03-18 14:01 | Neurology Progress Note ---
Interim History Interim History Interim History Mr. Farmer feels better generally. He was unable to sleep well last night due to constant diarrhoea. The mind has cleared up completely. He feels a little stronger - but is still generally weak. He has not been out of bed yet.. He denies any new neurologic symptoms. The legs feel more comfortable. Review of Systems Neuro Review of Systems Benign. Objective Physical Exam Last Vital Signs Date Time Temp Pulse Resp B/P (MAP) Pulse Ox O2 Delivery O2 Flow Rate FiO2 03/18/18 12:50 98.0 03/18/18 12:28 137/66 03/18/18 12:00 66 19 97 Nasal Cannula 2.0 03/17/18 21:29 28 Laboratory Tests Test 03/18/18 06:33 White Blood Count 12.3 K/UL (4.8-10.8) H Red Blood Count 3.72 M/UL (4.70-6.10) L Hemoglobin 9.8 G/DL (14.2-18.0) L Hematocrit 31.6 % (42.0-52.0) L Mean Corpuscular Volume 85 FL (80-99) Mean Corpuscular Hemoglobin 26.4 PG (27.0-31.0) L Mean Corpuscular Hemoglobin Concent 31.0 G/DL (32.0-36.0) L Red Cell Distribution Width 15.5 % (11.6-14.8) H Platelet Count 290 K/UL (150-450) Mean Platelet Volume 10.0 FL (6.5-10.1) Neutrophils (%) (Auto) 73.5 % (45.0-75.0) Lymphocytes (%) (Auto) 12.2 % (20.0-45.0) L Monocytes (%) (Auto) 6.4 % (1.0-10.0) Eosinophils (%) (Auto) 6.7 % (0.0-3.0) H Basophils (%) (Auto) 1.2 % (0.0-2.0) Sodium Level 140 MMOL/L (136-145) Potassium Level 3.6 MMOL/L (3.5-5.1) Chloride Level 102 MMOL/L (98-107) Carbon Dioxide Level 23 MMOL/L (21-32) Anion Gap 15 mmol/L (5-15) Blood Urea Nitrogen 17 mg/dL (7-18) Creatinine 1.2 MG/DL (0.55-1.30) Estimat Glomerular Filtration Rate mL/min (>60) Glucose Level 163 MG/DL (74-106) H Calcium Level 8.8 MG/DL (8.5-10.1) Neurologic Exam Objective PHYSICAL EXAMINATION: GENERAL: He is a well-developed, well-nourished, obese, gentleman, lying in bed with his legs bandaged from just below the knees to just above the ankles. HEAD: Normocephalic and atraumatic. EENT: Examination benign. NECK: No neck rigidity was observed. NEUROLOGIC EXAMINATION: MENTAL STATUS EXAMINATION: He was awake and alert. He was oriented to person, place and time. He was able to recall 3/3 words immediately after 1 minute and after 3 minutes. He was able to remember presidents Trump through Aparicio Senior. His mathematical skills were good. His visuospatial function was preserved. SPEECH: He had no dysarthria. LANGUAGE: He had no aphasia. CRANIAL NERVE EXAMINATION: II: The visual diehl were intact on confrontation testing. III, IV & : The external ocular movements were full and the pupils 3 mm in diameter, equal, round, regular, and reactive to light. V: He had normal facial sensations and the temporales, masseters, and pterygoids functioned normally. VII: He had normal facial expressions and no facial asymmetry. VIII: He was able to hear well bilaterally and had no nystagmus. IX: The palate moved symmetrically on phonation. X: He had no hoarseness of voice. XI: The sternocleidomastoids and trapezii functioned normally. XII: The tongue was in the midline without any fasciculations or atrophy. MOTOR SYSTEM: The tone was normal in all four extremities. Examination of muscle mass revealed no focal wasting. Examination of power revealed G 5/5 power in the upper extremities. In the lower extremities, he also had G 5/5 power except for G 4/5 power in the iliopsoas muscles and G 4+/5 power in the ankle dorsiflexors and toe extensors. SENSORY EXAMINATION: He had intact sensations to pinprick, light touch, and graphesthesia over the exposed parts of his body. REFLEXES: 0 at the biceps, triceps, brachioradialis, knees, and ankles. The plantar responses were flexor bilaterally. COORDINATION: He performed well on [id number] testing. He was unable to perform [id number] testing. STANCE & GAIT: Could not be tested. Impression/Recommendations Diagnostic Impression 1. Mr. Jamir Farmer is a 72-year-old, right-handed, gentleman, with a past history of hypertension, diabetes mellitus, morbid obesity, and lower extremity cellulitis, who two days prior to admission, was becoming increasingly delirious at home and was having fevers and rigors. On being brought to the [facility] emergency room, he was noted to be septic, had lower extremity cellulitis, and a urinary tract infection. He had to be hospitalized on 03/10/2018 at first in the intensive care unit and then was moved to the floor. He had significant alteration in his mental state, which has improved over time, but had not resolved completely when I was called in to evaluate him. 2. He feels better generally. He was unable to sleep well last night due to constant diarrhoea. The mind has cleared up completely. He feels a little stronger - but is still generally weak. He has not been out of bed yet. He denies any new neurologic symptoms. The legs feel more comfortable. 3. On neurological examination, at this time, he is fully oriented. His mental status examination is normal. His language has normalized. He has generalized lower extremity weakness, involving both the proximal and distal muscles. He has absent deep tendon reflexes and he is unable to stand and walk. 4. Laboratory data revealed that his WBC count is elevated to 12,200. He is anemic with a hemoglobin of 10.1 G. His BUN is elevated to 36 with a creatinine of 1.4. His blood glucoses are running high with the last blood glucose measured at 208. His B12 level is normal at 1378. His TSH is normal at 0.67. His a.m. cortisol is normal at 22.1. 5. The patient's history and neurological examination are most compatible with a toxic metabolic encephalopathy due to his acute infectious process, sepsis, and underlying metabolic imbalances. His encephalopathy has completely resolved. 6. He is still weak in his legs. This is due to a neuropathic process, deconditioning and disuse. Recommendations 1. Continue present management. 2. Aggressive treatment of acute infectious process as is being done right now. 3. Aggressive treatment to correct the patient's fluid and electrolyte imbalances as is being done right now. 4. Mobilize with the help of physical and occupational therapy. Will stop following as patient's neurologic dysfunction has resolved. Please call if I can be of any further help. Dion Lewis M.D., M.S.Juan.Mikala. DION LEWIS Mar 18, 2018 14:01
--- NOTE | 2018-03-18 14:07 | General Surgery Progress Note ---
General Surgery-Progress Note Subjective Additional Comments no acute events. Objective Last 24 Hour Vital Signs Date Time Temp Pulse Resp B/P (MAP) Pulse Ox O2 Delivery O2 Flow Rate FiO2 03/18/18 12:50 98.0 03/18/18 12:28 137/66 03/18/18 12:20 98.0 03/18/18 12:00 98.0 66 19 137/66 97 Nasal Cannula 2.0 98.0 03/18/18 09:48 98.5 03/18/18 09:19 98.5 03/18/18 09:19 68 161/74 03/18/18 09:18 161/74 03/18/18 09:18 98.5 03/18/18 08:00 98.5 68 18 161/74 96 Nasal Cannula 2.0 98.5 03/18/18 04:00 97.8 74 20 132/68 96 Nasal Cannula 2.0 97.8 03/18/18 00:00 98.4 68 22 135/58 94 Nasal Cannula 2.0 98.4 03/17/18 21:29 Nasal Cannula 2.0 28 03/17/18 21:29 97 Nasal Cannula 2.0 28 03/17/18 21:12 68 143/59 03/17/18 20:00 98.3 68 22 143/59 96 Nasal Cannula 2.0 98.3 03/17/18 16:00 97.5 63 20 148/68 97 Nasal Cannula 2.0 97.5 I&O Intake and Output 03/17/18 03/18/18 19:00 07:00 Intake Total 1142 ml 1550 ml Output Total 1800 ml 2000 ml Balance -658 ml -450 ml Intake Oral 720 ml 1000 ml IV Total 422 ml 550 ml Output Urine Total 1800 ml 2000 ml Cardiovascular: RSR Respiratory: clear Abdomen: soft, flat, non-tender, present bowel sounds Extremities: edema, tenderness, no cyanosis Laboratory Tests Test 03/18/18 06:33 White Blood Count 12.3 K/UL (4.8-10.8) H Red Blood Count 3.72 M/UL (4.70-6.10) L Hemoglobin 9.8 G/DL (14.2-18.0) L Hematocrit 31.6 % (42.0-52.0) L Mean Corpuscular Volume 85 FL (80-99) Mean Corpuscular Hemoglobin 26.4 PG (27.0-31.0) L Mean Corpuscular Hemoglobin Concent 31.0 G/DL (32.0-36.0) L Red Cell Distribution Width 15.5 % (11.6-14.8) H Platelet Count 290 K/UL (150-450) Mean Platelet Volume 10.0 FL (6.5-10.1) Neutrophils (%) (Auto) 73.5 % (45.0-75.0) Lymphocytes (%) (Auto) 12.2 % (20.0-45.0) L Monocytes (%) (Auto) 6.4 % (1.0-10.0) Eosinophils (%) (Auto) 6.7 % (0.0-3.0) H Basophils (%) (Auto) 1.2 % (0.0-2.0) Sodium Level 140 MMOL/L (136-145) Potassium Level 3.6 MMOL/L (3.5-5.1) Chloride Level 102 MMOL/L (98-107) Carbon Dioxide Level 23 MMOL/L (21-32) Anion Gap 15 mmol/L (5-15) Blood Urea Nitrogen 17 mg/dL (7-18) Creatinine 1.2 MG/DL (0.55-1.30) Estimat Glomerular Filtration Rate mL/min (>60) Glucose Level 163 MG/DL (74-106) H Calcium Level 8.8 MG/DL (8.5-10.1) Plan Problems: (1) Sepsis Assessment & Plan: 72M sepsis with fevers, leukocytosis, altered mental status. chronic bilateral lower extremity wounds with cellulitis. concerns for possible necrotizing fascitis initially. unlikely nec fasc given exam. wounds chronic and skin changes chronic. LRINEC score on admission 10 but given chronicity of wounds, other etiology of sepsis, and physical exam unlikely nec fasc. edema improving. cellulitis improving. overall much improved. -no acute surgical intervention necessary. -keep legs elevated -cont with dressings for now -will follow with you thank you for this consultation (2) Cellulitis, leg ArtckLeandro Mar 18, 2018 14:07
[2018-03-18] MEDS: Lomotil 2.5mg tab ORAL PRN ×2 (14:42→19:55)
[2018-03-18] MEDS ORDERED: Tubing IV Secondary IV ONE (15:12)
[2018-03-18 15:54] VITALS: BP 137/66
--- NOTE | 2018-03-18 17:55 | Cardiac Electrophysiology PN ---
Assessment/Plan Assessment/Plan 1. Troponin Leak. 0.07,0.09 and 0.1. Levels are flatL and likely due to renal failure as Cr 1.8 and no CP. EKG showed SR/ nonspecific ST-T wave abnormalities. Echocardiogram showed an ejection fraction of 55%. On Lopressor 25 bid 2. Hypertension, On Imdur 30 and Lopressor 25 bid 3. Sepsis, on broad-spectrum IV antibiotics 4. Elevated brain natriuretic peptide. EF is normal. It could be due to diastolic dysfunction. 5. Urinary tract infection. 6. Cellulitis of the legs. 7. Hyperkalemia. 8. Renal failure.Resolving Cr 1.2 DW RN Subjective Subjective Alert. No CP or SOB Objective Last 24 Hour Vital Signs Date Time Temp Pulse Resp B/P (MAP) Pulse Ox O2 Delivery O2 Flow Rate FiO2 03/18/18 15:54 97.8 67 20 137/66 96 Room Air 97.8 03/18/18 15:38 98.0 03/18/18 15:38 98.0 03/18/18 15:25 98.0 03/18/18 14:39 98.0 03/18/18 12:28 137/66 03/18/18 12:20 98.0 03/18/18 12:00 98.0 66 19 137/66 97 Nasal Cannula 2.0 98.0 03/18/18 09:19 98.5 03/18/18 09:19 68 161/74 03/18/18 09:18 161/74 03/18/18 09:18 98.5 03/18/18 08:00 98.5 68 18 161/74 96 Nasal Cannula 2.0 98.5 03/18/18 04:00 97.8 74 20 132/68 96 Nasal Cannula 2.0 97.8 03/18/18 00:00 98.4 68 22 135/58 94 Nasal Cannula 2.0 98.4 03/17/18 21:29 Nasal Cannula 2.0 28 03/17/18 21:29 97 Nasal Cannula 2.0 28 03/17/18 21:12 68 143/59 03/17/18 20:00 98.3 68 22 143/59 96 Nasal Cannula 2.0 98.3 Intake and Output 03/17/18 03/18/18 19:00 07:00 Intake Total 1142 ml 1550 ml Output Total 1800 ml 2000 ml Balance -658 ml -450 ml Intake Oral 720 ml 1000 ml IV Total 422 ml 550 ml Output Urine Total 1800 ml 2000 ml Laboratory Tests Test 03/18/18 06:33 White Blood Count 12.3 K/UL (4.8-10.8) H Red Blood Count 3.72 M/UL (4.70-6.10) L Hemoglobin 9.8 G/DL (14.2-18.0) L Hematocrit 31.6 % (42.0-52.0) L Mean Corpuscular Volume 85 FL (80-99) Mean Corpuscular Hemoglobin 26.4 PG (27.0-31.0) L Mean Corpuscular Hemoglobin Concent 31.0 G/DL (32.0-36.0) L Red Cell Distribution Width 15.5 % (11.6-14.8) H Platelet Count 290 K/UL (150-450) Mean Platelet Volume 10.0 FL (6.5-10.1) Neutrophils (%) (Auto) 73.5 % (45.0-75.0) Lymphocytes (%) (Auto) 12.2 % (20.0-45.0) L Monocytes (%) (Auto) 6.4 % (1.0-10.0) Eosinophils (%) (Auto) 6.7 % (0.0-3.0) H Basophils (%) (Auto) 1.2 % (0.0-2.0) Sodium Level 140 MMOL/L (136-145) Potassium Level 3.6 MMOL/L (3.5-5.1) Chloride Level 102 MMOL/L (98-107) Carbon Dioxide Level 23 MMOL/L (21-32) Anion Gap 15 mmol/L (5-15) Blood Urea Nitrogen 17 mg/dL (7-18) Creatinine 1.2 MG/DL (0.55-1.30) Estimat Glomerular Filtration Rate mL/min (>60) Glucose Level 163 MG/DL (74-106) H Calcium Level 8.8 MG/DL (8.5-10.1) Objective HEAD AND NECK: Showed no JVD. LUNGS: Coarse rhonchi. CARDIOVASCULAR: Shows regular S1 and S2 with no gallop or murmur. ABDOMEN: Obese. EXTREMITIES: Bilateral lower extremity edema and cellulitis. Yong Oconnell MD Mar 18, 2018 17:55
--- NOTE | 2018-03-18 19:15 | Consultation ---
DATE OF CONSULTATION: HISTORY OF PRESENT ILLNESS: This is a 72-year-old male patient with sepsis. He is admitted to [facility] secondary to sepsis. He also has altered mental status, confusion, that is why, psychiatric requested by his attending physician. This patient does have some confusion, disorganized thought process on interview, but his baseline when he came to the hospital. He denies any current suicidal or homicidal thoughts. medical problem of sepsis. See internal medicine note for further details. ALLERGIES: No known drug allergies. SUBSTANCE ABUSE HISTORY: Denies drug or alcohol use. PSYCHIATRIC HISTORY: Strength is and he is healthy. Weakness, he is impulsive. . MENTAL STATUS EXAMINATION: This is a 72-year-old male. Appearance is disheveled. Attitude, irritable and agitated. Affect guarded and restricted. Intellect poor. Mood depressed and anxious. Motor activity, psychomotor agitation. Attention span is poor. Orientation x2. Speech is low volume and slurred. Thought process, disorganized. Thought content, slight paranoia. Insight and judgment is poor. DIAGNOSIS: Major depression with psychotic features. PLAN: Continue him encourage him and I spoke with staff continue to be followed by Psychiatry daily throughout hospital course. I would like to thank Dr. Ok Curry for this interesting consultation. Initial psychiatric evaluation 20 minutes supportive psychotherapy provided. Again 20 minutes supportive psychotherapy provided. Today, on admission reviewed. Chart reviewed. Ashlyn Baker M.D. DR: YUE JOB#: [id number] CC:
[2018-03-18 20:00] VITALS: BP 135/65
[2018-03-19] VITALS: BP 149/68
[2018-03-19] MEDS: Hydromorphone 0.5mg/0.5ml inj IVP PRN ×6 (03:59→22:52)
[2018-03-19] MEDS: Lomotil 2.5mg tab ORAL PRN (03:59)
[2018-03-19 04:00] VITALS: BP 151/69
[2018-03-19] MEDS: Lyrica 50mg cap ORAL SCH ×3 (06:21→21:01)
[2018-03-19] MEDS: NovoLOG Insulin Flexpen SUBQ SCH ×4 (06:22→20:58)
[2018-03-19 07:00] LABS: ANION GAP 9 mmol/L (5-15); BLOOD UREA NITROGEN 14 mg/dL (7-18); CALCIUM 8.7 MG/DL (8.5-10.1); CARBON DIOXIDE 26 MMOL/L (21-32); CHLORIDE 104 MMOL/L (98-107); CREATININE 1.1 MG/DL (0.55-1.30); POTASSIUM 4.1 MMOL/L (3.5-5.1); SODIUM 139 MMOL/L (136-145)
[2018-03-19 07:32] LABS: BASOPHILS % (AUTO) 1.6 % (0.0-2.0); EOSINOPHILS % (AUTO) 6.9 % (0.0-3.0); HEMATOCRIT 31.5 % (42.0-52.0); HEMOGLOBIN 9.9 G/DL (14.2-18.0); LYMPHOCYTES % (AUTO) 9.2 % (20.0-45.0); MEAN CORPUSCULAR VOLUME 85 FL (80-99); MONOCYTES % (AUTO) 8.1 % (1.0-10.0); NEUTROPHILS % (AUTO) 74.1 % (45.0-75.0); PLATELET COUNT 272 K/UL (150-450); RED CELL DISTRIBUTION WIDTH 16.7 % (11.6-14.8); WHITE BLOOD COUNT 14.3 K/UL (4.8-10.8)
[2018-03-19 08:00] VITALS: BP 146/74
[2018-03-19] MEDS: Imdur 30mg tab ORAL SCH (09:07)
[2018-03-19] MEDS: Docusate 100mg cap ORAL SCH ×3 (09:07→18:09)
[2018-03-19] MEDS: Metoprolol 25mg tab ORAL SCH ×2 (09:07→20:54)
[2018-03-19] MEDS: Dakin's 0.125% Soln (Quarter Strength) 16oz TOPIC SCH (09:07)
[2018-03-19] MEDS: Heparin 5000 units/ml inj SUBQ SCH ×2 (09:08→20:57)
[2018-03-19] MEDS: Nitroglycerin Patch 0.4mg TDERMAL SCH (11:17)
[2018-03-19] MEDS: cefTRIAXone 2 GM in NS 55 ML IVPB SCH (11:17)
--- NOTE | 2018-03-19 11:37 | General Progress Note ---
Assessment/Plan Problem List: (1) Sepsis ICD Codes: A41.9 - Sepsis, unspecified organism SNOMED: 47676182 Qualifiers: Qualified Codes: A41.9 - Sepsis, unspecified organism (2) Cellulitis, leg ICD Codes: L03.119 - Cellulitis of unspecified part of limb SNOMED: 109275008 (3) UTI (urinary tract infection) ICD Codes: N39.0 - Urinary tract infection, site not specified SNOMED: 90593552 (4) Diabetes mellitus ICD Codes: E11.9 - Type 2 diabetes mellitus without complications SNOMED: 78120101 (5) Obesity ICD Codes: E66.9 - Obesity, unspecified SNOMED: 471642878, 850650435 (6) Acute encephalopathy ICD Codes: G93.40 - Encephalopathy, unspecified SNOMED: 47153887, 703937040 (7) ATN (acute tubular necrosis) ICD Codes: N17.0 - Acute kidney failure with tubular necrosis SNOMED: 50709465 Status: unchanged Assessment/Plan ot pt diet o2 pulm tx abx wound care neph f/u cardio eval cbc bmp am aru eval Subjective Constitutional: Reports: weakness Allergies: Coded Allergies: No Known Allergies (Unverified , 03/09/18) All Systems: reviewed and negative except above Subjective bed calm more alert Objective Last 24 Hour Vital Signs Date Time Temp Pulse Resp B/P (MAP) Pulse Ox O2 Delivery O2 Flow Rate FiO2 03/19/18 11:17 146/74 03/19/18 09:07 72 146/74 03/19/18 09:07 146/74 03/19/18 08:00 97.7 72 20 146/74 95 Room Air 97.7 03/19/18 07:33 95 Room Air 21 03/19/18 07:33 Room Air 21 03/19/18 04:00 97.2 72 20 151/69 95 Room Air 97.2 03/19/18 00:00 98.4 68 19 149/68 96 Room Air 98.4 03/18/18 20:26 72 135/65 03/18/18 20:00 95 Room Air 21 03/18/18 20:00 98.1 72 20 135/65 95 Room Air 98.1 03/18/18 19:30 Room Air 21 03/18/18 15:54 97.8 67 20 137/66 96 Room Air 97.8 03/18/18 15:38 98.0 03/18/18 15:38 98.0 03/18/18 15:25 98.0 03/18/18 14:39 98.0 03/18/18 12:28 137/66 03/18/18 12:20 98.0 03/18/18 12:00 98.0 66 19 137/66 97 Nasal Cannula 2.0 98.0 Intake and Output 03/18/18 03/19/18 19:00 07:00 Intake Total 575 ml Output Total 1900 ml 3400 ml Balance -1325 ml -3400 ml Intake Oral 520 ml IV Total 55 ml Output Urine Total 1900 ml 3400 ml Laboratory Tests 03/19/18 05:55: White Blood Count 14.3H, Red Blood Count 3.70L, Hemoglobin 9.9L, Hematocrit 31.5L, Mean Corpuscular Volume 85, Mean Corpuscular Hemoglobin 26.9L, Mean Corpuscular Hemoglobin Concent 31.6L, Red Cell Distribution Width 16.7H, Platelet Count 272, Mean Platelet Volume 10.2H, Neutrophils (%) (Auto) 74.1, Lymphocytes (%) (Auto) 9.2L, Monocytes (%) (Auto) 8.1, Eosinophils (%) (Auto) 6.9H, Basophils (%) (Auto) 1.6, Sodium Level 139, Potassium Level 4.1, Chloride Level 104, Carbon Dioxide Level 26, Anion Gap 9, Blood Urea Nitrogen 14, Creatinine 1.1, Estimat Glomerular Filtration Rate , Glucose Level 194H, Calcium Level 8.7 Height (Feet): 6 Height (Inches): 1.00 Weight (Pounds): 343 General Appearance: lethargic EENT: normal ENT inspection Neck: normal alignment Cardiovascular: normal peripheral pulses, normal rate, regular rhythm Respiratory/Chest: chest wall non-tender, decreased breath sounds Abdomen: normal bowel sounds, non tender, soft Extremities: normal inspection Edema: 1+ Arm (L), 1+ Arm (R), 1+ Leg (L), 1+ Leg (R), 1+ Pedal (L), 1+ Pedal ( R), 1+ Generalized Edema: trace edema Neurologic: motor weakness Skin: normal pigmentation, warm/dry Ok Curry DO Mar 19, 2018 11:37
[2018-03-19 12:00] VITALS: BP 159/74
--- NOTE | 2018-03-19 12:43 | General Progress Note ---
Assessment/Plan Assessment/Plan (1) Altered level of consciousness (2) Acute encephalopathy (3) B/L LE cellulitis (4) Right heel ulcer (5) Peripheral neuropathy (6) Chronic pain syndrome (7) Narcotic tolerance Patient will be continued on Lyrica, Dilaudid and Percocet. D/w Dr. Liz and he concurred. Subjective Date patient seen: Mar 19, 2018 Time patient seen: 12:30 - pm Allergies: Coded Allergies: No Known Allergies (Unverified , 03/09/18) Subjective Constitutional: Reports: weakness HEENT: Reports: no symptoms Cardiovascular: Reports: no symptoms Respiratory: Reports: no symptoms Gastrointestinal/Abdominal: Reports: no symptoms Genitourinary: Reports: no symptoms Neurologic/Psychiatric: Reports: numbness, tingling, weakness Endocrine: Reports: no symptoms Hematologic/Lymphatic: Reports: no symptoms Subjective Patient is in bed sitting up. Reports that he is feeling better. Pain has been tolerated on the Dilaudid and Percocet. He has no new complaints. Objective Last 24 Hour Vital Signs Date Time Temp Pulse Resp B/P (MAP) Pulse Ox O2 Delivery O2 Flow Rate FiO2 03/19/18 11:17 146/74 03/19/18 09:07 72 146/74 03/19/18 09:07 146/74 03/19/18 08:00 97.7 72 20 146/74 95 Room Air 97.7 03/19/18 07:33 95 Room Air 21 03/19/18 07:33 Room Air 21 03/19/18 04:00 97.2 72 20 151/69 95 Room Air 97.2 03/19/18 00:00 98.4 68 19 149/68 96 Room Air 98.4 03/18/18 20:26 72 135/65 03/18/18 20:00 95 Room Air 21 03/18/18 20:00 98.1 72 20 135/65 95 Room Air 98.1 03/18/18 19:30 Room Air 21 03/18/18 15:54 97.8 67 20 137/66 96 Room Air 97.8 03/18/18 15:38 98.0 03/18/18 15:38 98.0 03/18/18 15:25 98.0 03/18/18 14:39 98.0 Intake and Output 03/18/18 03/19/18 19:00 07:00 Intake Total 575 ml Output Total 1900 ml 3400 ml Balance -1325 ml -3400 ml Intake Oral 520 ml IV Total 55 ml Output Urine Total 1900 ml 3400 ml Laboratory Tests 03/19/18 05:55: White Blood Count 14.3H, Red Blood Count 3.70L, Hemoglobin 9.9L, Hematocrit 31.5L, Mean Corpuscular Volume 85, Mean Corpuscular Hemoglobin 26.9L, Mean Corpuscular Hemoglobin Concent 31.6L, Red Cell Distribution Width 16.7H, Platelet Count 272, Mean Platelet Volume 10.2H, Neutrophils (%) (Auto) 74.1, Lymphocytes (%) (Auto) 9.2L, Monocytes (%) (Auto) 8.1, Eosinophils (%) (Auto) 6.9H, Basophils (%) (Auto) 1.6, Sodium Level 139, Potassium Level 4.1, Chloride Level 104, Carbon Dioxide Level 26, Anion Gap 9, Blood Urea Nitrogen 14, Creatinine 1.1, Estimat Glomerular Filtration Rate , Glucose Level 194H, Calcium Level 8.7 Height (Feet): 6 Height (Inches): 1.00 Weight (Pounds): 343 Objective GENERAL: Alert. Awake. Oriented. HEENT: PERRLA. LUNGS: Decreased breath sounds bilaterally. HEART: S1 and S2 regular. ABDOMEN: Obese. BACK: Range of motion is decreased in flexion and extension with surgical scar noted in midline of lumbar spine. EXTREMITIES: No cyanosis, no clubbing with wounds noted on the lower extremities. Bandages applied. Antonio Whitten Mar 19, 2018 12:43
--- NOTE | 2018-03-19 13:19 | General Surgery Progress Note ---
General Surgery-Progress Note Subjective Additional Comments leukocytosis 14k today. otherwise looks well and improving. Objective Last 24 Hour Vital Signs Date Time Temp Pulse Resp B/P (MAP) Pulse Ox O2 Delivery O2 Flow Rate FiO2 03/19/18 12:00 97.0 73 20 159/74 95 Room Air 97.0 03/19/18 11:17 146/74 03/19/18 09:07 72 146/74 03/19/18 09:07 146/74 03/19/18 08:00 97.7 72 20 146/74 95 Room Air 97.7 03/19/18 07:33 95 Room Air 21 03/19/18 07:33 Room Air 21 03/19/18 04:00 97.2 72 20 151/69 95 Room Air 97.2 03/19/18 00:00 98.4 68 19 149/68 96 Room Air 98.4 03/18/18 20:26 72 135/65 03/18/18 20:00 95 Room Air 21 03/18/18 20:00 98.1 72 20 135/65 95 Room Air 98.1 03/18/18 19:30 Room Air 21 03/18/18 15:54 97.8 67 20 137/66 96 Room Air 97.8 03/18/18 15:38 98.0 03/18/18 15:38 98.0 03/18/18 15:25 98.0 03/18/18 14:39 98.0 I&O Intake and Output 03/18/18 03/19/18 19:00 07:00 Intake Total 575 ml Output Total 1900 ml 3400 ml Balance -1325 ml -3400 ml Intake Oral 520 ml IV Total 55 ml Output Urine Total 1900 ml 3400 ml Wound: clean, dry Drains: none Cardiovascular: RSR Respiratory: clear Abdomen: soft, flat, non-tender, present bowel sounds Extremities: edema, no cyanosis Laboratory Tests Test 03/19/18 05:55 White Blood Count 14.3 K/UL (4.8-10.8) H Red Blood Count 3.70 M/UL (4.70-6.10) L Hemoglobin 9.9 G/DL (14.2-18.0) L Hematocrit 31.5 % (42.0-52.0) L Mean Corpuscular Volume 85 FL (80-99) Mean Corpuscular Hemoglobin 26.9 PG (27.0-31.0) L Mean Corpuscular Hemoglobin Concent 31.6 G/DL (32.0-36.0) L Red Cell Distribution Width 16.7 % (11.6-14.8) H Platelet Count 272 K/UL (150-450) Mean Platelet Volume 10.2 FL (6.5-10.1) H Neutrophils (%) (Auto) 74.1 % (45.0-75.0) Lymphocytes (%) (Auto) 9.2 % (20.0-45.0) L Monocytes (%) (Auto) 8.1 % (1.0-10.0) Eosinophils (%) (Auto) 6.9 % (0.0-3.0) H Basophils (%) (Auto) 1.6 % (0.0-2.0) Sodium Level 139 MMOL/L (136-145) Potassium Level 4.1 MMOL/L (3.5-5.1) Chloride Level 104 MMOL/L (98-107) Carbon Dioxide Level 26 MMOL/L (21-32) Anion Gap 9 mmol/L (5-15) Blood Urea Nitrogen 14 mg/dL (7-18) Creatinine 1.1 MG/DL (0.55-1.30) Estimat Glomerular Filtration Rate mL/min (>60) Glucose Level 194 MG/DL (74-106) H Calcium Level 8.7 MG/DL (8.5-10.1) Plan Problems: (1) Sepsis Assessment & Plan: 72M sepsis with fevers, leukocytosis, altered mental status. chronic bilateral lower extremity wounds with cellulitis. concerns for possible necrotizing fascitis initially. unlikely nec fasc given exam. wounds chronic and skin changes chronic. LRINEC score on admission 10 but given chronicity of wounds, other etiology of sepsis, and physical exam unlikely nec fasc. edema improving. cellulitis improving. overall much improved. -no acute surgical intervention necessary. -keep legs elevated -cont with dressings for now -will follow with you thank you for this consultation (2) Cellulitis, leg Leandro Scott Mar 19, 2018 13:19
--- NOTE | 2018-03-19 14:31 | Pulmonology Progress Note ---
Assessment/Plan Problems: (1) Acute encephalopathy (2) Bacteremia (3) ATN (acute tubular necrosis) (4) Sepsis (5) Cellulitis, leg (6) UTI (urinary tract infection) (7) Diabetic nephropathy (8) Obesity (9) Diabetes mellitus Assessment/Plan more alert, comfortable, med/surg bun/creatine decreasing improving continue abx check cultures wound care dc rectal tube and gomez pt/ot sliding scale diabetic diet. d/w Subjective ROS Limited/Unobtainable: No Constitutional: Reports: no symptoms HEENT: Repors: no symptoms Respiratory: Reports: no symptoms Allergies: Coded Allergies: No Known Allergies (Unverified , 03/09/18) Objective Last 24 Hour Vital Signs Date Time Temp Pulse Resp B/P (MAP) Pulse Ox O2 Delivery O2 Flow Rate FiO2 03/19/18 12:00 97.0 73 20 159/74 95 Room Air 97.0 03/19/18 11:17 146/74 03/19/18 09:07 72 146/74 03/19/18 09:07 146/74 03/19/18 08:00 97.7 72 20 146/74 95 Room Air 97.7 03/19/18 07:33 95 Room Air 21 03/19/18 07:33 Room Air 21 03/19/18 04:00 97.2 72 20 151/69 95 Room Air 97.2 03/19/18 00:00 98.4 68 19 149/68 96 Room Air 98.4 03/18/18 20:26 72 135/65 03/18/18 20:00 95 Room Air 21 03/18/18 20:00 98.1 72 20 135/65 95 Room Air 98.1 03/18/18 19:30 Room Air 21 03/18/18 15:54 97.8 67 20 137/66 96 Room Air 97.8 03/18/18 15:38 98.0 03/18/18 15:38 98.0 03/18/18 15:25 98.0 03/18/18 14:39 98.0 Intake and Output 03/18/18 03/19/18 19:00 07:00 Intake Total 575 ml Output Total 1900 ml 3400 ml Balance -1325 ml -3400 ml Intake Oral 520 ml IV Total 55 ml Output Urine Total 1900 ml 3400 ml General Appearance: WD/WN HEENT: normocephalic, atraumatic Respiratory/Chest: lungs clear Cardiovascular: normal peripheral pulses, normal rate Abdomen: normal bowel sounds, soft, non tender Genitourinary: normal external genitalia Skin: no rash Laboratory Tests 03/19/18 05:55: White Blood Count 14.3H, Red Blood Count 3.70L, Hemoglobin 9.9L, Hematocrit 31.5L, Mean Corpuscular Volume 85, Mean Corpuscular Hemoglobin 26.9L, Mean Corpuscular Hemoglobin Concent 31.6L, Red Cell Distribution Width 16.7H, Platelet Count 272, Mean Platelet Volume 10.2H, Neutrophils (%) (Auto) 74.1, Lymphocytes (%) (Auto) 9.2L, Monocytes (%) (Auto) 8.1, Eosinophils (%) (Auto) 6.9H, Basophils (%) (Auto) 1.6, Sodium Level 139, Potassium Level 4.1, Chloride Level 104, Carbon Dioxide Level 26, Anion Gap 9, Blood Urea Nitrogen 14, Creatinine 1.1, Estimat Glomerular Filtration Rate , Glucose Level 194H, Calcium Level 8.7 Current Medications Medications (Trade) Dose Ordered Sig/Nancy Route PRN Reason Start Time Stop Time Status Last Admin Dose Admin Acetaminophen (Tylenol) 650 mg Q4H PRN ORAL fever (temp>100.5F) 03/15/18 17:00 04/09/18 16:59 Ceftriaxone Sodium 2 gm/ Sodium Chloride 55 ml @ 110 mls/hr Q24H IVPB 03/18/18 12:00 03/25/18 11:59 03/19/18 11:17 Dextrose (Dextrose 50%) 25 ml STAT PRN IV Hypoglycemia 03/15/18 17:00 04/12/18 16:59 Dextrose (Dextrose 50%) 50 ml STAT PRN IV Hypoglycemia 03/15/18 17:30 04/12/18 17:29 Diphenoxylate HCl/ Atropine (Lomotil) 2.5 mg Q4H PRN ORAL Diarrhea 03/18/18 12:53 04/17/18 12:52 03/19/18 03:59 Docusate Sodium (Colace) 100 mg THREE TIMES A DAY ORAL 03/15/18 18:00 04/13/18 12:59 03/19/18 12:14 Heparin Sodium (Porcine) (Heparin 5000 units/ml) 5,000 units EVERY 12 HOURS SUBQ 03/15/18 21:00 04/09/18 08:59 03/19/18 09:08 Hydromorphone HCl (Dilaudid) 1 mg Q3H PRN IVP severe pain (7-10) 03/15/18 16:45 03/22/18 16:44 03/19/18 12:15 Insulin Aspart (NovoLOG) BEFORE MEALS AND HS SUBQ 03/15/18 17:30 04/12/18 17:29 03/19/18 12:16 Isosorbide Mononitrate (Imdur) 30 mg DAILY ORAL 03/16/18 09:00 04/14/18 08:59 03/19/18 09:07 Lansoprazole (Prevacid) 30 mg BID ORAL 03/15/18 18:00 04/13/18 17:59 03/19/18 09:07 Lidocaine (Xylocaine 5% cream) 1 applic Q6H TOPIC 03/15/18 20:00 04/11/18 13:59 03/19/18 09:07 Metoprolol Tartrate (Lopressor) 25 mg Q12HR ORAL 03/15/18 21:00 04/13/18 20:59 03/19/18 09:07 Nateglinide (Starlix) 120 mg TIAC ORAL 03/15/18 16:45 04/13/18 16:44 03/19/18 11:16 Nitroglycerin (Ntg) 0.4 mg Q5M PRN SL Prn Chest Pain 03/15/18 17:00 04/08/18 16:59 Nitroglycerin (Ntg) 1 patch Q24H TDERMAL 03/16/18 12:00 04/13/18 11:59 03/19/18 11:17 Ondansetron HCl (Zofran) 4 mg Q6H PRN IVP Nausea & Vomiting 03/15/18 17:00 04/08/18 16:59 Oxycodone/ Acetaminophen (Percocet 10/325) 1 tab Q4H PRN ORAL moderate break through pain 03/15/18 16:45 03/21/18 16:44 03/19/18 11:16 Pregabalin (Lyrica) 50 mg Q8HR ORAL 6/14/18 18:00 04/15/18 17:59 03/19/18 06:21 Sodium Hypochlorite (Dakin's Quarter Strength) 1 applic DAILY TOPIC 03/16/18 09:00 04/10/18 08:59 03/19/18 09:07 Zia Li MD Mar 19, 2018 14:31
[2018-03-19 16:00] VITALS: BP 153/74
--- NOTE | 2018-03-19 18:57 | Nephrology Progress Note ---
Assessment/Plan Problem List: (1) ARF (acute renal failure) (2) ATN (acute tubular necrosis) (3) Diabetic nephropathy (4) Diabetes mellitus (5) Sepsis Assessment renal function stable Plan abxs Insulin follow labs Subjective Subjective all noted Objective Objective Last 24 Hour Vital Signs Date Time Temp Pulse Resp B/P (MAP) Pulse Ox O2 Delivery O2 Flow Rate FiO2 03/19/18 16:00 98.0 74 20 153/74 95 Room Air 98.0 03/19/18 12:00 97.0 73 20 159/74 95 Room Air 97.0 03/19/18 11:17 146/74 03/19/18 09:07 72 146/74 03/19/18 09:07 146/74 03/19/18 08:00 97.7 72 20 146/74 95 Room Air 97.7 03/19/18 07:33 95 Room Air 21 03/19/18 07:33 Room Air 21 03/19/18 04:00 97.2 72 20 151/69 95 Room Air 97.2 03/19/18 00:00 98.4 68 19 149/68 96 Room Air 98.4 03/18/18 20:26 72 135/65 03/18/18 20:00 95 Room Air 21 03/18/18 20:00 98.1 72 20 135/65 95 Room Air 98.1 03/18/18 19:30 Room Air 21 Intake and Output 03/18/18 03/19/18 19:00 07:00 Intake Total 575 ml Output Total 1900 ml 3400 ml Balance -1325 ml -3400 ml Intake Oral 520 ml IV Total 55 ml Output Urine Total 1900 ml 3400 ml Laboratory Tests 03/19/18 05:55: White Blood Count 14.3H, Red Blood Count 3.70L, Hemoglobin 9.9L, Hematocrit 31.5L, Mean Corpuscular Volume 85, Mean Corpuscular Hemoglobin 26.9L, Mean Corpuscular Hemoglobin Concent 31.6L, Red Cell Distribution Width 16.7H, Platelet Count 272, Mean Platelet Volume 10.2H, Neutrophils (%) (Auto) 74.1, Lymphocytes (%) (Auto) 9.2L, Monocytes (%) (Auto) 8.1, Eosinophils (%) (Auto) 6.9H, Basophils (%) (Auto) 1.6, Sodium Level 139, Potassium Level 4.1, Chloride Level 104, Carbon Dioxide Level 26, Anion Gap 9, Blood Urea Nitrogen 14, Creatinine 1.1, Estimat Glomerular Filtration Rate , Glucose Level 194H, Calcium Level 8.7 Height (Feet): 6 Height (Inches): 1.00 Weight (Pounds): 343 Jimi Goldstein MD Mar 19, 2018 18:57
[2018-03-19 20:00] VITALS: BP 138/75
--- NOTE | 2018-03-19 22:00 | Progress Note ---
DATE: 03/19/2018 SUBJECTIVE: The patient is a 72-year-old male patient with sepsis. This is a male patient, who is confused and depressed. Mood labile. He has no logical plan for his own self-care. He . He has some confusion and disorganized thought process. That is why, his attending has requested daily psychiatric consultation. MENTAL STATUS EXAMINATION: This is a 72-year-old patient. He is disheveled. Attitude, irritable and agitated. Affect guarded and restricted. Intellect poor. Mood depressed and anxious. Motor activity, psychomotor agitation. Attention span is poor. Orientation x2. Speech is pressured. Thought process, disorganized and illogical. Thought content, no auditory hallucinations and paranoid delusion. Insight and judgement is poor. DIAGNOSIS: Major depression with psychotic features. PLAN: Continue treatment with medications to stabilize his mood and to prevent any further decline in his cognition. Provided 18 to 20 minutes of supportive behavioral therapy. Help him provide psychotherapy for 18 to 20 minutes. Encouraged to interact appropriately with staff and other patients. Chart reviewed and discussed with staff. Seen and assessed in his room. Ashlyn Baker M.D. DR: JAVIER JOB#: [id number] CC:
[2018-03-20] VITALS: BP 143/74
[2018-03-20] MEDS: Hydromorphone 0.5mg/0.5ml inj IVP PRN ×2 (01:55→05:04)
[2018-03-20 04:00] VITALS: BP 150/80
[2018-03-20] MEDS: Lyrica 50mg cap ORAL SCH ×3 (05:44→22:17)
[2018-03-20] MEDS: NovoLOG Insulin Flexpen SUBQ SCH ×4 (06:22→22:20)
[2018-03-20 07:23] LABS: BASOPHILS % (AUTO) 0.9 % (0.0-2.0); EOSINOPHILS % (AUTO) 4.7 % (0.0-3.0); HEMATOCRIT 33.2 % (42.0-52.0); HEMOGLOBIN 10.3 G/DL (14.2-18.0); LYMPHOCYTES % (AUTO) 11.8 % (20.0-45.0); MEAN CORPUSCULAR VOLUME 85 FL (80-99); NEUTROPHILS % (AUTO) 76.6 % (45.0-75.0); PLATELET COUNT 283 K/UL (150-450); RED BLOOD COUNT 3.89 M/UL (4.70-6.10); WHITE BLOOD COUNT 14.7 K/UL (4.8-10.8)
[2018-03-20 07:35] LABS: ANION GAP 6 mmol/L (5-15); BLOOD UREA NITROGEN 12 mg/dL (7-18); CALCIUM 8.8 MG/DL (8.5-10.1); CARBON DIOXIDE 30 MMOL/L (21-32); CHLORIDE 102 MMOL/L (98-107); CREATININE 1.2 MG/DL (0.55-1.30); POTASSIUM 3.7 MMOL/L (3.5-5.1); SODIUM 138 MMOL/L (136-145)
--- NOTE | 2018-03-20 07:51 | General Progress Note ---
Assessment/Plan Assessment/Plan (1) Altered level of consciousness (2) Acute encephalopathy (3) B/L LE cellulitis (4) Right heel ulcer (5) Peripheral neuropathy (6) Chronic pain syndrome (7) Narcotic tolerance Patient will be continued on Lyrica and Percocet. We will change the Dilaudid IV into 4mg PO 1 tab Q3H PRN severe pain. Start Ambien 5mg PO 1 tab QHS PRN insomnia. D/w Dr. Liz and he concurred. Subjective Date patient seen: Mar 20, 2018 Time patient seen: 07:00 - am Allergies: Coded Allergies: No Known Allergies (Unverified , 03/09/18) Subjective Constitutional: Reports: weakness HEENT: Reports: no symptoms Cardiovascular: Reports: no symptoms Respiratory: Reports: no symptoms Gastrointestinal/Abdominal: Reports: no symptoms Genitourinary: Reports: no symptoms Neurologic/Psychiatric: Reports: numbness, tingling, weakness Endocrine: Reports: no symptoms Hematologic/Lymphatic: Reports: no symptoms Subjective Patient has been tolerating pain well on the Dilaudid 7 doses and Percocet 6 doses in the last 24hrs. He has no new complaints. I d/w him about changing the IV dilaudid into tabs and he understands. Objective Last 24 Hour Vital Signs Date Time Temp Pulse Resp B/P (MAP) Pulse Ox O2 Delivery O2 Flow Rate FiO2 03/20/18 04:00 98.2 80 19 150/80 95 Room Air 98.2 03/20/18 00:00 98.2 87 18 143/74 94 Room Air 98.2 03/19/18 20:54 74 138/75 03/19/18 20:00 98.3 74 20 138/75 95 Room Air 98.3 03/19/18 19:30 95 Room Air 21 03/19/18 19:30 Room Air 21 03/19/18 16:00 98.0 74 20 153/74 95 Room Air 98.0 03/19/18 12:00 97.0 73 20 159/74 95 Room Air 97.0 03/19/18 11:17 146/74 03/19/18 09:07 72 146/74 03/19/18 09:07 146/74 03/19/18 08:00 97.7 72 20 146/74 95 Room Air 97.7 Intake and Output 03/19/18 03/20/18 19:00 07:00 Intake Total 800 ml Output Total 950 ml Balance -950 ml 800 ml Intake Oral 800 ml Output Urine Total 950 ml Laboratory Tests 03/20/18 05:35: White Blood Count 14.7H, Red Blood Count 3.89L, Hemoglobin 10.3L, Hematocrit 33.2L, Mean Corpuscular Volume 85, Mean Corpuscular Hemoglobin 26.5L, Mean Corpuscular Hemoglobin Concent 31.0L, Red Cell Distribution Width 17.0H, Platelet Count 283, Mean Platelet Volume 9.5, Neutrophils (%) (Auto) 76.6H, Lymphocytes (%) (Auto) 11.8L, Monocytes (%) (Auto) 6.0, Eosinophils (%) (Auto) 4.7H, Basophils (%) (Auto) 0.9, Sodium Level 138, Potassium Level 3.7, Chloride Level 102, Carbon Dioxide Level 30, Anion Gap 6, Blood Urea Nitrogen 12, Creatinine 1.2, Estimat Glomerular Filtration Rate , Glucose Level 192H, Calcium Level 8.8 Height (Feet): 6 Height (Inches): 1.00 Weight (Pounds): 356 Objective GENERAL: Alert. Awake. Oriented. HEENT: PERRLA. LUNGS: Decreased breath sounds bilaterally. HEART: S1 and S2 regular. ABDOMEN: Obese. BACK: Range of motion is decreased in flexion and extension with surgical scar noted in midline of lumbar spine. EXTREMITIES: No cyanosis, no clubbing with wounds noted on the lower extremities. Bandages applied. Antonio Whitten Mar 20, 2018 07:51
[2018-03-20 08:00] VITALS: BP 152/76
[2018-03-20] MEDS ORDERED: Zolpidem 5mg tab ORAL PRN (08:00)
[2018-03-20] MEDS: HYDROmorphone 4mg tab ORAL PRN ×4 (08:33→22:17)
[2018-03-20] MEDS: Docusate 100mg cap ORAL SCH ×3 (08:33→18:00)
[2018-03-20] MEDS: Metoprolol 25mg tab ORAL SCH ×2 (08:40→22:16)
[2018-03-20] MEDS: Imdur 30mg tab ORAL SCH (08:41)
[2018-03-20] MEDS: Heparin 5000 units/ml inj SUBQ SCH ×2 (08:43→22:22)
[2018-03-20] MEDS: Dakin's 0.125% Soln (Quarter Strength) 16oz TOPIC SCH (08:43)
--- NOTE | 2018-03-20 10:31 | General Progress Note ---
Assessment/Plan Problem List: (1) Sepsis ICD Codes: A41.9 - Sepsis, unspecified organism SNOMED: 89573046 Qualifiers: Qualified Codes: A41.9 - Sepsis, unspecified organism (2) Cellulitis, leg ICD Codes: L03.119 - Cellulitis of unspecified part of limb SNOMED: 910382832 (3) UTI (urinary tract infection) ICD Codes: N39.0 - Urinary tract infection, site not specified SNOMED: 65723084 (4) Diabetes mellitus ICD Codes: E11.9 - Type 2 diabetes mellitus without complications SNOMED: 00421002 (5) Obesity ICD Codes: E66.9 - Obesity, unspecified SNOMED: 676534443, 356118716 (6) Acute encephalopathy ICD Codes: G93.40 - Encephalopathy, unspecified SNOMED: 60377524, 708926396 (7) ATN (acute tubular necrosis) ICD Codes: N17.0 - Acute kidney failure with tubular necrosis SNOMED: 56123920 Status: stable, progressing Assessment/Plan ot pt diet o2 pulm tx abx wound care neph f/u cardio eval cbc bmp am aru eval Subjective Constitutional: Reports: weakness Allergies: Coded Allergies: No Known Allergies (Unverified , 03/09/18) All Systems: reviewed and negative except above Subjective bed calm more alert Objective Last 24 Hour Vital Signs Date Time Temp Pulse Resp B/P (MAP) Pulse Ox O2 Delivery O2 Flow Rate FiO2 03/20/18 08:41 152/76 03/20/18 08:40 80 152/76 03/20/18 08:33 98.2 03/20/18 08:00 97.2 80 18 152/76 96 Room Air 97.2 03/20/18 04:00 98.2 80 19 150/80 95 Room Air 98.2 03/20/18 00:00 98.2 87 18 143/74 94 Room Air 98.2 03/19/18 20:54 74 138/75 03/19/18 20:00 98.3 74 20 138/75 95 Room Air 98.3 03/19/18 19:30 95 Room Air 21 03/19/18 19:30 Room Air 21 03/19/18 16:00 98.0 74 20 153/74 95 Room Air 98.0 03/19/18 12:00 97.0 73 20 159/74 95 Room Air 97.0 03/19/18 11:17 146/74 Intake and Output 03/19/18 03/20/18 19:00 07:00 Intake Total 800 ml Output Total 950 ml Balance -950 ml 800 ml Intake Oral 800 ml Output Urine Total 950 ml Laboratory Tests 03/20/18 05:35: White Blood Count 14.7H, Red Blood Count 3.89L, Hemoglobin 10.3L, Hematocrit 33.2L, Mean Corpuscular Volume 85, Mean Corpuscular Hemoglobin 26.5L, Mean Corpuscular Hemoglobin Concent 31.0L, Red Cell Distribution Width 17.0H, Platelet Count 283, Mean Platelet Volume 9.5, Neutrophils (%) (Auto) 76.6H, Lymphocytes (%) (Auto) 11.8L, Monocytes (%) (Auto) 6.0, Eosinophils (%) (Auto) 4.7H, Basophils (%) (Auto) 0.9, Sodium Level 138, Potassium Level 3.7, Chloride Level 102, Carbon Dioxide Level 30, Anion Gap 6, Blood Urea Nitrogen 12, Creatinine 1.2, Estimat Glomerular Filtration Rate , Glucose Level 192H, Calcium Level 8.8 Height (Feet): 6 Height (Inches): 1.00 Weight (Pounds): 356 General Appearance: lethargic EENT: normal ENT inspection Neck: normal alignment Cardiovascular: normal peripheral pulses, normal rate, regular rhythm Respiratory/Chest: chest wall non-tender, decreased breath sounds Abdomen: normal bowel sounds, non tender, soft Extremities: normal inspection Edema: 1+ Arm (L), 1+ Arm (R), 1+ Leg (L), 1+ Leg (R), 1+ Pedal (L), 1+ Pedal ( R), 1+ Generalized Edema: trace edema Neurologic: motor weakness Skin: normal pigmentation, warm/dry Ok Curry DO Mar 20, 2018 10:31
[2018-03-20] MEDS ORDERED: Hydromorphone 0.5mg/0.5ml inj IVP PRN (10:45)
--- NOTE | 2018-03-20 11:08 | Nephrology Progress Note ---
Assessment/Plan Problem List: (1) Diabetic nephropathy (2) Cellulitis, leg (3) UTI (urinary tract infection) (4) Sepsis (5) Acute encephalopathy (6) Obesity (7) Elevated troponin I level Assessment Renal failure- likely Diabetic nephropathy Cr lower wnl UTI , Sepsis , Cellulitis DM Obesity Acute Encephalopathy HypoAlbuminemia, Likely NS Plan DC IV up dose Starlix stool softner Nitro PO Pulmonary support- 2D Echo 55% EjFx Kidney TIN Negative for hydronephrosis gomez Antibiotics Monitor renal parameters avoid Nephrotoxics Subjective ROS Limited/Unobtainable: No Constitutional: Reports: malaise Objective Objective Last 24 Hour Vital Signs Date Time Temp Pulse Resp B/P (MAP) Pulse Ox O2 Delivery O2 Flow Rate FiO2 03/20/18 08:41 152/76 03/20/18 08:40 80 152/76 03/20/18 08:33 98.2 03/20/18 08:00 97.2 80 18 152/76 96 Room Air 97.2 03/20/18 04:00 98.2 80 19 150/80 95 Room Air 98.2 03/20/18 00:00 98.2 87 18 143/74 94 Room Air 98.2 03/19/18 20:54 74 138/75 03/19/18 20:00 98.3 74 20 138/75 95 Room Air 98.3 03/19/18 19:30 95 Room Air 21 03/19/18 19:30 Room Air 21 03/19/18 16:00 98.0 74 20 153/74 95 Room Air 98.0 03/19/18 12:00 97.0 73 20 159/74 95 Room Air 97.0 03/19/18 11:17 146/74 Intake and Output 03/19/18 03/20/18 19:00 07:00 Intake Total 800 ml Output Total 950 ml Balance -950 ml 800 ml Intake Oral 800 ml Output Urine Total 950 ml Laboratory Tests 03/20/18 05:35: White Blood Count 14.7H, Red Blood Count 3.89L, Hemoglobin 10.3L, Hematocrit 33.2L, Mean Corpuscular Volume 85, Mean Corpuscular Hemoglobin 26.5L, Mean Corpuscular Hemoglobin Concent 31.0L, Red Cell Distribution Width 17.0H, Platelet Count 283, Mean Platelet Volume 9.5, Neutrophils (%) (Auto) 76.6H, Lymphocytes (%) (Auto) 11.8L, Monocytes (%) (Auto) 6.0, Eosinophils (%) (Auto) 4.7H, Basophils (%) (Auto) 0.9, Sodium Level 138, Potassium Level 3.7, Chloride Level 102, Carbon Dioxide Level 30, Anion Gap 6, Blood Urea Nitrogen 12, Creatinine 1.2, Estimat Glomerular Filtration Rate , Glucose Level 192H, Calcium Level 8.8 Height (Feet): 6 Height (Inches): 1.00 Weight (Pounds): 356 General Appearance: no apparent distress Objective no other change DIA WALSH Mar 20, 2018 11:08
[2018-03-20 11:37] LABS: ALANINE AMINOTRANSFERASE 17 U/L (12-78); ALBUMIN 2.1 G/DL (3.4-5.0); ALKALINE PHOSPHATASE 54 U/L (46-116); ASPARTATE AMINO TRANSFERASE 15 U/L (15-37); BILIRUBIN,DIRECT 0.1 MG/DL (0.0-0.3); BILIRUBIN,TOTAL 0.3 MG/DL (0.2-1.0); PHOSPHORUS 3.5 MG/DL (2.5-4.9)
[2018-03-20 12:00] VITALS: BP 161/66
[2018-03-20] MEDS: cefTRIAXone 2 GM in NS 55 ML IVPB SCH (12:21)
[2018-03-20] MEDS: Nitroglycerin Patch 0.4mg TDERMAL SCH (12:21)
[2018-03-20 16:00] VITALS: BP 145/71
--- NOTE | 2018-03-20 16:20 | General Surgery Progress Note ---
General Surgery-Progress Note Subjective Additional Comments no acute events. has been sleeping well. leukocytosis elevated Objective Last 24 Hour Vital Signs Date Time Temp Pulse Resp B/P (MAP) Pulse Ox O2 Delivery O2 Flow Rate FiO2 03/20/18 16:00 97.4 82 20 145/71 96 Room Air 97.4 03/20/18 14:41 97.2 03/20/18 12:21 161/66 03/20/18 12:00 97.2 70 20 161/66 96 Room Air 97.2 03/20/18 11:20 98.2 03/20/18 09:35 98.2 03/20/18 08:41 152/76 03/20/18 08:40 80 152/76 03/20/18 08:33 98.2 03/20/18 08:00 97.2 80 18 152/76 96 Room Air 97.2 03/20/18 04:00 98.2 80 19 150/80 95 Room Air 98.2 03/20/18 00:00 98.2 87 18 143/74 94 Room Air 98.2 03/19/18 20:54 74 138/75 03/19/18 20:00 98.3 74 20 138/75 95 Room Air 98.3 03/19/18 19:30 95 Room Air 21 03/19/18 19:30 Room Air 21 I&O Intake and Output 03/19/18 03/20/18 19:00 07:00 Intake Total 800 ml Output Total 950 ml Balance -950 ml 800 ml Intake Oral 800 ml Output Urine Total 950 ml Wound: clean, dry Drains: none Cardiovascular: RSR Respiratory: clear Abdomen: soft, flat Extremities: edema, tenderness, no cyanosis Laboratory Tests Test 03/20/18 05:35 White Blood Count 14.7 K/UL (4.8-10.8) H Red Blood Count 3.89 M/UL (4.70-6.10) L Hemoglobin 10.3 G/DL (14.2-18.0) L Hematocrit 33.2 % (42.0-52.0) L Mean Corpuscular Volume 85 FL (80-99) Mean Corpuscular Hemoglobin 26.5 PG (27.0-31.0) L Mean Corpuscular Hemoglobin Concent 31.0 G/DL (32.0-36.0) L Red Cell Distribution Width 17.0 % (11.6-14.8) H Platelet Count 283 K/UL (150-450) Mean Platelet Volume 9.5 FL (6.5-10.1) Neutrophils (%) (Auto) 76.6 % (45.0-75.0) H Lymphocytes (%) (Auto) 11.8 % (20.0-45.0) L Monocytes (%) (Auto) 6.0 % (1.0-10.0) Eosinophils (%) (Auto) 4.7 % (0.0-3.0) H Basophils (%) (Auto) 0.9 % (0.0-2.0) Sodium Level 138 MMOL/L (136-145) Potassium Level 3.7 MMOL/L (3.5-5.1) Chloride Level 102 MMOL/L (98-107) Carbon Dioxide Level 30 MMOL/L (21-32) Anion Gap 6 mmol/L (5-15) Blood Urea Nitrogen 12 mg/dL (7-18) Creatinine 1.2 MG/DL (0.55-1.30) Estimat Glomerular Filtration Rate mL/min (>60) Glucose Level 192 MG/DL (74-106) H Calcium Level 8.8 MG/DL (8.5-10.1) Phosphorus Level 3.5 MG/DL (2.5-4.9) Magnesium Level 1.8 MG/DL (1.8-2.4) Total Bilirubin 0.3 MG/DL (0.2-1.0) Direct Bilirubin 0.1 MG/DL (0.0-0.3) Aspartate Amino Transf (AST/SGOT) 15 U/L (15-37) Alanine Aminotransferase (ALT/SGPT) 17 U/L (12-78) Alkaline Phosphatase 54 U/L (46-116) C-Reactive Protein, Quantitative 14.1 mg/dL (0.00-0.90) H Total Protein 7.2 G/DL (6.4-8.2) Albumin 2.1 G/DL (3.4-5.0) L Plan Problems: (1) Sepsis Assessment & Plan: 72M sepsis with fevers, leukocytosis, altered mental status. chronic bilateral lower extremity wounds with cellulitis. concerns for possible necrotizing fascitis initially. unlikely nec fasc given exam. wounds chronic and skin changes chronic. LRINEC score on admission 10 but given chronicity of wounds, other etiology of sepsis, and physical exam unlikely nec fasc. edema improving. cellulitis improving. overall much improved. -no acute surgical intervention necessary. -keep legs elevated -cont with dressings for now -will follow with you thank you for this consultation (2) Cellulitis, leg Leandro Scott Mar 20, 2018 16:20
--- NOTE | 2018-03-20 18:02 | Infectious Diseases Prog Note ---
Assessment/Plan Assessment/Plan Sepsis;resolved severe b/l Leg soft tissue infection, much improved GBS bacteremia- 2ry to above -03/09 Bcx 4/4+; 03/13 1/2 CoNS (contaminant); 03/14 BCx neg -v. duplex: no DVT R Foot necrotic ulcer- no evidence of Osteo on bone scan -bone scan Increased blood pool activity in the plantar surface of the right heel, likely related to stated clinical history of right heel ulcer. No abnormal osseous activity to suggest acute osteomyelitis. Foci of abnormal static activity without corresponding focal hyperemia on flow and blood pool images in the bilateral mid feet, and right toes, most likely representing degenerative changes. Plain film correlation would be useful, however. -u/a neg -CXR :NAPD Diarrhea -Cdiff neg -stool cx neg Fever, SP Leukocytosis, recurrent, increasing Lactic acidosis, resolved elev lipase Influenza sc : neg JOSE; resolving HTN HLD GERD Dm2 Plan: -Continue IV Ceftriaxone 2g qd abx d#08/16 for easier dosing for GBS bacteremia , cellulitis and R foot necrotic ulcer; upon discharge will continue same regimen via PIV -03/18 SP Unasyn #7 -03/16 SP IV Vancomycin #3 -03/13 SP IV Vanco and Clinda #4 -/ SP Zosyn #3 -/8 SP Cefepime d# 1 -CXR 2v am, repeat Cdiff -f/u cx -Monitor CBC/BMP, temperatures -Sx, Podiatry f/u -wound care per hospital protocol Subjective Allergies: Coded Allergies: No Known Allergies (Unverified , 03/09/18) Subjective afebrile mild leukocytosis b/t 11-12 repeat bcx NTD Objective Vital Signs Last 24 Hour Vital Signs Date Time Temp Pulse Resp B/P (MAP) Pulse Ox O2 Delivery O2 Flow Rate FiO2 03/20/18 16:25 97.4 03/20/18 16:00 97.4 82 20 145/71 96 Room Air 97.4 03/20/18 14:41 97.2 03/20/18 12:21 161/66 03/20/18 12:00 97.2 70 20 161/66 96 Room Air 97.2 03/20/18 11:20 98.2 03/20/18 09:35 98.2 03/20/18 08:41 152/76 03/20/18 08:40 80 152/76 03/20/18 08:33 98.2 03/20/18 08:00 97.2 80 18 152/76 96 Room Air 97.2 03/20/18 04:00 98.2 80 19 150/80 95 Room Air 98.2 03/20/18 00:00 98.2 87 18 143/74 94 Room Air 98.2 03/19/18 20:54 74 138/75 03/19/18 20:00 98.3 74 20 138/75 95 Room Air 98.3 03/19/18 19:30 95 Room Air 21 03/19/18 19:30 Room Air 21 Height (Feet): 6 Height (Inches): 1.00 Weight (Pounds): 356 Objective General Appearance: obese, no acute distress HEENT: normocephalic, atraumatic, dry mucus membranes Neck: full range of motion, supple, no meningismus, no bony tend Respiratory: lungs clear, normal breath sounds, no rhonchi, no respiratory distress, no retraction, no accessory muscle use Cardiovascular no gallop, no JVD, no murmur, tachycardia Gastrointestinal: normal bowel sounds, non tender, soft, no mass, no organomegaly, non-distended, no guarding, no rebound Musculoskeletal: B/L leg with chornic venous stasis changes and lymphedema with superimposed erythema, warmth; improving On R foot there is a wound with necrotic center ; no purulent discharge.; improving Laboratory Tests Test 03/20/18 05:35 White Blood Count 14.7 K/UL (4.8-10.8) H Red Blood Count 3.89 M/UL (4.70-6.10) L Hemoglobin 10.3 G/DL (14.2-18.0) L Hematocrit 33.2 % (42.0-52.0) L Mean Corpuscular Volume 85 FL (80-99) Mean Corpuscular Hemoglobin 26.5 PG (27.0-31.0) L Mean Corpuscular Hemoglobin Concent 31.0 G/DL (32.0-36.0) L Red Cell Distribution Width 17.0 % (11.6-14.8) H Platelet Count 283 K/UL (150-450) Mean Platelet Volume 9.5 FL (6.5-10.1) Neutrophils (%) (Auto) 76.6 % (45.0-75.0) H Lymphocytes (%) (Auto) 11.8 % (20.0-45.0) L Monocytes (%) (Auto) 6.0 % (1.0-10.0) Eosinophils (%) (Auto) 4.7 % (0.0-3.0) H Basophils (%) (Auto) 0.9 % (0.0-2.0) Sodium Level 138 MMOL/L (136-145) Potassium Level 3.7 MMOL/L (3.5-5.1) Chloride Level 102 MMOL/L (98-107) Carbon Dioxide Level 30 MMOL/L (21-32) Anion Gap 6 mmol/L (5-15) Blood Urea Nitrogen 12 mg/dL (7-18) Creatinine 1.2 MG/DL (0.55-1.30) Estimat Glomerular Filtration Rate mL/min (>60) Glucose Level 192 MG/DL (74-106) H Calcium Level 8.8 MG/DL (8.5-10.1) Phosphorus Level 3.5 MG/DL (2.5-4.9) Magnesium Level 1.8 MG/DL (1.8-2.4) Total Bilirubin 0.3 MG/DL (0.2-1.0) Direct Bilirubin 0.1 MG/DL (0.0-0.3) Aspartate Amino Transf (AST/SGOT) 15 U/L (15-37) Alanine Aminotransferase (ALT/SGPT) 17 U/L (12-78) Alkaline Phosphatase 54 U/L (46-116) C-Reactive Protein, Quantitative 14.1 mg/dL (0.00-0.90) H Total Protein 7.2 G/DL (6.4-8.2) Albumin 2.1 G/DL (3.4-5.0) L Current Medications Medications (Trade) Dose Ordered Sig/Nancy Route PRN Reason Start Time Stop Time Status Last Admin Dose Admin Acetaminophen (Tylenol) 650 mg Q4H PRN ORAL fever (temp>100.5F) 03/15/18 17:00 04/09/18 16:59 Ceftriaxone Sodium 2 gm/ Dextrose 110 ml @ 220 mls/hr Q24H IVPB 03/22/18 12:00 03/29/18 11:59 Ceftriaxone Sodium 2 gm/ Sodium Chloride 55 ml @ 110 mls/hr Q24H IVPB 03/18/18 12:00 03/21/18 23:59 03/20/18 12:21 Dextrose (Dextrose 50%) 25 ml STAT PRN IV Hypoglycemia 03/15/18 17:00 04/12/18 16:59 Dextrose (Dextrose 50%) 50 ml STAT PRN IV Hypoglycemia 03/15/18 17:30 04/12/18 17:29 Diphenoxylate HCl/ Atropine (Lomotil) 2.5 mg Q4H PRN ORAL Diarrhea 03/18/18 12:53 04/17/18 12:52 03/19/18 03:59 Docusate Sodium (Colace) 100 mg THREE TIMES A DAY ORAL 03/15/18 18:00 04/13/18 12:59 03/19/18 18:09 Heparin Sodium (Porcine) (Heparin 5000 units/ml) 5,000 units EVERY 12 HOURS SUBQ 03/15/18 21:00 04/09/18 08:59 03/20/18 08:43 Hydromorphone HCl (Dilaudid) 4 mg Q3H PRN ORAL severe pain 03/20/18 08:00 03/27/18 07:59 03/20/18 13:41 Insulin Aspart (NovoLOG) BEFORE MEALS AND HS SUBQ 03/15/18 17:30 04/12/18 17:29 03/20/18 12:27 Isosorbide Mononitrate (Imdur) 30 mg DAILY ORAL 03/16/18 09:00 04/14/18 08:59 03/20/18 08:41 Lansoprazole (Prevacid) 30 mg BID ORAL 03/15/18 18:00 04/13/18 17:59 03/20/18 08:41 Lidocaine (Xylocaine 5% cream) 1 applic Q6H TOPIC 03/15/18 20:00 04/11/18 13:59 03/20/18 15:43 Metoprolol Tartrate (Lopressor) 25 mg Q12HR ORAL 03/15/18 21:00 04/13/18 20:59 03/20/18 08:40 Nateglinide (Starlix) 120 mg TIAC ORAL 03/15/18 16:45 04/13/18 16:44 03/20/18 16:33 Nitroglycerin (Ntg) 0.4 mg Q5M PRN SL Prn Chest Pain 03/15/18 17:00 04/08/18 16:59 Nitroglycerin (Ntg) 1 patch Q24H TDERMAL 03/16/18 12:00 04/13/18 11:59 03/20/18 12:21 Ondansetron HCl (Zofran) 4 mg Q6H PRN IVP Nausea & Vomiting 03/15/18 17:00 04/08/18 16:59 Oxycodone/ Acetaminophen (Percocet 10/325) 1 tab Q4H PRN ORAL moderate break through pain 03/20/18 08:45 03/26/18 08:44 03/20/18 16:25 Pregabalin (Lyrica) 50 mg Q8HR ORAL 03/16/18 18:00 04/15/18 17:59 03/20/18 15:42 Sodium Hypochlorite (Dakin's Quarter Strength) 1 applic DAILY TOPIC 03/16/18 09:00 04/10/18 08:59 03/20/18 08:43 Zolpidem Tartrate (Ambien) 5 mg HSPRN PRN ORAL Insomnia 03/20/18 08:00 03/27/18 07:59 Maranda Wiggins M.D. Mar 20, 2018 18:02
--- NOTE | 2018-03-20 18:36 | Cardiac Electrophysiology PN ---
Assessment/Plan Assessment/Plan 1. Troponin Leak. 0.07,0.09 and 0.1. Levels are flatL and likely due to renal failure as Cr 1.8 and no CP. EKG showed SR/ nonspecific ST-T wave abnormalities. Echocardiogram showed an ejection fraction of 55%. On Lopressor 25 bid. No CP 2. Hypertension, On Imdur 30 and Lopressor 25 bid 3. Sepsis, on broad-spectrum IV antibiotics 4. Elevated brain natriuretic peptide. EF is normal. It could be due to diastolic dysfunction. 5. Urinary tract infection. 6. Cellulitis of the legs. 7. Hyperkalemia. 8. Renal failure.Resolved Cr 1.2 DW RN Subjective Subjective Alert. Diuresing well. Wants to go home. Objective Last 24 Hour Vital Signs Date Time Temp Pulse Resp B/P (MAP) Pulse Ox O2 Delivery O2 Flow Rate FiO2 03/20/18 18:28 97.4 03/20/18 17:24 97.4 03/20/18 16:25 97.4 03/20/18 16:00 97.4 82 20 145/71 96 Room Air 97.4 03/20/18 14:41 97.2 03/20/18 12:21 161/66 03/20/18 12:00 97.2 70 20 161/66 96 Room Air 97.2 03/20/18 11:20 98.2 03/20/18 08:41 152/76 03/20/18 08:40 80 152/76 03/20/18 08:33 98.2 03/20/18 08:00 97.2 80 18 152/76 96 Room Air 97.2 03/20/18 04:00 98.2 80 19 150/80 95 Room Air 98.2 03/20/18 00:00 98.2 87 18 143/74 94 Room Air 98.2 03/19/18 20:54 74 138/75 03/19/18 20:00 98.3 74 20 138/75 95 Room Air 98.3 03/19/18 19:30 95 Room Air 21 03/19/18 19:30 Room Air 21 Intake and Output 03/19/18 03/20/18 19:00 07:00 Intake Total 800 ml Output Total 950 ml Balance -950 ml 800 ml Intake Oral 800 ml Output Urine Total 950 ml Laboratory Tests Test 03/20/18 05:35 White Blood Count 14.7 K/UL (4.8-10.8) H Red Blood Count 3.89 M/UL (4.70-6.10) L Hemoglobin 10.3 G/DL (14.2-18.0) L Hematocrit 33.2 % (42.0-52.0) L Mean Corpuscular Volume 85 FL (80-99) Mean Corpuscular Hemoglobin 26.5 PG (27.0-31.0) L Mean Corpuscular Hemoglobin Concent 31.0 G/DL (32.0-36.0) L Red Cell Distribution Width 17.0 % (11.6-14.8) H Platelet Count 283 K/UL (150-450) Mean Platelet Volume 9.5 FL (6.5-10.1) Neutrophils (%) (Auto) 76.6 % (45.0-75.0) H Lymphocytes (%) (Auto) 11.8 % (20.0-45.0) L Monocytes (%) (Auto) 6.0 % (1.0-10.0) Eosinophils (%) (Auto) 4.7 % (0.0-3.0) H Basophils (%) (Auto) 0.9 % (0.0-2.0) Sodium Level 138 MMOL/L (136-145) Potassium Level 3.7 MMOL/L (3.5-5.1) Chloride Level 102 MMOL/L (98-107) Carbon Dioxide Level 30 MMOL/L (21-32) Anion Gap 6 mmol/L (5-15) Blood Urea Nitrogen 12 mg/dL (7-18) Creatinine 1.2 MG/DL (0.55-1.30) Estimat Glomerular Filtration Rate mL/min (>60) Glucose Level 192 MG/DL (74-106) H Calcium Level 8.8 MG/DL (8.5-10.1) Phosphorus Level 3.5 MG/DL (2.5-4.9) Magnesium Level 1.8 MG/DL (1.8-2.4) Total Bilirubin 0.3 MG/DL (0.2-1.0) Direct Bilirubin 0.1 MG/DL (0.0-0.3) Aspartate Amino Transf (AST/SGOT) 15 U/L (15-37) Alanine Aminotransferase (ALT/SGPT) 17 U/L (12-78) Alkaline Phosphatase 54 U/L (46-116) C-Reactive Protein, Quantitative 14.1 mg/dL (0.00-0.90) H Total Protein 7.2 G/DL (6.4-8.2) Albumin 2.1 G/DL (3.4-5.0) L Objective HEAD AND NECK: Showed no JVD. LUNGS: Coarse rhonchi. CARDIOVASCULAR: Shows regular S1 and S2 with no gallop or murmur. ABDOMEN: Obese. EXTREMITIES: Bilateral lower extremity edema and cellulitis better Yong Oconnell MD Mar 20, 2018 18:36
[2018-03-20 20:00] VITALS: BP 148/82
[2018-03-21] VITALS: BP 140/69
[2018-03-21 04:00] VITALS: BP 141/73
[2018-03-21] MEDS: HYDROmorphone 4mg tab ORAL PRN ×3 (04:31→13:33)
[2018-03-21] MEDS: Lyrica 50mg cap ORAL SCH ×3 (06:08→21:15)
[2018-03-21] MEDS: NovoLOG Insulin Flexpen SUBQ SCH ×4 (06:12→22:15)
[2018-03-21 06:53] LABS: HEMATOCRIT 36.3 % (42.0-52.0); HEMOGLOBIN 11.3 G/DL (14.2-18.0); MEAN CORPUSCULAR VOLUME 86 FL (80-99); PLATELET COUNT 327 K/UL (150-450); RED BLOOD COUNT 4.21 M/UL (4.70-6.10); RED CELL DISTRIBUTION WIDTH 17.5 % (11.6-14.8); WHITE BLOOD COUNT 19.3 K/UL (4.8-10.8)
[2018-03-21 07:24] LABS: ALANINE AMINOTRANSFERASE 15 U/L (12-78); ALBUMIN 2.3 G/DL (3.4-5.0); ALBUMIN/GLOBULIN RATIO 0.4 (1.0-2.7); ALKALINE PHOSPHATASE 60 U/L (46-116); ANION GAP 11 mmol/L (5-15); ASPARTATE AMINO TRANSFERASE 12 U/L (15-37); BILIRUBIN,TOTAL 0.4 MG/DL (0.2-1.0); BLOOD UREA NITROGEN 12 mg/dL (7-18); CALCIUM 9.6 MG/DL (8.5-10.1); CARBON DIOXIDE 27 MMOL/L (21-32); CHLORIDE 100 MMOL/L (98-107); CHOLESTEROL 138 MG/DL (< 200); CREATININE 1.1 MG/DL (0.55-1.30); HDL CHOLESTEROL 46 MG/DL (40-60); PHOSPHORUS 4.1 MG/DL (2.5-4.9); POTASSIUM 3.5 MMOL/L (3.5-5.1); SODIUM 138 MMOL/L (136-145); TRIGLYCERIDES 133 MG/DL (30-150)
[2018-03-21 08:00] VITALS: BP 138/70
--- NOTE | 2018-03-21 08:30 | General Progress Note ---
Assessment/Plan Assessment/Plan (1) Altered level of consciousness (2) Acute encephalopathy (3) B/L LE cellulitis (4) Right heel ulcer (5) Peripheral neuropathy (6) Chronic pain syndrome (7) Narcotic tolerance Patient will be continued on Ambien. Dilaudid, Lyrica and Percocet. D/w Dr. Liz and he concurred. Subjective Date patient seen: Mar 21, 2018 Time patient seen: 07:00 - am Allergies: Coded Allergies: No Known Allergies (Unverified , 03/09/18) Subjective Constitutional: Reports: weakness HEENT: Reports: no symptoms Cardiovascular: Reports: no symptoms Respiratory: Reports: no symptoms Gastrointestinal/Abdominal: Reports: no symptoms Genitourinary: Reports: no symptoms Neurologic/Psychiatric: Reports: numbness, tingling, weakness Endocrine: Reports: no symptoms Hematologic/Lymphatic: Reports: no symptoms Subjective Patient is in bed an reports that he has been tolerating the pain on the Dilaudid tabs and Percocet. He has no new complaints. Objective Last 24 Hour Vital Signs Date Time Temp Pulse Resp B/P (MAP) Pulse Ox O2 Delivery O2 Flow Rate FiO2 03/21/18 04:00 97.9 86 20 141/73 97 Room Air 97.9 03/21/18 00:00 98.1 80 20 140/69 96 Room Air 98.1 03/20/18 22:16 78 148/82 03/20/18 20:00 97.6 78 20 148/82 96 Room Air 97.6 03/20/18 18:28 97.4 03/20/18 17:24 97.4 03/20/18 16:25 97.4 03/20/18 16:00 97.4 82 20 145/71 96 Room Air 97.4 03/20/18 14:41 97.2 03/20/18 12:21 161/66 03/20/18 12:00 97.2 70 20 161/66 96 Room Air 97.2 03/20/18 11:20 98.2 03/20/18 08:41 152/76 03/20/18 08:40 80 152/76 03/20/18 08:33 98.2 Intake and Output 03/20/18 03/21/18 19:00 07:00 Intake Total 2000 ml 860 ml Output Total 3200 ml 3000 ml Balance -1200 ml -2140 ml Intake Oral 2000 ml 860 ml Output Urine Total 3200 ml 2800 ml Stool Total 200 ml Laboratory Tests 03/21/18 05:05: White Blood Count 19.3H, Red Blood Count 4.21L, Hemoglobin 11.3L, Hematocrit 36.3L, Mean Corpuscular Volume 86, Mean Corpuscular Hemoglobin 26.9L, Mean Corpuscular Hemoglobin Concent 31.3L, Red Cell Distribution Width 17.5H, Platelet Count 327, Mean Platelet Volume 9.7, Neutrophils (%) (Auto) , Lymphocytes (%) (Auto) , Monocytes (%) (Auto) , Eosinophils (%) (Auto) , Basophils (%) (Auto) , Sodium Level 138, Potassium Level 3.5, Chloride Level 100 , Carbon Dioxide Level 27, Anion Gap 11, Blood Urea Nitrogen 12, Creatinine 1.1 , Estimat Glomerular Filtration Rate , Glucose Level 190H, Calcium Level 9.6, Phosphorus Level 4.1, Magnesium Level 1.8, Total Bilirubin 0.4, Aspartate Amino Transf (AST/SGOT) 12L, Alanine Aminotransferase (ALT/SGPT) 15, Alkaline Phosphatase 60, Pro-B-Type Natriuretic Peptide 916H, Total Protein 7.9, Albumin 2.3L, Globulin 5.6, Albumin/Globulin Ratio 0.4L, Triglycerides Level 133, Cholesterol Level 138, LDL Cholesterol 74, HDL Cholesterol 46, Cholesterol/HDL Ratio 3.0L Height (Feet): 6 Height (Inches): 1.00 Weight (Pounds): 355 Objective GENERAL: Alert. Awake. Oriented. HEENT: PERRLA. LUNGS: Decreased breath sounds bilaterally. HEART: S1 and S2 regular. ABDOMEN: Obese. BACK: Range of motion is decreased in flexion and extension with surgical scar noted in midline of lumbar spine. EXTREMITIES: No cyanosis, no clubbing with wounds noted on the lower extremities. Bandages applied. Antonio Whitten Mar 21, 2018 08:30
[2018-03-21] MEDS: Docusate 100mg cap ORAL SCH ×3 (08:52→17:30)
[2018-03-21] MEDS: Imdur 30mg tab ORAL SCH (08:53)
[2018-03-21] MEDS: Metoprolol 25mg tab ORAL SCH ×2 (08:53→21:02)
[2018-03-21] MEDS: Dakin's 0.125% Soln (Quarter Strength) 16oz TOPIC SCH (08:54)
[2018-03-21] MEDS: Heparin 5000 units/ml inj SUBQ SCH ×2 (08:57→21:09)
--- NOTE | 2018-03-21 09:35 | General Surgery Progress Note ---
General Surgery-Progress Note Subjective Symptoms: improved, pain absent, tolerating diet, passing flatus, BM Additional Comments leukocytosis 19k today. otherwise well Objective Last 24 Hour Vital Signs Date Time Temp Pulse Resp B/P (MAP) Pulse Ox O2 Delivery O2 Flow Rate FiO2 03/21/18 08:53 80 138/70 03/21/18 08:53 138/70 03/21/18 08:00 97.5 80 20 138/70 97 Room Air 97.5 03/21/18 04:00 97.9 86 20 141/73 97 Room Air 97.9 03/21/18 00:00 98.1 80 20 140/69 96 Room Air 98.1 03/20/18 22:16 78 148/82 03/20/18 20:00 97.6 78 20 148/82 96 Room Air 97.6 03/20/18 18:28 97.4 03/20/18 17:24 97.4 03/20/18 16:25 97.4 03/20/18 16:00 97.4 82 20 145/71 96 Room Air 97.4 03/20/18 14:41 97.2 03/20/18 12:21 161/66 03/20/18 12:00 97.2 70 20 161/66 96 Room Air 97.2 03/20/18 11:20 98.2 I&O Intake and Output 03/20/18 03/21/18 19:00 07:00 Intake Total 2000 ml 860 ml Output Total 3200 ml 3000 ml Balance -1200 ml -2140 ml Intake Oral 2000 ml 860 ml Output Urine Total 3200 ml 2800 ml Stool Total 200 ml Wound: clean, dry Cardiovascular: RSR Respiratory: clear Abdomen: soft, non-tender, present bowel sounds Extremities: edema, no tenderness, no cyanosis Laboratory Tests Test 03/21/18 05:05 White Blood Count 19.3 K/UL (4.8-10.8) H Red Blood Count 4.21 M/UL (4.70-6.10) L Hemoglobin 11.3 G/DL (14.2-18.0) L Hematocrit 36.3 % (42.0-52.0) L Mean Corpuscular Volume 86 FL (80-99) Mean Corpuscular Hemoglobin 26.9 PG (27.0-31.0) L Mean Corpuscular Hemoglobin Concent 31.3 G/DL (32.0-36.0) L Red Cell Distribution Width 17.5 % (11.6-14.8) H Platelet Count 327 K/UL (150-450) Mean Platelet Volume 9.7 FL (6.5-10.1) Neutrophils (%) (Auto) % (45.0-75.0) Lymphocytes (%) (Auto) % (20.0-45.0) Monocytes (%) (Auto) % (1.0-10.0) Eosinophils (%) (Auto) % (0.0-3.0) Basophils (%) (Auto) % (0.0-2.0) Sodium Level 138 MMOL/L (136-145) Potassium Level 3.5 MMOL/L (3.5-5.1) Chloride Level 100 MMOL/L (98-107) Carbon Dioxide Level 27 MMOL/L (21-32) Anion Gap 11 mmol/L (5-15) Blood Urea Nitrogen 12 mg/dL (7-18) Creatinine 1.1 MG/DL (0.55-1.30) Estimat Glomerular Filtration Rate mL/min (>60) Glucose Level 190 MG/DL (74-106) H Calcium Level 9.6 MG/DL (8.5-10.1) Phosphorus Level 4.1 MG/DL (2.5-4.9) Magnesium Level 1.8 MG/DL (1.8-2.4) Total Bilirubin 0.4 MG/DL (0.2-1.0) Aspartate Amino Transf (AST/SGOT) 12 U/L (15-37) L Alanine Aminotransferase (ALT/SGPT) 15 U/L (12-78) Alkaline Phosphatase 60 U/L (46-116) Pro-B-Type Natriuretic Peptide 916 pg/mL (0-125) H Total Protein 7.9 G/DL (6.4-8.2) Albumin 2.3 G/DL (3.4-5.0) L Globulin 5.6 g/dL Albumin/Globulin Ratio 0.4 (1.0-2.7) L Triglycerides Level 133 MG/DL (30-150) Cholesterol Level 138 MG/DL (< 200) LDL Cholesterol 74 mg/dL (<100) HDL Cholesterol 46 MG/DL (40-60) Cholesterol/HDL Ratio 3.0 (3.3-4.4) L Plan Problems: (1) Sepsis Assessment & Plan: 72M sepsis with fevers, leukocytosis, altered mental status. chronic bilateral lower extremity wounds with cellulitis. concerns for possible necrotizing fascitis initially. unlikely nec fasc given exam. wounds chronic and skin changes chronic. LRINEC score on admission 10 but given chronicity of wounds, other etiology of sepsis, and physical exam unlikely nec fasc. edema improving. cellulitis improving. overall much improved. leukocytosis elevated today. -cxr -cultures -no acute surgical intervention necessary. -keep legs elevated -cont with dressings for now -will follow with you thank you for this consultation (2) Cellulitis, leg Leandro Scott Mar 21, 2018 09:35
--- NOTE | 2018-03-21 10:12 | Diagnostic Imaging Report ---
Indication: Cough Technique: One view of the chest Comparison: 03/13/2018 Findings: Previously demonstrated interstitial congestion is no longer evident. Lungs and pleural spaces currently clear. The right hemidiaphragm is elevated. The heart size is upper limits of normal Impression: No acute process. Previously demonstrated interstitial congestive changes have improved
[2018-03-21] MEDS: Nitroglycerin Patch 0.4mg TDERMAL SCH (11:11)
[2018-03-21] MEDS ORDERED: Gastrograffin 30ml RECTAL PRN (11:45)
[2018-03-21] MEDS ORDERED: Vancomycin oral 125mg/2.5ml ORAL SCH (11:45)
[2018-03-21] MEDS ORDERED: Isovue-300 100ml vial INJ PRN (11:45)
[2018-03-21] MEDS ORDERED: Gastrograffin 30ml ORAL PRN (11:45)
--- NOTE | 2018-03-21 11:50 | Infectious Diseases Prog Note ---
Assessment/Plan Assessment/Plan Sepsis;resolved severe b/l Leg soft tissue infection, resolving GBS bacteremia- 2ry to above -03/09 Bcx 4/4+; 03/13 1/2 CoNS (contaminant); 03/14 BCx neg -v. duplex: no DVT R Foot necrotic ulcerl much improved- no evidence of Osteo on bone scan -bone scan Increased blood pool activity in the plantar surface of the right heel, likely related to stated clinical history of right heel ulcer. No abnormal osseous activity to suggest acute osteomyelitis. Foci of abnormal static activity without corresponding focal hyperemia on flow and blood pool images in the bilateral mid feet, and right toes, most likely representing degenerative changes. Plain film correlation would be useful, however. -u/a neg -CXR :NAPD Diarrhea - significant and requiring rectal tube- given increase in WBC - suspect Cdiff despite Cdif toxin A/B neg; however this is a poor test with only ~70% sensitivity and cannot rule out completely Cdiff -Cdiff neg -stool cx neg Fever, SP Leukocytosis, recurrent, increasing -CXR 03/21: No acute process. Previously demonstrated interstitial congestive changes have improved Lactic acidosis, resolved elev lipase Influenza sc : neg JOSE; resolved HTN HLD GERD Dm2 Plan: -Continue IV Ceftriaxone 2g qd abx d#09/15 for easier dosing for GBS bacteremia , cellulitis and R foot necrotic ulcer -Start empiric PO Vancomycin 125mg qid for Cdiff given diarrhea and leukocytosis -03/18 SP Unasyn #7 -03/16 SP IV Vancomycin #3 -/ SP IV Vanco and Clinda #4 -/ SP Zosyn #3 -/8 SP Cefepime d# 1 -CT abd/p w/ IV and PO contrast to eval for colitis -f/u repeat Cdiff -Bcx x2 -f/u cx -Monitor CBC/BMP, temperatures -Sx, Podiatry f/u -wound care per hospital protocol -Cdiff contact precautions Subjective Allergies: Coded Allergies: No Known Allergies (Unverified , 03/09/18) Subjective afebrile leukocytosis increased to 20 remains with diarrhea; on rectal tube; repeat cdiff pending patient was going to leave AMA yesterday but changed his main CXR neg Objective Vital Signs Last 24 Hour Vital Signs Date Time Temp Pulse Resp B/P (MAP) Pulse Ox O2 Delivery O2 Flow Rate FiO2 03/21/18 11:11 138/70 03/21/18 08:53 80 138/70 03/21/18 08:53 138/70 03/21/18 08:00 97.5 80 20 138/70 97 Room Air 97.5 03/21/18 04:00 97.9 86 20 141/73 97 Room Air 97.9 03/21/18 00:00 98.1 80 20 140/69 96 Room Air 98.1 03/20/18 22:16 78 148/82 03/20/18 20:00 97.6 78 20 148/82 96 Room Air 97.6 03/20/18 18:28 97.4 03/20/18 17:24 97.4 03/20/18 16:25 97.4 03/20/18 16:00 97.4 82 20 145/71 96 Room Air 97.4 03/20/18 14:41 97.2 03/20/18 12:21 161/66 03/20/18 12:00 97.2 70 20 161/66 96 Room Air 97.2 Height (Feet): 6 Height (Inches): 1.00 Weight (Pounds): 355 Objective General Appearance: obese, no acute distress HEENT: normocephalic, atraumatic, dry mucus membranes Neck: full range of motion, supple, no meningismus, no bony tend Respiratory: lungs clear, normal breath sounds, no rhonchi, no respiratory distress, no retraction, no accessory muscle use Cardiovascular no gallop, no JVD, no murmur, tachycardia Gastrointestinal: normal bowel sounds, non tender, soft, no mass, no organomegaly, non-distended, no guarding, no rebound Musculoskeletal: B/L leg with chornic venous stasis changes and lymphedema with superimposed erythema, warmth; improving On R foot there is a wound with necrotic center ; no purulent discharge.; improving Laboratory Tests Test 03/21/18 05:05 White Blood Count 19.3 K/UL (4.8-10.8) H Red Blood Count 4.21 M/UL (4.70-6.10) L Hemoglobin 11.3 G/DL (14.2-18.0) L Hematocrit 36.3 % (42.0-52.0) L Mean Corpuscular Volume 86 FL (80-99) Mean Corpuscular Hemoglobin 26.9 PG (27.0-31.0) L Mean Corpuscular Hemoglobin Concent 31.3 G/DL (32.0-36.0) L Red Cell Distribution Width 17.5 % (11.6-14.8) H Platelet Count 327 K/UL (150-450) Mean Platelet Volume 9.7 FL (6.5-10.1) Neutrophils (%) (Auto) % (45.0-75.0) Lymphocytes (%) (Auto) % (20.0-45.0) Monocytes (%) (Auto) % (1.0-10.0) Eosinophils (%) (Auto) % (0.0-3.0) Basophils (%) (Auto) % (0.0-2.0) Differential Total Cells Counted 100 Neutrophils % (Manual) 82 % (45-75) H Lymphocytes % (Manual) 5 % (20-45) L Monocytes % (Manual) 7 % (1-10) Eosinophils % (Manual) 4 % (0-3) H Basophils % (Manual) 0 % (0-2) Band Neutrophils 2 % (0-8) Platelet Estimate Adequate Platelet Morphology Normal Hypochromasia 1+ Anisocytosis 1+ Sodium Level 138 MMOL/L (136-145) Potassium Level 3.5 MMOL/L (3.5-5.1) Chloride Level 100 MMOL/L (98-107) Carbon Dioxide Level 27 MMOL/L (21-32) Anion Gap 11 mmol/L (5-15) Blood Urea Nitrogen 12 mg/dL (7-18) Creatinine 1.1 MG/DL (0.55-1.30) Estimat Glomerular Filtration Rate mL/min (>60) Glucose Level 190 MG/DL (74-106) H Calcium Level 9.6 MG/DL (8.5-10.1) Phosphorus Level 4.1 MG/DL (2.5-4.9) Magnesium Level 1.8 MG/DL (1.8-2.4) Total Bilirubin 0.4 MG/DL (0.2-1.0) Aspartate Amino Transf (AST/SGOT) 12 U/L (15-37) L Alanine Aminotransferase (ALT/SGPT) 15 U/L (12-78) Alkaline Phosphatase 60 U/L (46-116) Pro-B-Type Natriuretic Peptide 916 pg/mL (0-125) H Total Protein 7.9 G/DL (6.4-8.2) Albumin 2.3 G/DL (3.4-5.0) L Globulin 5.6 g/dL Albumin/Globulin Ratio 0.4 (1.0-2.7) L Triglycerides Level 133 MG/DL (30-150) Cholesterol Level 138 MG/DL (< 200) LDL Cholesterol 74 mg/dL (<100) HDL Cholesterol 46 MG/DL (40-60) Cholesterol/HDL Ratio 3.0 (3.3-4.4) L Current Medications Medications (Trade) Dose Ordered Sig/Nancy Route PRN Reason Start Time Stop Time Status Last Admin Dose Admin Acetaminophen (Tylenol) 650 mg Q4H PRN ORAL fever (temp>100.5F) 03/15/18 17:00 04/09/18 16:59 Ceftriaxone Sodium 2 gm/ Dextrose 110 ml @ 220 mls/hr Q24H IVPB 03/22/18 12:00 03/29/18 11:59 Ceftriaxone Sodium 2 gm/ Sodium Chloride 55 ml @ 110 mls/hr Q24H IVPB 03/18/18 12:00 03/21/18 23:59 03/20/18 12:21 Dextrose (Dextrose 50%) 25 ml STAT PRN IV Hypoglycemia 03/15/18 17:00 04/12/18 16:59 Dextrose (Dextrose 50%) 50 ml STAT PRN IV Hypoglycemia 03/15/18 17:30 04/12/18 17:29 Diphenoxylate HCl/ Atropine (Lomotil) 2.5 mg Q4H PRN ORAL Diarrhea 03/18/18 12:53 04/17/18 12:52 03/19/18 03:59 Docusate Sodium (Colace) 100 mg THREE TIMES A DAY ORAL 03/15/18 18:00 04/13/18 12:59 03/21/18 08:52 Heparin Sodium (Porcine) (Heparin 5000 units/ml) 5,000 units EVERY 12 HOURS SUBQ 03/15/18 21:00 04/09/18 08:59 03/21/18 08:57 Hydromorphone HCl (Dilaudid) 4 mg Q3H PRN ORAL severe pain 03/20/18 08:00 03/27/18 07:59 03/21/18 08:54 Insulin Aspart (NovoLOG) BEFORE MEALS AND HS SUBQ 03/15/18 17:30 04/12/18 17:29 03/21/18 06:12 Isosorbide Mononitrate (Imdur) 30 mg DAILY ORAL 03/16/18 09:00 04/14/18 08:59 03/21/18 08:53 Lansoprazole (Prevacid) 30 mg BID ORAL 03/15/18 18:00 04/13/18 17:59 03/21/18 08:53 Lidocaine (Xylocaine 5% cream) 1 applic Q6H TOPIC 03/15/18 20:00 04/11/18 13:59 03/21/18 08:54 Metoprolol Tartrate (Lopressor) 25 mg Q12HR ORAL 03/15/18 21:00 04/13/18 20:59 03/21/18 08:53 Nateglinide (Starlix) 120 mg TIAC ORAL 03/15/18 16:45 04/13/18 16:44 03/21/18 11:11 Nitroglycerin (Ntg) 0.4 mg Q5M PRN SL Prn Chest Pain 03/15/18 17:00 04/08/18 16:59 Nitroglycerin (Ntg) 1 patch Q24H TDERMAL 03/16/18 12:00 04/13/18 11:59 03/21/18 11:11 Ondansetron HCl (Zofran) 4 mg Q6H PRN IVP Nausea & Vomiting 03/15/18 17:00 04/08/18 16:59 Oxycodone/ Acetaminophen (Percocet 10/325) 1 tab Q4H PRN ORAL moderate break through pain 03/20/18 08:45 03/26/18 08:44 03/21/18 11:12 Pregabalin (Lyrica) 50 mg Q8HR ORAL 03/16/18 18:00 04/15/18 17:59 03/21/18 06:08 Sodium Hypochlorite (Dakin's Quarter Strength) 1 applic DAILY TOPIC 03/16/18 09:00 04/10/18 08:59 03/21/18 08:54 Zolpidem Tartrate (Ambien) 5 mg HSPRN PRN ORAL Insomnia 03/20/18 08:00 03/27/18 07:59 Maranda Wiggins M.D. Mar 21, 2018 11:50
[2018-03-21 12:00] VITALS: BP 140/75
--- NOTE | 2018-03-21 12:37 | Nephrology Progress Note ---
Assessment/Plan Problem List: (1) Diabetic nephropathy (2) Cellulitis, leg (3) UTI (urinary tract infection) (4) Sepsis (5) Acute encephalopathy (6) Obesity (7) Elevated troponin I level Assessment WBC rising Renal failure- likely Diabetic nephropathy Cr lower wnl UTI , Sepsis , Cellulitis DM Obesity Acute Encephalopathy HypoAlbuminemia, Likely NS Plan DC IV up dose Starlix stool softner Nitro PO Pulmonary support- 2D Echo 55% EjFx Kidney TIN Negative for hydronephrosis gomez Antibiotics Monitor renal parameters avoid Nephrotoxics Subjective ROS Limited/Unobtainable: No Constitutional: Reports: malaise Objective Objective Last 24 Hour Vital Signs Date Time Temp Pulse Resp B/P (MAP) Pulse Ox O2 Delivery O2 Flow Rate FiO2 03/21/18 11:11 138/70 03/21/18 08:53 80 138/70 03/21/18 08:53 138/70 03/21/18 08:00 97.5 80 20 138/70 97 Room Air 97.5 03/21/18 04:00 97.9 86 20 141/73 97 Room Air 97.9 03/21/18 00:00 98.1 80 20 140/69 96 Room Air 98.1 03/20/18 22:16 78 148/82 03/20/18 20:00 97.6 78 20 148/82 96 Room Air 97.6 03/20/18 18:28 97.4 03/20/18 17:24 97.4 03/20/18 16:25 97.4 03/20/18 16:00 97.4 82 20 145/71 96 Room Air 97.4 03/20/18 14:41 97.2 Intake and Output 03/20/18 03/21/18 19:00 07:00 Intake Total 2000 ml 860 ml Output Total 3200 ml 3000 ml Balance -1200 ml -2140 ml Intake Oral 2000 ml 860 ml Output Urine Total 3200 ml 2800 ml Stool Total 200 ml Laboratory Tests 03/21/18 05:05: White Blood Count 19.3H, Red Blood Count 4.21L, Hemoglobin 11.3L, Hematocrit 36.3L, Mean Corpuscular Volume 86, Mean Corpuscular Hemoglobin 26.9L, Mean Corpuscular Hemoglobin Concent 31.3L, Red Cell Distribution Width 17.5H, Platelet Count 327, Mean Platelet Volume 9.7, Neutrophils (%) (Auto) , Lymphocytes (%) (Auto) , Monocytes (%) (Auto) , Eosinophils (%) (Auto) , Basophils (%) (Auto) , Differential Total Cells Counted 100, Neutrophils % ( Manual) 82H, Lymphocytes % (Manual) 5L, Monocytes % (Manual) 7, Eosinophils % ( Manual) 4H, Basophils % (Manual) 0, Band Neutrophils 2, Platelet Estimate Adequate, Platelet Morphology Normal, Hypochromasia 1+, Anisocytosis 1+, Sodium Level 138, Potassium Level 3.5, Chloride Level 100, Carbon Dioxide Level 27, Anion Gap 11, Blood Urea Nitrogen 12, Creatinine 1.1, Estimat Glomerular Filtration Rate , Glucose Level 190H, Calcium Level 9.6, Phosphorus Level 4.1, Magnesium Level 1.8, Total Bilirubin 0.4, Aspartate Amino Transf (AST/SGOT) 12L , Alanine Aminotransferase (ALT/SGPT) 15, Alkaline Phosphatase 60, Pro-B-Type Natriuretic Peptide 916H, Total Protein 7.9, Albumin 2.3L, Globulin 5.6, Albumin /Globulin Ratio 0.4L, Triglycerides Level 133, Cholesterol Level 138, LDL Cholesterol 74, HDL Cholesterol 46, Cholesterol/HDL Ratio 3.0L Height (Feet): 6 Height (Inches): 1.00 Weight (Pounds): 355 General Appearance: no apparent distress Cardiovascular: normal rate Respiratory/Chest: decreased breath sounds Abdomen: soft Objective no other change DIA WALSH Mar 21, 2018 12:37
--- NOTE | 2018-03-21 12:45 | Progress Note ---
DATE: 03/20/2018 SUBJECTIVE: This is a 72-year-old male patient with sepsis. He has altered mental status and confusion. Also his cognition has declined below baseline. That is why, his attending has requested daily psychiatric consultation. MENTAL STATUS EXAMINATION: This is a 72-year-old male. Appearance is disheveled. Attitude, irritable and agitated. Affect, guarded and restricted. Intellect poor. Mood depressed and anxious. Motor activity, psychomotor agitation. Attention span is poor. Orientation x2. Speech is pressured. Thought process, disorganized and illogical. Thought content, auditory hallucinations and paranoid delusions. Insight and judgment is poor. DIAGNOSIS: Major depression with psychotic features. PLAN: Continue titrating up on his medications. The 20 minutes of insight-oriented therapy is provided this morning. Insight-oriented therapy 00:53 and symptomatology and thereby increasing his insight 01:04 behavioral problems. During this morning, 01:07 20 minutes of psychotherapy session. Chart reviewed. Discussed with staff. Seen and assessed in his room. 01:29 physician. Ashlyn Baker M.D. DR: CB JOB#: [id number] CC:
--- NOTE | 2018-03-21 12:56 | Pulmonology Progress Note ---
Assessment/Plan Problems: (1) Acute encephalopathy (2) Bacteremia (3) ATN (acute tubular necrosis) (4) Sepsis (5) Cellulitis, leg (6) UTI (urinary tract infection) (7) Diabetic nephropathy (8) Obesity (9) Diabetes mellitus Assessment/Plan rectal tube d/cyril med/surg bun/creatine decreasing improving continue abx check cultures wound care dc rectal tube and gomez pt/ot sliding scale diabetic diet. d/w Subjective ROS Limited/Unobtainable: No Constitutional: Reports: no symptoms HEENT: Repors: no symptoms Respiratory: Reports: no symptoms Cardiovascular: Reports: no symptoms Allergies: Coded Allergies: No Known Allergies (Unverified , 03/09/18) Objective Last 24 Hour Vital Signs Date Time Temp Pulse Resp B/P (MAP) Pulse Ox O2 Delivery O2 Flow Rate FiO2 03/21/18 11:11 138/70 03/21/18 08:53 80 138/70 03/21/18 08:53 138/70 03/21/18 08:00 97.5 80 20 138/70 97 Room Air 97.5 03/21/18 04:00 97.9 86 20 141/73 97 Room Air 97.9 03/21/18 00:00 98.1 80 20 140/69 96 Room Air 98.1 03/20/18 22:16 78 148/82 03/20/18 20:00 97.6 78 20 148/82 96 Room Air 97.6 03/20/18 18:28 97.4 03/20/18 17:24 97.4 03/20/18 16:25 97.4 03/20/18 16:00 97.4 82 20 145/71 96 Room Air 97.4 03/20/18 14:41 97.2 Intake and Output 03/20/18 03/21/18 19:00 07:00 Intake Total 2000 ml 860 ml Output Total 3200 ml 3000 ml Balance -1200 ml -2140 ml Intake Oral 2000 ml 860 ml Output Urine Total 3200 ml 2800 ml Stool Total 200 ml General Appearance: WD/WN HEENT: normocephalic, atraumatic Respiratory/Chest: chest wall non-tender, lungs clear Cardiovascular: normal peripheral pulses, normal rate Abdomen: normal bowel sounds, soft, non tender Genitourinary: normal external genitalia Extremities: no clubbing Skin: no ulcers Laboratory Tests 03/21/18 05:05: White Blood Count 19.3H, Red Blood Count 4.21L, Hemoglobin 11.3L, Hematocrit 36.3L, Mean Corpuscular Volume 86, Mean Corpuscular Hemoglobin 26.9L, Mean Corpuscular Hemoglobin Concent 31.3L, Red Cell Distribution Width 17.5H, Platelet Count 327, Mean Platelet Volume 9.7, Neutrophils (%) (Auto) , Lymphocytes (%) (Auto) , Monocytes (%) (Auto) , Eosinophils (%) (Auto) , Basophils (%) (Auto) , Differential Total Cells Counted 100, Neutrophils % ( Manual) 82H, Lymphocytes % (Manual) 5L, Monocytes % (Manual) 7, Eosinophils % ( Manual) 4H, Basophils % (Manual) 0, Band Neutrophils 2, Platelet Estimate Adequate, Platelet Morphology Normal, Hypochromasia 1+, Anisocytosis 1+, Sodium Level 138, Potassium Level 3.5, Chloride Level 100, Carbon Dioxide Level 27, Anion Gap 11, Blood Urea Nitrogen 12, Creatinine 1.1, Estimat Glomerular Filtration Rate , Glucose Level 190H, Calcium Level 9.6, Phosphorus Level 4.1, Magnesium Level 1.8, Total Bilirubin 0.4, Aspartate Amino Transf (AST/SGOT) 12L , Alanine Aminotransferase (ALT/SGPT) 15, Alkaline Phosphatase 60, Pro-B-Type Natriuretic Peptide 916H, Total Protein 7.9, Albumin 2.3L, Globulin 5.6, Albumin /Globulin Ratio 0.4L, Triglycerides Level 133, Cholesterol Level 138, LDL Cholesterol 74, HDL Cholesterol 46, Cholesterol/HDL Ratio 3.0L Current Medications Medications (Trade) Dose Ordered Sig/Nancy Route PRN Reason Start Time Stop Time Status Last Admin Dose Admin Acetaminophen (Tylenol) 650 mg Q4H PRN ORAL fever (temp>100.5F) 03/15/18 17:00 04/09/18 16:59 Barium Sulfate (Readi-Cat 2) 450 ea NOW PRN ORAL Radiology Procedure 03/21/18 11:45 03/23/18 11:43 Ceftriaxone Sodium 2 gm/ Dextrose 110 ml @ 220 mls/hr Q24H IVPB 03/22/18 12:00 03/29/18 11:59 Ceftriaxone Sodium 2 gm/ Sodium Chloride 55 ml @ 110 mls/hr Q24H IVPB 03/18/18 12:00 03/21/18 23:59 03/20/18 12:21 Dextrose (Dextrose 50%) 25 ml STAT PRN IV Hypoglycemia 03/15/18 17:00 04/12/18 16:59 Dextrose (Dextrose 50%) 50 ml STAT PRN IV Hypoglycemia 03/15/18 17:30 04/12/18 17:29 Diatrizoate Meglum/ Diatrizoate Sod (Gastrografin) 30 ml NOW PRN ORAL Radiology Procedure 03/21/18 11:45 03/21/18 15:00 Diatrizoate Meglum/ Diatrizoate Sod (Gastrografin) 60 ml NOW PRN RECTAL Radiology Procedure 03/21/18 11:45 03/23/18 11:43 Diphenoxylate HCl/ Atropine (Lomotil) 2.5 mg Q4H PRN ORAL Diarrhea 03/18/18 12:53 04/17/18 12:52 03/19/18 03:59 Docusate Sodium (Colace) 100 mg THREE TIMES A DAY ORAL 03/15/18 18:00 04/13/18 12:59 03/21/18 08:52 Heparin Sodium (Porcine) (Heparin 5000 units/ml) 5,000 units EVERY 12 HOURS SUBQ 03/15/18 21:00 04/09/18 08:59 03/21/18 08:57 Hydromorphone HCl (Dilaudid) 4 mg Q3H PRN ORAL severe pain 03/20/18 08:00 03/27/18 07:59 03/21/18 08:54 Insulin Aspart (NovoLOG) BEFORE MEALS AND HS SUBQ 03/15/18 17:30 04/12/18 17:29 03/21/18 06:12 Iopamidol (Isovue-300 100ml) 100 ml NOW PRN INJ Radiology Procedure 03/21/18 11:45 03/21/18 15:00 Isosorbide Mononitrate (Imdur) 30 mg DAILY ORAL 03/16/18 09:00 04/14/18 08:59 03/21/18 08:53 Lansoprazole (Prevacid) 30 mg BID ORAL 03/15/18 18:00 04/13/18 17:59 03/21/18 08:53 Lidocaine (Xylocaine 5% cream) 1 applic Q6H TOPIC 03/15/18 20:00 04/11/18 13:59 03/21/18 08:54 Metoprolol Tartrate (Lopressor) 25 mg Q12HR ORAL 03/15/18 21:00 04/13/18 20:59 03/21/18 08:53 Nateglinide (Starlix) 120 mg TIAC ORAL 03/15/18 16:45 04/13/18 16:44 03/21/18 11:11 Nitroglycerin (Ntg) 0.4 mg Q5M PRN SL Prn Chest Pain 03/15/18 17:00 04/08/18 16:59 Nitroglycerin (Ntg) 1 patch Q24H TDERMAL 03/16/18 12:00 04/13/18 11:59 03/21/18 11:11 Ondansetron HCl (Zofran) 4 mg Q6H PRN IVP Nausea & Vomiting 03/15/18 17:00 04/08/18 16:59 Oxycodone/ Acetaminophen (Percocet 10/325) 1 tab Q4H PRN ORAL moderate break through pain 03/20/18 08:45 03/26/18 08:44 03/21/18 11:12 Pregabalin (Lyrica) 50 mg Q8HR ORAL 03/16/18 18:00 04/15/18 17:59 03/21/18 06:08 Sodium Hypochlorite (Dakin's Quarter Strength) 1 applic DAILY TOPIC 03/16/18 09:00 04/10/18 08:59 03/21/18 08:54 Vancomycin HCl (Vancomycin) 125 mg FOUR TIMES A DAY ORAL 03/21/18 11:45 03/28/18 11:44 Zolpidem Tartrate (Ambien) 5 mg HSPRN PRN ORAL Insomnia 03/20/18 08:00 03/27/18 07:59 Zia Li MD Mar 21, 2018 12:56
[2018-03-21] MEDS: cefTRIAXone 2 GM in NS 55 ML IVPB SCH (13:33)
--- NOTE | 2018-03-21 14:42 | General Progress Note ---
Assessment/Plan Problem List: (1) Sepsis ICD Codes: A41.9 - Sepsis, unspecified organism SNOMED: 04454337 Qualifiers: Qualified Codes: A41.9 - Sepsis, unspecified organism (2) Cellulitis, leg ICD Codes: L03.119 - Cellulitis of unspecified part of limb SNOMED: 646955190 (3) UTI (urinary tract infection) ICD Codes: N39.0 - Urinary tract infection, site not specified SNOMED: 22804266 (4) Diabetes mellitus ICD Codes: E11.9 - Type 2 diabetes mellitus without complications SNOMED: 40042013 (5) Obesity ICD Codes: E66.9 - Obesity, unspecified SNOMED: 164741964, 902545673 (6) Acute encephalopathy ICD Codes: G93.40 - Encephalopathy, unspecified SNOMED: 90071451, 991433925 (7) ATN (acute tubular necrosis) ICD Codes: N17.0 - Acute kidney failure with tubular necrosis SNOMED: 91890033 Status: stable, progressing Assessment/Plan ot pt diet o2 pulm tx abx wound care neph f/u cardio eval cbc bmp am aru eval Subjective Constitutional: Reports: weakness Allergies: Coded Allergies: No Known Allergies (Unverified , 03/09/18) All Systems: reviewed and negative except above Subjective bed calm more alert Objective Last 24 Hour Vital Signs Date Time Temp Pulse Resp B/P (MAP) Pulse Ox O2 Delivery O2 Flow Rate FiO2 03/21/18 12:00 97.6 75 20 140/75 97 Room Air 97.6 03/21/18 11:11 138/70 03/21/18 08:53 80 138/70 03/21/18 08:53 138/70 03/21/18 08:00 97.5 80 20 138/70 97 Room Air 97.5 03/21/18 04:00 97.9 86 20 141/73 97 Room Air 97.9 03/21/18 00:00 98.1 80 20 140/69 96 Room Air 98.1 03/20/18 22:16 78 148/82 03/20/18 20:00 97.6 78 20 148/82 96 Room Air 97.6 03/20/18 18:28 97.4 03/20/18 17:24 97.4 03/20/18 16:25 97.4 03/20/18 16:00 97.4 82 20 145/71 96 Room Air 97.4 Intake and Output 03/20/18 03/21/18 19:00 07:00 Intake Total 2000 ml 860 ml Output Total 3200 ml 3000 ml Balance -1200 ml -2140 ml Intake Oral 2000 ml 860 ml Output Urine Total 3200 ml 2800 ml Stool Total 200 ml Laboratory Tests 03/21/18 05:05: White Blood Count 19.3H, Red Blood Count 4.21L, Hemoglobin 11.3L, Hematocrit 36.3L, Mean Corpuscular Volume 86, Mean Corpuscular Hemoglobin 26.9L, Mean Corpuscular Hemoglobin Concent 31.3L, Red Cell Distribution Width 17.5H, Platelet Count 327, Mean Platelet Volume 9.7, Neutrophils (%) (Auto) , Lymphocytes (%) (Auto) , Monocytes (%) (Auto) , Eosinophils (%) (Auto) , Basophils (%) (Auto) , Differential Total Cells Counted 100, Neutrophils % ( Manual) 82H, Lymphocytes % (Manual) 5L, Monocytes % (Manual) 7, Eosinophils % ( Manual) 4H, Basophils % (Manual) 0, Band Neutrophils 2, Platelet Estimate Adequate, Platelet Morphology Normal, Hypochromasia 1+, Anisocytosis 1+, Sodium Level 138, Potassium Level 3.5, Chloride Level 100, Carbon Dioxide Level 27, Anion Gap 11, Blood Urea Nitrogen 12, Creatinine 1.1, Estimat Glomerular Filtration Rate , Glucose Level 190H, Calcium Level 9.6, Phosphorus Level 4.1, Magnesium Level 1.8, Total Bilirubin 0.4, Aspartate Amino Transf (AST/SGOT) 12L , Alanine Aminotransferase (ALT/SGPT) 15, Alkaline Phosphatase 60, Pro-B-Type Natriuretic Peptide 916H, Total Protein 7.9, Albumin 2.3L, Globulin 5.6, Albumin /Globulin Ratio 0.4L, Triglycerides Level 133, Cholesterol Level 138, LDL Cholesterol 74, HDL Cholesterol 46, Cholesterol/HDL Ratio 3.0L Height (Feet): 6 Height (Inches): 1.00 Weight (Pounds): 355 General Appearance: lethargic EENT: normal ENT inspection Neck: normal alignment Cardiovascular: normal peripheral pulses, normal rate, regular rhythm Respiratory/Chest: chest wall non-tender, decreased breath sounds Abdomen: normal bowel sounds, non tender, soft Extremities: normal inspection Edema: 1+ Arm (L), 1+ Arm (R), 1+ Leg (L), 1+ Leg (R), 1+ Pedal (L), 1+ Pedal ( R), 1+ Generalized Edema: trace edema Neurologic: motor weakness Skin: normal pigmentation, warm/dry Ok Curry DO Mar 21, 2018 14:42
[2018-03-21] MEDS: Vancomycin oral 125mg/2.5ml ORAL SCH ×3 (15:53→21:04)
[2018-03-21 16:00] VITALS: BP 132/68
[2018-03-21 16:14] LABS: APPEARANCE,URINE SLIGHTLY CLOUDY; BILIRUBIN, URINE NEGATIVE (NEGATIVE); GLUCOSE, URINE (UA) 4+ (NEGATIVE); KETONES,URINE 4+ (NEGATIVE); LEUKOCYTE ESTERASE ,URINE 1+ (NEGATIVE); NITRITE,URINE NEGATIVE (NEGATIVE); PH,URINE 5 (4.5-8.0); PROTEIN,URINE 3+ (NEGATIVE); UROBILINOGEN,URINE NORMAL MG/DL (0.0-1.0)
[2018-03-21 16:16] LABS: COLOR,URINE YELLOW
--- NOTE | 2018-03-21 17:14 | Cardiac Electrophysiology PN ---
Assessment/Plan Assessment/Plan 1. Troponin Leak. 0.07,0.09 and 0.1. Levels are flat and due to renal failure as Cr 1.8 . No CP. EKG showed SR/ nonspecific ST-T wave abnormalities. Echocardiogram showed an ejection fraction of 55%. On Lopressor 25 bid. 2. Hypertension, On Imdur 30 and Lopressor 25 bid 3. Sepsis, on broad-spectrum IV antibiotics by ID 4. Elevated brain natriuretic peptide. EF is normal. It could be due to diastolic dysfunction. 5. Urinary tract infection. 6. Cellulitis of the legs. 7. Hyperkalemia. 8. Renal failure. Resolved Cr 1.2 DW RN Subjective Subjective Almost signed out AMA last night but the decided to stay as felt dizzy. Objective Last 24 Hour Vital Signs Date Time Temp Pulse Resp B/P (MAP) Pulse Ox O2 Delivery O2 Flow Rate FiO2 03/21/18 12:00 97.6 75 20 140/75 97 Room Air 97.6 03/21/18 11:11 138/70 03/21/18 08:53 80 138/70 03/21/18 08:53 138/70 03/21/18 08:00 97.5 80 20 138/70 97 Room Air 97.5 03/21/18 04:00 97.9 86 20 141/73 97 Room Air 97.9 03/21/18 00:00 98.1 80 20 140/69 96 Room Air 98.1 03/20/18 22:16 78 148/82 03/20/18 20:00 97.6 78 20 148/82 96 Room Air 97.6 03/20/18 18:28 97.4 03/20/18 17:24 97.4 Intake and Output 03/20/18 03/21/18 19:00 07:00 Intake Total 2000 ml 860 ml Output Total 3200 ml 3000 ml Balance -1200 ml -2140 ml Intake Oral 2000 ml 860 ml Output Urine Total 3200 ml 2800 ml Stool Total 200 ml Laboratory Tests Test 03/21/18 05:05 03/21/18 16:00 White Blood Count 19.3 K/UL (4.8-10.8) H Red Blood Count 4.21 M/UL (4.70-6.10) L Hemoglobin 11.3 G/DL (14.2-18.0) L Hematocrit 36.3 % (42.0-52.0) L Mean Corpuscular Volume 86 FL (80-99) Mean Corpuscular Hemoglobin 26.9 PG (27.0-31.0) L Mean Corpuscular Hemoglobin Concent 31.3 G/DL (32.0-36.0) L Red Cell Distribution Width 17.5 % (11.6-14.8) H Platelet Count 327 K/UL (150-450) Mean Platelet Volume 9.7 FL (6.5-10.1) Neutrophils (%) (Auto) % (45.0-75.0) Lymphocytes (%) (Auto) % (20.0-45.0) Monocytes (%) (Auto) % (1.0-10.0) Eosinophils (%) (Auto) % (0.0-3.0) Basophils (%) (Auto) % (0.0-2.0) Differential Total Cells Counted 100 Neutrophils % (Manual) 82 % (45-75) H Lymphocytes % (Manual) 5 % (20-45) L Monocytes % (Manual) 7 % (1-10) Eosinophils % (Manual) 4 % (0-3) H Basophils % (Manual) 0 % (0-2) Band Neutrophils 2 % (0-8) Platelet Estimate Adequate Platelet Morphology Normal Hypochromasia 1+ Anisocytosis 1+ Sodium Level 138 MMOL/L (136-145) Potassium Level 3.5 MMOL/L (3.5-5.1) Chloride Level 100 MMOL/L (98-107) Carbon Dioxide Level 27 MMOL/L (21-32) Anion Gap 11 mmol/L (5-15) Blood Urea Nitrogen 12 mg/dL (7-18) Creatinine 1.1 MG/DL (0.55-1.30) Estimat Glomerular Filtration Rate mL/min (>60) Glucose Level 190 MG/DL (74-106) H Calcium Level 9.6 MG/DL (8.5-10.1) Phosphorus Level 4.1 MG/DL (2.5-4.9) Magnesium Level 1.8 MG/DL (1.8-2.4) Total Bilirubin 0.4 MG/DL (0.2-1.0) Aspartate Amino Transf (AST/SGOT) 12 U/L (15-37) L Alanine Aminotransferase (ALT/SGPT) 15 U/L (12-78) Alkaline Phosphatase 60 U/L (46-116) Pro-B-Type Natriuretic Peptide 916 pg/mL (0-125) H Total Protein 7.9 G/DL (6.4-8.2) Albumin 2.3 G/DL (3.4-5.0) L Globulin 5.6 g/dL Albumin/Globulin Ratio 0.4 (1.0-2.7) L Triglycerides Level 133 MG/DL (30-150) Cholesterol Level 138 MG/DL (< 200) LDL Cholesterol 74 mg/dL (<100) HDL Cholesterol 46 MG/DL (40-60) Cholesterol/HDL Ratio 3.0 (3.3-4.4) L Urine Color Yellow Urine Appearance Slightly cloudy Urine pH 5 (4.5-8.0) Urine Specific [place] 1.020 (1.005-1.035) Urine Protein 3+ (NEGATIVE) H Urine Glucose (UA) 4+ (NEGATIVE) H Urine Ketones 4+ (NEGATIVE) H Urine Occult Blood 2+ (NEGATIVE) H Urine Nitrite Negative (NEGATIVE) Urine Bilirubin Negative (NEGATIVE) Urine Urobilinogen Normal MG/DL (0.0-1.0) Urine Leukocyte Esterase 1+ (NEGATIVE) H Urine RBC 0-2 /HPF (0 - 0) H Urine WBC 5-10 /HPF (0 - 0) H Urine Squamous Epithelial Cells Occasional /LPF Urine Bacteria Few /HPF (NONE) Urine Yeast Many /HPF (NONE) H Objective HEAD AND NECK: Showed no JVD. LUNGS: Coarse rhonchi. CARDIOVASCULAR: Shows regular S1 and S2 with no gallop or murmur. ABDOMEN: Obese. EXTREMITIES: Bilateral lower extremity edema and cellulitis better Yong Oconnell MD Mar 21, 2018 17:14
--- NOTE | 2018-03-21 18:42 | Podiatric Progress Note ---
Assessment/Plan Patient Jamir Farmer is a 72 year old male who was admitted on Mar 09, 2018 at 20:35 with Assessment/Plan A./ 1) Bilateral leg cellulitis - resolving 2) Diabetic foot ulcer right heel stable 3) Diabetic neuropathy P/ 1) Cont abx per ID. Bone scan reviewed - NEG osteo 2) Cont wound care with Dakins. Advised patient that I recommend bedside debridement. He is amenable. Will perform during this admission. 3) Off loading 4) Will follow Subjective Allergies: Coded Allergies: No Known Allergies (Unverified , 03/09/18) Subjective Wanted to leave AMA last night but when he got out of bed he became dizzy and decided to stay. No pedal complaints and is happy with outcome. Objective Exam Last 24 Hour Vital Signs Date Time Temp Pulse Resp B/P (MAP) Pulse Ox O2 Delivery O2 Flow Rate FiO2 03/21/18 16:00 97.8 74 20 132/68 97 Room Air 97.8 03/21/18 12:00 97.6 75 20 140/75 97 Room Air 97.6 03/21/18 11:11 138/70 03/21/18 08:53 80 138/70 03/21/18 08:53 138/70 03/21/18 08:00 97.5 80 20 138/70 97 Room Air 97.5 03/21/18 04:00 97.9 86 20 141/73 97 Room Air 97.9 03/21/18 00:00 98.1 80 20 140/69 96 Room Air 98.1 03/20/18 22:16 78 148/82 03/20/18 20:00 97.6 78 20 148/82 96 Room Air 97.6 Laboratory Tests Test 03/21/18 05:05 03/21/18 16:00 White Blood Count 19.3 K/UL (4.8-10.8) H Red Blood Count 4.21 M/UL (4.70-6.10) L Hemoglobin 11.3 G/DL (14.2-18.0) L Hematocrit 36.3 % (42.0-52.0) L Mean Corpuscular Volume 86 FL (80-99) Mean Corpuscular Hemoglobin 26.9 PG (27.0-31.0) L Mean Corpuscular Hemoglobin Concent 31.3 G/DL (32.0-36.0) L Red Cell Distribution Width 17.5 % (11.6-14.8) H Platelet Count 327 K/UL (150-450) Mean Platelet Volume 9.7 FL (6.5-10.1) Neutrophils (%) (Auto) % (45.0-75.0) Lymphocytes (%) (Auto) % (20.0-45.0) Monocytes (%) (Auto) % (1.0-10.0) Eosinophils (%) (Auto) % (0.0-3.0) Basophils (%) (Auto) % (0.0-2.0) Differential Total Cells Counted 100 Neutrophils % (Manual) 82 % (45-75) H Lymphocytes % (Manual) 5 % (20-45) L Monocytes % (Manual) 7 % (1-10) Eosinophils % (Manual) 4 % (0-3) H Basophils % (Manual) 0 % (0-2) Band Neutrophils 2 % (0-8) Platelet Estimate Adequate Platelet Morphology Normal Hypochromasia 1+ Anisocytosis 1+ Sodium Level 138 MMOL/L (136-145) Potassium Level 3.5 MMOL/L (3.5-5.1) Chloride Level 100 MMOL/L (98-107) Carbon Dioxide Level 27 MMOL/L (21-32) Anion Gap 11 mmol/L (5-15) Blood Urea Nitrogen 12 mg/dL (7-18) Creatinine 1.1 MG/DL (0.55-1.30) Estimat Glomerular Filtration Rate mL/min (>60) Glucose Level 190 MG/DL (74-106) H Calcium Level 9.6 MG/DL (8.5-10.1) Phosphorus Level 4.1 MG/DL (2.5-4.9) Magnesium Level 1.8 MG/DL (1.8-2.4) Total Bilirubin 0.4 MG/DL (0.2-1.0) Aspartate Amino Transf (AST/SGOT) 12 U/L (15-37) L Alanine Aminotransferase (ALT/SGPT) 15 U/L (12-78) Alkaline Phosphatase 60 U/L (46-116) Pro-B-Type Natriuretic Peptide 916 pg/mL (0-125) H Total Protein 7.9 G/DL (6.4-8.2) Albumin 2.3 G/DL (3.4-5.0) L Globulin 5.6 g/dL Albumin/Globulin Ratio 0.4 (1.0-2.7) L Triglycerides Level 133 MG/DL (30-150) Cholesterol Level 138 MG/DL (< 200) LDL Cholesterol 74 mg/dL (<100) HDL Cholesterol 46 MG/DL (40-60) Cholesterol/HDL Ratio 3.0 (3.3-4.4) L Urine Color Yellow Urine Appearance Slightly cloudy Urine pH 5 (4.5-8.0) Urine Specific [place] 1.020 (1.005-1.035) Urine Protein 3+ (NEGATIVE) H Urine Glucose (UA) 4+ (NEGATIVE) H Urine Ketones 4+ (NEGATIVE) H Urine Occult Blood 2+ (NEGATIVE) H Urine Nitrite Negative (NEGATIVE) Urine Bilirubin Negative (NEGATIVE) Urine Urobilinogen Normal MG/DL (0.0-1.0) Urine Leukocyte Esterase 1+ (NEGATIVE) H Urine RBC 0-2 /HPF (0 - 0) H Urine WBC 5-10 /HPF (0 - 0) H Urine Squamous Epithelial Cells Occasional /LPF Urine Bacteria Few /HPF (NONE) Urine Yeast Many /HPF (NONE) H Microbiology Date/Time Source Procedure Growth Status 03/14/18 16:15 Blood Blood Culture - Final NO GROWTH AFTER 5 DAYS Complete 03/10/18 17:00 Nasopharynx Influenza Types A,B Antigen (FLORENCIO) - Final Complete 03/14/18 21:30 Stool Stool Culture - Final NO SALMONELLA,SHIGELLA,OR CAMPYLOBACT... Complete 03/10/18 22:00 Urine,Clean Catch Urine Culture - Final NO GROWTH AFTER 48 HOURS Complete Dermatological Dermatological Narrative Bilateral leg erythema darkening Right heel wound stable, no signs of infection. Slough noted. No bone or tendon exposed Rubens Maxwell DPRick Mar 21, 2018 18:42
[2018-03-21 20:00] VITALS: BP 132/65
[2018-03-22] VITALS (7 sets, daily range): BP systolic 120–143; BP diastolic 61–77
--- NOTE | 2018-03-22 00:30 | Progress Note ---
DATE: 03/21/2018 NOTE: POOR AUDIO SUBJECTIVE: The patient is a 72-year-old male patient who presents with confusion and disorganized thought process, therefore, his attending physician has requested daily psychiatric consultation because of his decline in cognition, worsened by the stress of his medical illness. MENTAL STATUS EXAMINATION: The patient is a 72-year-old male. Appearance is disheveled. Attitude, irritable and agitated. Affect guarded and restricted. Intellect poor. Mood is depressed and anxious. Motor activity, psychomotor agitation. Attention span is poor. Orientation x2. Speech is pressured. Thought process, disorganized and illogical. Thought content, auditory hallucinations and paranoid delusions. Insight and judgment is poor. DIAGNOSIS: Major depression with psychotic features . PLAN: Continue titrating up his medications to stabilize his mood. An 18-20 minutes of psychotherapy. poor impulse control . Chart was reviewed and discussed with staff. The patient was seen and assessed at bedside. Ashlyn Baker M.D. DR: VIKY JOB#: [id number] CC:
[2018-03-22] MEDS: Lyrica 50mg cap ORAL SCH ×3 (06:31→22:04)
[2018-03-22] MEDS: HYDROmorphone 4mg tab ORAL PRN ×3 (06:32→21:05)
[2018-03-22] MEDS: NovoLOG Insulin Flexpen SUBQ SCH ×4 (06:43→20:55)
--- NOTE | 2018-03-22 07:50 | General Progress Note ---
Assessment/Plan Assessment/Plan (1) Altered level of consciousness (2) Acute encephalopathy (3) B/L LE cellulitis (4) Right heel ulcer (5) Peripheral neuropathy (6) Chronic pain syndrome (7) Narcotic tolerance Patient will be continued on Ambien, Dilaudid, Lyrica and Percocet. D/w Dr. Liz and he concurred. Subjective Date patient seen: Mar 22, 2018 Time patient seen: 07:00 - am Allergies: Coded Allergies: No Known Allergies (Unverified , 03/09/18) Subjective Constitutional: Reports: weakness HEENT: Reports: no symptoms Cardiovascular: Reports: no symptoms Respiratory: Reports: no symptoms Gastrointestinal/Abdominal: Reports: no symptoms Genitourinary: Reports: no symptoms Neurologic/Psychiatric: Reports: numbness, tingling, weakness Endocrine: Reports: no symptoms Hematologic/Lymphatic: Reports: no symptoms Subjective Patient reports that he continues to have pain more so in his back and it is worse with movement. Has been tolerating the pain on the Dilaudid and Percocet. He has no new complaints. Objective Last 24 Hour Vital Signs Date Time Temp Pulse Resp B/P (MAP) Pulse Ox O2 Delivery O2 Flow Rate FiO2 03/22/18 06:32 97.8 03/21/18 22:02 97.8 03/21/18 21:03 97.8 03/21/18 21:02 69 132/65 03/21/18 20:00 98.0 69 20 132/65 96 Room Air 98.0 03/21/18 16:00 97.8 74 20 132/68 97 Room Air 97.8 03/21/18 12:00 97.6 75 20 140/75 97 Room Air 97.6 03/21/18 11:11 138/70 03/21/18 08:53 80 138/70 03/21/18 08:53 138/70 03/21/18 08:00 97.5 80 20 138/70 97 Room Air 97.5 Laboratory Tests 03/21/18 16:00: Urine Color Yellow, Urine Appearance Slightly cloudy, Urine pH 5, Urine Specific [place] 1.020, Urine Protein 3+H, Urine Glucose (UA) 4+H, Urine Ketones 4+H, Urine Occult Blood 2+H, Urine Nitrite Negative, Urine Bilirubin Negative, Urine Urobilinogen Normal, Urine Leukocyte Esterase 1+H, Urine RBC 0- 2H, Urine WBC 5-10H, Urine Squamous Epithelial Cells Occasional, Urine Bacteria Few, Urine Yeast ManyH Height (Feet): 6 Height (Inches): 1.00 Weight (Pounds): 355 Objective GENERAL: Alert. Awake. Oriented. HEENT: PERRLA. LUNGS: Decreased breath sounds bilaterally. HEART: S1 and S2 regular. ABDOMEN: Obese. BACK: Range of motion is decreased in flexion and extension with surgical scar noted in midline of lumbar spine. EXTREMITIES: No cyanosis, no clubbing with wounds noted on the lower extremities. Bandages applied. Antonio Whitten Mar 22, 2018 07:50
[2018-03-22 08:00] LABS: EOSINOPHILS % (AUTO) 3.9 % (0.0-3.0); HEMATOCRIT 35.6 % (42.0-52.0); HEMOGLOBIN 10.8 G/DL (14.2-18.0); LYMPHOCYTES % (AUTO) 16.5 % (20.0-45.0); MEAN CORPUSCULAR VOLUME 86 FL (80-99); MONOCYTES % (AUTO) 9.8 % (1.0-10.0); NEUTROPHILS % (AUTO) 68.8 % (45.0-75.0); PLATELET COUNT 298 K/UL (150-450); RED BLOOD COUNT 4.15 M/UL (4.70-6.10); RED CELL DISTRIBUTION WIDTH 17.2 % (11.6-14.8); WHITE BLOOD COUNT 9.4 K/UL (4.8-10.8)
[2018-03-22 08:17] LABS: ANION GAP 4 mmol/L (5-15); BLOOD UREA NITROGEN 14 mg/dL (7-18); CALCIUM 9.5 MG/DL (8.5-10.1); CARBON DIOXIDE 30 MMOL/L (21-32); CHLORIDE 100 MMOL/L (98-107); CREATININE 1.1 MG/DL (0.55-1.30); SODIUM 134 MMOL/L (136-145)
[2018-03-22] MEDS: Docusate 100mg cap ORAL SCH ×3 (09:00→17:29)
[2018-03-22] MEDS: Metoprolol 25mg tab ORAL SCH ×2 (09:11→20:52)
[2018-03-22] MEDS: Imdur 30mg tab ORAL SCH (09:11)
[2018-03-22] MEDS: Dakin's 0.125% Soln (Quarter Strength) 16oz TOPIC SCH (09:11)
[2018-03-22] MEDS: Heparin 5000 units/ml inj SUBQ SCH ×2 (09:14→20:54)
[2018-03-22] MEDS: Vancomycin oral 125mg/2.5ml ORAL SCH ×4 (09:17→20:52)
--- NOTE | 2018-03-22 10:45 | Progress Note ---
DATE: 03/22/2018 SUBJECTIVE: The patient is a 72-year-old male with sepsis. He has altered mental status, confusion, and disorganized thought process. That is why, his attending has requested daily psychiatric consultation. MENTAL STATUS EXAMINATION: The patient is a 72-year-old male. Appearance is disheveled. Attitude, irritable and agitated. Affect, guarded and restricted. Intellect poor. Mood is depressed and anxious. Motor activity, psychomotor agitation. Attention span is poor. Orientation x2. Speech is pressured. Thought process, disorganized and illogical. Denies suicidal or homicidal thoughts. Insight and judgment is poor. DIAGNOSIS: Major depression with psychotic features. PLAN: Continue titrating on up his medications. better impulse control. An 18 to 20 minutes of supportive psychotherapy provided. Chart was reviewed and discussed with staff. The patient was seen and assessed at bedside. Ashlyn Baker M.D. DR: CB JOB#: [id number] CC:
--- NOTE | 2018-03-22 11:24 | Nephrology Progress Note ---
Assessment/Plan Problem List: (1) Diabetic nephropathy (2) Cellulitis, leg (3) UTI (urinary tract infection) (4) Sepsis (5) Acute encephalopathy (6) Obesity (7) Elevated troponin I level Assessment WBC lowering Renal failure- likely Diabetic nephropathy Cr lower wnl UTI , Sepsis , Cellulitis DM Obesity Acute Encephalopathy HypoAlbuminemia, Likely NS Plan stable up dose Starlix stool softner Nitro PO Pulmonary support- 2D Echo 55% EjFx Kidney TIN Negative for hydronephrosis gomez Antibiotics Monitor renal parameters avoid Nephrotoxics Subjective ROS Limited/Unobtainable: No Constitutional: Reports: malaise Objective Objective Last 24 Hour Vital Signs Date Time Temp Pulse Resp B/P (MAP) Pulse Ox O2 Delivery O2 Flow Rate FiO2 03/22/18 10:16 97.8 03/22/18 09:17 97.8 03/22/18 09:11 67 143/69 03/22/18 09:11 143/69 03/22/18 08:00 97.7 67 20 143/69 95 Room Air 97.7 03/22/18 07:31 97.8 03/22/18 06:32 97.8 03/22/18 04:00 97.2 75 20 132/66 98 Room Air 97.2 03/22/18 00:00 98.3 77 20 137/77 97 Room Air 98.3 03/21/18 21:03 97.8 03/21/18 21:02 69 132/65 03/21/18 20:00 98.0 69 20 132/65 96 Room Air 98.0 03/21/18 16:00 97.8 74 20 132/68 97 Room Air 97.8 03/21/18 12:00 97.6 75 20 140/75 97 Room Air 97.6 Intake and Output 03/21/18 03/22/18 19:00 07:00 Intake Total 840 ml Output Total 1200 ml Balance -360 ml Intake Oral 840 ml Output Urine Total 1200 ml Laboratory Tests 03/21/18 16:00: Urine Color Yellow, Urine Appearance Slightly cloudy, Urine pH 5, Urine Specific [place] 1.020, Urine Protein 3+H, Urine Glucose (UA) 4+H, Urine Ketones 4+H, Urine Occult Blood 2+H, Urine Nitrite Negative, Urine Bilirubin Negative, Urine Urobilinogen Normal, Urine Leukocyte Esterase 1+H, Urine RBC 0- 2H, Urine WBC 5-10H, Urine Squamous Epithelial Cells Occasional, Urine Bacteria Few, Urine Yeast ManyH 03/22/18 06:48: White Blood Count 9.4#, Red Blood Count 4.15L, Hemoglobin 10.8L, Hematocrit 35.6L, Mean Corpuscular Volume 86, Mean Corpuscular Hemoglobin 26.1L, Mean Corpuscular Hemoglobin Concent 30.4L, Red Cell Distribution Width 17.2H, Platelet Count 298, Mean Platelet Volume 10.3H, Neutrophils (%) (Auto) 68.8, Lymphocytes (%) (Auto) 16.5L, Monocytes (%) (Auto) 9.8, Eosinophils (%) (Auto) 3.9H, Basophils (%) (Auto) 1.0, Sodium Level 134L, Potassium Level 4.0, Chloride Level 100, Carbon Dioxide Level 30, Anion Gap 4L, Blood Urea Nitrogen 14, Creatinine 1.1, Estimat Glomerular Filtration Rate , Glucose Level 203H, Calcium Level 9.5 Height (Feet): 6 Height (Inches): 1.00 Weight (Pounds): 356 General Appearance: no apparent distress Objective no other change DIA WALSH Mar 22, 2018 11:24
[2018-03-22] MEDS: Nitroglycerin Patch 0.4mg TDERMAL SCH (12:14)
--- NOTE | 2018-03-22 12:25 | Pulmonology Progress Note ---
Assessment/Plan Problems: (1) Acute encephalopathy (2) Bacteremia (3) ATN (acute tubular necrosis) (4) Sepsis (5) Cellulitis, leg (6) UTI (urinary tract infection) (7) Diabetic nephropathy (8) Obesity (9) Diabetes mellitus Assessment/Plan med/surg bun/creatine decreasing improving continue abx check cultures wound care pt/ot sliding scale diabetic diet. walking with PT d/w Subjective ROS Limited/Unobtainable: No Constitutional: Reports: no symptoms HEENT: Repors: no symptoms Respiratory: Reports: no symptoms Allergies: Coded Allergies: No Known Allergies (Unverified , 03/09/18) Objective Last 24 Hour Vital Signs Date Time Temp Pulse Resp B/P (MAP) Pulse Ox O2 Delivery O2 Flow Rate FiO2 03/22/18 12:14 124/62 03/22/18 10:16 97.8 03/22/18 09:17 97.8 03/22/18 09:11 67 143/69 03/22/18 09:11 143/69 03/22/18 08:00 97.7 67 20 143/69 95 Room Air 97.7 03/22/18 07:31 97.8 03/22/18 06:32 97.8 03/22/18 04:00 97.2 75 20 132/66 98 Room Air 97.2 03/22/18 00:00 98.3 77 20 137/77 97 Room Air 98.3 03/21/18 21:03 97.8 03/21/18 21:02 69 132/65 03/21/18 20:00 98.0 69 20 132/65 96 Room Air 98.0 03/21/18 16:00 97.8 74 20 132/68 97 Room Air 97.8 Intake and Output 03/21/18 03/22/18 19:00 07:00 Intake Total 840 ml Output Total 1200 ml Balance -360 ml Intake Oral 840 ml Output Urine Total 1200 ml General Appearance: WD/WN HEENT: normocephalic Respiratory/Chest: chest wall non-tender, lungs clear Cardiovascular: normal peripheral pulses, normal rate Abdomen: normal bowel sounds, soft, non tender Genitourinary: normal external genitalia Neurologic/Psychiatric: hot saw helper II-XII grossly normal Microbiology Date/Time Source Procedure Growth Status 03/21/18 16:00 Urine,Clean Catch Urine Culture - Preliminary NO GROWTH Resulted Laboratory Tests 03/21/18 16:00: Urine Color Yellow, Urine Appearance Slightly cloudy, Urine pH 5, Urine Specific [place] 1.020, Urine Protein 3+H, Urine Glucose (UA) 4+H, Urine Ketones 4+H, Urine Occult Blood 2+H, Urine Nitrite Negative, Urine Bilirubin Negative, Urine Urobilinogen Normal, Urine Leukocyte Esterase 1+H, Urine RBC 0- 2H, Urine WBC 5-10H, Urine Squamous Epithelial Cells Occasional, Urine Bacteria Few, Urine Yeast ManyH 03/22/18 06:48: White Blood Count 9.4#, Red Blood Count 4.15L, Hemoglobin 10.8L, Hematocrit 35.6L, Mean Corpuscular Volume 86, Mean Corpuscular Hemoglobin 26.1L, Mean Corpuscular Hemoglobin Concent 30.4L, Red Cell Distribution Width 17.2H, Platelet Count 298, Mean Platelet Volume 10.3H, Neutrophils (%) (Auto) 68.8, Lymphocytes (%) (Auto) 16.5L, Monocytes (%) (Auto) 9.8, Eosinophils (%) (Auto) 3.9H, Basophils (%) (Auto) 1.0, Sodium Level 134L, Potassium Level 4.0, Chloride Level 100, Carbon Dioxide Level 30, Anion Gap 4L, Blood Urea Nitrogen 14, Creatinine 1.1, Estimat Glomerular Filtration Rate , Glucose Level 203H, Calcium Level 9.5 Current Medications Medications (Trade) Dose Ordered Sig/Nancy Route PRN Reason Start Time Stop Time Status Last Admin Dose Admin Acetaminophen (Tylenol) 650 mg Q4H PRN ORAL fever (temp>100.5F) 03/15/18 17:00 04/09/18 16:59 Barium Sulfate (Readi-Cat 2) 450 ea NOW PRN ORAL Radiology Procedure 03/21/18 11:45 03/23/18 11:43 Ceftriaxone Sodium 2 gm/ Dextrose 110 ml @ 220 mls/hr Q24H IVPB 03/22/18 12:00 03/29/18 11:59 Dextrose (Dextrose 50%) 25 ml STAT PRN IV Hypoglycemia 03/15/18 17:00 04/12/18 16:59 Dextrose (Dextrose 50%) 50 ml STAT PRN IV Hypoglycemia 03/15/18 17:30 04/12/18 17:29 Diatrizoate Meglum/ Diatrizoate Sod (Gastrografin) 60 ml NOW PRN RECTAL Radiology Procedure 03/21/18 11:45 03/23/18 11:43 Diphenoxylate HCl/ Atropine (Lomotil) 2.5 mg Q4H PRN ORAL Diarrhea 03/18/18 12:53 04/17/18 12:52 03/19/18 03:59 Docusate Sodium (Colace) 100 mg THREE TIMES A DAY ORAL 03/15/18 18:00 04/13/18 12:59 03/21/18 17:30 Heparin Sodium (Porcine) (Heparin 5000 units/ml) 5,000 units EVERY 12 HOURS SUBQ 03/15/18 21:00 04/09/18 08:59 03/22/18 09:14 Hydromorphone HCl (Dilaudid) 4 mg Q3H PRN ORAL severe pain 03/20/18 08:00 03/27/18 07:59 03/22/18 06:32 Insulin Aspart (NovoLOG) BEFORE MEALS AND HS SUBQ 03/15/18 17:30 04/12/18 17:29 03/22/18 12:20 Isosorbide Mononitrate (Imdur) 30 mg DAILY ORAL 03/16/18 09:00 04/14/18 08:59 03/22/18 09:11 Lansoprazole (Prevacid) 30 mg BID ORAL 03/15/18 18:00 04/13/18 17:59 03/22/18 09:11 Lidocaine (Xylocaine 5% cream) 1 applic Q6H TOPIC 03/15/18 20:00 04/11/18 13:59 03/22/18 09:13 Metoprolol Tartrate (Lopressor) 25 mg Q12HR ORAL 03/15/18 21:00 04/13/18 20:59 03/22/18 09:11 Nateglinide (Starlix) 120 mg TIAC ORAL 03/15/18 16:45 04/13/18 16:44 03/22/18 12:14 Nitroglycerin (Ntg) 0.4 mg Q5M PRN SL Prn Chest Pain 03/15/18 17:00 04/08/18 16:59 Nitroglycerin (Ntg) 1 patch Q24H TDERMAL 03/16/18 12:00 04/13/18 11:59 03/22/18 12:14 Ondansetron HCl (Zofran) 4 mg Q6H PRN IVP Nausea & Vomiting 03/15/18 17:00 04/08/18 16:59 Oxycodone/ Acetaminophen (Percocet 10/325) 1 tab Q4H PRN ORAL moderate break through pain 03/20/18 08:45 03/26/18 08:44 03/22/18 09:17 Pregabalin (Lyrica) 50 mg Q8HR ORAL 03/16/18 18:00 04/15/18 17:59 03/22/18 06:31 Sodium Hypochlorite (Dakin's Quarter Strength) 1 applic DAILY TOPIC 03/16/18 09:00 04/10/18 08:59 03/22/18 09:11 Vancomycin HCl (Vancomycin) 125 mg FOUR TIMES A DAY ORAL 03/21/18 14:00 03/28/18 13:59 03/22/18 12:14 Zolpidem Tartrate (Ambien) 5 mg HSPRN PRN ORAL Insomnia 03/20/18 08:00 03/27/18 07:59 Zia Li MD Mar 22, 2018 12:25
[2018-03-22] MEDS: cefTRIAXone 2 GM in D5W 110 ML IVPB SCH (13:22)
--- NOTE | 2018-03-22 15:12 | General Progress Note ---
Assessment/Plan Problem List: (1) Sepsis ICD Codes: A41.9 - Sepsis, unspecified organism SNOMED: 22755285 Qualifiers: Qualified Codes: A41.9 - Sepsis, unspecified organism (2) Cellulitis, leg ICD Codes: L03.119 - Cellulitis of unspecified part of limb SNOMED: 927747780 (3) UTI (urinary tract infection) ICD Codes: N39.0 - Urinary tract infection, site not specified SNOMED: 69720722 (4) Diabetes mellitus ICD Codes: E11.9 - Type 2 diabetes mellitus without complications SNOMED: 15843670 (5) Obesity ICD Codes: E66.9 - Obesity, unspecified SNOMED: 354586838, 333015353 (6) Acute encephalopathy ICD Codes: G93.40 - Encephalopathy, unspecified SNOMED: 55167785, 003533754 (7) ATN (acute tubular necrosis) ICD Codes: N17.0 - Acute kidney failure with tubular necrosis SNOMED: 93430283 Status: stable, progressing Assessment/Plan ot pt diet o2 pulm tx abx wound care neph f/u cardio eval cbc bmp am dc plan w hh Subjective Constitutional: Reports: weakness Allergies: Coded Allergies: No Known Allergies (Unverified , 03/09/18) All Systems: reviewed and negative except above Subjective bed calm Objective Last 24 Hour Vital Signs Date Time Temp Pulse Resp B/P (MAP) Pulse Ox O2 Delivery O2 Flow Rate FiO2 03/22/18 14:40 97.3 03/22/18 12:14 124/62 03/22/18 12:00 97.3 78 20 124/62 95 Room Air 97.3 03/22/18 10:16 97.8 03/22/18 09:17 97.8 03/22/18 09:11 67 143/69 03/22/18 09:11 143/69 03/22/18 08:00 97.7 67 20 143/69 95 Room Air 97.7 03/22/18 07:31 97.8 03/22/18 06:32 97.8 03/22/18 04:00 97.2 75 20 132/66 98 Room Air 97.2 03/22/18 00:00 98.3 77 20 137/77 97 Room Air 98.3 03/21/18 21:03 97.8 03/21/18 21:02 69 132/65 03/21/18 20:00 98.0 69 20 132/65 96 Room Air 98.0 03/21/18 16:00 97.8 74 20 132/68 97 Room Air 97.8 Intake and Output 03/21/18 03/22/18 19:00 07:00 Intake Total 840 ml Output Total 1200 ml Balance -360 ml Intake Oral 840 ml Output Urine Total 1200 ml Laboratory Tests 03/21/18 16:00: Urine Color Yellow, Urine Appearance Slightly cloudy, Urine pH 5, Urine Specific [place] 1.020, Urine Protein 3+H, Urine Glucose (UA) 4+H, Urine Ketones 4+H, Urine Occult Blood 2+H, Urine Nitrite Negative, Urine Bilirubin Negative, Urine Urobilinogen Normal, Urine Leukocyte Esterase 1+H, Urine RBC 0- 2H, Urine WBC 5-10H, Urine Squamous Epithelial Cells Occasional, Urine Bacteria Few, Urine Yeast ManyH 03/22/18 06:48: White Blood Count 9.4#, Red Blood Count 4.15L, Hemoglobin 10.8L, Hematocrit 35.6L, Mean Corpuscular Volume 86, Mean Corpuscular Hemoglobin 26.1L, Mean Corpuscular Hemoglobin Concent 30.4L, Red Cell Distribution Width 17.2H, Platelet Count 298, Mean Platelet Volume 10.3H, Neutrophils (%) (Auto) 68.8, Lymphocytes (%) (Auto) 16.5L, Monocytes (%) (Auto) 9.8, Eosinophils (%) (Auto) 3.9H, Basophils (%) (Auto) 1.0, Sodium Level 134L, Potassium Level 4.0, Chloride Level 100, Carbon Dioxide Level 30, Anion Gap 4L, Blood Urea Nitrogen 14, Creatinine 1.1, Estimat Glomerular Filtration Rate , Glucose Level 203H, Calcium Level 9.5 Height (Feet): 6 Height (Inches): 1.00 Weight (Pounds): 356 General Appearance: alert EENT: normal ENT inspection Neck: normal alignment Cardiovascular: normal peripheral pulses, normal rate, regular rhythm Respiratory/Chest: chest wall non-tender, lungs clear, normal breath sounds Abdomen: normal bowel sounds, non tender, soft Extremities: normal inspection Edema: 1+ Arm (L), 1+ Arm (R), 1+ Leg (L), 1+ Leg (R), 1+ Pedal (L), 1+ Pedal ( R), 1+ Generalized Edema: trace edema Neurologic: responsive, motor weakness Skin: normal pigmentation, warm/dry Ok Curry DO Mar 22, 2018 15:12
--- NOTE | 2018-03-22 15:55 | Infectious Diseases Prog Note ---
Assessment/Plan Assessment/Plan Diarrhea - significant and requiring rectal tube, now resolving- Probable Cdiff depiste neg screen test given rapid resolution of leukocytosis upon initiation of PO Vancomycin; Cdiff toxin A/B EIA is poor test with only ~70% sensitivity -Cdiff neg -stool cx neg Sepsis;resolved severe b/l Leg soft tissue infection, resolving GBS bacteremia- 2ry to above -6/ Bcx 4/4+; 03/13 1/2 CoNS (contaminant); 03/14 BCx neg -v. duplex: no DVT R Foot necrotic ulcerl much improved- no evidence of Osteo on bone scan -bone scan Increased blood pool activity in the plantar surface of the right heel, likely related to stated clinical history of right heel ulcer. No abnormal osseous activity to suggest acute osteomyelitis. Foci of abnormal static activity without corresponding focal hyperemia on flow and blood pool images in the bilateral mid feet, and right toes, most likely representing degenerative changes. Plain film correlation would be useful, however. -u/a neg -CXR :NAPD Fever, SP Leukocytosis, recurrent; resolved after initiating PO Vancomycin -u/a 03/21 wbc 5-10, nit neg , leuk +1; ucx NTD -CXR 03/21: No acute process. Previously demonstrated interstitial congestive changes have improved Lactic acidosis, resolved elev lipase Influenza sc : neg JOSE; resolved HTN HLD GERD Dm2 Plan: -Continue IV Ceftriaxone 2g qd abx d#13/ for easier dosing for GBS bacteremia , cellulitis and R foot necrotic ulcer -Continue PO Vancomycin 125mg qid #2/ for presumed Cdiff given diarrhea and leukocytosis -03/18 SP Unasyn #7 -03/16 SP IV Vancomycin #3 -03/13 SP IV Vanco and Clinda #4 -03/12 SP Zosyn #3 -03/10 SP Cefepime d# 1 -f/u repeat Cdiff, Bcx x2, ucx -Monitor CBC/BMP, temperatures -Sx, Podiatry f/u -wound care per hospital protocol -Cdiff contact precautions Subjective Allergies: Coded Allergies: No Known Allergies (Unverified , 03/09/18) Subjective afebrile leukocytosis resolved after initiation of PO Vancomycin Objective Vital Signs Last 24 Hour Vital Signs Date Time Temp Pulse Resp B/P (MAP) Pulse Ox O2 Delivery O2 Flow Rate FiO2 03/22/18 14:40 97.3 03/22/18 12:14 124/62 03/22/18 12:00 97.3 78 20 124/62 95 Room Air 97.3 03/22/18 10:16 97.8 03/22/18 09:17 97.8 03/22/18 09:11 67 143/69 03/22/18 09:11 143/69 03/22/18 08:00 97.7 67 20 143/69 95 Room Air 97.7 03/22/18 07:31 97.8 03/22/18 06:32 97.8 03/22/18 04:00 97.2 75 20 132/66 98 Room Air 97.2 03/22/18 00:00 98.3 77 20 137/77 97 Room Air 98.3 03/21/18 21:03 97.8 03/21/18 21:02 69 132/65 03/21/18 20:00 98.0 69 20 132/65 96 Room Air 98.0 03/21/18 16:00 97.8 74 20 132/68 97 Room Air 97.8 Height (Feet): 6 Height (Inches): 1.00 Weight (Pounds): 356 Objective General Appearance: obese, no acute distress HEENT: normocephalic, atraumatic, dry mucus membranes Neck: full range of motion, supple, no meningismus, no bony tend Respiratory: lungs clear, normal breath sounds, no rhonchi, no respiratory distress, no retraction, no accessory muscle use Cardiovascular no gallop, no JVD, no murmur, tachycardia Gastrointestinal: normal bowel sounds, non tender, soft, no mass, no organomegaly, non-distended, no guarding, no rebound Musculoskeletal: B/L leg with chornic venous stasis changes and lymphedema with superimposed erythema, warmth; improving On R foot there is a wound with necrotic center ; no purulent discharge.; improving Microbiology Date/Time Source Procedure Growth Status 03/21/18 16:00 Urine,Clean Catch Urine Culture - Preliminary NO GROWTH Resulted Laboratory Tests Test 03/21/18 16:00 03/22/18 06:48 Urine Color Yellow Urine Appearance Slightly cloudy Urine pH 5 (4.5-8.0) Urine Specific [place] 1.020 (1.005-1.035) Urine Protein 3+ (NEGATIVE) H Urine Glucose (UA) 4+ (NEGATIVE) H Urine Ketones 4+ (NEGATIVE) H Urine Occult Blood 2+ (NEGATIVE) H Urine Nitrite Negative (NEGATIVE) Urine Bilirubin Negative (NEGATIVE) Urine Urobilinogen Normal MG/DL (0.0-1.0) Urine Leukocyte Esterase 1+ (NEGATIVE) H Urine RBC 0-2 /HPF (0 - 0) H Urine WBC 5-10 /HPF (0 - 0) H Urine Squamous Epithelial Cells Occasional /LPF Urine Bacteria Few /HPF (NONE) Urine Yeast Many /HPF (NONE) H White Blood Count 9.4 K/UL (4.8-10.8) # Red Blood Count 4.15 M/UL (4.70-6.10) L Hemoglobin 10.8 G/DL (14.2-18.0) L Hematocrit 35.6 % (42.0-52.0) L Mean Corpuscular Volume 86 FL (80-99) Mean Corpuscular Hemoglobin 26.1 PG (27.0-31.0) L Mean Corpuscular Hemoglobin Concent 30.4 G/DL (32.0-36.0) L Red Cell Distribution Width 17.2 % (11.6-14.8) H Platelet Count 298 K/UL (150-450) Mean Platelet Volume 10.3 FL (6.5-10.1) H Neutrophils (%) (Auto) 68.8 % (45.0-75.0) Lymphocytes (%) (Auto) 16.5 % (20.0-45.0) L Monocytes (%) (Auto) 9.8 % (1.0-10.0) Eosinophils (%) (Auto) 3.9 % (0.0-3.0) H Basophils (%) (Auto) 1.0 % (0.0-2.0) Sodium Level 134 MMOL/L (136-145) L Potassium Level 4.0 MMOL/L (3.5-5.1) Chloride Level 100 MMOL/L (98-107) Carbon Dioxide Level 30 MMOL/L (21-32) Anion Gap 4 mmol/L (5-15) L Blood Urea Nitrogen 14 mg/dL (7-18) Creatinine 1.1 MG/DL (0.55-1.30) Estimat Glomerular Filtration Rate mL/min (>60) Glucose Level 203 MG/DL (74-106) H Calcium Level 9.5 MG/DL (8.5-10.1) Current Medications Medications (Trade) Dose Ordered Sig/Nancy Route PRN Reason Start Time Stop Time Status Last Admin Dose Admin Acetaminophen (Tylenol) 650 mg Q4H PRN ORAL fever (temp>100.5F) 03/15/18 17:00 04/09/18 16:59 Barium Sulfate (Readi-Cat 2) 450 ea NOW PRN ORAL Radiology Procedure 03/21/18 11:45 03/23/18 11:43 Ceftriaxone Sodium 2 gm/ Dextrose 110 ml @ 220 mls/hr Q24H IVPB 03/22/18 12:00 03/29/18 11:59 03/22/18 13:22 Dextrose (Dextrose 50%) 25 ml STAT PRN IV Hypoglycemia 03/15/18 17:00 04/12/18 16:59 Dextrose (Dextrose 50%) 50 ml STAT PRN IV Hypoglycemia 03/15/18 17:30 04/12/18 17:29 Diatrizoate Meglum/ Diatrizoate Sod (Gastrografin) 60 ml NOW PRN RECTAL Radiology Procedure 03/21/18 11:45 03/23/18 11:43 Diphenoxylate HCl/ Atropine (Lomotil) 2.5 mg Q4H PRN ORAL Diarrhea 03/18/18 12:53 04/17/18 12:52 03/19/18 03:59 Docusate Sodium (Colace) 100 mg THREE TIMES A DAY ORAL 03/15/18 18:00 04/13/18 12:59 03/21/18 17:30 Heparin Sodium (Porcine) (Heparin 5000 units/ml) 5,000 units EVERY 12 HOURS SUBQ 03/15/18 21:00 04/09/18 08:59 03/22/18 09:14 Hydromorphone HCl (Dilaudid) 4 mg Q3H PRN ORAL severe pain 03/20/18 08:00 03/27/18 07:59 03/22/18 14:40 Insulin Aspart (NovoLOG) BEFORE MEALS AND HS SUBQ 03/15/18 17:30 04/12/18 17:29 03/22/18 12:20 Isosorbide Mononitrate (Imdur) 30 mg DAILY ORAL 03/16/18 09:00 04/14/18 08:59 03/22/18 09:11 Lansoprazole (Prevacid) 30 mg BID ORAL 03/15/18 18:00 04/13/18 17:59 03/22/18 09:11 Lidocaine (Xylocaine 5% cream) 1 applic Q6H TOPIC 03/15/18 20:00 04/11/18 13:59 03/22/18 14:41 Metoprolol Tartrate (Lopressor) 25 mg Q12HR ORAL 03/15/18 21:00 04/13/18 20:59 03/22/18 09:11 Nateglinide (Starlix) 120 mg TIAC ORAL 03/15/18 16:45 04/13/18 16:44 03/22/18 12:14 Nitroglycerin (Ntg) 0.4 mg Q5M PRN SL Prn Chest Pain 03/15/18 17:00 04/08/18 16:59 Nitroglycerin (Ntg) 1 patch Q24H TDERMAL 03/16/18 12:00 04/13/18 11:59 03/22/18 12:14 Ondansetron HCl (Zofran) 4 mg Q6H PRN IVP Nausea & Vomiting 03/15/18 17:00 04/08/18 16:59 Oxycodone/ Acetaminophen (Percocet 10/325) 1 tab Q4H PRN ORAL moderate break through pain 03/20/18 08:45 03/26/18 08:44 03/22/18 09:17 Pregabalin (Lyrica) 50 mg Q8HR ORAL 03/16/18 18:00 04/15/18 17:59 03/22/18 14:40 Sodium Hypochlorite (Dakin's Quarter Strength) 1 applic DAILY TOPIC 03/16/18 09:00 04/10/18 08:59 03/22/18 09:11 Vancomycin HCl (Vancomycin) 125 mg FOUR TIMES A DAY ORAL 03/21/18 14:00 03/28/18 13:59 03/22/18 12:14 Zolpidem Tartrate (Ambien) 5 mg HSPRN PRN ORAL Insomnia 03/20/18 08:00 03/27/18 07:59 Maranda Wiggins M.D. Mar 22, 2018 15:55
--- NOTE | 2018-03-22 16:11 | Cardiac Electrophysiology PN ---
Assessment/Plan Assessment/Plan 1. Troponin Leak. 0.07,0.09 and 0.1. Levels are flat and due to renal failure as Cr 1.8 . No CP. EKG showed SR/ nonspecific ST-T wave abnormalities. Echocardiogram showed EF 55%. On Lopressor 25 bid. 2. Hypertension, On Imdur 30 and Lopressor 25 bid 3. Sepsis, on broad-spectrum IV antibiotics by ID 4. Elevated brain natriuretic peptide. EF is normal. It could be due to diastolic dysfunction. 5. Urinary tract infection. 6. Cellulitis of the legs. 7. Hyperkalemia. 8. Renal failure. Resolved Cr 1.2 DW RN Subjective Subjective Alert in NAD. Leg bandages were changed today. Diuresing well. Objective Last 24 Hour Vital Signs Date Time Temp Pulse Resp B/P (MAP) Pulse Ox O2 Delivery O2 Flow Rate FiO2 03/22/18 14:40 97.3 03/22/18 12:14 124/62 03/22/18 12:00 97.3 78 20 124/62 95 Room Air 97.3 03/22/18 10:16 97.8 03/22/18 09:17 97.8 03/22/18 09:11 67 143/69 03/22/18 09:11 143/69 03/22/18 08:00 97.7 67 20 143/69 95 Room Air 97.7 03/22/18 07:31 97.8 03/22/18 06:32 97.8 03/22/18 04:00 97.2 75 20 132/66 98 Room Air 97.2 03/22/18 00:00 98.3 77 20 137/77 97 Room Air 98.3 03/21/18 21:03 97.8 03/21/18 21:02 69 132/65 03/21/18 20:00 98.0 69 20 132/65 96 Room Air 98.0 Intake and Output 03/21/18 03/22/18 19:00 07:00 Intake Total 840 ml Output Total 1200 ml Balance -360 ml Intake Oral 840 ml Output Urine Total 1200 ml Laboratory Tests Test 03/22/18 06:48 White Blood Count 9.4 K/UL (4.8-10.8) # Red Blood Count 4.15 M/UL (4.70-6.10) L Hemoglobin 10.8 G/DL (14.2-18.0) L Hematocrit 35.6 % (42.0-52.0) L Mean Corpuscular Volume 86 FL (80-99) Mean Corpuscular Hemoglobin 26.1 PG (27.0-31.0) L Mean Corpuscular Hemoglobin Concent 30.4 G/DL (32.0-36.0) L Red Cell Distribution Width 17.2 % (11.6-14.8) H Platelet Count 298 K/UL (150-450) Mean Platelet Volume 10.3 FL (6.5-10.1) H Neutrophils (%) (Auto) 68.8 % (45.0-75.0) Lymphocytes (%) (Auto) 16.5 % (20.0-45.0) L Monocytes (%) (Auto) 9.8 % (1.0-10.0) Eosinophils (%) (Auto) 3.9 % (0.0-3.0) H Basophils (%) (Auto) 1.0 % (0.0-2.0) Sodium Level 134 MMOL/L (136-145) L Potassium Level 4.0 MMOL/L (3.5-5.1) Chloride Level 100 MMOL/L (98-107) Carbon Dioxide Level 30 MMOL/L (21-32) Anion Gap 4 mmol/L (5-15) L Blood Urea Nitrogen 14 mg/dL (7-18) Creatinine 1.1 MG/DL (0.55-1.30) Estimat Glomerular Filtration Rate mL/min (>60) Glucose Level 203 MG/DL (74-106) H Calcium Level 9.5 MG/DL (8.5-10.1) Microbiology Date/Time Source Procedure Growth Status 03/21/18 16:00 Urine,Clean Catch Urine Culture - Preliminary NO GROWTH Resulted Objective HEAD AND NECK: Showed no JVD. LUNGS: Coarse rhonchi. CARDIOVASCULAR: Shows regular S1 and S2 with no gallop or murmur. ABDOMEN: Obese. EXTREMITIES: Bilateral lower extremity edema and cellulitis better Yong Oconnell MD Mar 22, 2018 16:11
--- NOTE | 2018-03-22 22:15 | General Surgery Progress Note ---
General Surgery-Progress Note Subjective Symptoms: improved, pain absent, tolerating diet, passing flatus Additional Comments leukocytosis resolved Objective Last 24 Hour Vital Signs Date Time Temp Pulse Resp B/P (MAP) Pulse Ox O2 Delivery O2 Flow Rate FiO2 03/22/18 20:52 97.3 79 17 122/61 98 97.3 03/22/18 20:52 79 122/61 03/22/18 16:00 97.7 67 20 139/67 97 Room Air 97.7 03/22/18 15:39 97.7 03/22/18 14:40 97.3 03/22/18 12:14 124/62 03/22/18 12:00 97.3 78 20 124/62 95 Room Air 97.3 03/22/18 10:16 97.8 03/22/18 09:17 97.8 03/22/18 09:11 67 143/69 03/22/18 09:11 143/69 03/22/18 08:00 97.7 67 20 143/69 95 Room Air 97.7 03/22/18 06:32 97.8 03/22/18 04:00 97.2 75 20 132/66 98 Room Air 97.2 03/22/18 00:00 98.3 77 20 137/77 97 Room Air 98.3 I&O Intake and Output 03/21/18 03/22/18 19:00 07:00 Intake Total 840 ml Output Total 1200 ml Balance -360 ml Intake Oral 840 ml Output Urine Total 1200 ml Wound: clean, dry Drains: none Cardiovascular: RSR Respiratory: clear Abdomen: soft, flat, non-tender, present bowel sounds Extremities: edema, no tenderness, no cyanosis Laboratory Tests Test 03/22/18 06:48 White Blood Count 9.4 K/UL (4.8-10.8) # Red Blood Count 4.15 M/UL (4.70-6.10) L Hemoglobin 10.8 G/DL (14.2-18.0) L Hematocrit 35.6 % (42.0-52.0) L Mean Corpuscular Volume 86 FL (80-99) Mean Corpuscular Hemoglobin 26.1 PG (27.0-31.0) L Mean Corpuscular Hemoglobin Concent 30.4 G/DL (32.0-36.0) L Red Cell Distribution Width 17.2 % (11.6-14.8) H Platelet Count 298 K/UL (150-450) Mean Platelet Volume 10.3 FL (6.5-10.1) H Neutrophils (%) (Auto) 68.8 % (45.0-75.0) Lymphocytes (%) (Auto) 16.5 % (20.0-45.0) L Monocytes (%) (Auto) 9.8 % (1.0-10.0) Eosinophils (%) (Auto) 3.9 % (0.0-3.0) H Basophils (%) (Auto) 1.0 % (0.0-2.0) Sodium Level 134 MMOL/L (136-145) L Potassium Level 4.0 MMOL/L (3.5-5.1) Chloride Level 100 MMOL/L (98-107) Carbon Dioxide Level 30 MMOL/L (21-32) Anion Gap 4 mmol/L (5-15) L Blood Urea Nitrogen 14 mg/dL (7-18) Creatinine 1.1 MG/DL (0.55-1.30) Estimat Glomerular Filtration Rate mL/min (>60) Glucose Level 203 MG/DL (74-106) H Calcium Level 9.5 MG/DL (8.5-10.1) Plan Problems: (1) Sepsis Assessment & Plan: 72M sepsis with fevers, leukocytosis, altered mental status. chronic bilateral lower extremity wounds with cellulitis. concerns for possible necrotizing fascitis initially. unlikely nec fasc given exam. wounds chronic and skin changes chronic. LRINEC score on admission 10 but given chronicity of wounds, other etiology of sepsis, and physical exam unlikely nec fasc. edema improving. cellulitis improving. overall much improved. leukocytosis resolved -no acute surgical intervention necessary. -keep legs elevated -cont with dressings for now -will follow with you thank you for this consultation (2) Cellulitis, leg Leandro Scott Mar 22, 2018 22:15
[2018-03-23] MEDS: HYDROmorphone 4mg tab ORAL PRN ×2 (02:07→20:38)
[2018-03-23 04:53] VITALS: BP 145/69
[2018-03-23] MEDS: Lyrica 50mg cap ORAL SCH ×3 (06:10→21:54)
[2018-03-23] MEDS: NovoLOG Insulin Flexpen SUBQ SCH ×4 (06:12→20:46)
[2018-03-23 06:46] LABS: BASOPHILS % (AUTO) 1.5 % (0.0-2.0); EOSINOPHILS % (AUTO) 3.2 % (0.0-3.0); HEMATOCRIT 32.1 % (42.0-52.0); HEMOGLOBIN 10.1 G/DL (14.2-18.0); LYMPHOCYTES % (AUTO) 17.2 % (20.0-45.0); MEAN CORPUSCULAR VOLUME 86 FL (80-99); NEUTROPHILS % (AUTO) 67.2 % (45.0-75.0); PLATELET COUNT 282 K/UL (150-450); RED BLOOD COUNT 3.73 M/UL (4.70-6.10); RED CELL DISTRIBUTION WIDTH 17.4 % (11.6-14.8); WHITE BLOOD COUNT 8.1 K/UL (4.8-10.8)
[2018-03-23 07:22] LABS: ANION GAP 9 mmol/L (5-15); BLOOD UREA NITROGEN 14 mg/dL (7-18); CALCIUM 8.9 MG/DL (8.5-10.1); CARBON DIOXIDE 28 MMOL/L (21-32); CHLORIDE 99 MMOL/L (98-107); CREATININE 1.1 MG/DL (0.55-1.30); SODIUM 136 MMOL/L (136-145)
[2018-03-23 08:00] VITALS: BP 123/58
--- NOTE | 2018-03-23 08:39 | General Progress Note ---
Assessment/Plan Assessment/Plan (1) Altered level of consciousness (2) Acute encephalopathy (3) B/L LE cellulitis (4) Right heel ulcer (5) Peripheral neuropathy (6) Chronic pain syndrome (7) Narcotic tolerance Patient will be continued on Ambien, Dilaudid, Lyrica and Percocet. D/w Dr. Liz and he concurred. Subjective Date patient seen: Mar 23, 2018 Time patient seen: 07:00 - AM Allergies: Coded Allergies: No Known Allergies (Unverified , 03/09/18) Subjective Constitutional: Reports: weakness HEENT: Reports: no symptoms Cardiovascular: Reports: no symptoms Respiratory: Reports: no symptoms Gastrointestinal/Abdominal: Reports: no symptoms Genitourinary: Reports: no symptoms Neurologic/Psychiatric: Reports: numbness, tingling, weakness Endocrine: Reports: no symptoms Hematologic/Lymphatic: Reports: no symptoms Subjective Patient has been in bed and reports continuing PT to the best of his abilities. He has been tolerating the pain on the Dilaudid and Percocet reducing it to a moderate level. No New complaints at this time. Objective Last 24 Hour Vital Signs Date Time Temp Pulse Resp B/P (MAP) Pulse Ox O2 Delivery O2 Flow Rate FiO2 03/23/18 04:53 97.3 76 18 145/69 96 97.3 03/22/18 23:48 97.1 74 17 120/63 98 97.1 03/22/18 20:52 97.3 79 17 122/61 98 97.3 03/22/18 20:52 79 122/61 03/22/18 16:00 97.7 67 20 139/67 97 Room Air 97.7 03/22/18 15:39 97.7 03/22/18 14:40 97.3 03/22/18 12:14 124/62 03/22/18 12:00 97.3 78 20 124/62 95 Room Air 97.3 03/22/18 10:16 97.8 03/22/18 09:17 97.8 03/22/18 09:11 67 143/69 03/22/18 09:11 143/69 Intake and Output 03/22/18 03/23/18 19:00 07:00 Intake Total 320 ml 720 ml Output Total 400 ml 1500 ml Balance -80 ml -780 ml Intake Oral 320 ml 720 ml Output Urine Total 400 ml 1500 ml # Voids 2 Laboratory Tests 03/23/18 05:20: White Blood Count 8.1, Red Blood Count 3.73L, Hemoglobin 10.1L, Hematocrit 32.1L , Mean Corpuscular Volume 86, Mean Corpuscular Hemoglobin 27.1, Mean Corpuscular Hemoglobin Concent 31.5L, Red Cell Distribution Width 17.4H, Platelet Count 282, Mean Platelet Volume 9.8, Neutrophils (%) (Auto) 67.2, Lymphocytes (%) (Auto) 17.2L, Monocytes (%) (Auto) 11.0H, Eosinophils (%) (Auto ) 3.2H, Basophils (%) (Auto) 1.5, Sodium Level 136, Potassium Level 4.0, Chloride Level 99, Carbon Dioxide Level 28, Anion Gap 9, Blood Urea Nitrogen 14 , Creatinine 1.1, Estimat Glomerular Filtration Rate , Glucose Level 212H, Calcium Level 8.9 Height (Feet): 6 Height (Inches): 1.00 Weight (Pounds): 355 Objective GENERAL: Alert. Awake. Oriented. HEENT: PERRLA. LUNGS: Decreased breath sounds bilaterally. HEART: S1 and S2 regular. ABDOMEN: Obese. BACK: Range of motion is decreased in flexion and extension with surgical scar noted in midline of lumbar spine. EXTREMITIES: No cyanosis, no clubbing with wounds noted on the lower extremities. Bandages applied. Antonio Whitten Mar 23, 2018 08:39
[2018-03-23] MEDS: Vancomycin oral 125mg/2.5ml ORAL SCH ×4 (08:44→20:38)
[2018-03-23] MEDS: Docusate 100mg cap ORAL SCH ×3 (08:44→17:05)
[2018-03-23] MEDS: Metoprolol 25mg tab ORAL SCH ×2 (08:45→20:47)
[2018-03-23] MEDS: Imdur 30mg tab ORAL SCH (08:45)
[2018-03-23] MEDS: Heparin 5000 units/ml inj SUBQ SCH ×2 (08:46→20:44)
[2018-03-23] MEDS: Dakin's 0.125% Soln (Quarter Strength) 16oz TOPIC SCH (08:55)
--- NOTE | 2018-03-23 09:20 | General Progress Note ---
Assessment/Plan Problem List: (1) Sepsis ICD Codes: A41.9 - Sepsis, unspecified organism SNOMED: 10983584 Qualifiers: Qualified Codes: A41.9 - Sepsis, unspecified organism (2) Cellulitis, leg ICD Codes: L03.119 - Cellulitis of unspecified part of limb SNOMED: 104841799 (3) UTI (urinary tract infection) ICD Codes: N39.0 - Urinary tract infection, site not specified SNOMED: 08635632 (4) Diabetes mellitus ICD Codes: E11.9 - Type 2 diabetes mellitus without complications SNOMED: 55358048 (5) Obesity ICD Codes: E66.9 - Obesity, unspecified SNOMED: 815729258, 018064922 (6) Acute encephalopathy ICD Codes: G93.40 - Encephalopathy, unspecified SNOMED: 97190673, 519124952 (7) ATN (acute tubular necrosis) ICD Codes: N17.0 - Acute kidney failure with tubular necrosis SNOMED: 00292799 Status: stable, progressing Assessment/Plan ot pt diet o2 pulm tx abx wound care neph f/u cardio eval dc w hh if clear Subjective Constitutional: Reports: weakness Allergies: Coded Allergies: No Known Allergies (Unverified , 03/09/18) All Systems: reviewed and negative except above Subjective bed calm Objective Last 24 Hour Vital Signs Date Time Temp Pulse Resp B/P (MAP) Pulse Ox O2 Delivery O2 Flow Rate FiO2 03/23/18 08:53 97.3 03/23/18 08:45 81 123/58 03/23/18 08:45 123/58 03/23/18 08:00 98.3 81 20 123/58 98 98.3 03/23/18 04:53 97.3 76 18 145/69 96 97.3 03/22/18 23:48 97.1 74 17 120/63 98 97.1 03/22/18 20:52 97.3 79 17 122/61 98 97.3 03/22/18 20:52 79 122/61 03/22/18 16:00 97.7 67 20 139/67 97 Room Air 97.7 03/22/18 15:39 97.7 03/22/18 14:40 97.3 03/22/18 12:14 124/62 03/22/18 12:00 97.3 78 20 124/62 95 Room Air 97.3 03/22/18 10:16 97.8 Intake and Output 03/22/18 03/23/18 19:00 07:00 Intake Total 320 ml 720 ml Output Total 400 ml 1500 ml Balance -80 ml -780 ml Intake Oral 320 ml 720 ml Output Urine Total 400 ml 1500 ml # Voids 2 Laboratory Tests 03/23/18 05:20: White Blood Count 8.1, Red Blood Count 3.73L, Hemoglobin 10.1L, Hematocrit 32.1L , Mean Corpuscular Volume 86, Mean Corpuscular Hemoglobin 27.1, Mean Corpuscular Hemoglobin Concent 31.5L, Red Cell Distribution Width 17.4H, Platelet Count 282, Mean Platelet Volume 9.8, Neutrophils (%) (Auto) 67.2, Lymphocytes (%) (Auto) 17.2L, Monocytes (%) (Auto) 11.0H, Eosinophils (%) (Auto ) 3.2H, Basophils (%) (Auto) 1.5, Sodium Level 136, Potassium Level 4.0, Chloride Level 99, Carbon Dioxide Level 28, Anion Gap 9, Blood Urea Nitrogen 14 , Creatinine 1.1, Estimat Glomerular Filtration Rate , Glucose Level 212H, Calcium Level 8.9 Height (Feet): 6 Height (Inches): 1.00 Weight (Pounds): 355 General Appearance: lethargic EENT: normal ENT inspection Neck: normal alignment Cardiovascular: normal peripheral pulses, normal rate, regular rhythm Respiratory/Chest: chest wall non-tender, lungs clear, normal breath sounds Abdomen: normal bowel sounds, non tender, soft Extremities: normal inspection Edema: 1+ Arm (L), 1+ Arm (R), 1+ Leg (L), 1+ Leg (R), 1+ Pedal (L), 1+ Pedal ( R), 1+ Generalized Neurologic: responsive, motor weakness Skin: normal pigmentation, warm/dry Ok Curry DO Mar 23, 2018 09:20
--- NOTE | 2018-03-23 11:25 | Infectious Diseases Prog Note ---
Assessment/Plan Assessment/Plan Diarrhea - significant and requiring rectal tube, now resolving- Probable Cdiff despite neg screen test given rapid resolution of leukocytosis upon initiation of PO Vancomycin; Cdiff toxin A/B EIA is poor test with only ~70% sensitivity -Cdiff neg -stool cx neg Sepsis;resolved severe b/l Leg soft tissue infection, resolving GBS bacteremia- 2ry to above -6/7 Bcx 4/4+; 03/13 1/2 CoNS (contaminant); 03/14 BCx neg -v. duplex: no DVT R Foot necrotic ulcerl much improved- no evidence of Osteo on bone scan -bone scan Increased blood pool activity in the plantar surface of the right heel, likely related to stated clinical history of right heel ulcer. No abnormal osseous activity to suggest acute osteomyelitis. Foci of abnormal static activity without corresponding focal hyperemia on flow and blood pool images in the bilateral mid feet, and right toes, most likely representing degenerative changes. Plain film correlation would be useful, however. -u/a neg -CXR :NAPD Fever, SP Leukocytosis, recurrent; resolved after initiating PO Vancomycin -u/a 03/21 wbc 5-10, nit neg , leuk +1; ucx NTD -CXR 03/21: No acute process. Previously demonstrated interstitial congestive changes have improved Lactic acidosis, resolved elev lipase Influenza sc : neg JOSE; resolved HTN HLD GERD Dm2 Plan: -Continue IV Ceftriaxone 2g qd abx d# for easier dosing for GBS bacteremia , cellulitis and R foot necrotic ulcer -Continue PO Vancomycin 125mg qid #12/10 for presumed Cdiff given diarrhea and leukocytosis -Ok to discharge from ID perspective -03/18 SP Unasyn #7 -03/16 SP IV Vancomycin #3 -03/13 SP IV Vanco and Clinda #4 -03/12 SP Zosyn #3 -03/10 SP Cefepime d# 1 -f/u repeat Cdiff, Bcx x2, ucx -Monitor CBC/BMP, temperatures -Sx, Podiatry f/u -wound care per hospital protocol -Cdiff contact precautions Discussed with RN Subjective Allergies: Coded Allergies: No Known Allergies (Unverified , 03/09/18) Subjective afebrile leukocytosis resolved after initiation of PO Vancomycin Objective Vital Signs Last 24 Hour Vital Signs Date Time Temp Pulse Resp B/P (MAP) Pulse Ox O2 Delivery O2 Flow Rate FiO2 6/21/18 09:52 97.3 03/23/18 08:53 97.3 03/23/18 08:45 81 123/58 03/23/18 08:45 123/58 03/23/18 08:00 98.3 81 20 123/58 98 98.3 03/23/18 04:53 97.3 76 18 145/69 96 97.3 03/22/18 23:48 97.1 74 17 120/63 98 97.1 03/22/18 20:52 97.3 79 17 122/61 98 97.3 03/22/18 20:52 79 122/61 03/22/18 16:00 97.7 67 20 139/67 97 Room Air 97.7 03/22/18 15:39 97.7 03/22/18 14:40 97.3 03/22/18 12:14 124/62 03/22/18 12:00 97.3 78 20 124/62 95 Room Air 97.3 Height (Feet): 6 Height (Inches): 1.00 Weight (Pounds): 355 Objective General Appearance: obese, no acute distress HEENT: normocephalic, atraumatic, dry mucus membranes Neck: full range of motion, supple, no meningismus, no bony tend Respiratory: lungs clear, normal breath sounds, no rhonchi, no respiratory distress, no retraction, no accessory muscle use Cardiovascular no gallop, no JVD, no murmur, tachycardia Gastrointestinal: normal bowel sounds, non tender, soft, no mass, no organomegaly, non-distended, no guarding, no rebound Musculoskeletal: B/L leg with chornic venous stasis changes and lymphedema with superimposed erythema, warmth; improving On R foot there is a wound with necrotic center ; no purulent discharge.; improving Microbiology Date/Time Source Procedure Growth Status 03/21/18 12:15 Blood Blood Culture - Preliminary NO GROWTH AFTER 24 HOURS Resulted 03/21/18 12:00 Blood Blood Culture - Preliminary NO GROWTH AFTER 24 HOURS Resulted 03/21/18 16:00 Urine,Clean Catch Urine Culture - Preliminary Resulted Laboratory Tests Test 03/23/18 05:20 White Blood Count 8.1 K/UL (4.8-10.8) Red Blood Count 3.73 M/UL (4.70-6.10) L Hemoglobin 10.1 G/DL (14.2-18.0) L Hematocrit 32.1 % (42.0-52.0) L Mean Corpuscular Volume 86 FL (80-99) Mean Corpuscular Hemoglobin 27.1 PG (27.0-31.0) Mean Corpuscular Hemoglobin Concent 31.5 G/DL (32.0-36.0) L Red Cell Distribution Width 17.4 % (11.6-14.8) H Platelet Count 282 K/UL (150-450) Mean Platelet Volume 9.8 FL (6.5-10.1) Neutrophils (%) (Auto) 67.2 % (45.0-75.0) Lymphocytes (%) (Auto) 17.2 % (20.0-45.0) L Monocytes (%) (Auto) 11.0 % (1.0-10.0) H Eosinophils (%) (Auto) 3.2 % (0.0-3.0) H Basophils (%) (Auto) 1.5 % (0.0-2.0) Sodium Level 136 MMOL/L (136-145) Potassium Level 4.0 MMOL/L (3.5-5.1) Chloride Level 99 MMOL/L (98-107) Carbon Dioxide Level 28 MMOL/L (21-32) Anion Gap 9 mmol/L (5-15) Blood Urea Nitrogen 14 mg/dL (7-18) Creatinine 1.1 MG/DL (0.55-1.30) Estimat Glomerular Filtration Rate mL/min (>60) Glucose Level 212 MG/DL (74-106) H Calcium Level 8.9 MG/DL (8.5-10.1) Current Medications Medications (Trade) Dose Ordered Sig/Nancy Route PRN Reason Start Time Stop Time Status Last Admin Dose Admin Acetaminophen (Tylenol) 650 mg Q4H PRN ORAL fever (temp>100.5F) 03/15/18 17:00 04/09/18 16:59 Ceftriaxone Sodium 2 gm/ Dextrose 110 ml @ 220 mls/hr Q24H IVPB 03/22/18 12:00 03/29/18 11:59 03/22/18 13:22 Dextrose (Dextrose 50%) 25 ml STAT PRN IV Hypoglycemia 03/15/18 17:00 04/12/18 16:59 Dextrose (Dextrose 50%) 50 ml STAT PRN IV Hypoglycemia 03/15/18 17:30 04/12/18 17:29 Diphenoxylate HCl/ Atropine (Lomotil) 2.5 mg Q4H PRN ORAL Diarrhea 03/18/18 12:53 04/17/18 12:52 03/19/18 03:59 Docusate Sodium (Colace) 100 mg THREE TIMES A DAY ORAL 03/15/18 18:00 04/13/18 12:59 03/21/18 17:30 Heparin Sodium (Porcine) (Heparin 5000 units/ml) 5,000 units EVERY 12 HOURS SUBQ 03/15/18 21:00 04/09/18 08:59 03/23/18 08:46 Hydromorphone HCl (Dilaudid) 4 mg Q3H PRN ORAL severe pain 03/20/18 08:00 03/27/18 07:59 03/23/18 02:07 Insulin Aspart (NovoLOG) BEFORE MEALS AND HS SUBQ 03/15/18 17:30 04/12/18 17:29 03/23/18 06:12 Isosorbide Mononitrate (Imdur) 30 mg DAILY ORAL 03/16/18 09:00 04/14/18 08:59 03/23/18 08:45 Lansoprazole (Prevacid) 30 mg BID ORAL 03/15/18 18:00 04/13/18 17:59 03/23/18 08:45 Lidocaine (Xylocaine 5% cream) 1 applic Q6H TOPIC 03/15/18 20:00 04/11/18 13:59 03/23/18 08:44 Metoprolol Tartrate (Lopressor) 25 mg Q12HR ORAL 03/15/18 21:00 04/13/18 20:59 03/23/18 08:45 Nateglinide (Starlix) 120 mg TIAC ORAL 03/15/18 16:45 04/13/18 16:44 03/23/18 06:09 Nitroglycerin (Ntg) 0.4 mg Q5M PRN SL Prn Chest Pain 03/15/18 17:00 04/08/18 16:59 Nitroglycerin (Ntg) 1 patch Q24H TDERMAL 03/16/18 12:00 04/13/18 11:59 03/22/18 12:14 Ondansetron HCl (Zofran) 4 mg Q6H PRN IVP Nausea & Vomiting 03/15/18 17:00 04/08/18 16:59 Oxycodone/ Acetaminophen (Percocet 10/325) 1 tab Q4H PRN ORAL moderate break through pain 03/20/18 08:45 03/26/18 08:44 03/23/18 08:53 Pregabalin (Lyrica) 50 mg Q8HR ORAL 03/16/18 18:00 04/15/18 17:59 03/23/18 06:10 Sodium Hypochlorite (Dakin's Quarter Strength) 1 applic DAILY TOPIC 03/16/18 09:00 04/10/18 08:59 03/23/18 08:55 Vancomycin HCl (Vancomycin) 125 mg FOUR TIMES A DAY ORAL 03/21/18 14:00 03/28/18 13:59 03/23/18 08:44 Zolpidem Tartrate (Ambien) 5 mg HSPRN PRN ORAL Insomnia 03/20/18 08:00 03/27/18 07:59 Maranda Wiggins M.D. Mar 23, 2018 11:25
--- NOTE | 2018-03-23 11:36 | Pulmonology Progress Note ---
Assessment/Plan Problems: (1) Acute encephalopathy (2) Bacteremia (3) ATN (acute tubular necrosis) (4) Sepsis (5) Cellulitis, leg (6) UTI (urinary tract infection) (7) Diabetic nephropathy (8) Obesity (9) Diabetes mellitus Assessment/Plan wbc wnl finishing abx med/surg bun/creatine decreasing improving continue abx check cultures wound care pt/ot sliding scale diabetic diet. walking with PT d/w Subjective ROS Limited/Unobtainable: No Constitutional: Reports: no symptoms HEENT: Repors: no symptoms Respiratory: Reports: no symptoms Allergies: Coded Allergies: No Known Allergies (Unverified , 03/09/18) Objective Last 24 Hour Vital Signs Date Time Temp Pulse Resp B/P (MAP) Pulse Ox O2 Delivery O2 Flow Rate FiO2 03/23/18 09:52 97.3 03/23/18 08:53 97.3 03/23/18 08:45 81 123/58 03/23/18 08:45 123/58 03/23/18 08:00 98.3 81 20 123/58 98 98.3 03/23/18 04:53 97.3 76 18 145/69 96 97.3 03/22/18 23:48 97.1 74 17 120/63 98 97.1 03/22/18 20:52 97.3 79 17 122/61 98 97.3 03/22/18 20:52 79 122/61 03/22/18 16:00 97.7 67 20 139/67 97 Room Air 97.7 03/22/18 15:39 97.7 03/22/18 14:40 97.3 03/22/18 12:14 124/62 03/22/18 12:00 97.3 78 20 124/62 95 Room Air 97.3 Intake and Output 03/22/18 03/23/18 19:00 07:00 Intake Total 320 ml 720 ml Output Total 400 ml 1500 ml Balance -80 ml -780 ml Intake Oral 320 ml 720 ml Output Urine Total 400 ml 1500 ml # Voids 2 General Appearance: WD/WN HEENT: normocephalic, atraumatic Respiratory/Chest: chest wall non-tender, lungs clear Cardiovascular: normal peripheral pulses, normal rate Abdomen: normal bowel sounds, soft, non tender Genitourinary: normal external genitalia Extremities: no cyanosis Skin: no rash Neurologic/Psychiatric: extension service specialist in charge II-XII grossly normal Microbiology Date/Time Source Procedure Growth Status 03/21/18 12:15 Blood Blood Culture - Preliminary NO GROWTH AFTER 24 HOURS Resulted 03/21/18 12:00 Blood Blood Culture - Preliminary NO GROWTH AFTER 24 HOURS Resulted 03/21/18 16:00 Urine,Clean Catch Urine Culture - Preliminary Resulted Laboratory Tests 03/23/18 05:20: White Blood Count 8.1, Red Blood Count 3.73L, Hemoglobin 10.1L, Hematocrit 32.1L , Mean Corpuscular Volume 86, Mean Corpuscular Hemoglobin 27.1, Mean Corpuscular Hemoglobin Concent 31.5L, Red Cell Distribution Width 17.4H, Platelet Count 282, Mean Platelet Volume 9.8, Neutrophils (%) (Auto) 67.2, Lymphocytes (%) (Auto) 17.2L, Monocytes (%) (Auto) 11.0H, Eosinophils (%) (Auto ) 3.2H, Basophils (%) (Auto) 1.5, Sodium Level 136, Potassium Level 4.0, Chloride Level 99, Carbon Dioxide Level 28, Anion Gap 9, Blood Urea Nitrogen 14 , Creatinine 1.1, Estimat Glomerular Filtration Rate , Glucose Level 212H, Calcium Level 8.9 Current Medications Medications (Trade) Dose Ordered Sig/Nancy Route PRN Reason Start Time Stop Time Status Last Admin Dose Admin Acetaminophen (Tylenol) 650 mg Q4H PRN ORAL fever (temp>100.5F) 03/15/18 17:00 04/09/18 16:59 Ceftriaxone Sodium 2 gm/ Dextrose 110 ml @ 220 mls/hr Q24H IVPB 03/22/18 12:00 03/29/18 11:59 03/22/18 13:22 Dextrose (Dextrose 50%) 25 ml STAT PRN IV Hypoglycemia 03/15/18 17:00 04/12/18 16:59 Dextrose (Dextrose 50%) 50 ml STAT PRN IV Hypoglycemia 03/15/18 17:30 04/12/18 17:29 Diphenoxylate HCl/ Atropine (Lomotil) 2.5 mg Q4H PRN ORAL Diarrhea 03/18/18 12:53 04/17/18 12:52 03/19/18 03:59 Docusate Sodium (Colace) 100 mg THREE TIMES A DAY ORAL 03/15/18 18:00 04/13/18 12:59 03/21/18 17:30 Heparin Sodium (Porcine) (Heparin 5000 units/ml) 5,000 units EVERY 12 HOURS SUBQ 03/15/18 21:00 04/09/18 08:59 03/23/18 08:46 Hydromorphone HCl (Dilaudid) 4 mg Q3H PRN ORAL severe pain 03/20/18 08:00 03/27/18 07:59 03/23/18 02:07 Insulin Aspart (NovoLOG) BEFORE MEALS AND HS SUBQ 03/15/18 17:30 04/12/18 17:29 03/23/18 06:12 Isosorbide Mononitrate (Imdur) 30 mg DAILY ORAL 03/16/18 09:00 04/14/18 08:59 03/23/18 08:45 Lansoprazole (Prevacid) 30 mg BID ORAL 03/15/18 18:00 04/13/18 17:59 03/23/18 08:45 Lidocaine (Xylocaine 5% cream) 1 applic Q6H TOPIC 03/15/18 20:00 04/11/18 13:59 03/23/18 08:44 Metoprolol Tartrate (Lopressor) 25 mg Q12HR ORAL 03/15/18 21:00 04/13/18 20:59 03/23/18 08:45 Nateglinide (Starlix) 120 mg TIAC ORAL 03/15/18 16:45 04/13/18 16:44 03/23/18 06:09 Nitroglycerin (Ntg) 0.4 mg Q5M PRN SL Prn Chest Pain 03/15/18 17:00 04/08/18 16:59 Nitroglycerin (Ntg) 1 patch Q24H TDERMAL 03/16/18 12:00 04/13/18 11:59 03/22/18 12:14 Ondansetron HCl (Zofran) 4 mg Q6H PRN IVP Nausea & Vomiting 03/15/18 17:00 04/08/18 16:59 Oxycodone/ Acetaminophen (Percocet 10/325) 1 tab Q4H PRN ORAL moderate break through pain 03/20/18 08:45 03/26/18 08:44 03/23/18 08:53 Pregabalin (Lyrica) 50 mg Q8HR ORAL 03/16/18 18:00 04/15/18 17:59 03/23/18 06:10 Sodium Hypochlorite (Dakin's Quarter Strength) 1 applic DAILY TOPIC 03/16/18 09:00 04/10/18 08:59 03/23/18 08:55 Vancomycin HCl (Vancomycin) 125 mg FOUR TIMES A DAY ORAL 03/21/18 14:00 03/28/18 13:59 03/23/18 08:44 Zolpidem Tartrate (Ambien) 5 mg HSPRN PRN ORAL Insomnia 03/20/18 08:00 03/27/18 07:59 Zia Li MD Mar 23, 2018 11:35
[2018-03-23] MEDS: cefTRIAXone 2 GM in D5W 110 ML IVPB SCH (11:47)
[2018-03-23] MEDS: Nitroglycerin Patch 0.4mg TDERMAL SCH (11:51)
[2018-03-23 12:00] VITALS: BP 124/55
--- NOTE | 2018-03-23 14:30 | Progress Note ---
DATE: 03/23/2018 SUBJECTIVE: The patient is a 72-year-old male with sepsis, altered mental status, and agitation. That is why, his attending has requested daily psychiatric consultation. MENTAL STATUS EXAMINATION: The patient is a 72-year-old male. Appearance is disheveled. Attitude, irritable and agitated. Affect, guarded and restricted. Intellect poor. Mood is depressed and anxious. Motor activity, psychomotor agitation. Attention span is poor. Orientation x2. Speech is pressured. Thought process, disorganized and illogical. Insight and judgment is poor. DIAGNOSIS: Major depression with psychotic features. PLAN: Continue titrating up on his medications to stabilize his mood. Provided 18 to 20 minutes of cognitive behavioral therapy to improve his mood and to reduce negative thought process and negative thinking disorder. Improve his behavior negative stimuli. Chart reviewed. Discussed with staff. Seen and assessed at bedside. Ashlyn Baker M.D. DR: CB JOB#: [id number] CC:
--- NOTE | 2018-03-23 15:42 | General Surgery Progress Note ---
General Surgery-Progress Note Subjective Symptoms: improved, pain absent, tolerating diet, voiding well, passing flatus , BM Additional Comments was up with physical therapy today Objective Last 24 Hour Vital Signs Date Time Temp Pulse Resp B/P (MAP) Pulse Ox O2 Delivery O2 Flow Rate FiO2 03/23/18 12:00 97.7 75 20 124/55 97 Room Air 97.7 03/23/18 11:51 124/55 03/23/18 09:52 97.3 03/23/18 08:53 97.3 03/23/18 08:45 81 123/58 03/23/18 08:45 123/58 03/23/18 08:00 98.3 81 20 123/58 98 98.3 03/23/18 04:53 97.3 76 18 145/69 96 97.3 03/22/18 23:48 97.1 74 17 120/63 98 97.1 03/22/18 20:52 97.3 79 17 122/61 98 97.3 03/22/18 20:52 79 122/61 03/22/18 16:00 97.7 67 20 139/67 97 Room Air 97.7 I&O Intake and Output 03/22/18 03/23/18 19:00 07:00 Intake Total 320 ml 720 ml Output Total 400 ml 1500 ml Balance -80 ml -780 ml Intake Oral 320 ml 720 ml Output Urine Total 400 ml 1500 ml # Voids 2 Wound: clean, dry Drains: none Cardiovascular: RSR Respiratory: clear Abdomen: soft, flat, non-tender, present bowel sounds Extremities: edema - improving , no edema, no tenderness, no cyanosis Laboratory Tests Test 03/23/18 05:20 White Blood Count 8.1 K/UL (4.8-10.8) Red Blood Count 3.73 M/UL (4.70-6.10) L Hemoglobin 10.1 G/DL (14.2-18.0) L Hematocrit 32.1 % (42.0-52.0) L Mean Corpuscular Volume 86 FL (80-99) Mean Corpuscular Hemoglobin 27.1 PG (27.0-31.0) Mean Corpuscular Hemoglobin Concent 31.5 G/DL (32.0-36.0) L Red Cell Distribution Width 17.4 % (11.6-14.8) H Platelet Count 282 K/UL (150-450) Mean Platelet Volume 9.8 FL (6.5-10.1) Neutrophils (%) (Auto) 67.2 % (45.0-75.0) Lymphocytes (%) (Auto) 17.2 % (20.0-45.0) L Monocytes (%) (Auto) 11.0 % (1.0-10.0) H Eosinophils (%) (Auto) 3.2 % (0.0-3.0) H Basophils (%) (Auto) 1.5 % (0.0-2.0) Sodium Level 136 MMOL/L (136-145) Potassium Level 4.0 MMOL/L (3.5-5.1) Chloride Level 99 MMOL/L (98-107) Carbon Dioxide Level 28 MMOL/L (21-32) Anion Gap 9 mmol/L (5-15) Blood Urea Nitrogen 14 mg/dL (7-18) Creatinine 1.1 MG/DL (0.55-1.30) Estimat Glomerular Filtration Rate mL/min (>60) Glucose Level 212 MG/DL (74-106) H Calcium Level 8.9 MG/DL (8.5-10.1) Plan Problems: (1) Sepsis Assessment & Plan: 72M sepsis with fevers, leukocytosis, altered mental status. chronic bilateral lower extremity wounds with cellulitis. concerns for possible necrotizing fascitis initially. unlikely nec fasc given exam. wounds chronic and skin changes chronic. LRINEC score on admission 10 but given chronicity of wounds, other etiology of sepsis, and physical exam unlikely nec fasc. edema improving. cellulitis improving. overall much improved. leukocytosis resolved -no acute surgical intervention necessary. -keep legs elevated -cont with dressings for now -will follow with you -d/c planning thank you for this consultation (2) Cellulitis, leg Leandro Scott Mar 23, 2018 15:42
[2018-03-23 16:00] VITALS: BP 123/73
--- NOTE | 2018-03-23 16:21 | Nephrology Progress Note ---
Assessment/Plan Problem List: (1) Diabetic nephropathy (2) Cellulitis, leg (3) UTI (urinary tract infection) (4) Sepsis (5) Acute encephalopathy (6) Obesity (7) Elevated troponin I level Assessment WBC lowering Renal failure- likely Diabetic nephropathy Cr lower wnl UTI , Sepsis , Cellulitis DM Obesity Acute Encephalopathy HypoAlbuminemia, Likely NS Plan stable up dose Starlix sdd glucophage stool softner Nitro PO PT Pulmonary support- 2D Echo 55% EjFx Kidney TIN Negative for hydronephrosis gomez Antibiotics Monitor renal parameters avoid Nephrotoxics Subjective ROS Limited/Unobtainable: No Constitutional: Reports: malaise Objective Objective Last 24 Hour Vital Signs Date Time Temp Pulse Resp B/P (MAP) Pulse Ox O2 Delivery O2 Flow Rate FiO2 03/23/18 12:00 97.7 75 20 124/55 97 Room Air 97.7 03/23/18 11:51 124/55 03/23/18 09:52 97.3 03/23/18 08:53 97.3 03/23/18 08:45 81 123/58 03/23/18 08:45 123/58 03/23/18 08:00 98.3 81 20 123/58 98 98.3 03/23/18 04:53 97.3 76 18 145/69 96 97.3 03/22/18 23:48 97.1 74 17 120/63 98 97.1 03/22/18 20:52 97.3 79 17 122/61 98 97.3 03/22/18 20:52 79 122/61 Intake and Output 03/22/18 03/23/18 19:00 07:00 Intake Total 320 ml 720 ml Output Total 400 ml 1500 ml Balance -80 ml -780 ml Intake Oral 320 ml 720 ml Output Urine Total 400 ml 1500 ml # Voids 2 Laboratory Tests 03/23/18 05:20: White Blood Count 8.1, Red Blood Count 3.73L, Hemoglobin 10.1L, Hematocrit 32.1L , Mean Corpuscular Volume 86, Mean Corpuscular Hemoglobin 27.1, Mean Corpuscular Hemoglobin Concent 31.5L, Red Cell Distribution Width 17.4H, Platelet Count 282, Mean Platelet Volume 9.8, Neutrophils (%) (Auto) 67.2, Lymphocytes (%) (Auto) 17.2L, Monocytes (%) (Auto) 11.0H, Eosinophils (%) (Auto ) 3.2H, Basophils (%) (Auto) 1.5, Sodium Level 136, Potassium Level 4.0, Chloride Level 99, Carbon Dioxide Level 28, Anion Gap 9, Blood Urea Nitrogen 14 , Creatinine 1.1, Estimat Glomerular Filtration Rate , Glucose Level 212H, Calcium Level 8.9 Height (Feet): 6 Height (Inches): 1.00 Weight (Pounds): 355 General Appearance: no apparent distress Cardiovascular: normal rate Respiratory/Chest: decreased breath sounds Abdomen: other - obese Objective no other change DIA WALSH Mar 23, 2018 16:21
--- NOTE | 2018-03-23 16:55 | Cardiac Electrophysiology PN ---
Assessment/Plan Assessment/Plan 1. Troponin Leak. 0.07,0.09 and 0.1. Levels are flat and due to renal failure . No CP. EKG showed SR/ nonspecific ST-T wave abnormalities. Echocardiogram showed EF 55%. On Lopressor 25 bid. 2. Hypertension, On Imdur 30 and Lopressor 25 bid 3. Sepsis, on broad-spectrum IV antibiotics by ID 4. Elevated brain natriuretic peptide. EF is normal. It could be due to diastolic dysfunction. 5. Urinary tract infection. 6. Cellulitis of the legs. 7. Hyperkalemia. 8. Renal failure. Resolved Cr 1.2 DW RN Subjective Subjective Alert in NAD. No CP or SOB. Diuresing well. Objective Last 24 Hour Vital Signs Date Time Temp Pulse Resp B/P (MAP) Pulse Ox O2 Delivery O2 Flow Rate FiO2 03/23/18 16:00 98.0 77 20 123/73 97 98.0 03/23/18 12:00 97.7 75 20 124/55 97 Room Air 97.7 03/23/18 11:51 124/55 03/23/18 09:52 97.3 03/23/18 08:53 97.3 03/23/18 08:45 81 123/58 03/23/18 08:45 123/58 03/23/18 08:00 98.3 81 20 123/58 98 98.3 03/23/18 04:53 97.3 76 18 145/69 96 97.3 03/22/18 23:48 97.1 74 17 120/63 98 97.1 03/22/18 20:52 97.3 79 17 122/61 98 97.3 03/22/18 20:52 79 122/61 Intake and Output 03/22/18 03/23/18 19:00 07:00 Intake Total 320 ml 720 ml Output Total 400 ml 1500 ml Balance -80 ml -780 ml Intake Oral 320 ml 720 ml Output Urine Total 400 ml 1500 ml # Voids 2 Laboratory Tests Test 03/23/18 05:20 White Blood Count 8.1 K/UL (4.8-10.8) Red Blood Count 3.73 M/UL (4.70-6.10) L Hemoglobin 10.1 G/DL (14.2-18.0) L Hematocrit 32.1 % (42.0-52.0) L Mean Corpuscular Volume 86 FL (80-99) Mean Corpuscular Hemoglobin 27.1 PG (27.0-31.0) Mean Corpuscular Hemoglobin Concent 31.5 G/DL (32.0-36.0) L Red Cell Distribution Width 17.4 % (11.6-14.8) H Platelet Count 282 K/UL (150-450) Mean Platelet Volume 9.8 FL (6.5-10.1) Neutrophils (%) (Auto) 67.2 % (45.0-75.0) Lymphocytes (%) (Auto) 17.2 % (20.0-45.0) L Monocytes (%) (Auto) 11.0 % (1.0-10.0) H Eosinophils (%) (Auto) 3.2 % (0.0-3.0) H Basophils (%) (Auto) 1.5 % (0.0-2.0) Sodium Level 136 MMOL/L (136-145) Potassium Level 4.0 MMOL/L (3.5-5.1) Chloride Level 99 MMOL/L (98-107) Carbon Dioxide Level 28 MMOL/L (21-32) Anion Gap 9 mmol/L (5-15) Blood Urea Nitrogen 14 mg/dL (7-18) Creatinine 1.1 MG/DL (0.55-1.30) Estimat Glomerular Filtration Rate mL/min (>60) Glucose Level 212 MG/DL (74-106) H Calcium Level 8.9 MG/DL (8.5-10.1) Microbiology Date/Time Source Procedure Growth Status 03/21/18 12:15 Blood Blood Culture - Preliminary NO GROWTH AFTER 24 HOURS Resulted 03/21/18 12:00 Blood Blood Culture - Preliminary NO GROWTH AFTER 24 HOURS Resulted 03/21/18 16:00 Urine,Clean Catch Urine Culture - Preliminary Resulted Objective HEAD AND NECK: No JVD. LUNGS: Coarse rhonchi. CARDIOVASCULAR: Regular S1 and S2 with no gallop or murmur. ABDOMEN: Obese. EXTREMITIES: Bilateral lower extremity edema and cellulitis better Yong Oconnell MD Mar 23, 2018 16:55
[2018-03-23] MEDS: metFORMIN 500mg tab ORAL SCH (17:05)
[2018-03-23 20:00] VITALS: BP 116/59
[2018-03-24] VITALS: BP 115/56
[2018-03-24] MEDS: HYDROmorphone 4mg tab ORAL PRN (01:20)
--- NOTE | 2018-03-24 02:44 | Consultation ---
DATE OF CONSULTATION: 03/23/2018 NOTE: POOR AUDIO HEMATOLOGY/ONCOLOGY CONSULTATION CONSULTING PHYSICIAN: Adam Snowden M.D. REQUESTING PHYSICIAN: Ok Curry D.O. REASON FOR CONSULTATION: Evaluation of anemia. IDENTIFICATION DATA: Dear Dr. Ok Curry, The patient is a 72-year-old male with past medical history significant for anemia. In addition, he also has a history, which is significant for hypertension, lower extremity cellulitis, diabetes, for the past several days prior to admission, presents to [facility] due to lower extremity cellulitis, hypertension and UTI. The patient with anemia. Hematology Service was consulted for further evaluation and treatment. PAST MEDICAL HISTORY: , diabetes, ATN, and obesity. PAST SURGICAL HISTORY: None noted. ALLERGIES: No known drug allergies. SOCIAL HISTORY: . REVIEW OF SYSTEMS: CONSTITUTIONAL: No fevers, chills, or night sweats. SKIN: No rashes, bumps, or itching. HEENT: No headache, hearing or visual changes. BREASTS: No lumps, pain, or discharge. PULMONARY: No cough, sputum, or shortness of breath. GASTROINTESTINAL: No nausea, vomiting, or diarrhea. GENITOURINARY: No dysuria, frequency, or urgency. MUSCULOSKELETAL: No muscle, joint swelling, or trauma. PHYSICAL EXAMINATION: VITAL SIGNS: Reviewed. GENERAL: No distress. LUNGS: Decreased breath sounds. CARDIOVASCULAR: Regular rate. No S3 or S4. ABDOMEN: Soft, nontender, and nondistended. EXTREMITIES: No cyanosis, swelling, or edema. LABORATORY AND DIAGNOSTIC DATA: WBC 8.1, hemoglobin , and platelet count 282,000. BUN of 14, creatinine 1.1, and glucose . BNP is 916. ASSESSMENT AND RECOMMENDATIONS: 1. Anemia due to underlying chronic disease. Continue to closely monitor. Hemoglobin goal is above 7. Does not require at this time unless hemoglobin less than 10. At that time, consider workup as needed. 2. on steroids as well. cultures. 3. Cellulitis of lower extremities. antibiotics. 4. Sepsis with septic shock. Closely monitor for improvement. 5. Acute tubular necrosis. Creatinine currently between 1 and 2.5. 6. . 7. Bacteremia. He is on broad-spectrum antibiotics. I appreciate the consultation. Adam Snowden M.D. DR: JELANI JOB#: [id number] CC:
[2018-03-24 04:00] VITALS: BP 121/59
[2018-03-24] MEDS: Lyrica 50mg cap ORAL SCH ×3 (06:15→21:10)
[2018-03-24] MEDS: metFORMIN 500mg tab ORAL SCH ×3 (06:15→17:08)
[2018-03-24] MEDS: NovoLOG Insulin Flexpen SUBQ SCH ×4 (06:21→20:32)
[2018-03-24 08:00] VITALS: BP 120/69
--- NOTE | 2018-03-24 08:59 | General Progress Note ---
Assessment/Plan Assessment/Plan (1) Altered level of consciousness (2) Acute encephalopathy (3) B/L LE cellulitis (4) Right heel ulcer (5) Peripheral neuropathy (6) Chronic pain syndrome (7) Narcotic tolerance Patient will be continued on Ambien, Dilaudid, Lyrica and Percocet. D/w Dr. Liz and he concurred. Subjective Date patient seen: Mar 24, 2018 Allergies: Coded Allergies: No Known Allergies (Unverified , 03/09/18) Subjective Constitutional: Reports: weakness HEENT: Reports: no symptoms Cardiovascular: Reports: no symptoms Respiratory: Reports: no symptoms Gastrointestinal/Abdominal: Reports: no symptoms Genitourinary: Reports: no symptoms Neurologic/Psychiatric: Reports: numbness, tingling, weakness Endocrine: Reports: no symptoms Hematologic/Lymphatic: Reports: no symptoms Subjective Patient is sitting up in bed and reports moderate pain level. has taken 2 Percocet and 3 Dilaudid in the last 24hrs. No new complaints. Objective Last 24 Hour Vital Signs Date Time Temp Pulse Resp B/P (MAP) Pulse Ox O2 Delivery O2 Flow Rate FiO2 03/24/18 08:00 98.2 82 20 120/69 96 98.2 03/24/18 04:00 98.0 81 19 121/59 95 Room Air 98.0 03/24/18 00:00 98.1 84 20 115/56 93 Room Air 98.1 03/23/18 20:47 84 116/59 03/23/18 20:00 97.9 84 20 116/59 94 Room Air 97.9 03/23/18 16:00 98.0 77 20 123/73 97 98.0 03/23/18 12:00 97.7 75 20 124/55 97 Room Air 97.7 03/23/18 11:51 124/55 03/23/18 09:52 97.3 Intake and Output 03/23/18 03/24/18 19:00 07:00 Intake Total 700 ml 800 ml Output Total 650 ml 1000 ml Balance 50 ml -200 ml Intake Oral 700 ml 800 ml Output Urine Total 650 ml 1000 ml Height (Feet): 6 Height (Inches): 1.00 Weight (Pounds): 356 Objective GENERAL: Alert. Awake. Oriented. HEENT: PERRLA. LUNGS: Decreased breath sounds bilaterally. HEART: S1 and S2 regular. ABDOMEN: Obese. BACK: Range of motion is decreased in flexion and extension with surgical scar noted in midline of lumbar spine. EXTREMITIES: No cyanosis, no clubbing with wounds noted on the lower extremities. Bandages applied. Antonio Whitten Mar 24, 2018 08:59
[2018-03-24] MEDS: Docusate 100mg cap ORAL SCH ×3 (09:00→17:09)
[2018-03-24] MEDS: Imdur 30mg tab ORAL SCH (09:18)
[2018-03-24] MEDS: Vancomycin oral 125mg/2.5ml ORAL SCH ×4 (09:18→20:31)
[2018-03-24] MEDS: Metoprolol 25mg tab ORAL SCH ×2 (09:19→20:31)
[2018-03-24] MEDS: Dakin's 0.125% Soln (Quarter Strength) 16oz TOPIC SCH (09:20)
[2018-03-24] MEDS: Heparin 5000 units/ml inj SUBQ SCH ×2 (09:24→20:33)
--- NOTE | 2018-03-24 10:07 | General Progress Note ---
Assessment/Plan Status: stable Assessment/Plan Anemia of chronic disease --> prior workup reviewed and will order ferritin Leukcytosis is likely related to leg cellulitis --> on abx, continue at this time, hh being arranged HTN -- > at goal as per cardiology, Dr. Oconnell JOSE --> improving, being accessed with nephrology Cellulitis of the lower extremity on abx as noted above Appreciate business continuity consultant care Subjective Date patient seen: Mar 24, 2018 ROS Limited/Unobtainable: Yes Allergies: Coded Allergies: No Known Allergies (Unverified , 03/09/18) All Systems: reviewed and negative except above Subjective Patient is sitting up in bed and reports moderate pain, has taken 2 Percocet and 3 Dilaudid in the last 24hrs. Leukocytosis resolved after initiation of PO Vancomycin. No new complaints Objective Last 24 Hour Vital Signs Date Time Temp Pulse Resp B/P (MAP) Pulse Ox O2 Delivery O2 Flow Rate FiO2 03/24/18 09:27 98.2 03/24/18 09:19 82 120/69 03/24/18 09:18 120/69 03/24/18 08:00 98.2 82 20 120/69 96 98.2 03/24/18 04:00 98.0 81 19 121/59 95 Room Air 98.0 03/24/18 00:00 98.1 84 20 115/56 93 Room Air 98.1 03/23/18 20:47 84 116/59 03/23/18 20:00 97.9 84 20 116/59 94 Room Air 97.9 03/23/18 16:00 98.0 77 20 123/73 97 98.0 03/23/18 12:00 97.7 75 20 124/55 97 Room Air 97.7 03/23/18 11:51 124/55 Intake and Output 03/23/18 03/24/18 19:00 07:00 Intake Total 700 ml 800 ml Output Total 650 ml 1000 ml Balance 50 ml -200 ml Intake Oral 700 ml 800 ml Output Urine Total 650 ml 1000 ml Height (Feet): 6 Height (Inches): 1.00 Weight (Pounds): 356 General Appearance: WD/WN, no apparent distress, alert EENT: PERRL/EOMI Neck: normal alignment, supple Cardiovascular: normal peripheral pulses Respiratory/Chest: normal breath sounds, no respiratory distress Abdomen: soft Kleynberg,Adam L. MD Mar 24, 2018 10:07
--- NOTE | 2018-03-24 11:49 | Nephrology Progress Note ---
Assessment/Plan Problem List: (1) Diabetic nephropathy (2) Cellulitis, leg (3) UTI (urinary tract infection) (4) Sepsis (5) Acute encephalopathy (6) Obesity (7) Elevated troponin I level Assessment WBC lowering Renal failure- likely Diabetic nephropathy Cr lower wnl UTI , Sepsis , Cellulitis DM Obesity Acute Encephalopathy HypoAlbuminemia, Likely NS Plan stable up dose Starlix sdd glucophage stool softner Nitro PO PT Pulmonary support- 2D Echo 55% EjFx Kidney TIN Negative for hydronephrosis gomez Antibiotics Monitor renal parameters avoid Nephrotoxics Subjective ROS Limited/Unobtainable: No Constitutional: Reports: malaise Objective Objective Last 24 Hour Vital Signs Date Time Temp Pulse Resp B/P (MAP) Pulse Ox O2 Delivery O2 Flow Rate FiO2 03/24/18 10:26 98.2 03/24/18 09:27 98.2 03/24/18 09:19 82 120/69 03/24/18 09:18 120/69 03/24/18 08:00 98.2 82 20 120/69 96 98.2 03/24/18 04:00 98.0 81 19 121/59 95 Room Air 98.0 03/24/18 00:00 98.1 84 20 115/56 93 Room Air 98.1 03/23/18 20:47 84 116/59 03/23/18 20:00 97.9 84 20 116/59 94 Room Air 97.9 03/23/18 16:00 98.0 77 20 123/73 97 98.0 03/23/18 12:00 97.7 75 20 124/55 97 Room Air 97.7 03/23/18 11:51 124/55 Intake and Output 03/23/18 03/24/18 19:00 07:00 Intake Total 700 ml 800 ml Output Total 650 ml 1000 ml Balance 50 ml -200 ml Intake Oral 700 ml 800 ml Output Urine Total 650 ml 1000 ml Height (Feet): 6 Height (Inches): 1.00 Weight (Pounds): 356 General Appearance: no apparent distress Objective no other change DIA WALSH Mar 24, 2018 11:48
[2018-03-24 12:00] VITALS: BP 126/57
--- NOTE | 2018-03-24 12:00 | Pulmonology Progress Note ---
Assessment/Plan Problems: (1) Acute encephalopathy (2) Bacteremia (3) ATN (acute tubular necrosis) (4) Sepsis (5) Cellulitis, leg (6) UTI (urinary tract infection) (7) Diabetic nephropathy (8) Obesity (9) Diabetes mellitus Assessment/Plan wbc wnl finishing abx med/surg bun/creatine decreasing wound care pt/ot sliding scale diabetic diet. walking with PT d/w getting twice a day pt now, refusing to go home Subjective ROS Limited/Unobtainable: No Constitutional: Reports: no symptoms HEENT: Repors: no symptoms Respiratory: Reports: no symptoms Allergies: Coded Allergies: No Known Allergies (Unverified , 03/09/18) Objective Last 24 Hour Vital Signs Date Time Temp Pulse Resp B/P (MAP) Pulse Ox O2 Delivery O2 Flow Rate FiO2 03/24/18 10:26 98.2 03/24/18 09:27 98.2 03/24/18 09:19 82 120/69 03/24/18 09:18 120/69 03/24/18 08:00 98.2 82 20 120/69 96 98.2 03/24/18 04:00 98.0 81 19 121/59 95 Room Air 98.0 03/24/18 00:00 98.1 84 20 115/56 93 Room Air 98.1 03/23/18 20:47 84 116/59 03/23/18 20:00 97.9 84 20 116/59 94 Room Air 97.9 03/23/18 16:00 98.0 77 20 123/73 97 98.0 03/23/18 12:00 97.7 75 20 124/55 97 Room Air 97.7 Intake and Output 03/23/18 03/24/18 19:00 07:00 Intake Total 700 ml 800 ml Output Total 650 ml 1000 ml Balance 50 ml -200 ml Intake Oral 700 ml 800 ml Output Urine Total 650 ml 1000 ml General Appearance: WD/WN HEENT: normocephalic, anicteric Respiratory/Chest: chest wall non-tender, lungs clear Cardiovascular: normal peripheral pulses, normal rate Abdomen: normal bowel sounds, soft, non tender Genitourinary: normal external genitalia Extremities: no clubbing Skin: no rash Microbiology Date/Time Source Procedure Growth Status 03/21/18 12:15 Blood Blood Culture - Preliminary NO GROWTH AFTER 48 HOURS Resulted 03/21/18 12:00 Blood Blood Culture - Preliminary NO GROWTH AFTER 48 HOURS Resulted 03/21/18 16:00 Urine,Clean Catch Urine Culture - Preliminary YEAST Resulted Current Medications Medications (Trade) Dose Ordered Sig/Nancy Route PRN Reason Start Time Stop Time Status Last Admin Dose Admin Acetaminophen (Tylenol) 650 mg Q4H PRN ORAL fever (temp>100.5F) 03/15/18 17:00 04/09/18 16:59 Ceftriaxone Sodium 2 gm/ Dextrose 110 ml @ 220 mls/hr Q24H IVPB 03/22/18 12:00 03/29/18 11:59 03/23/18 11:47 Dextrose (Dextrose 50%) 25 ml STAT PRN IV Hypoglycemia 03/15/18 17:00 04/12/18 16:59 Dextrose (Dextrose 50%) 50 ml STAT PRN IV Hypoglycemia 03/15/18 17:30 04/12/18 17:29 Diphenoxylate HCl/ Atropine (Lomotil) 2.5 mg Q4H PRN ORAL Diarrhea 03/18/18 12:53 04/17/18 12:52 03/19/18 03:59 Docusate Sodium (Colace) 100 mg THREE TIMES A DAY ORAL 03/15/18 18:00 04/13/18 12:59 03/21/18 17:30 Heparin Sodium (Porcine) (Heparin 5000 units/ml) 5,000 units EVERY 12 HOURS SUBQ 03/15/18 21:00 04/09/18 08:59 03/24/18 09:24 Hydromorphone HCl (Dilaudid) 4 mg Q3H PRN ORAL severe pain 03/20/18 08:00 03/27/18 07:59 03/24/18 01:20 Insulin Aspart (NovoLOG) BEFORE MEALS AND HS SUBQ 03/15/18 17:30 04/12/18 17:29 03/24/18 06:21 Isosorbide Mononitrate (Imdur) 30 mg DAILY ORAL 03/16/18 09:00 04/14/18 08:59 03/24/18 09:18 Lansoprazole (Prevacid) 30 mg BID ORAL 03/15/18 18:00 04/13/18 17:59 03/24/18 09:19 Lidocaine (Xylocaine 5% cream) 1 applic Q6H TOPIC 03/15/18 20:00 04/11/18 13:59 03/24/18 09:18 Metformin HCl (Glucophage) 500 mg TIAC ORAL 03/23/18 16:30 04/22/18 16:29 03/24/18 06:15 Metoprolol Tartrate (Lopressor) 25 mg Q12HR ORAL 03/15/18 21:00 04/13/18 20:59 03/24/18 09:19 Nateglinide (Starlix) 120 mg TIAC ORAL 03/15/18 16:45 04/13/18 16:44 03/24/18 06:15 Nitroglycerin (Ntg) 0.4 mg Q5M PRN SL Prn Chest Pain 03/15/18 17:00 04/08/18 16:59 Nitroglycerin (Ntg) 1 patch Q24H TDERMAL 03/16/18 12:00 04/13/18 11:59 03/23/18 11:51 Ondansetron HCl (Zofran) 4 mg Q6H PRN IVP Nausea & Vomiting 03/15/18 17:00 04/08/18 16:59 Oxycodone/ Acetaminophen (Percocet 10/325) 1 tab Q4H PRN ORAL moderate break through pain 03/20/18 08:45 03/26/18 08:44 03/24/18 09:27 Pregabalin (Lyrica) 50 mg Q8HR ORAL 03/16/18 18:00 04/15/18 17:59 03/24/18 06:15 Sodium Hypochlorite (Dakin's Quarter Strength) 1 applic DAILY TOPIC 03/16/18 09:00 04/10/18 08:59 03/24/18 09:20 Vancomycin HCl (Vancomycin) 125 mg FOUR TIMES A DAY ORAL 03/21/18 14:00 03/28/18 13:59 03/24/18 09:18 Zolpidem Tartrate (Ambien) 5 mg HSPRN PRN ORAL Insomnia 03/20/18 08:00 03/27/18 07:59 Zia Li MD Mar 24, 2018 12:00
[2018-03-24] MEDS: cefTRIAXone 2 GM in D5W 110 ML IVPB SCH (12:15)
[2018-03-24] MEDS: Nitroglycerin Patch 0.4mg TDERMAL SCH (12:19)
--- NOTE | 2018-03-24 12:53 | Infectious Diseases Prog Note ---
Assessment/Plan Assessment/Plan Diarrhea - significant and requiring rectal tube, now resolved- Probable Cdiff despite neg screen test given rapid resolution of leukocytosis upon initiation of PO Vancomycin; Cdiff toxin A/B EIA is poor test with only ~70% sensitivity -Cdiff neg -stool cx neg Sepsis;resolved severe b/l Leg soft tissue infection, resolved GBS bacteremia- 2ry to above -6/7 Bcx 4/4+; 03/13 1/2 CoNS (contaminant); 03/14 BCx neg -v. duplex: no DVT R Foot necrotic ulcerl much improved- no evidence of Osteo on bone scan -bone scan Increased blood pool activity in the plantar surface of the right heel, likely related to stated clinical history of right heel ulcer. No abnormal osseous activity to suggest acute osteomyelitis. Foci of abnormal static activity without corresponding focal hyperemia on flow and blood pool images in the bilateral mid feet, and right toes, most likely representing degenerative changes. Plain film correlation would be useful, however. -u/a neg -CXR :NAPD Fever, SP Leukocytosis, recurrent; resolved after initiating PO Vancomycin -u/a 03/21 wbc 5-10, nit neg , leuk +1; ucx NTD -CXR 03/21: No acute process. Previously demonstrated interstitial congestive changes have improved Lactic acidosis, resolved elev lipase Influenza sc : neg JOSE; resolved HTN HLD GERD Dm2 Plan: -D/c IV Ceftriaxone 2g qd abx d#15 -Continue PO Vancomycin 125mg qid #01/10 for presumed Cdiff given diarrhea and leukocytosis -Ok to discharge from ID perspective -03/18 SP Unasyn #7 -03/16 SP IV Vancomycin #3 -03/13 SP IV Vanco and Clinda #4 -03/12 SP Zosyn #3 -03/10 SP Cefepime d# 1 -f/u repeat Cdiff, Bcx x2, ucx -Monitor CBC/BMP, temperatures -Sx, Podiatry f/u -wound care per hospital protocol -Cdiff contact precautions Discussed with RN Subjective Allergies: Coded Allergies: No Known Allergies (Unverified , 03/09/18) Subjective afebrile no leukocytosis bcx NTD Objective Vital Signs Last 24 Hour Vital Signs Date Time Temp Pulse Resp B/P (MAP) Pulse Ox O2 Delivery O2 Flow Rate FiO2 03/24/18 12:19 126/57 03/24/18 12:00 97.8 86 19 126/57 97 97.8 03/24/18 10:26 98.2 03/24/18 09:27 98.2 03/24/18 09:19 82 120/69 03/24/18 09:18 120/69 03/24/18 08:00 98.2 82 20 120/69 96 98.2 03/24/18 04:00 98.0 81 19 121/59 95 Room Air 98.0 03/24/18 00:00 98.1 84 20 115/56 93 Room Air 98.1 03/23/18 20:47 84 116/59 03/23/18 20:00 97.9 84 20 116/59 94 Room Air 97.9 03/23/18 16:00 98.0 77 20 123/73 97 98.0 Height (Feet): 6 Height (Inches): 1.00 Weight (Pounds): 356 Objective General Appearance: obese, no acute distress HEENT: normocephalic, atraumatic, dry mucus membranes Neck: full range of motion, supple, no meningismus, no bony tend Respiratory: lungs clear, normal breath sounds, no rhonchi, no respiratory distress, no retraction, no accessory muscle use Cardiovascular no gallop, no JVD, no murmur, tachycardia Gastrointestinal: normal bowel sounds, non tender, soft, no mass, no organomegaly, non-distended, no guarding, no rebound Musculoskeletal: B/L leg with chornic venous stasis changes and lymphedema ; now chronic changes; cellulitis resolved On R foot wound is improving- no purulent discharge Microbiology Date/Time Source Procedure Growth Status 03/21/18 16:00 Urine,Clean Catch Urine Culture - Preliminary YEAST Resulted Laboratory Tests Test 03/24/18 12:15 Ferritin Pending Current Medications Medications (Trade) Dose Ordered Sig/Nancy Route PRN Reason Start Time Stop Time Status Last Admin Dose Admin Acetaminophen (Tylenol) 650 mg Q4H PRN ORAL fever (temp>100.5F) 03/15/18 17:00 04/09/18 16:59 Ceftriaxone Sodium 2 gm/ Dextrose 110 ml @ 220 mls/hr Q24H IVPB 03/22/18 12:00 03/29/18 11:59 03/24/18 12:15 Dextrose (Dextrose 50%) 25 ml STAT PRN IV Hypoglycemia 03/15/18 17:00 04/12/18 16:59 Dextrose (Dextrose 50%) 50 ml STAT PRN IV Hypoglycemia 03/15/18 17:30 04/12/18 17:29 Diphenoxylate HCl/ Atropine (Lomotil) 2.5 mg Q4H PRN ORAL Diarrhea 03/18/18 12:53 04/17/18 12:52 03/19/18 03:59 Docusate Sodium (Colace) 100 mg THREE TIMES A DAY ORAL 03/15/18 18:00 04/13/18 12:59 03/21/18 17:30 Heparin Sodium (Porcine) (Heparin 5000 units/ml) 5,000 units EVERY 12 HOURS SUBQ 03/15/18 21:00 04/09/18 08:59 03/24/18 09:24 Hydromorphone HCl (Dilaudid) 4 mg Q3H PRN ORAL severe pain 03/20/18 08:00 03/27/18 07:59 03/24/18 01:20 Insulin Aspart (NovoLOG) BEFORE MEALS AND HS SUBQ 03/15/18 17:30 04/12/18 17:29 03/24/18 12:14 Isosorbide Mononitrate (Imdur) 30 mg DAILY ORAL 03/16/18 09:00 04/14/18 08:59 03/24/18 09:18 Lansoprazole (Prevacid) 30 mg BID ORAL 03/15/18 18:00 04/13/18 17:59 03/24/18 09:19 Lidocaine (Xylocaine 5% cream) 1 applic Q6H TOPIC 03/15/18 20:00 04/11/18 13:59 03/24/18 09:18 Metformin HCl (Glucophage) 500 mg TIAC ORAL 03/23/18 16:30 04/22/18 16:29 03/24/18 12:10 Metoprolol Tartrate (Lopressor) 25 mg Q12HR ORAL 03/15/18 21:00 04/13/18 20:59 03/24/18 09:19 Nateglinide (Starlix) 120 mg TIAC ORAL 03/15/18 16:45 04/13/18 16:44 03/24/18 12:10 Nitroglycerin (Ntg) 0.4 mg Q5M PRN SL Prn Chest Pain 03/15/18 17:00 04/08/18 16:59 Nitroglycerin (Ntg) 1 patch Q24H TDERMAL 03/16/18 12:00 04/13/18 11:59 03/24/18 12:19 Ondansetron HCl (Zofran) 4 mg Q6H PRN IVP Nausea & Vomiting 03/15/18 17:00 04/08/18 16:59 Oxycodone/ Acetaminophen (Percocet 10/325) 1 tab Q4H PRN ORAL moderate break through pain 03/20/18 08:45 03/26/18 08:44 03/24/18 09:27 Pregabalin (Lyrica) 50 mg Q8HR ORAL 03/16/18 18:00 04/15/18 17:59 03/24/18 06:15 Sodium Hypochlorite (Dakin's Quarter Strength) 1 applic DAILY TOPIC 03/16/18 09:00 04/10/18 08:59 03/24/18 09:20 Vancomycin HCl (Vancomycin) 125 mg FOUR TIMES A DAY ORAL 03/21/18 14:00 03/28/18 13:59 03/24/18 09:18 Zolpidem Tartrate (Ambien) 5 mg HSPRN PRN ORAL Insomnia 03/20/18 08:00 03/27/18 07:59 Maranda Wiggins M.D. Mar 24, 2018 12:53
--- NOTE | 2018-03-24 15:00 | Progress Note ---
DATE: 03/24/2018 SUBJECTIVE: This is a 72-year-old male patient with sepsis. He has altered mental status and confusion. That is why, his attending has requested daily psychiatric consultation. His cognition has declined below baseline. MENTAL STATUS EXAMINATION: The patient is a 72-year-old male. Appearance is disheveled. Attitude, irritable and agitated. Affect, guarded and restricted. Intellect poor. Mood is depressed and anxious. Motor activity, psychomotor agitation. Attention span is poor. Orientation x2. Speech is pressured. Thought process, disorganized and illogical. Thought content, paranoid delusions. Insight and judgment is poor. DIAGNOSIS: Major depressive disorder, mild, recurrent with psychotic features. PLAN: Treat him with . An 18 to 20 minutes of supportive psychotherapy. Encouraged to interact appropriately with staff and other patients. behavior. Chart was reviewed and discussed with staff. The patient was seen and assessed at bedside. Ashlyn Baker M.D. DR: CB JOB#: [id number] CC:
--- NOTE | 2018-03-24 15:16 | General Surgery Progress Note ---
General Surgery-Progress Note Subjective Symptoms: improved, pain absent, tolerating diet, passing flatus, BM Additional Comments no acute events. doing well. more ambulatory. does not want to leave yet. Objective Last 24 Hour Vital Signs Date Time Temp Pulse Resp B/P (MAP) Pulse Ox O2 Delivery O2 Flow Rate FiO2 03/24/18 12:19 126/57 03/24/18 12:00 97.8 86 19 126/57 97 97.8 03/24/18 10:26 98.2 03/24/18 09:27 98.2 03/24/18 09:19 82 120/69 03/24/18 09:18 120/69 03/24/18 08:00 98.2 82 20 120/69 96 98.2 03/24/18 04:00 98.0 81 19 121/59 95 Room Air 98.0 03/24/18 00:00 98.1 84 20 115/56 93 Room Air 98.1 03/23/18 20:47 84 116/59 03/23/18 20:00 97.9 84 20 116/59 94 Room Air 97.9 03/23/18 16:00 98.0 77 20 123/73 97 98.0 I&O Intake and Output 03/23/18 03/24/18 19:00 07:00 Intake Total 700 ml 800 ml Output Total 650 ml 1000 ml Balance 50 ml -200 ml Intake Oral 700 ml 800 ml Output Urine Total 650 ml 1000 ml Dressing: dry Wound: clean, dry Drains: none Cardiovascular: RSR Respiratory: clear Abdomen: soft, flat, non-tender, present bowel sounds Extremities: no edema, no tenderness, no cyanosis Laboratory Tests Test 03/24/18 12:15 Ferritin 133 NG/ML ([id number]) Plan Problems: (1) Sepsis Assessment & Plan: 72M sepsis with fevers, leukocytosis, altered mental status. chronic bilateral lower extremity wounds with cellulitis. concerns for possible necrotizing fascitis initially. unlikely nec fasc given exam. wounds chronic and skin changes chronic. LRINEC score on admission 10 but given chronicity of wounds, other etiology of sepsis, and physical exam unlikely nec fasc. edema improving. cellulitis improving. overall much improved. leukocytosis resolved -no acute surgical intervention necessary. -keep legs elevated -cont with dressings for now -will follow with you -d/c planning thank you for this consultation (2) Cellulitis, leg Leandro Scott Mar 24, 2018 15:15
[2018-03-24 16:00] VITALS: BP 122/55
--- NOTE | 2018-03-24 17:02 | Cardiac Electrophysiology PN ---
Assessment/Plan Assessment/Plan 1. Troponin Leak. 0.07,0.09 and 0.1. Levels are flat and due to renal failure . No CP. EKG showed SR/ nonspecific ST-T wave abnormalities. Echocardiogram showed EF 55%. On Lopressor 25 bid. 2. Hypertension, On Imdur 30 and Lopressor 25 bid 3. Sepsis, antibiotics DCed today by ID 4. Elevated brain natriuretic peptide. EF is normal. It could be due to diastolic dysfunction. 5. Urinary tract infection. 6. Cellulitis of the legs. 7. Hyperkalemia. 8. Renal failure. Resolved Cr 1.2 DW RN Subjective Subjective Alert in NAD. Nothing new Objective Last 24 Hour Vital Signs Date Time Temp Pulse Resp B/P (MAP) Pulse Ox O2 Delivery O2 Flow Rate FiO2 03/24/18 12:19 126/57 03/24/18 12:00 97.8 86 19 126/57 97 97.8 03/24/18 10:26 98.2 03/24/18 09:27 98.2 03/24/18 09:19 82 120/69 03/24/18 09:18 120/69 03/24/18 08:00 98.2 82 20 120/69 96 98.2 03/24/18 04:00 98.0 81 19 121/59 95 Room Air 98.0 03/24/18 00:00 98.1 84 20 115/56 93 Room Air 98.1 03/23/18 20:47 84 116/59 03/23/18 20:00 97.9 84 20 116/59 94 Room Air 97.9 Intake and Output 03/23/18 03/24/18 19:00 07:00 Intake Total 700 ml 800 ml Output Total 650 ml 1000 ml Balance 50 ml -200 ml Intake Oral 700 ml 800 ml Output Urine Total 650 ml 1000 ml Laboratory Tests Test 03/24/18 12:15 Ferritin 133 NG/ML (8-388) Objective HEAD AND NECK: No JVD. LUNGS: Coarse rhonchi. CARDIOVASCULAR: Regular S1 and S2 with no gallop or murmur. ABDOMEN: Obese. EXTREMITIES: Bilateral lower extremity edema and cellulitis better Yong Oconnell MD Mar 24, 2018 17:02
[2018-03-24 20:00] VITALS: BP 111/59
[2018-03-25] VITALS: BP 117/59
[2018-03-25 04:00] VITALS: BP 131/59
[2018-03-25] MEDS: Lyrica 50mg cap ORAL SCH ×3 (06:03→22:03)
[2018-03-25] MEDS: metFORMIN 500mg tab ORAL SCH ×3 (06:03→16:36)
[2018-03-25] MEDS: NovoLOG Insulin Flexpen SUBQ SCH ×4 (06:05→20:34)
[2018-03-25 08:00] VITALS: BP 119/66
[2018-03-25] MEDS: Vancomycin oral 125mg/2.5ml ORAL SCH ×4 (08:34→20:31)
[2018-03-25] MEDS: Heparin 5000 units/ml inj SUBQ SCH ×2 (08:35→20:32)
[2018-03-25] MEDS: Imdur 30mg tab ORAL SCH (08:35)
[2018-03-25] MEDS: Metoprolol 25mg tab ORAL SCH ×3 (08:35→20:34)
[2018-03-25] MEDS: Dakin's 0.125% Soln (Quarter Strength) 16oz TOPIC SCH (08:36)
[2018-03-25] MEDS: Docusate 100mg cap ORAL SCH ×3 (08:56→18:00)
--- NOTE | 2018-03-25 10:06 | Nephrology Progress Note ---
Assessment/Plan Problem List: (1) Diabetic nephropathy (2) Cellulitis, leg (3) UTI (urinary tract infection) (4) Sepsis (5) Acute encephalopathy (6) Obesity (7) Elevated troponin I level Assessment WBC lowering Renal failure- likely Diabetic nephropathy Cr lower wnl UTI , Sepsis , Cellulitis DM Obesity Acute Encephalopathy HypoAlbuminemia, Likely NS Plan no labs today stable up dose Starlix sdd glucophage stool softner Nitro PO PT Pulmonary support- 2D Echo 55% EjFx Kidney TIN Negative for hydronephrosis gomez Antibiotics Monitor renal parameters avoid Nephrotoxics Subjective ROS Limited/Unobtainable: No Constitutional: Reports: malaise Objective Objective Last 24 Hour Vital Signs Date Time Temp Pulse Resp B/P (MAP) Pulse Ox O2 Delivery O2 Flow Rate FiO2 03/25/18 08:44 80 119/66 03/25/18 08:35 119/66 03/25/18 08:00 98.5 80 20 119/66 94 Room Air 98.5 03/25/18 04:00 98.6 78 20 131/59 96 Room Air 98.6 03/25/18 00:00 98.3 83 20 117/59 94 Room Air 98.3 03/24/18 20:31 83 111/59 03/24/18 20:00 97.8 83 20 111/59 91 97.8 03/24/18 16:00 98.2 83 18 122/55 98 98.2 03/24/18 12:19 126/57 03/24/18 12:00 97.8 86 19 126/57 97 97.8 03/24/18 10:26 98.2 Intake and Output 03/24/18 03/25/18 19:00 07:00 Intake Total 1010 ml 600 ml Output Total 700 ml Balance 1010 ml -100 ml Intake Oral 900 ml 600 ml IV Total 110 ml Output Urine Total 700 ml Laboratory Tests 03/24/18 12:15: Ferritin 133 Height (Feet): 6 Height (Inches): 1.00 Weight (Pounds): 327 General Appearance: no apparent distress Objective no other change DIA WALSH Mar 25, 2018 10:06
[2018-03-25] MEDS: Nitroglycerin Patch 0.4mg TDERMAL SCH (11:50)
[2018-03-25 12:00] VITALS: BP 101/58
--- NOTE | 2018-03-25 14:38 | Cardiac Electrophysiology PN ---
Assessment/Plan Assessment/Plan 1. Troponin Leak. 0.07,0.09 and 0.1. Levels are flat and due to renal failure . No CP. EKG showed SR/ nonspecific ST-T wave abnormalities. Echocardiogram Nl EF 55%. On Lopressor 25 bid. 2. Hypertension, On Imdur 30 and Lopressor 25 bid 3. Sepsis, antibiotics DCed today by ID 4. Elevated brain natriuretic peptide. EF is normal. It could be due to diastolic dysfunction. 5. Urinary tract infection. 6. Cellulitis of the legs. 7. Hyperkalemia. 8. Renal failure. Resolved Cr 1.2 DW RN Subjective Subjective Feeling better. No CP or SOB. Objective Last 24 Hour Vital Signs Date Time Temp Pulse Resp B/P (MAP) Pulse Ox O2 Delivery O2 Flow Rate FiO2 03/25/18 12:00 98.1 75 20 101/58 94 Room Air 98.1 03/25/18 11:50 124/68 03/25/18 08:44 80 119/66 03/25/18 08:35 119/66 03/25/18 08:00 98.5 80 20 119/66 94 Room Air 98.5 03/25/18 04:00 98.6 78 20 131/59 96 Room Air 98.6 03/25/18 00:00 98.3 83 20 117/59 94 Room Air 98.3 03/24/18 20:31 83 111/59 03/24/18 20:00 97.8 83 20 111/59 91 97.8 03/24/18 16:00 98.2 83 18 122/55 98 98.2 Intake and Output 03/24/18 03/25/18 19:00 07:00 Intake Total 1010 ml 600 ml Output Total 700 ml Balance 1010 ml -100 ml Intake Oral 900 ml 600 ml IV Total 110 ml Output Urine Total 700 ml Objective HEAD AND NECK: No JVD. LUNGS: Coarse rhonchi. CARDIOVASCULAR: Regular S1 and S2 with no gallop or murmur. ABDOMEN: Obese. EXTREMITIES: Bilateral lower extremity edema and cellulitis better Yong Oconnell MD Mar 25, 2018 14:38
--- NOTE | 2018-03-25 15:58 | Infectious Diseases Prog Note ---
Assessment/Plan Assessment/Plan Diarrhea significant and requiring rectal tube, now resolved- Probable Cdiff despite neg screen test given rapid resolution of leukocytosis upon initiation of PO Vancomycin; Cdiff toxin A/B EIA is poor test with only ~70% sensitivity -Cdiff neg -stool cx neg Sepsis;resolved severe b/l Leg soft tissue infection, resolved GBS bacteremia- 2ry to above -03/09 Bcx 4/4+; 03/13 1/2 CoNS (contaminant); 03/14 BCx neg -v. duplex: no DVT R Foot necrotic ulcerl much improved- no evidence of Osteo on bone scan -bone scan Increased blood pool activity in the plantar surface of the right heel, likely related to stated clinical history of right heel ulcer. No abnormal osseous activity to suggest acute osteomyelitis. Foci of abnormal static activity without corresponding focal hyperemia on flow and blood pool images in the bilateral mid feet, and right toes, most likely representing degenerative changes. Plain film correlation would be useful, however. -u/a neg -CXR :NAPD Fever, SP Leukocytosis, recurrent; resolved after initiating PO Vancomycin -u/a 03/21 wbc 5-10, nit neg , leuk +1; ucx NTD -CXR 03/21: No acute process. Previously demonstrated interstitial congestive changes have improved Lactic acidosis, resolved elev lipase Influenza sc : neg JOSE; resolved HTN HLD GERD Dm2 Plan: -Continue PO Vancomycin 125mg qid # / for presumed Cdiff given diarrhea and leukocytosis -Ok to discharge from ID perspective - 03/24 SP -IV Ceftriaxone 2g qd abx d#15 -03/18 SP Unasyn #7 -03/16 SP IV Vancomycin #3 -03/13 SP IV Vanco and Clinda #4 -03/12 SP Zosyn #3 -/ SP Cefepime d# 1 -f/u repeat Cdiff, Bcx x2, ucx -Monitor CBC/BMP, temperatures -Sx, Podiatry f/u -wound care per hospital protocol -Cdiff contact precautions Subjective Constitutional: Denies: no symptoms, fever, chills, fatigue, anorexia, drenching sweats, other Allergies: Coded Allergies: No Known Allergies (Unverified , 03/09/18) Subjective Afebrile Objective Vital Signs Last 24 Hour Vital Signs Date Time Temp Pulse Resp B/P (MAP) Pulse Ox O2 Delivery O2 Flow Rate FiO2 03/25/18 12:00 98.1 75 20 101/58 94 Room Air 98.1 03/25/18 11:50 124/68 03/25/18 08:44 80 119/66 03/25/18 08:35 119/66 03/25/18 08:00 98.5 80 20 119/66 94 Room Air 98.5 03/25/18 04:00 98.6 78 20 131/59 96 Room Air 98.6 03/25/18 00:00 98.3 83 20 117/59 94 Room Air 98.3 03/24/18 20:31 83 111/59 03/24/18 20:00 97.8 83 20 111/59 91 97.8 03/24/18 16:00 98.2 83 18 122/55 98 98.2 Height (Feet): 6 Height (Inches): 1.00 Weight (Pounds): 327 HEENT: anicteric Respiratory/Chest: no respiratory distress Cardiovascular: regularly irregular Abdomen: no organomegaly Current Medications Medications (Trade) Dose Ordered Sig/Nancy Route PRN Reason Start Time Stop Time Status Last Admin Dose Admin Acetaminophen (Tylenol) 650 mg Q4H PRN ORAL fever (temp>100.5F) 03/15/18 17:00 04/09/18 16:59 Dextrose (Dextrose 50%) 25 ml STAT PRN IV Hypoglycemia 03/15/18 17:00 04/12/18 16:59 Dextrose (Dextrose 50%) 50 ml STAT PRN IV Hypoglycemia 03/15/18 17:30 04/12/18 17:29 Diphenoxylate HCl/ Atropine (Lomotil) 2.5 mg Q4H PRN ORAL Diarrhea 03/18/18 12:53 04/17/18 12:52 03/19/18 03:59 Docusate Sodium (Colace) 100 mg THREE TIMES A DAY ORAL 03/15/18 18:00 04/13/18 12:59 03/21/18 17:30 Heparin Sodium (Porcine) (Heparin 5000 units/ml) 5,000 units EVERY 12 HOURS SUBQ 03/15/18 21:00 04/09/18 08:59 03/25/18 08:35 Hydromorphone HCl (Dilaudid) 4 mg Q3H PRN ORAL severe pain 03/20/18 08:00 03/27/18 07:59 03/24/18 01:20 Insulin Aspart (NovoLOG) BEFORE MEALS AND HS SUBQ 03/15/18 17:30 04/12/18 17:29 03/25/18 11:49 Isosorbide Mononitrate (Imdur) 30 mg DAILY ORAL 03/16/18 09:00 04/14/18 08:59 03/25/18 08:35 Lansoprazole (Prevacid) 30 mg BID ORAL 03/15/18 18:00 04/13/18 17:59 03/25/18 08:35 Lidocaine (Xylocaine 5% cream) 1 applic Q6H TOPIC 03/15/18 20:00 04/11/18 13:59 03/25/18 13:20 Metformin HCl (Glucophage) 500 mg TIAC ORAL 03/23/18 16:30 04/22/18 16:29 03/25/18 11:49 Metoprolol Tartrate (Lopressor) 25 mg Q12HR ORAL 03/15/18 21:00 04/13/18 20:59 03/24/18 20:31 Nateglinide (Starlix) 120 mg TIAC ORAL 03/15/18 16:45 04/13/18 16:44 03/25/18 11:49 Nitroglycerin (Ntg) 0.4 mg Q5M PRN SL Prn Chest Pain 03/15/18 17:00 04/08/18 16:59 Nitroglycerin (Ntg) 1 patch Q24H TDERMAL 03/16/18 12:00 04/13/18 11:59 03/25/18 11:50 Ondansetron HCl (Zofran) 4 mg Q6H PRN IVP Nausea & Vomiting 03/15/18 17:00 04/08/18 16:59 Oxycodone/ Acetaminophen (Percocet 10/325) 1 tab Q4H PRN ORAL moderate break through pain 03/24/18 18:00 03/30/18 17:59 03/25/18 08:36 Pregabalin (Lyrica) 50 mg Q8HR ORAL 03/16/18 18:00 04/15/18 17:59 03/25/18 13:21 Sodium Hypochlorite (Dakin's Quarter Strength) 1 applic DAILY TOPIC 03/16/18 09:00 04/10/18 08:59 03/25/18 08:36 Vancomycin HCl (Vancomycin) 125 mg FOUR TIMES A DAY ORAL 03/21/18 14:00 03/28/18 13:59 03/25/18 13:20 Zolpidem Tartrate (Ambien) 5 mg HSPRN PRN ORAL Insomnia 03/20/18 08:00 03/27/18 07:59 Bernardo Hammonds MD Mar 25, 2018 15:58
[2018-03-25 16:00] VITALS: BP 102/51
[2018-03-25] MEDS: HYDROmorphone 4mg tab ORAL PRN (16:39)
--- NOTE | 2018-03-25 16:45 | Progress Note ---
DATE: 03/25/2018 SUBJECTIVE: The patient is a 72-year-old male patient with sepsis. This patient has altered mental status and confusion, worsened by the stress of his medical illness. That is why, his attending has requested daily psychiatric consultation. MENTAL STATUS EXAMINATION: This is a 72-year-old male. Appearance is disheveled, irritable, and agitated. Affect guarded and restricted. Intellect poor. Mood depressed and anxious. Motor activity, psychomotor agitation. Attention span is poor. Orientation x2. Speech is low volume and slurred. Thought process is disorganized and logical. Insight and judgement is poor. DIAGNOSIS: Major depression with psychotic features. PLAN: Continue treatment medications to prevent any further decline in his cognition. Provided 18 to 20 minutes of cognitive behavioral therapy and insight oriented therapy to improve his . Chart reviewed and discussed with staff. An 18 to 20 minutes of insight oriented psychotherapy . Chart reviewed and discussed with staff, seen and assessed in his room. Ashlyn Baker M.D. DR: Tavo JOB#: [id number] CC:
--- NOTE | 2018-03-25 19:14 | Pulmonology Progress Note ---
Assessment/Plan Problems: (1) Acute encephalopathy (2) Bacteremia (3) ATN (acute tubular necrosis) (4) Sepsis (5) Cellulitis, leg (6) UTI (urinary tract infection) (7) Diabetic nephropathy (8) Obesity (9) Diabetes mellitus Assessment/Plan med/surg bun/creatine decreasing wound care pt/ot sliding scale diabetic diet. walking with PT d/w getting twice a day pt now, refusing to go home Subjective ROS Limited/Unobtainable: No Constitutional: Reports: no symptoms HEENT: Repors: no symptoms Respiratory: Reports: no symptoms Allergies: Coded Allergies: No Known Allergies (Unverified , 03/09/18) Objective Last 24 Hour Vital Signs Date Time Temp Pulse Resp B/P (MAP) Pulse Ox O2 Delivery O2 Flow Rate FiO2 03/25/18 16:00 97.7 80 20 102/51 94 Room Air 97.7 03/25/18 12:00 98.1 75 20 101/58 94 Room Air 98.1 03/25/18 11:50 124/68 03/25/18 08:44 80 119/66 03/25/18 08:35 119/66 03/25/18 08:00 98.5 80 20 119/66 94 Room Air 98.5 03/25/18 04:00 98.6 78 20 131/59 96 Room Air 98.6 03/25/18 00:00 98.3 83 20 117/59 94 Room Air 98.3 03/24/18 20:31 83 111/59 03/24/18 20:00 97.8 83 20 111/59 91 97.8 Intake and Output 03/24/18 03/25/18 19:00 07:00 Intake Total 1010 ml 600 ml Output Total 700 ml Balance 1010 ml -100 ml Intake Oral 900 ml 600 ml IV Total 110 ml Output Urine Total 700 ml General Appearance: WD/WN HEENT: normocephalic, atraumatic Respiratory/Chest: chest wall non-tender, lungs clear Cardiovascular: normal peripheral pulses, normal rate Abdomen: normal bowel sounds, soft, non tender Neurologic/Psychiatric: home care physical therapist II-XII grossly normal Current Medications Medications (Trade) Dose Ordered Sig/Nancy Route PRN Reason Start Time Stop Time Status Last Admin Dose Admin Acetaminophen (Tylenol) 650 mg Q4H PRN ORAL fever (temp>100.5F) 03/15/18 17:00 04/09/18 16:59 Dextrose (Dextrose 50%) 25 ml STAT PRN IV Hypoglycemia 03/15/18 17:00 04/12/18 16:59 Dextrose (Dextrose 50%) 50 ml STAT PRN IV Hypoglycemia 03/15/18 17:30 04/12/18 17:29 Diphenoxylate HCl/ Atropine (Lomotil) 2.5 mg Q4H PRN ORAL Diarrhea 03/18/18 12:53 04/17/18 12:52 03/19/18 03:59 Docusate Sodium (Colace) 100 mg THREE TIMES A DAY ORAL 03/15/18 18:00 04/13/18 12:59 03/21/18 17:30 Heparin Sodium (Porcine) (Heparin 5000 units/ml) 5,000 units EVERY 12 HOURS SUBQ 03/15/18 21:00 04/09/18 08:59 03/25/18 08:35 Hydromorphone HCl (Dilaudid) 4 mg Q3H PRN ORAL severe pain 03/20/18 08:00 03/27/18 07:59 03/25/18 16:39 Insulin Aspart (NovoLOG) BEFORE MEALS AND HS SUBQ 03/15/18 17:30 04/12/18 17:29 03/25/18 16:37 Isosorbide Mononitrate (Imdur) 30 mg DAILY ORAL 03/16/18 09:00 04/14/18 08:59 03/25/18 08:35 Lansoprazole (Prevacid) 30 mg BID ORAL 03/15/18 18:00 04/13/18 17:59 03/25/18 18:13 Lidocaine (Xylocaine 5% cream) 1 applic Q6H TOPIC 03/15/18 20:00 04/11/18 13:59 03/25/18 13:20 Metformin HCl (Glucophage) 500 mg TIAC ORAL 03/23/18 16:30 04/22/18 16:29 03/25/18 16:36 Metoprolol Tartrate (Lopressor) 25 mg Q12HR ORAL 03/15/18 21:00 04/13/18 20:59 03/24/18 20:31 Nateglinide (Starlix) 120 mg TIAC ORAL 03/15/18 16:45 04/13/18 16:44 03/25/18 16:36 Nitroglycerin (Ntg) 0.4 mg Q5M PRN SL Prn Chest Pain 03/15/18 17:00 04/08/18 16:59 Nitroglycerin (Ntg) 1 patch Q24H TDERMAL 03/16/18 12:00 04/13/18 11:59 03/25/18 11:50 Ondansetron HCl (Zofran) 4 mg Q6H PRN IVP Nausea & Vomiting 03/15/18 17:00 04/08/18 16:59 Oxycodone/ Acetaminophen (Percocet 10/325) 1 tab Q4H PRN ORAL moderate break through pain 03/24/18 18:00 03/30/18 17:59 03/25/18 08:36 Pregabalin (Lyrica) 50 mg Q8HR ORAL 03/16/18 18:00 04/15/18 17:59 03/25/18 13:21 Sodium Hypochlorite (Dakin's Quarter Strength) 1 applic DAILY TOPIC 03/16/18 09:00 04/10/18 08:59 03/25/18 08:36 Vancomycin HCl (Vancomycin) 125 mg FOUR TIMES A DAY ORAL 03/21/18 14:00 03/28/18 13:59 03/25/18 18:13 Zolpidem Tartrate (Ambien) 5 mg HSPRN PRN ORAL Insomnia 03/20/18 08:00 03/27/18 07:59 Zia Li MD Mar 25, 2018 19:14
[2018-03-25 20:00] VITALS: BP 101/55
--- NOTE | 2018-03-25 21:23 | General Progress Note ---
Assessment/Plan Status: unchanged Assessment/Plan # Anemia of chronic disease --> prior workup reviewed and will order ferritin #Leukcytosis is likely related to leg cellulitis --> on abx, continue at this time, hh being arranged #HTN -- > at goal as per cardiology, Dr. Oconnell #JOSE --> improving, Recs per nephrology #Cellulitis of the lower extremity --> on abx as noted above Appreciate bank consultant care Subjective Date patient seen: Mar 25, 2018 ROS Limited/Unobtainable: Yes Allergies: Coded Allergies: No Known Allergies (Unverified , 03/09/18) All Systems: reviewed and negative except above Subjective No overnight events. NAD. Objective Last 24 Hour Vital Signs Date Time Temp Pulse Resp B/P (MAP) Pulse Ox O2 Delivery O2 Flow Rate FiO2 03/25/18 20:34 77 101/55 03/25/18 20:00 98.2 77 18 101/55 93 Room Air 98.2 03/25/18 16:00 97.7 80 20 102/51 94 Room Air 97.7 03/25/18 12:00 98.1 75 20 101/58 94 Room Air 98.1 03/25/18 11:50 124/68 03/25/18 08:44 80 119/66 03/25/18 08:35 119/66 03/25/18 08:00 98.5 80 20 119/66 94 Room Air 98.5 03/25/18 04:00 98.6 78 20 131/59 96 Room Air 98.6 03/25/18 00:00 98.3 83 20 117/59 94 Room Air 98.3 Intake and Output 03/24/18 03/25/18 19:00 07:00 Intake Total 1010 ml 600 ml Output Total 700 ml Balance 1010 ml -100 ml Intake Oral 900 ml 600 ml IV Total 110 ml Output Urine Total 700 ml Height (Feet): 6 Height (Inches): 1.00 Weight (Pounds): 327 General Appearance: WD/WN, no apparent distress EENT: PERRL/EOMI Neck: normal alignment, supple Cardiovascular: normal peripheral pulses Respiratory/Chest: normal breath sounds, no respiratory distress Abdomen: soft Adam Snowden MD Mar 25, 2018 21:23
[2018-03-26] VITALS: BP 122/68
[2018-03-26 04:00] VITALS: BP 120/59
[2018-03-26] MEDS: Lyrica 50mg cap ORAL SCH ×3 (05:57→21:05)
[2018-03-26] MEDS: metFORMIN 500mg tab ORAL SCH ×3 (05:58→16:46)
[2018-03-26] MEDS: NovoLOG Insulin Flexpen SUBQ SCH ×4 (05:58→21:00)
[2018-03-26 07:14] LABS: BASOPHILS % (AUTO) 1.9 % (0.0-2.0); EOSINOPHILS % (AUTO) 3.1 % (0.0-3.0); HEMATOCRIT 30.1 % (42.0-52.0); HEMOGLOBIN 9.4 G/DL (14.2-18.0); LYMPHOCYTES % (AUTO) 21.1 % (20.0-45.0); MEAN CORPUSCULAR VOLUME 86 FL (80-99); MONOCYTES % (AUTO) 11.3 % (1.0-10.0); NEUTROPHILS % (AUTO) 62.7 % (45.0-75.0); PLATELET COUNT 249 K/UL (150-450); RED BLOOD COUNT 3.48 M/UL (4.70-6.10); RED CELL DISTRIBUTION WIDTH 17.1 % (11.6-14.8); WHITE BLOOD COUNT 7.1 K/UL (4.8-10.8)
[2018-03-26 07:25] LABS: ALANINE AMINOTRANSFERASE 17 U/L (12-78); ALBUMIN 2.3 G/DL (3.4-5.0); ALBUMIN/GLOBULIN RATIO 0.5 (1.0-2.7); ALKALINE PHOSPHATASE 60 U/L (46-116); ANION GAP 6 mmol/L (5-15); ASPARTATE AMINO TRANSFERASE 15 U/L (15-37); BILIRUBIN,TOTAL 0.5 MG/DL (0.2-1.0); BLOOD UREA NITROGEN 18 mg/dL (7-18); CALCIUM 9.3 MG/DL (8.5-10.1); CARBON DIOXIDE 29 MMOL/L (21-32); CHLORIDE 100 MMOL/L (98-107); CREATININE 1.5 MG/DL (0.55-1.30); PHOSPHORUS 4.2 MG/DL (2.5-4.9); POTASSIUM 4.1 MMOL/L (3.5-5.1); SODIUM 135 MMOL/L (136-145)
[2018-03-26 08:00] VITALS: BP 129/60
[2018-03-26] MEDS: Docusate 100mg cap ORAL SCH ×3 (09:00→18:00)
[2018-03-26] MEDS: Metoprolol 25mg tab ORAL SCH ×2 (09:00→20:54)
[2018-03-26] MEDS: HYDROmorphone 4mg tab ORAL PRN (09:18)
[2018-03-26] MEDS: Vancomycin oral 125mg/2.5ml ORAL SCH ×4 (09:18→20:55)
[2018-03-26] MEDS: Imdur 30mg tab ORAL SCH (09:18)
[2018-03-26] MEDS: Dakin's 0.125% Soln (Quarter Strength) 16oz TOPIC SCH (09:18)
[2018-03-26] MEDS: Heparin 5000 units/ml inj SUBQ SCH ×2 (09:19→21:01)
[2018-03-26] MEDS: Nitroglycerin Patch 0.4mg TDERMAL SCH (11:43)
--- NOTE | 2018-03-26 11:56 | General Progress Note ---
Assessment/Plan Status: stable Assessment/Plan # Anemia of chronic disease --> prior workup reviewed. will trend daily --> continue ferritin --> hgb goal >7 # Leukcytosis is likely related to leg cellulitis --> on abx, continue at this time, hh being arranged --> legs are bieng elevated #HTN -- > at goal as per cardiology, Dr. Oconnell #JOSE --> improving, Recs per nephrology # Cellulitis of the lower extremity --> on abx as noted above Subjective Date patient seen: Mar 26, 2018 ROS Limited/Unobtainable: Yes Allergies: Coded Allergies: No Known Allergies (Unverified , 03/09/18) All Systems: reviewed and negative except above Subjective Pt on abx. No overnight events. No fever, chills, sob. Objective Last 24 Hour Vital Signs Date Time Temp Pulse Resp B/P (MAP) Pulse Ox O2 Delivery O2 Flow Rate FiO2 03/26/18 11:43 129/60 03/26/18 09:18 129/60 03/26/18 09:00 83 129/60 03/26/18 08:00 98.4 83 22 129/60 95 Room Air 98.4 03/26/18 04:00 98.4 82 20 120/59 93 Room Air 98.4 03/26/18 00:00 98.5 87 20 122/68 94 Room Air 98.5 03/25/18 20:34 77 101/55 03/25/18 20:00 98.2 77 18 101/55 93 Room Air 98.2 03/25/18 16:00 97.7 80 20 102/51 94 Room Air 97.7 03/25/18 12:00 98.1 75 20 101/58 94 Room Air 98.1 Intake and Output 03/25/18 03/26/18 19:00 07:00 Intake Total 960 ml 300 ml Output Total 700 ml 1250 ml Balance 260 ml -950 ml Intake Oral 960 ml 300 ml Output Urine Total 700 ml 1250 ml # Bowel Movements 1 Laboratory Tests 03/26/18 05:45: White Blood Count 7.1, Red Blood Count 3.48L, Hemoglobin 9.4L, Hematocrit 30.1L , Mean Corpuscular Volume 86, Mean Corpuscular Hemoglobin 26.9L, Mean Corpuscular Hemoglobin Concent 31.1L, Red Cell Distribution Width 17.1H, Platelet Count 249, Mean Platelet Volume 10.4H, Neutrophils (%) (Auto) 62.7, Lymphocytes (%) (Auto) 21.1, Monocytes (%) (Auto) 11.3H, Eosinophils (%) (Auto) 3.1H, Basophils (%) (Auto) 1.9, Sodium Level 135L, Potassium Level 4.1, Chloride Level 100, Carbon Dioxide Level 29, Anion Gap 6, Blood Urea Nitrogen 18 , Creatinine 1.5H, Estimat Glomerular Filtration Rate , Glucose Level 202H, Calcium Level 9.3, Phosphorus Level 4.2, Magnesium Level 1.7L, Total Bilirubin 0.5, Aspartate Amino Transf (AST/SGOT) 15, Alanine Aminotransferase (ALT/SGPT) 17, Alkaline Phosphatase 60, C-Reactive Protein, Quantitative 12.6H, Pro-B-Type Natriuretic Peptide 384H, Total Protein 7.0, Albumin 2.3L, Globulin 4.7, Albumin /Globulin Ratio 0.5L Height (Feet): 6 Height (Inches): 1.00 Weight (Pounds): 338 General Appearance: WD/WN, no apparent distress EENT: PERRL/EOMI Neck: normal alignment Cardiovascular: normal peripheral pulses Respiratory/Chest: normal breath sounds, no respiratory distress Abdomen: soft Adam Snowden MD Mar 26, 2018 11:56
[2018-03-26 12:00] VITALS: BP 120/59
--- NOTE | 2018-03-26 12:34 | General Progress Note ---
Assessment/Plan Assessment/Plan (1) Altered level of consciousness (2) Acute encephalopathy (3) B/L LE cellulitis (4) Right heel ulcer (5) Peripheral neuropathy (6) Chronic pain syndrome (7) Narcotic tolerance Patient will be continued on Ambien, Dilaudid, Lyrica and Percocet. D/w Dr. Liz and he concurred. Subjective Date patient seen: Mar 26, 2018 Time patient seen: 12:00 - pm Allergies: Coded Allergies: No Known Allergies (Unverified , 03/09/18) Subjective Constitutional: Reports: weakness HEENT: Reports: no symptoms Cardiovascular: Reports: no symptoms Respiratory: Reports: no symptoms Gastrointestinal/Abdominal: Reports: no symptoms Genitourinary: Reports: no symptoms Neurologic/Psychiatric: Reports: numbness, tingling, weakness Endocrine: Reports: no symptoms Hematologic/Lymphatic: Reports: no symptoms Subjective Patient has been in bed comfortable with no new complaints. The pain has been tolerated on the Percocet. Objective Last 24 Hour Vital Signs Date Time Temp Pulse Resp B/P (MAP) Pulse Ox O2 Delivery O2 Flow Rate FiO2 03/26/18 12:00 97.1 87 20 120/59 99 Room Air 97.1 03/26/18 11:43 129/60 03/26/18 09:18 129/60 03/26/18 09:00 83 129/60 03/26/18 08:00 98.4 83 22 129/60 95 Room Air 98.4 03/26/18 04:00 98.4 82 20 120/59 93 Room Air 98.4 03/26/18 00:00 98.5 87 20 122/68 94 Room Air 98.5 03/25/18 20:34 77 101/55 03/25/18 20:00 98.2 77 18 101/55 93 Room Air 98.2 03/25/18 16:00 97.7 80 20 102/51 94 Room Air 97.7 Intake and Output 03/25/18 03/26/18 19:00 07:00 Intake Total 960 ml 300 ml Output Total 700 ml 1250 ml Balance 260 ml -950 ml Intake Oral 960 ml 300 ml Output Urine Total 700 ml 1250 ml # Bowel Movements 1 Laboratory Tests 03/26/18 05:45: White Blood Count 7.1, Red Blood Count 3.48L, Hemoglobin 9.4L, Hematocrit 30.1L , Mean Corpuscular Volume 86, Mean Corpuscular Hemoglobin 26.9L, Mean Corpuscular Hemoglobin Concent 31.1L, Red Cell Distribution Width 17.1H, Platelet Count 249, Mean Platelet Volume 10.4H, Neutrophils (%) (Auto) 62.7, Lymphocytes (%) (Auto) 21.1, Monocytes (%) (Auto) 11.3H, Eosinophils (%) (Auto) 3.1H, Basophils (%) (Auto) 1.9, Sodium Level 135L, Potassium Level 4.1, Chloride Level 100, Carbon Dioxide Level 29, Anion Gap 6, Blood Urea Nitrogen 18 , Creatinine 1.5H, Estimat Glomerular Filtration Rate , Glucose Level 202H, Calcium Level 9.3, Phosphorus Level 4.2, Magnesium Level 1.7L, Total Bilirubin 0.5, Aspartate Amino Transf (AST/SGOT) 15, Alanine Aminotransferase (ALT/SGPT) 17, Alkaline Phosphatase 60, C-Reactive Protein, Quantitative 12.6H, Pro-B-Type Natriuretic Peptide 384H, Total Protein 7.0, Albumin 2.3L, Globulin 4.7, Albumin /Globulin Ratio 0.5L Height (Feet): 6 Height (Inches): 1.00 Weight (Pounds): 338 Objective GENERAL: Alert. Awake. Oriented. HEENT: PERRLA. LUNGS: Decreased breath sounds bilaterally. HEART: S1 and S2 regular. ABDOMEN: Obese. BACK: Range of motion is decreased in flexion and extension with surgical scar noted in midline of lumbar spine. EXTREMITIES: No cyanosis, no clubbing with wounds noted on the lower extremities. Bandages applied. Antonio Whitten Mar 26, 2018 12:34
--- NOTE | 2018-03-26 13:03 | Nephrology Progress Note ---
Assessment/Plan Problem List: (1) Diabetic nephropathy (2) Cellulitis, leg (3) UTI (urinary tract infection) (4) Sepsis (5) Acute encephalopathy (6) Obesity (7) Elevated troponin I level Assessment WBC lowering Renal failure- likely Diabetic nephropathy Cr lower UTI , Sepsis , Cellulitis DM Obesity Acute Encephalopathy HypoAlbuminemia, Likely NS Plan stable up dose Starlix sdd glucophage stool softner Nitro PO PT Pulmonary support- 2D Echo 55% EjFx Kidney TIN Negative for hydronephrosis gomez Antibiotics Monitor renal parameters avoid Nephrotoxics Subjective ROS Limited/Unobtainable: No Objective Objective Last 24 Hour Vital Signs Date Time Temp Pulse Resp B/P (MAP) Pulse Ox O2 Delivery O2 Flow Rate FiO2 03/26/18 12:00 97.1 87 20 120/59 99 Room Air 97.1 03/26/18 11:43 129/60 03/26/18 09:18 129/60 03/26/18 09:00 83 129/60 03/26/18 08:00 98.4 83 22 129/60 95 Room Air 98.4 03/26/18 04:00 98.4 82 20 120/59 93 Room Air 98.4 03/26/18 00:00 98.5 87 20 122/68 94 Room Air 98.5 03/25/18 20:34 77 101/55 03/25/18 20:00 98.2 77 18 101/55 93 Room Air 98.2 03/25/18 16:00 97.7 80 20 102/51 94 Room Air 97.7 Intake and Output 03/25/18 03/26/18 19:00 07:00 Intake Total 960 ml 300 ml Output Total 700 ml 1250 ml Balance 260 ml -950 ml Intake Oral 960 ml 300 ml Output Urine Total 700 ml 1250 ml # Bowel Movements 1 Laboratory Tests 03/26/18 05:45: White Blood Count 7.1, Red Blood Count 3.48L, Hemoglobin 9.4L, Hematocrit 30.1L , Mean Corpuscular Volume 86, Mean Corpuscular Hemoglobin 26.9L, Mean Corpuscular Hemoglobin Concent 31.1L, Red Cell Distribution Width 17.1H, Platelet Count 249, Mean Platelet Volume 10.4H, Neutrophils (%) (Auto) 62.7, Lymphocytes (%) (Auto) 21.1, Monocytes (%) (Auto) 11.3H, Eosinophils (%) (Auto) 3.1H, Basophils (%) (Auto) 1.9, Sodium Level 135L, Potassium Level 4.1, Chloride Level 100, Carbon Dioxide Level 29, Anion Gap 6, Blood Urea Nitrogen 18 , Creatinine 1.5H, Estimat Glomerular Filtration Rate , Glucose Level 202H, Calcium Level 9.3, Phosphorus Level 4.2, Magnesium Level 1.7L, Total Bilirubin 0.5, Aspartate Amino Transf (AST/SGOT) 15, Alanine Aminotransferase (ALT/SGPT) 17, Alkaline Phosphatase 60, C-Reactive Protein, Quantitative 12.6H, Pro-B-Type Natriuretic Peptide 384H, Total Protein 7.0, Albumin 2.3L, Globulin 4.7, Albumin /Globulin Ratio 0.5L Height (Feet): 6 Height (Inches): 1.00 Weight (Pounds): 338 General Appearance: no apparent distress Cardiovascular: normal rate Respiratory/Chest: decreased breath sounds Abdomen: other - obese Objective no other change DIA WALSH Mar 26, 2018 13:03
--- NOTE | 2018-03-26 14:22 | General Surgery Progress Note ---
General Surgery-Progress Note Subjective Additional Comments still unable to ambulate much and gets tired. Cr elevated today to 1.5 Objective Last 24 Hour Vital Signs Date Time Temp Pulse Resp B/P (MAP) Pulse Ox O2 Delivery O2 Flow Rate FiO2 03/26/18 12:00 97.1 87 20 120/59 99 Room Air 97.1 03/26/18 11:43 129/60 03/26/18 09:18 129/60 03/26/18 09:00 83 129/60 03/26/18 08:00 98.4 83 22 129/60 95 Room Air 98.4 03/26/18 04:00 98.4 82 20 120/59 93 Room Air 98.4 03/26/18 00:00 98.5 87 20 122/68 94 Room Air 98.5 03/25/18 20:34 77 101/55 03/25/18 20:00 98.2 77 18 101/55 93 Room Air 98.2 03/25/18 16:00 97.7 80 20 102/51 94 Room Air 97.7 I&O Intake and Output 03/25/18 03/26/18 19:00 07:00 Intake Total 960 ml 300 ml Output Total 700 ml 1250 ml Balance 260 ml -950 ml Intake Oral 960 ml 300 ml Output Urine Total 700 ml 1250 ml # Bowel Movements 1 Wound: clean, dry Drains: none Cardiovascular: RSR Respiratory: clear Abdomen: soft, flat, non-tender, present bowel sounds Extremities: edema - improved, no tenderness, no cyanosis Laboratory Tests Test 03/26/18 05:45 White Blood Count 7.1 K/UL (4.8-10.8) Red Blood Count 3.48 M/UL (4.70-6.10) L Hemoglobin 9.4 G/DL (14.2-18.0) L Hematocrit 30.1 % (42.0-52.0) L Mean Corpuscular Volume 86 FL (80-99) Mean Corpuscular Hemoglobin 26.9 PG (27.0-31.0) L Mean Corpuscular Hemoglobin Concent 31.1 G/DL (32.0-36.0) L Red Cell Distribution Width 17.1 % (11.6-14.8) H Platelet Count 249 K/UL (150-450) Mean Platelet Volume 10.4 FL (6.5-10.1) H Neutrophils (%) (Auto) 62.7 % (45.0-75.0) Lymphocytes (%) (Auto) 21.1 % (20.0-45.0) Monocytes (%) (Auto) 11.3 % (1.0-10.0) H Eosinophils (%) (Auto) 3.1 % (0.0-3.0) H Basophils (%) (Auto) 1.9 % (0.0-2.0) Sodium Level 135 MMOL/L (136-145) L Potassium Level 4.1 MMOL/L (3.5-5.1) Chloride Level 100 MMOL/L (98-107) Carbon Dioxide Level 29 MMOL/L (21-32) Anion Gap 6 mmol/L (5-15) Blood Urea Nitrogen 18 mg/dL (7-18) Creatinine 1.5 MG/DL (0.55-1.30) H Estimat Glomerular Filtration Rate mL/min (>60) Glucose Level 202 MG/DL (74-106) H Calcium Level 9.3 MG/DL (8.5-10.1) Phosphorus Level 4.2 MG/DL (2.5-4.9) Magnesium Level 1.7 MG/DL (1.8-2.4) L Total Bilirubin 0.5 MG/DL (0.2-1.0) Aspartate Amino Transf (AST/SGOT) 15 U/L (15-37) Alanine Aminotransferase (ALT/SGPT) 17 U/L (12-78) Alkaline Phosphatase 60 U/L (46-116) C-Reactive Protein, Quantitative 12.6 mg/dL (0.00-0.90) H Pro-B-Type Natriuretic Peptide 384 pg/mL (0-125) H Total Protein 7.0 G/DL (6.4-8.2) Albumin 2.3 G/DL (3.4-5.0) L Globulin 4.7 g/dL Albumin/Globulin Ratio 0.5 (1.0-2.7) L Plan Problems: (1) Sepsis Assessment & Plan: 72M sepsis with fevers, leukocytosis, altered mental status. chronic bilateral lower extremity wounds with cellulitis. concerns for possible necrotizing fascitis initially. unlikely nec fasc given exam. wounds chronic and skin changes chronic. LRINEC score on admission 10 but given chronicity of wounds, other etiology of sepsis, and physical exam unlikely nec fasc. edema improving. cellulitis improving. overall much improved. leukocytosis resolved. Cr elevated today -no acute surgical intervention necessary. -keep legs elevated -cont with dressings for now -will follow with you -d/c planning thank you for this consultation (2) Cellulitis, leg Leandro Scott Mar 26, 2018 14:22
[2018-03-26 16:00] VITALS: BP 101/66
[2018-03-26 20:00] VITALS: BP 116/57
--- NOTE | 2018-03-26 22:00 | Progress Note ---
DATE: 03/26/2018 SUBJECTIVE: The patient is a 72-year-old male patient with sepsis, is confused, disorganized and altered mental status. Cognition has declined below baseline. That is why daily psychiatric consultation is requested by attending physician. MENTAL STATUS EXAMINATION: This is a 72-year-old male. Appearance is disheveled. Attitude, irritable and agitated. Affect, guarded and restricted. Intellect poor. Mood is depressed and anxious. Motor activity, psychomotor agitation. Attention span is poor. Orientation x2. Speech is low volume and slurred. Thought process, disorganized and illogical. Insight and judgment is poor. DIAGNOSIS: Major depressive disorder, mild, recurrent with psychotic features. PLAN: Continue treatment with his current psychotropic medications. Provided 18 to 20 minutes of cognitive behavioral therapy to reduce his mood and behavior. Chart reviewed and discussed with staff, seen and assessed in his room. Ashlyn Baker M.D. DR: Cayla JOB#: [id number] CC:
--- NOTE | 2018-03-26 22:27 | Diagnostic Imaging Report ---
APPROVED REPORT CPT Code: 70108 Symptoms Comments: Pain R/O PAD Comments Technically difficult and limited visualization due to obesity and edema. BILATERAL: Common femoral artery waveform analysis is within normal limits at rest. Color flow duplex sonography reveals minimal calcification throughout the superficial femoral, and popliteal arteries. There is no evidence of significant stenosis or occlusion within these segments. The tibioperoneal trunks were not well visualized. The posterior tibial, and dorsalis pedis arteries are also minimally calcified. Doppler tibial artery waveforms are analysis is within normal limits, bilaterally.
[2018-03-27] VITALS (7 sets, daily range): BP systolic 115–142; BP diastolic 63–78
[2018-03-27] MEDS: metFORMIN 500mg tab ORAL SCH ×3 (05:41→16:36)
[2018-03-27] MEDS: Lyrica 50mg cap ORAL SCH ×3 (05:41→21:00)
[2018-03-27] MEDS: NovoLOG Insulin Flexpen SUBQ SCH ×4 (05:46→21:00)
--- NOTE | 2018-03-27 07:56 | General Progress Note ---
Assessment/Plan Assessment/Plan (1) Altered level of consciousness (2) Acute encephalopathy (3) B/L LE cellulitis (4) Right heel ulcer (5) Peripheral neuropathy (6) Chronic pain syndrome (7) Narcotic tolerance Patient will be continued on Ambien, Dilaudid, Lyrica and Percocet. D/w Dr. Liz and he concurred. Subjective Date patient seen: Mar 27, 2018 Time patient seen: 07:30 - am Allergies: Coded Allergies: No Known Allergies (Unverified , 03/09/18) Subjective Constitutional: Reports: weakness HEENT: Reports: no symptoms Cardiovascular: Reports: no symptoms Respiratory: Reports: no symptoms Gastrointestinal/Abdominal: Reports: no symptoms Genitourinary: Reports: no symptoms Neurologic/Psychiatric: Reports: numbness, tingling, weakness Endocrine: Reports: no symptoms Hematologic/Lymphatic: Reports: no symptoms Subjective Patient reports that the pain has been stable on the Dilaudid and Percocet. He has no new complaints. Objective Last 24 Hour Vital Signs Date Time Temp Pulse Resp B/P (MAP) Pulse Ox O2 Delivery O2 Flow Rate FiO2 03/27/18 04:00 97.9 82 18 142/72 93 Room Air 97.9 03/27/18 00:00 97.7 86 20 125/75 96 Room Air 97.7 03/26/18 20:54 78 101/66 03/26/18 20:00 98.2 83 17 116/57 90 Room Air 98.2 03/26/18 16:00 99.1 78 21 101/66 99 Room Air 99.1 03/26/18 12:00 97.1 87 20 120/59 99 Room Air 97.1 03/26/18 11:43 129/60 03/26/18 09:18 129/60 03/26/18 09:00 83 129/60 03/26/18 08:00 98.4 83 22 129/60 95 Room Air 98.4 Intake and Output 03/26/18 03/27/18 19:00 07:00 Intake Total 960 ml Output Total 1600 ml 1400 ml Balance -640 ml -1400 ml Intake Oral 960 ml Output Urine Total 1600 ml 1400 ml Height (Feet): 6 Height (Inches): 1.00 Weight (Pounds): 332 Objective GENERAL: Alert. Awake. Oriented. HEENT: PERRLA. LUNGS: Decreased breath sounds bilaterally. HEART: S1 and S2 regular. ABDOMEN: Obese. BACK: Range of motion is decreased in flexion and extension with surgical scar noted in midline of lumbar spine. EXTREMITIES: No cyanosis, no clubbing with wounds noted on the lower extremities. Bandages applied. Antonio Whitten Mar 27, 2018 07:55
[2018-03-27] MEDS: Metoprolol 25mg tab ORAL SCH ×2 (08:43→21:00)
[2018-03-27] MEDS: Imdur 30mg tab ORAL SCH (08:45)
[2018-03-27] MEDS: Vancomycin oral 125mg/2.5ml ORAL SCH ×4 (08:45→21:00)
[2018-03-27] MEDS: Docusate 100mg cap ORAL SCH ×4 (08:45→17:44)
[2018-03-27] MEDS: Heparin 5000 units/ml inj SUBQ SCH ×2 (08:45→21:00)
[2018-03-27] MEDS: Dakin's 0.125% Soln (Quarter Strength) 16oz TOPIC SCH (08:46)
--- NOTE | 2018-03-27 09:44 | Nephrology Progress Note ---
Assessment/Plan Problem List: (1) Diabetic nephropathy (2) Cellulitis, leg (3) UTI (urinary tract infection) (4) Sepsis (5) Acute encephalopathy (6) Obesity (7) Elevated troponin I level Assessment WBC lowering Renal failure- likely Diabetic nephropathy Cr lower UTI , Sepsis , Cellulitis DM Obesity Acute Encephalopathy HypoAlbuminemia, Likely NS Plan stable up dose Starlix sdd glucophage stool softner Nitro PO PT Pulmonary support- 2D Echo 55% EjFx Kidney TIN Negative for hydronephrosis gomez Antibiotics Monitor renal parameters avoid Nephrotoxics Subjective ROS Limited/Unobtainable: No Objective Objective Last 24 Hour Vital Signs Date Time Temp Pulse Resp B/P (MAP) Pulse Ox O2 Delivery O2 Flow Rate FiO2 03/27/18 08:45 122/73 03/27/18 08:43 78 122/73 03/27/18 08:02 97.5 78 20 122/73 97 97.5 03/27/18 04:00 97.9 82 18 142/72 93 Room Air 97.9 03/27/18 00:00 97.7 86 20 125/75 96 Room Air 97.7 03/26/18 20:54 78 101/66 03/26/18 20:00 98.2 83 17 116/57 90 Room Air 98.2 03/26/18 16:00 99.1 78 21 101/66 99 Room Air 99.1 03/26/18 12:00 97.1 87 20 120/59 99 Room Air 97.1 03/26/18 11:43 129/60 Intake and Output 03/26/18 03/27/18 19:00 07:00 Intake Total 960 ml Output Total 1600 ml 1400 ml Balance -640 ml -1400 ml Intake Oral 960 ml Output Urine Total 1600 ml 1400 ml Height (Feet): 6 Height (Inches): 1.00 Weight (Pounds): 332 General Appearance: no apparent distress Respiratory/Chest: lungs clear Abdomen: soft Objective no other change DIA WALSH Mar 27, 2018 09:44
[2018-03-27] MEDS: Nitroglycerin Patch 0.4mg TDERMAL SCH (11:44)
--- NOTE | 2018-03-27 12:04 | General Progress Note ---
Assessment/Plan Status: stable Assessment/Plan # Anemia of chronic disease --> prior workup reviewed. will trend daily --> continue ferritin --> hgb goal >7 # Leukcytosis is likely related to leg cellulitis --> on abx, continue at this time, hh being arranged --> legs are bieng elevated #HTN -- > at goal as per cardiology, Dr. Oconnell #JOSE --> improving, Recs per nephrology # Cellulitis of the lower extremity --> on abx as noted above Subjective Date patient seen: Mar 27, 2018 Allergies: Coded Allergies: No Known Allergies (Unverified , 03/09/18) All Systems: reviewed and negative except above Subjective Pt unable to ambulate. No overnight events. No fever, chills, sob. DC to SNF planning. Objective Last 24 Hour Vital Signs Date Time Temp Pulse Resp B/P (MAP) Pulse Ox O2 Delivery O2 Flow Rate FiO2 03/27/18 11:44 137/78 03/27/18 11:25 97.7 82 20 137/78 99 97.7 03/27/18 08:45 122/73 03/27/18 08:43 78 122/73 03/27/18 08:02 97.5 78 20 122/73 97 97.5 03/27/18 04:00 97.9 82 18 142/72 93 Room Air 97.9 03/27/18 00:00 97.7 86 20 125/75 96 Room Air 97.7 03/26/18 20:54 78 101/66 03/26/18 20:00 98.2 83 17 116/57 90 Room Air 98.2 03/26/18 16:00 99.1 78 21 101/66 99 Room Air 99.1 03/26/18 12:00 97.1 87 20 120/59 99 Room Air 97.1 Intake and Output 03/26/18 03/27/18 19:00 07:00 Intake Total 960 ml Output Total 1600 ml 1400 ml Balance -640 ml -1400 ml Intake Oral 960 ml Output Urine Total 1600 ml 1400 ml Height (Feet): 6 Height (Inches): 1.00 Weight (Pounds): 332 General Appearance: WD/WN, no apparent distress EENT: PERRL/EOMI Neck: normal alignment Cardiovascular: normal peripheral pulses Respiratory/Chest: no respiratory distress Abdomen: no mass Kleynberg,Adam L. MD Mar 27, 2018 12:04
--- NOTE | 2018-03-27 12:11 | General Progress Note ---
Assessment/Plan Problem List: (1) Sepsis ICD Codes: A41.9 - Sepsis, unspecified organism SNOMED: 48790028 Qualifiers: Qualified Codes: A41.9 - Sepsis, unspecified organism (2) Cellulitis, leg ICD Codes: L03.119 - Cellulitis of unspecified part of limb SNOMED: 469908496 (3) UTI (urinary tract infection) ICD Codes: N39.0 - Urinary tract infection, site not specified SNOMED: 16347431 (4) Diabetes mellitus ICD Codes: E11.9 - Type 2 diabetes mellitus without complications SNOMED: 55529080 (5) Obesity ICD Codes: E66.9 - Obesity, unspecified SNOMED: 494667087, 211434489 (6) Acute encephalopathy ICD Codes: G93.40 - Encephalopathy, unspecified SNOMED: 91156106, 859231705 (7) ATN (acute tubular necrosis) ICD Codes: N17.0 - Acute kidney failure with tubular necrosis SNOMED: 41633788 Status: stable, progressing Assessment/Plan ot pt diet o2 pulm tx abx wound carecbc bmp am dc plan snf Subjective Constitutional: Reports: weakness Allergies: Coded Allergies: No Known Allergies (Unverified , 03/09/18) All Systems: reviewed and negative except above Subjective bed calm weak Objective Last 24 Hour Vital Signs Date Time Temp Pulse Resp B/P (MAP) Pulse Ox O2 Delivery O2 Flow Rate FiO2 03/27/18 11:44 137/78 03/27/18 11:25 97.7 82 20 137/78 99 97.7 03/27/18 08:45 122/73 03/27/18 08:43 78 122/73 03/27/18 08:02 97.5 78 20 122/73 97 97.5 03/27/18 04:00 97.9 82 18 142/72 93 Room Air 97.9 03/27/18 00:00 97.7 86 20 125/75 96 Room Air 97.7 03/26/18 20:54 78 101/66 03/26/18 20:00 98.2 83 17 116/57 90 Room Air 98.2 03/26/18 16:00 99.1 78 21 101/66 99 Room Air 99.1 Intake and Output 03/26/18 03/27/18 19:00 07:00 Intake Total 960 ml Output Total 1600 ml 1400 ml Balance -640 ml -1400 ml Intake Oral 960 ml Output Urine Total 1600 ml 1400 ml Height (Feet): 6 Height (Inches): 1.00 Weight (Pounds): 332 General Appearance: alert EENT: normal ENT inspection Neck: normal alignment Cardiovascular: normal peripheral pulses, normal rate, regular rhythm Respiratory/Chest: chest wall non-tender, lungs clear, normal breath sounds Abdomen: normal bowel sounds, non tender, soft Extremities: normal inspection Edema: 1+ Arm (L), 1+ Arm (R), 1+ Leg (L), 1+ Leg (R), 1+ Pedal (L), 1+ Pedal ( R), 1+ Generalized Edema: trace edema Neurologic: responsive, motor weakness Skin: normal pigmentation, warm/dry Ok Curry DO Mar 27, 2018 12:10
--- NOTE | 2018-03-27 12:41 | Pulmonology Progress Note ---
Assessment/Plan Problems: (1) Acute encephalopathy (2) Bacteremia (3) ATN (acute tubular necrosis) (4) Sepsis (5) Cellulitis, leg (6) UTI (urinary tract infection) (7) Diabetic nephropathy (8) Obesity (9) Diabetes mellitus Assessment/Plan doing better med/surg bun/creatine decreasing wound care pt/ot sliding scale diabetic diet. walking with PT d/w getting twice a day pt now, refusing to go home Subjective ROS Limited/Unobtainable: No Interval Events: doing Pt Allergies: Coded Allergies: No Known Allergies (Unverified , 03/09/18) Objective Last 24 Hour Vital Signs Date Time Temp Pulse Resp B/P (MAP) Pulse Ox O2 Delivery O2 Flow Rate FiO2 03/27/18 11:44 137/78 03/27/18 11:25 97.7 82 20 137/78 99 97.7 03/27/18 08:45 122/73 03/27/18 08:43 78 122/73 03/27/18 08:02 97.5 78 20 122/73 97 97.5 03/27/18 04:00 97.9 82 18 142/72 93 Room Air 97.9 03/27/18 00:00 97.7 86 20 125/75 96 Room Air 97.7 03/26/18 20:54 78 101/66 03/26/18 20:00 98.2 83 17 116/57 90 Room Air 98.2 03/26/18 16:00 99.1 78 21 101/66 99 Room Air 99.1 Intake and Output 03/26/18 03/27/18 19:00 07:00 Intake Total 960 ml Output Total 1600 ml 1400 ml Balance -640 ml -1400 ml Intake Oral 960 ml Output Urine Total 1600 ml 1400 ml General Appearance: WD/WN HEENT: normocephalic Respiratory/Chest: chest wall non-tender, lungs clear, normal breath sounds Cardiovascular: normal rate, regular rhythm Abdomen: normal bowel sounds, soft, non tender Extremities: no cyanosis Skin: no rash Neurologic/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: 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, no motor/sensory deficits Current Medications Medications (Trade) Dose Ordered Sig/Nancy Route PRN Reason Start Time Stop Time Status Last Admin Dose Admin Acetaminophen (Tylenol) 650 mg Q4H PRN ORAL fever (temp>100.5F) 03/15/18 17:00 7/8/18 16:59 Dextrose (Dextrose 50%) 25 ml STAT PRN IV Hypoglycemia 03/15/18 17:00 04/12/18 16:59 Dextrose (Dextrose 50%) 50 ml STAT PRN IV Hypoglycemia 03/15/18 17:30 04/12/18 17:29 Diphenoxylate HCl/ Atropine (Lomotil) 2.5 mg Q4H PRN ORAL Diarrhea 03/18/18 12:53 04/17/18 12:52 03/19/18 03:59 Docusate Sodium (Colace) 100 mg THREE TIMES A DAY ORAL 03/15/18 18:00 04/13/18 12:59 03/21/18 17:30 Heparin Sodium (Porcine) (Heparin 5000 units/ml) 5,000 units EVERY 12 HOURS SUBQ 03/15/18 21:00 04/09/18 08:59 03/27/18 08:45 Insulin Aspart (NovoLOG) BEFORE MEALS AND HS SUBQ 03/15/18 17:30 04/12/18 17:29 03/27/18 11:45 Isosorbide Mononitrate (Imdur) 30 mg DAILY ORAL 03/16/18 09:00 04/14/18 08:59 03/27/18 08:45 Lansoprazole (Prevacid) 30 mg BID ORAL 03/15/18 18:00 04/13/18 17:59 03/27/18 08:43 Lidocaine (Xylocaine 5% cream) 1 applic Q6H TOPIC 03/15/18 20:00 04/11/18 13:59 03/27/18 08:46 Metformin HCl (Glucophage) 500 mg TIAC ORAL 03/23/18 16:30 04/22/18 16:29 03/27/18 11:44 Metoprolol Tartrate (Lopressor) 25 mg Q12HR ORAL 03/15/18 21:00 04/13/18 20:59 03/27/18 08:43 Nateglinide (Starlix) 120 mg TIAC ORAL 03/15/18 16:45 04/13/18 16:44 03/27/18 11:44 Nitroglycerin (Ntg) 0.4 mg Q5M PRN SL Prn Chest Pain 03/15/18 17:00 04/08/18 16:59 Nitroglycerin (Ntg) 1 patch Q24H TDERMAL 03/16/18 12:00 04/13/18 11:59 03/27/18 11:44 Ondansetron HCl (Zofran) 4 mg Q6H PRN IVP Nausea & Vomiting 03/15/18 17:00 04/08/18 16:59 Oxycodone/ Acetaminophen (Percocet 10/325) 1 tab Q4H PRN ORAL moderate break through pain 03/24/18 18:00 03/30/18 17:59 03/27/18 08:44 Pregabalin (Lyrica) 50 mg Q8HR ORAL 03/16/18 18:00 04/15/18 17:59 03/27/18 05:41 Sodium Hypochlorite (Dakin's Quarter Strength) 1 applic DAILY TOPIC 03/16/18 09:00 04/10/18 08:59 03/27/18 08:46 Vancomycin HCl (Vancomycin) 125 mg FOUR TIMES A DAY ORAL 03/21/18 14:00 03/30/18 22:00 03/27/18 08:45 Zia Li MD Mar 27, 2018 12:41
--- NOTE | 2018-03-27 12:42 | Pulmonology Progress Note ---
Assessment/Plan Problems: (1) Acute encephalopathy (2) Bacteremia (3) ATN (acute tubular necrosis) (4) Sepsis (5) Cellulitis, leg (6) UTI (urinary tract infection) (7) Diabetic nephropathy (8) Obesity (9) Diabetes mellitus Assessment/Plan med/surg bun/creatine decreasing wound care pt/ot sliding scale diabetic diet. walking with PT d/w getting twice a day pt now, refusing to go home Subjective ROS Limited/Unobtainable: No Interval Events: late note for 03/26 Allergies: Coded Allergies: No Known Allergies (Unverified , 03/09/18) Objective Last 24 Hour Vital Signs Date Time Temp Pulse Resp B/P (MAP) Pulse Ox O2 Delivery O2 Flow Rate FiO2 03/27/18 11:44 137/78 03/27/18 11:25 97.7 82 20 137/78 99 97.7 03/27/18 08:45 122/73 03/27/18 08:43 78 122/73 03/27/18 08:02 97.5 78 20 122/73 97 97.5 03/27/18 04:00 97.9 82 18 142/72 93 Room Air 97.9 03/27/18 00:00 97.7 86 20 125/75 96 Room Air 97.7 03/26/18 20:54 78 101/66 03/26/18 20:00 98.2 83 17 116/57 90 Room Air 98.2 03/26/18 16:00 99.1 78 21 101/66 99 Room Air 99.1 Intake and Output 03/26/18 03/27/18 19:00 07:00 Intake Total 960 ml Output Total 1600 ml 1400 ml Balance -640 ml -1400 ml Intake Oral 960 ml Output Urine Total 1600 ml 1400 ml Objective General Appearance: WD/WN HEENT: normocephalic, atraumatic Respiratory/Chest: chest wall non-tender, lungs clear Cardiovascular: normal peripheral pulses, normal rate Abdomen: normal bowel sounds, soft, non tender 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 Current Medications Medications (Trade) Dose Ordered Sig/Nancy Route PRN Reason Start Time Stop Time Status Last Admin Dose Admin Acetaminophen (Tylenol) 650 mg Q4H PRN ORAL fever (temp>100.5F) 03/15/18 17:00 04/09/18 16:59 Dextrose (Dextrose 50%) 25 ml STAT PRN IV Hypoglycemia 03/15/18 17:00 04/12/18 16:59 Dextrose (Dextrose 50%) 50 ml STAT PRN IV Hypoglycemia 03/15/18 17:30 04/12/18 17:29 Diphenoxylate HCl/ Atropine (Lomotil) 2.5 mg Q4H PRN ORAL Diarrhea 03/18/18 12:53 04/17/18 12:52 03/19/18 03:59 Docusate Sodium (Colace) 100 mg THREE TIMES A DAY ORAL 03/15/18 18:00 04/13/18 12:59 03/21/18 17:30 Heparin Sodium (Porcine) (Heparin 5000 units/ml) 5,000 units EVERY 12 HOURS SUBQ 03/15/18 21:00 04/09/18 08:59 03/27/18 08:45 Insulin Aspart (NovoLOG) BEFORE MEALS AND HS SUBQ 03/15/18 17:30 04/12/18 17:29 03/27/18 11:45 Isosorbide Mononitrate (Imdur) 30 mg DAILY ORAL 03/16/18 09:00 04/14/18 08:59 03/27/18 08:45 Lansoprazole (Prevacid) 30 mg BID ORAL 03/15/18 18:00 04/13/18 17:59 03/27/18 08:43 Lidocaine (Xylocaine 5% cream) 1 applic Q6H TOPIC 03/15/18 20:00 04/11/18 13:59 03/27/18 08:46 Metformin HCl (Glucophage) 500 mg TIAC ORAL 03/23/18 16:30 04/22/18 16:29 03/27/18 11:44 Metoprolol Tartrate (Lopressor) 25 mg Q12HR ORAL 03/15/18 21:00 04/13/18 20:59 03/27/18 08:43 Nateglinide (Starlix) 120 mg TIAC ORAL 03/15/18 16:45 04/13/18 16:44 03/27/18 11:44 Nitroglycerin (Ntg) 0.4 mg Q5M PRN SL Prn Chest Pain 03/15/18 17:00 04/08/18 16:59 Nitroglycerin (Ntg) 1 patch Q24H TDERMAL 03/16/18 12:00 04/13/18 11:59 03/27/18 11:44 Ondansetron HCl (Zofran) 4 mg Q6H PRN IVP Nausea & Vomiting 03/15/18 17:00 04/08/18 16:59 Oxycodone/ Acetaminophen (Percocet 10/325) 1 tab Q4H PRN ORAL moderate break through pain 03/24/18 18:00 03/30/18 17:59 03/27/18 08:44 Pregabalin (Lyrica) 50 mg Q8HR ORAL 03/16/18 18:00 04/15/18 17:59 03/27/18 05:41 Sodium Hypochlorite (Dakin's Quarter Strength) 1 applic DAILY TOPIC 03/16/18 09:00 04/10/18 08:59 03/27/18 08:46 Vancomycin HCl (Vancomycin) 125 mg FOUR TIMES A DAY ORAL 03/21/18 14:00 03/30/18 22:00 03/27/18 08:45 Zia Li MD Mar 27, 2018 12:42
--- NOTE | 2018-03-27 12:53 | General Surgery Progress Note ---
General Surgery-Progress Note Subjective Symptoms: improved, tolerating diet, passing flatus Additional Comments no acute events Objective Last 24 Hour Vital Signs Date Time Temp Pulse Resp B/P (MAP) Pulse Ox O2 Delivery O2 Flow Rate FiO2 03/27/18 11:44 137/78 03/27/18 11:25 97.7 82 20 137/78 99 97.7 03/27/18 08:45 122/73 03/27/18 08:43 78 122/73 03/27/18 08:02 97.5 78 20 122/73 97 97.5 03/27/18 04:00 97.9 82 18 142/72 93 Room Air 97.9 03/27/18 00:00 97.7 86 20 125/75 96 Room Air 97.7 03/26/18 20:54 78 101/66 03/26/18 20:00 98.2 83 17 116/57 90 Room Air 98.2 03/26/18 16:00 99.1 78 21 101/66 99 Room Air 99.1 I&O Intake and Output 03/26/18 03/27/18 19:00 07:00 Intake Total 960 ml Output Total 1600 ml 1400 ml Balance -640 ml -1400 ml Intake Oral 960 ml Output Urine Total 1600 ml 1400 ml Wound: clean, dry Drains: none Cardiovascular: RSR Respiratory: clear Abdomen: soft, flat, non-tender, present bowel sounds Extremities: no edema, no tenderness, no cyanosis Plan Problems: (1) Sepsis Assessment & Plan: 72M sepsis with fevers, leukocytosis, altered mental status. chronic bilateral lower extremity wounds with cellulitis. concerns for possible necrotizing fascitis initially. unlikely nec fasc given exam. wounds chronic and skin changes chronic. LRINEC score on admission 10 but given chronicity of wounds, other etiology of sepsis, and physical exam unlikely nec fasc. edema improving. cellulitis improving. overall much improved. leukocytosis resolved. pending labs -no acute surgical intervention necessary. -keep legs elevated -cont with dressings for now -will follow with you -d/c planning thank you for this consultation (2) Cellulitis, leg Leandro Scott Mar 27, 2018 12:53
[2018-03-27 13:44] LABS: BASOPHILS % (AUTO) 1.9 % (0.0-2.0); EOSINOPHILS % (AUTO) 1.9 % (0.0-3.0); HEMOGLOBIN 9.6 G/DL (14.2-18.0); MEAN CORPUSCULAR VOLUME 86 FL (80-99); MONOCYTES % (AUTO) 8.7 % (1.0-10.0); NEUTROPHILS % (AUTO) 75.5 % (45.0-75.0); PLATELET COUNT 264 K/UL (150-450); RED CELL DISTRIBUTION WIDTH 17.2 % (11.6-14.8); WHITE BLOOD COUNT 6.6 K/UL (4.8-10.8)
[2018-03-27 14:04] LABS: ALANINE AMINOTRANSFERASE 17 U/L (12-78); ALBUMIN 2.4 G/DL (3.4-5.0); ALBUMIN/GLOBULIN RATIO 0.5 (1.0-2.7); ALKALINE PHOSPHATASE 63 U/L (46-116); ANION GAP 4 mmol/L (5-15); ASPARTATE AMINO TRANSFERASE 15 U/L (15-37); BILIRUBIN,TOTAL 0.4 MG/DL (0.2-1.0); BLOOD UREA NITROGEN 12 mg/dL (7-18); CALCIUM 9.6 MG/DL (8.5-10.1); CARBON DIOXIDE 32 MMOL/L (21-32); CHLORIDE 101 MMOL/L (98-107); CREATININE 1.3 MG/DL (0.55-1.30); PHOSPHORUS 3.3 MG/DL (2.5-4.9); POTASSIUM 4.4 MMOL/L (3.5-5.1); SODIUM 137 MMOL/L (136-145)
--- NOTE | 2018-03-27 16:19 | Infectious Diseases Prog Note ---
Assessment/Plan Assessment/Plan Diarrhea significant and required rectal tube, now resolved- Probable Cdiff despite neg screen test given rapid resolution of leukocytosis upon initiation of PO Vancomycin; Cdiff toxin A/B EIA is poor test with only ~70% sensitivity -Cdiff neg -stool cx neg Sepsis;resolved severe b/l Leg soft tissue infection, resolved GBS bacteremia- 2ry to above -6/7 Bcx 4/4+; 03/13 1/2 CoNS (contaminant); 03/14 BCx neg -v. duplex: no DVT R Foot necrotic ulcer much improved- no evidence of Osteo on bone scan -a/ duplex b/l LE: There is no evidence of significant stenosis or occlusion within these segments. -bone scan Increased blood pool activity in the plantar surface of the right heel, likely related to stated clinical history of right heel ulcer. No abnormal osseous activity to suggest acute osteomyelitis. Foci of abnormal static activity without corresponding focal hyperemia on flow and blood pool images in the bilateral mid feet, and right toes, most likely representing degenerative changes. Plain film correlation would be useful, however. -u/a neg -CXR :NAPD Fever, SP Leukocytosis, recurrent; resolved after initiating PO Vancomycin -u/a 03/21 wbc 5-10, nit neg , leuk +1; ucx Neg -CXR 03/21: No acute process. Previously demonstrated interstitial congestive changes have improved Lactic acidosis, resolved elev lipase Influenza sc : neg JOSE; resolved HTN HLD GERD Dm2 Plan: -Continue PO Vancomycin 125mg qid # for presumed Cdiff given diarrhea and leukocytosis -Ok to discharge from ID perspective - 03/24 SP IV Ceftriaxone #7 -03/18 SP Unasyn #7 -03/16 SP IV Vancomycin #3 -03/13 SP IV Vanco and Clinda # -03/12 SP Zosyn #3 -03/10 SP Cefepime d# 1 -Monitor CBC/BMP, temperatures -Sx, Podiatry f/u -wound care per hospital protocol -Cdiff contact precautions Subjective Allergies: Coded Allergies: No Known Allergies (Unverified , 03/09/18) Subjective afebrile no leukocytosis bcx NTD Objective Vital Signs Last 24 Hour Vital Signs Date Time Temp Pulse Resp B/P (MAP) Pulse Ox O2 Delivery O2 Flow Rate FiO2 03/27/18 11:44 137/78 03/27/18 11:25 97.7 82 20 137/78 99 97.7 03/27/18 08:45 122/73 03/27/18 08:43 78 122/73 03/27/18 08:02 97.5 78 20 122/73 97 97.5 03/27/18 04:00 97.9 82 18 142/72 93 Room Air 97.9 03/27/18 00:00 97.7 86 20 125/75 96 Room Air 97.7 03/26/18 20:54 78 101/66 03/26/18 20:00 98.2 83 17 116/57 90 Room Air 98.2 Height (Feet): 6 Height (Inches): 1.00 Weight (Pounds): 332 Objective General Appearance: obese, no acute distress HEENT: normocephalic, atraumatic, dry mucus membranes Neck: full range of motion, supple, no meningismus, no bony tend Respiratory: lungs clear, normal breath sounds, no rhonchi, no respiratory distress, no retraction, no accessory muscle use Cardiovascular no gallop, no JVD, no murmur, tachycardia Gastrointestinal: normal bowel sounds, non tender, soft, no mass, no organomegaly, non-distended, no guarding, no rebound Musculoskeletal: B/L leg with chornic venous stasis changes and lymphedema ; now chronic changes; cellulitis resolved On R foot wound is improving- no purulent discharge Laboratory Tests Test 03/27/18 12:15 White Blood Count 6.6 K/UL (4.8-10.8) Red Blood Count 3.60 M/UL (4.70-6.10) L Hemoglobin 9.6 G/DL (14.2-18.0) L Hematocrit 31.0 % (42.0-52.0) L Mean Corpuscular Volume 86 FL (80-99) Mean Corpuscular Hemoglobin 26.8 PG (27.0-31.0) L Mean Corpuscular Hemoglobin Concent 31.1 G/DL (32.0-36.0) L Red Cell Distribution Width 17.2 % (11.6-14.8) H Platelet Count 264 K/UL (150-450) Mean Platelet Volume 10.1 FL (6.5-10.1) Neutrophils (%) (Auto) 75.5 % (45.0-75.0) H Lymphocytes (%) (Auto) 12.0 % (20.0-45.0) L Monocytes (%) (Auto) 8.7 % (1.0-10.0) Eosinophils (%) (Auto) 1.9 % (0.0-3.0) Basophils (%) (Auto) 1.9 % (0.0-2.0) Erythrocyte Sedimentation Rate 85 MM/HR (0-20) H Sodium Level 137 MMOL/L (136-145) Potassium Level 4.4 MMOL/L (3.5-5.1) Chloride Level 101 MMOL/L (98-107) Carbon Dioxide Level 32 MMOL/L (21-32) Anion Gap 4 mmol/L (5-15) L Blood Urea Nitrogen 12 mg/dL (7-18) Creatinine 1.3 MG/DL (0.55-1.30) Estimat Glomerular Filtration Rate mL/min (>60) Glucose Level 228 MG/DL (74-106) H Calcium Level 9.6 MG/DL (8.5-10.1) Phosphorus Level 3.3 MG/DL (2.5-4.9) Magnesium Level 1.5 MG/DL (1.8-2.4) L Total Bilirubin 0.4 MG/DL (0.2-1.0) Aspartate Amino Transf (AST/SGOT) 15 U/L (15-37) Alanine Aminotransferase (ALT/SGPT) 17 U/L (12-78) Alkaline Phosphatase 63 U/L (46-116) C-Reactive Protein, Quantitative 11.7 mg/dL (0.00-0.90) H Total Protein 7.2 G/DL (6.4-8.2) Albumin 2.4 G/DL (3.4-5.0) L Globulin 4.8 g/dL Albumin/Globulin Ratio 0.5 (1.0-2.7) L Current Medications Medications (Trade) Dose Ordered Sig/Nancy Route PRN Reason Start Time Stop Time Status Last Admin Dose Admin Acetaminophen (Tylenol) 650 mg Q4H PRN ORAL fever (temp>100.5F) 03/15/18 17:00 04/09/18 16:59 Dextrose (Dextrose 50%) 25 ml STAT PRN IV Hypoglycemia 03/15/18 17:00 04/12/18 16:59 Dextrose (Dextrose 50%) 50 ml STAT PRN IV Hypoglycemia 03/15/18 17:30 04/12/18 17:29 Diphenoxylate HCl/ Atropine (Lomotil) 2.5 mg Q4H PRN ORAL Diarrhea 03/18/18 12:53 04/17/18 12:52 03/19/18 03:59 Docusate Sodium (Colace) 100 mg THREE TIMES A DAY ORAL 03/15/18 18:00 04/13/18 12:59 03/21/18 17:30 Heparin Sodium (Porcine) (Heparin 5000 units/ml) 5,000 units EVERY 12 HOURS SUBQ 03/15/18 21:00 04/09/18 08:59 03/27/18 08:45 Insulin Aspart (NovoLOG) BEFORE MEALS AND HS SUBQ 03/15/18 17:30 04/12/18 17:29 03/27/18 11:45 Isosorbide Mononitrate (Imdur) 30 mg DAILY ORAL 03/16/18 09:00 04/14/18 08:59 03/27/18 08:45 Lansoprazole (Prevacid) 30 mg BID ORAL 03/15/18 18:00 04/13/18 17:59 03/27/18 08:43 Lidocaine (Xylocaine 5% cream) 1 applic Q6H TOPIC 03/15/18 20:00 04/11/18 13:59 03/27/18 15:01 Metformin HCl (Glucophage) 500 mg TIAC ORAL 03/23/18 16:30 04/22/18 16:29 03/27/18 11:44 Metoprolol Tartrate (Lopressor) 25 mg Q12HR ORAL 03/15/18 21:00 04/13/18 20:59 03/27/18 08:43 Nateglinide (Starlix) 120 mg TIAC ORAL 03/15/18 16:45 04/13/18 16:44 03/27/18 11:44 Nitroglycerin (Ntg) 0.4 mg Q5M PRN SL Prn Chest Pain 03/15/18 17:00 04/08/18 16:59 Nitroglycerin (Ntg) 1 patch Q24H TDERMAL 03/16/18 12:00 04/13/18 11:59 03/27/18 11:44 Ondansetron HCl (Zofran) 4 mg Q6H PRN IVP Nausea & Vomiting 03/15/18 17:00 04/08/18 16:59 Oxycodone/ Acetaminophen (Percocet 10/325) 1 tab Q4H PRN ORAL moderate break through pain 03/24/18 18:00 03/30/18 17:59 03/27/18 15:01 Pregabalin (Lyrica) 50 mg Q8HR ORAL 03/16/18 18:00 04/15/18 17:59 03/27/18 13:20 Sodium Hypochlorite (Dakin's Quarter Strength) 1 applic DAILY TOPIC 03/16/18 09:00 04/10/18 08:59 03/27/18 08:46 Vancomycin HCl (Vancomycin) 125 mg FOUR TIMES A DAY ORAL 03/21/18 14:00 03/30/18 22:00 03/27/18 13:20 Maranda Wiggins M.D. Mar 27, 2018 16:19
--- NOTE | 2018-03-27 17:22 | Cardiac Electrophysiology PN ---
Assessment/Plan Assessment/Plan 1. Troponin Leak. 0.07,0.09 and 0.1. Levels are flat and due to renal failure. No CP. EKG showed SR/ nonspecific ST-T wave abnormalities. Echocardiogram Nl EF 55%. On Lopressor 25 bid. 2. Hypertension, On Imdur 30 and Lopressor 25 bid 3. Sepsis, off antibiotics by ID 4. Elevated brain natriuretic peptide. EF is normal. It could be due to diastolic dysfunction. 5. Urinary tract infection. 6. Cellulitis of the legs. 7. Hyperkalemia. 8. Renal failure. Resolved Cr 1.2 DW RN Subjective Subjective Feeling better. No CP or SOB. DC panning to rehab pending Objective Last 24 Hour Vital Signs Date Time Temp Pulse Resp B/P (MAP) Pulse Ox O2 Delivery O2 Flow Rate FiO2 03/27/18 16:13 97.9 74 20 121/63 96 Room Air 97.9 03/27/18 11:44 137/78 03/27/18 11:25 97.7 82 20 137/78 99 97.7 03/27/18 08:45 122/73 03/27/18 08:43 78 122/73 03/27/18 08:02 97.5 78 20 122/73 97 97.5 03/27/18 04:00 97.9 82 18 142/72 93 Room Air 97.9 03/27/18 00:00 97.7 86 20 125/75 96 Room Air 97.7 03/26/18 20:54 78 101/66 03/26/18 20:00 98.2 83 17 116/57 90 Room Air 98.2 Intake and Output 03/26/18 03/27/18 19:00 07:00 Intake Total 960 ml Output Total 1600 ml 1400 ml Balance -640 ml -1400 ml Intake Oral 960 ml Output Urine Total 1600 ml 1400 ml Laboratory Tests Test 03/27/18 12:15 White Blood Count 6.6 K/UL (4.8-10.8) Red Blood Count 3.60 M/UL (4.70-6.10) L Hemoglobin 9.6 G/DL (14.2-18.0) L Hematocrit 31.0 % (42.0-52.0) L Mean Corpuscular Volume 86 FL (80-99) Mean Corpuscular Hemoglobin 26.8 PG (27.0-31.0) L Mean Corpuscular Hemoglobin Concent 31.1 G/DL (32.0-36.0) L Red Cell Distribution Width 17.2 % (11.6-14.8) H Platelet Count 264 K/UL (150-450) Mean Platelet Volume 10.1 FL (6.5-10.1) Neutrophils (%) (Auto) 75.5 % (45.0-75.0) H Lymphocytes (%) (Auto) 12.0 % (20.0-45.0) L Monocytes (%) (Auto) 8.7 % (1.0-10.0) Eosinophils (%) (Auto) 1.9 % (0.0-3.0) Basophils (%) (Auto) 1.9 % (0.0-2.0) Erythrocyte Sedimentation Rate 85 MM/HR (0-20) H Sodium Level 137 MMOL/L (136-145) Potassium Level 4.4 MMOL/L (3.5-5.1) Chloride Level 101 MMOL/L (98-107) Carbon Dioxide Level 32 MMOL/L (21-32) Anion Gap 4 mmol/L (5-15) L Blood Urea Nitrogen 12 mg/dL (7-18) Creatinine 1.3 MG/DL (0.55-1.30) Estimat Glomerular Filtration Rate mL/min (>60) Glucose Level 228 MG/DL (74-106) H Calcium Level 9.6 MG/DL (8.5-10.1) Phosphorus Level 3.3 MG/DL (2.5-4.9) Magnesium Level 1.5 MG/DL (1.8-2.4) L Total Bilirubin 0.4 MG/DL (0.2-1.0) Aspartate Amino Transf (AST/SGOT) 15 U/L (15-37) Alanine Aminotransferase (ALT/SGPT) 17 U/L (12-78) Alkaline Phosphatase 63 U/L (46-116) C-Reactive Protein, Quantitative 11.7 mg/dL (0.00-0.90) H Total Protein 7.2 G/DL (6.4-8.2) Albumin 2.4 G/DL (3.4-5.0) L Globulin 4.8 g/dL Albumin/Globulin Ratio 0.5 (1.0-2.7) L Objective HEAD AND NECK: No JVD. LUNGS: Coarse rhonchi. CARDIOVASCULAR: Regular S1 and S2 with no gallop or murmur. ABDOMEN: Obese. EXTREMITIES: Bilateral lower extremity edema and cellulitis better Yong Oconnell MD Mar 27, 2018 17:22
[2018-03-28 04:00] VITALS: BP 137/77
[2018-03-28] MEDS: metFORMIN 500mg tab ORAL SCH ×2 (06:26→12:20)
[2018-03-28] MEDS: Lyrica 50mg cap ORAL SCH ×2 (06:26→13:37)
[2018-03-28] MEDS: NovoLOG Insulin Flexpen SUBQ SCH ×2 (06:30→12:21)
[2018-03-28 06:34] LABS: BASOPHILS % (AUTO) 2.4 % (0.0-2.0); EOSINOPHILS % (AUTO) 4.3 % (0.0-3.0); HEMATOCRIT 29.7 % (42.0-52.0); HEMOGLOBIN 9.2 G/DL (14.2-18.0); LYMPHOCYTES % (AUTO) 29.7 % (20.0-45.0); MEAN CORPUSCULAR VOLUME 87 FL (80-99); MONOCYTES % (AUTO) 12.1 % (1.0-10.0); NEUTROPHILS % (AUTO) 51.5 % (45.0-75.0); PLATELET COUNT 240 K/UL (150-450); RED BLOOD COUNT 3.44 M/UL (4.70-6.10); RED CELL DISTRIBUTION WIDTH 17.3 % (11.6-14.8); WHITE BLOOD COUNT 5.3 K/UL (4.8-10.8)
[2018-03-28 07:11] LABS: BLOOD UREA NITROGEN 11 mg/dL (7-18); CALCIUM 9.3 MG/DL (8.5-10.1); CARBON DIOXIDE 31 MMOL/L (21-32); CREATININE 1.2 MG/DL (0.55-1.30)
[2018-03-28 07:56] LABS: CHLORIDE 101 MMOL/L (98-107); POTASSIUM 4.4 MMOL/L (3.5-5.1); SODIUM 138 MMOL/L (136-145)
[2018-03-28 08:00] VITALS: BP 144/71
--- NOTE | 2018-03-28 08:14 | General Progress Note ---
Assessment/Plan Assessment/Plan (1) Altered level of consciousness (2) Acute encephalopathy (3) B/L LE cellulitis (4) Right heel ulcer (5) Peripheral neuropathy (6) Chronic pain syndrome (7) Narcotic tolerance Patient will be continued on Ambien, Dilaudid, Lyrica and Percocet. D/w Dr. Liz and he concurred. Subjective Date patient seen: Mar 28, 2018 Time patient seen: 07:30 - am Allergies: Coded Allergies: No Known Allergies (Unverified , 03/09/18) Subjective Constitutional: Reports: weakness HEENT: Reports: no symptoms Cardiovascular: Reports: no symptoms Respiratory: Reports: no symptoms Gastrointestinal/Abdominal: Reports: no symptoms Genitourinary: Reports: no symptoms Neurologic/Psychiatric: Reports: numbness, tingling, weakness Endocrine: Reports: no symptoms Hematologic/Lymphatic: Reports: no symptoms Subjective Patient has been doing well and pain has been stable tolerated on the Dilaudid and Percocet. He has no new complaints. Objective Last 24 Hour Vital Signs Date Time Temp Pulse Resp B/P (MAP) Pulse Ox O2 Delivery O2 Flow Rate FiO2 03/28/18 04:00 98.3 74 19 137/77 94 Room Air 98.3 03/27/18 23:30 97.5 79 20 115/63 94 Room Air 97.5 03/27/18 21:00 77 130/65 03/27/18 19:14 96.8 77 20 130/65 96 Room Air 96.8 03/27/18 16:13 97.9 74 20 121/63 96 Room Air 97.9 03/27/18 11:44 137/78 03/27/18 11:25 97.7 82 20 137/78 99 97.7 03/27/18 08:45 122/73 03/27/18 08:43 78 122/73 Intake and Output 03/27/18 03/28/18 19:00 07:00 Intake Total 860 ml 320 ml Output Total 800 ml 500 ml Balance 60 ml -180 ml Intake Oral 860 ml 320 ml Output Urine Total 800 ml 500 ml # Voids 1 Laboratory Tests 03/27/18 12:15: White Blood Count 6.6, Red Blood Count 3.60L, Hemoglobin 9.6L, Hematocrit 31.0L , Mean Corpuscular Volume 86, Mean Corpuscular Hemoglobin 26.8L, Mean Corpuscular Hemoglobin Concent 31.1L, Red Cell Distribution Width 17.2H, Platelet Count 264, Mean Platelet Volume 10.1, Neutrophils (%) (Auto) 75.5H, Lymphocytes (%) (Auto) 12.0L, Monocytes (%) (Auto) 8.7, Eosinophils (%) (Auto) 1.9, Basophils (%) (Auto) 1.9, Erythrocyte Sedimentation Rate 85H, Sodium Level 137, Potassium Level 4.4, Chloride Level 101, Carbon Dioxide Level 32, Anion Gap 4L, Blood Urea Nitrogen 12, Creatinine 1.3, Estimat Glomerular Filtration Rate , Glucose Level 228H, Calcium Level 9.6, Phosphorus Level 3.3, Magnesium Level 1.5L, Total Bilirubin 0.4, Aspartate Amino Transf (AST/SGOT) 15, Alanine Aminotransferase (ALT/SGPT) 17, Alkaline Phosphatase 63, C-Reactive Protein, Quantitative 11.7H, Total Protein 7.2, Albumin 2.4L, Globulin 4.8, Albumin/ Globulin Ratio 0.5L 03/28/18 05:10: White Blood Count 5.3, Red Blood Count 3.44L, Hemoglobin 9.2L, Hematocrit 29.7L , Mean Corpuscular Volume 87, Mean Corpuscular Hemoglobin 26.7L, Mean Corpuscular Hemoglobin Concent 30.9L, Red Cell Distribution Width 17.3H, Platelet Count 240, Mean Platelet Volume 9.7, Neutrophils (%) (Auto) 51.5, Lymphocytes (%) (Auto) 29.7, Monocytes (%) (Auto) 12.1H, Eosinophils (%) (Auto) 4.3H, Basophils (%) (Auto) 2.4H, Sodium Level 138, Potassium Level 4.4, Chloride Level 101, Carbon Dioxide Level 31, Blood Urea Nitrogen 11, Creatinine 1.2, Estimat Glomerular Filtration Rate , Glucose Level 154H, Calcium Level 9.3 Height (Feet): 6 Height (Inches): 1.00 Weight (Pounds): 327 Objective GENERAL: Alert. Awake. Oriented. HEENT: PERRLA. LUNGS: Decreased breath sounds bilaterally. HEART: S1 and S2 regular. ABDOMEN: Obese. BACK: Range of motion is decreased in flexion and extension with surgical scar noted in midline of lumbar spine. EXTREMITIES: No cyanosis, no clubbing with wounds noted on the lower extremities. Bandages applied. Antonio Whitten Mar 28, 2018 08:14
[2018-03-28] MEDS: Docusate 100mg cap ORAL SCH ×2 (09:00→12:14)
[2018-03-28] MEDS: Dakin's 0.125% Soln (Quarter Strength) 16oz TOPIC SCH (09:55)
[2018-03-28] MEDS: Imdur 30mg tab ORAL SCH (09:55)
[2018-03-28] MEDS: Metoprolol 25mg tab ORAL SCH (09:56)
[2018-03-28] MEDS: Vancomycin oral 125mg/2.5ml ORAL SCH ×2 (09:56→12:22)
[2018-03-28] MEDS: Heparin 5000 units/ml inj SUBQ SCH (09:58)
[2018-03-28] MEDS ORDERED: ACETAMINOPHEN325 M1 ORAL (10:36)
[2018-03-28] MEDS ORDERED: LOMOTIL TABLET1 EACH ORAL (10:37)
[2018-03-28] MEDS ORDERED: HEPARIN SO5000 UNIT2 SUBQ (10:38)
[2018-03-28] MEDS ORDERED: DOCUSATE SODIU100 M2 ORAL (10:38)
[2018-03-28] MEDS ORDERED: ISOSORBIDE DINI20 M2 PO (10:41)
[2018-03-28] MEDS ORDERED: PREVACID30 MG ORAL (10:41)
[2018-03-28] MEDS ORDERED: GLUCOPHAGE1000 MG ORAL (10:44)
[2018-03-28] MEDS ORDERED: METOPROLOL SUCC25 MG ORAL (10:45)
[2018-03-28] MEDS ORDERED: STARLIX120 MG ORAL (10:45)
[2018-03-28] MEDS ORDERED: NITROGLYCERIN1 EAC2 TD (10:46)
[2018-03-28] MEDS ORDERED: ZOFRAN4 M1 ORAL (10:46)
[2018-03-28] MEDS ORDERED: PERCOCET 10-321 EAC1 PO (10:47)
[2018-03-28] MEDS ORDERED: LYRICA20 MG/1 ML ORAL (10:48)
[2018-03-28] MEDS ORDERED: VANCOMYCIN HCL125 MG PO (10:49)
--- NOTE | 2018-03-28 11:00 | Nephrology Progress Note ---
Assessment/Plan Problem List: (1) Diabetic nephropathy (2) Cellulitis, leg (3) UTI (urinary tract infection) (4) Sepsis (5) Acute encephalopathy (6) Obesity (7) Elevated troponin I level Assessment WBC lowering Renal failure- likely Diabetic nephropathy Cr lower UTI , Sepsis , Cellulitis DM Obesity Acute Encephalopathy HypoAlbuminemia, Likely NS Plan stable up dose Starlix sdd glucophage stool softner Nitro PO PT Pulmonary support- 2D Echo 55% EjFx Kidney TIN Negative for hydronephrosis gomez Antibiotics Monitor renal parameters avoid Nephrotoxics Subjective ROS Limited/Unobtainable: No Objective Objective Last 24 Hour Vital Signs Date Time Temp Pulse Resp B/P (MAP) Pulse Ox O2 Delivery O2 Flow Rate FiO2 03/28/18 10:08 98.1 03/28/18 09:56 71 144/71 03/28/18 09:55 144/71 03/28/18 08:00 98.1 71 20 144/71 94 98.1 03/28/18 04:00 98.3 74 19 137/77 94 Room Air 98.3 03/27/18 23:30 97.5 79 20 115/63 94 Room Air 97.5 03/27/18 21:00 77 130/65 03/27/18 19:14 96.8 77 20 130/65 96 Room Air 96.8 03/27/18 16:13 97.9 74 20 121/63 96 Room Air 97.9 03/27/18 11:44 137/78 03/27/18 11:25 97.7 82 20 137/78 99 97.7 Intake and Output 03/27/18 03/28/18 19:00 07:00 Intake Total 860 ml 320 ml Output Total 800 ml 500 ml Balance 60 ml -180 ml Intake Oral 860 ml 320 ml Output Urine Total 800 ml 500 ml # Voids 1 Laboratory Tests 03/27/18 12:15: White Blood Count 6.6, Red Blood Count 3.60L, Hemoglobin 9.6L, Hematocrit 31.0L , Mean Corpuscular Volume 86, Mean Corpuscular Hemoglobin 26.8L, Mean Corpuscular Hemoglobin Concent 31.1L, Red Cell Distribution Width 17.2H, Platelet Count 264, Mean Platelet Volume 10.1, Neutrophils (%) (Auto) 75.5H, Lymphocytes (%) (Auto) 12.0L, Monocytes (%) (Auto) 8.7, Eosinophils (%) (Auto) 1.9, Basophils (%) (Auto) 1.9, Erythrocyte Sedimentation Rate 85H, Sodium Level 137, Potassium Level 4.4, Chloride Level 101, Carbon Dioxide Level 32, Anion Gap 4L, Blood Urea Nitrogen 12, Creatinine 1.3, Estimat Glomerular Filtration Rate , Glucose Level 228H, Calcium Level 9.6, Phosphorus Level 3.3, Magnesium Level 1.5L, Total Bilirubin 0.4, Aspartate Amino Transf (AST/SGOT) 15, Alanine Aminotransferase (ALT/SGPT) 17, Alkaline Phosphatase 63, C-Reactive Protein, Quantitative 11.7H, Total Protein 7.2, Albumin 2.4L, Globulin 4.8, Albumin/ Globulin Ratio 0.5L 03/28/18 05:10: White Blood Count 5.3, Red Blood Count 3.44L, Hemoglobin 9.2L, Hematocrit 29.7L , Mean Corpuscular Volume 87, Mean Corpuscular Hemoglobin 26.7L, Mean Corpuscular Hemoglobin Concent 30.9L, Red Cell Distribution Width 17.3H, Platelet Count 240, Mean Platelet Volume 9.7, Neutrophils (%) (Auto) 51.5, Lymphocytes (%) (Auto) 29.7, Monocytes (%) (Auto) 12.1H, Eosinophils (%) (Auto) 4.3H, Basophils (%) (Auto) 2.4H, Sodium Level 138, Potassium Level 4.4, Chloride Level 101, Carbon Dioxide Level 31, Blood Urea Nitrogen 11, Creatinine 1.2, Estimat Glomerular Filtration Rate , Glucose Level 154H, Calcium Level 9.3 Height (Feet): 6 Height (Inches): 1.00 Weight (Pounds): 327 General Appearance: no apparent distress Objective no other change DIA WALSH Mar 28, 2018 11:00
[2018-03-28 11:36] VITALS: BP 134/69
[2018-03-28 12:19] VITALS: BP 134/69
[2018-03-28] MEDS: Nitroglycerin Patch 0.4mg TDERMAL SCH (12:19)
--- NOTE | 2018-03-28 13:12 | General Progress Note ---
Assessment/Plan Status: stable Assessment/Plan # Anemia of chronic disease --> anemia workup has been reviewed. will trend daily --> continue ferritin --> hgb goal >7 # Leukcytosis is likely related to leg cellulitis --> on abx, continue at this time, hh being arranged --> legs are bieng elevated #HTN -- > at goal as per cardiology, Dr. Oconnell #JOSE --> improving, Recs per nephrology # Cellulitis of the lower extremity --> on abx as noted above Subjective ROS Limited/Unobtainable: Yes Allergies: Coded Allergies: No Known Allergies (Unverified , 03/09/18) All Systems: reviewed and negative except above Subjective No overnight events. No fever, chills, sob. DC to SNF planned for tomorrow. Objective Last 24 Hour Vital Signs Date Time Temp Pulse Resp B/P (MAP) Pulse Ox O2 Delivery O2 Flow Rate FiO2 03/28/18 12:19 134/69 03/28/18 11:36 97.9 72 20 134/69 96 97.9 03/28/18 11:07 98.1 03/28/18 10:08 98.1 03/28/18 09:56 71 144/71 03/28/18 09:55 144/71 03/28/18 08:00 98.1 71 20 144/71 94 98.1 03/28/18 04:00 98.3 74 19 137/77 94 Room Air 98.3 03/27/18 23:30 97.5 79 20 115/63 94 Room Air 97.5 03/27/18 21:00 77 130/65 03/27/18 19:14 96.8 77 20 130/65 96 Room Air 96.8 03/27/18 16:13 97.9 74 20 121/63 96 Room Air 97.9 Intake and Output 03/27/18 03/28/18 19:00 07:00 Intake Total 860 ml 320 ml Output Total 800 ml 500 ml Balance 60 ml -180 ml Intake Oral 860 ml 320 ml Output Urine Total 800 ml 500 ml # Voids 1 Laboratory Tests 03/28/18 05:10: White Blood Count 5.3, Red Blood Count 3.44L, Hemoglobin 9.2L, Hematocrit 29.7L , Mean Corpuscular Volume 87, Mean Corpuscular Hemoglobin 26.7L, Mean Corpuscular Hemoglobin Concent 30.9L, Red Cell Distribution Width 17.3H, Platelet Count 240, Mean Platelet Volume 9.7, Neutrophils (%) (Auto) 51.5, Lymphocytes (%) (Auto) 29.7, Monocytes (%) (Auto) 12.1H, Eosinophils (%) (Auto) 4.3H, Basophils (%) (Auto) 2.4H, Sodium Level 138, Potassium Level 4.4, Chloride Level 101, Carbon Dioxide Level 31, Blood Urea Nitrogen 11, Creatinine 1.2, Estimat Glomerular Filtration Rate , Glucose Level 154H, Calcium Level 9.3 Height (Feet): 6 Height (Inches): 1.00 Weight (Pounds): 327 General Appearance: no apparent distress, alert EENT: PERRL/EOMI Neck: normal alignment Cardiovascular: normal peripheral pulses Respiratory/Chest: no respiratory distress Abdomen: no mass Adam Snowden MD Mar 28, 2018 13:12
--- NOTE | 2018-03-28 13:33 | Infectious Diseases Prog Note ---
Assessment/Plan Assessment/Plan Diarrhea significant and required rectal tube, now resolved- Probable Cdiff despite neg screen test given rapid resolution of leukocytosis upon initiation of PO Vancomycin; Cdiff toxin A/B EIA is poor test with only ~70% sensitivity -Cdiff neg -stool cx neg Sepsis;resolved severe b/l Leg soft tissue infection, resolved GBS bacteremia- 2ry to above -6/7 Bcx 4/4+; 03/13 1/2 CoNS (contaminant); 03/14 BCx neg -v. duplex: no DVT R Foot necrotic ulcer much improved- no evidence of Osteo on bone scan -a/ duplex b/l LE: There is no evidence of significant stenosis or occlusion within these segments. -bone scan Increased blood pool activity in the plantar surface of the right heel, likely related to stated clinical history of right heel ulcer. No abnormal osseous activity to suggest acute osteomyelitis. Foci of abnormal static activity without corresponding focal hyperemia on flow and blood pool images in the bilateral mid feet, and right toes, most likely representing degenerative changes. Plain film correlation would be useful, however. -u/a neg -CXR :NAPD Fever, SP Leukocytosis, recurrent; resolved after initiating PO Vancomycin -u/a 03/21 wbc 5-10, nit neg , leuk +1; ucx Neg -CXR 03/21: No acute process. Previously demonstrated interstitial congestive changes have improved Lactic acidosis, resolved elev lipase Influenza sc : neg JOSE; resolved HTN HLD GERD Dm2 Plan: -Continue PO Vancomycin 125mg qid # for presumed Cdiff given diarrhea and leukocytosis -Ok to discharge from ID perspective - 03/24 SP IV Ceftriaxone #7 -03/18 SP Unasyn #7 -03/16 SP IV Vancomycin #3 -03/13 SP IV Vanco and Clinda #4 -03/12 SP Zosyn #3 -03/10 SP Cefepime d# 1 -Monitor CBC/BMP, temperatures -Sx, Podiatry f/u -wound care per hospital protocol Subjective Allergies: Coded Allergies: No Known Allergies (Unverified , 03/09/18) Subjective afebrile no leukocytosis bcxneg awaiting discharge Objective Vital Signs Last 24 Hour Vital Signs Date Time Temp Pulse Resp B/P (MAP) Pulse Ox O2 Delivery O2 Flow Rate FiO2 03/28/18 12:19 134/69 03/28/18 11:36 97.9 72 20 134/69 96 97.9 03/28/18 11:07 98.1 03/28/18 10:08 98.1 03/28/18 09:56 71 144/71 03/28/18 09:55 144/71 03/28/18 08:00 98.1 71 20 144/71 94 98.1 03/28/18 04:00 98.3 74 19 137/77 94 Room Air 98.3 03/27/18 23:30 97.5 79 20 115/63 94 Room Air 97.5 03/27/18 21:00 77 130/65 03/27/18 19:14 96.8 77 20 130/65 96 Room Air 96.8 03/27/18 16:13 97.9 74 20 121/63 96 Room Air 97.9 Height (Feet): 6 Height (Inches): 1.00 Weight (Pounds): 327 Objective General Appearance: obese, no acute distress HEENT: normocephalic, atraumatic, dry mucus membranes Neck: full range of motion, supple, no meningismus, no bony tend Respiratory: lungs clear, normal breath sounds, no rhonchi, no respiratory distress, no retraction, no accessory muscle use Cardiovascular no gallop, no JVD, no murmur, tachycardia Gastrointestinal: normal bowel sounds, non tender, soft, no mass, no organomegaly, non-distended, no guarding, no rebound Musculoskeletal: B/L leg with chornic venous stasis changes and lymphedema ; now chronic changes; cellulitis resolved On R foot wound is improving- no purulent discharge Laboratory Tests Test 03/28/18 05:10 White Blood Count 5.3 K/UL (4.8-10.8) Red Blood Count 3.44 M/UL (4.70-6.10) L Hemoglobin 9.2 G/DL (14.2-18.0) L Hematocrit 29.7 % (42.0-52.0) L Mean Corpuscular Volume 87 FL (80-99) Mean Corpuscular Hemoglobin 26.7 PG (27.0-31.0) L Mean Corpuscular Hemoglobin Concent 30.9 G/DL (32.0-36.0) L Red Cell Distribution Width 17.3 % (11.6-14.8) H Platelet Count 240 K/UL (150-450) Mean Platelet Volume 9.7 FL (6.5-10.1) Neutrophils (%) (Auto) 51.5 % (45.0-75.0) Lymphocytes (%) (Auto) 29.7 % (20.0-45.0) Monocytes (%) (Auto) 12.1 % (1.0-10.0) H Eosinophils (%) (Auto) 4.3 % (0.0-3.0) H Basophils (%) (Auto) 2.4 % (0.0-2.0) H Sodium Level 138 MMOL/L (136-145) Potassium Level 4.4 MMOL/L (3.5-5.1) Chloride Level 101 MMOL/L (98-107) Carbon Dioxide Level 31 MMOL/L (21-32) Blood Urea Nitrogen 11 mg/dL (7-18) Creatinine 1.2 MG/DL (0.55-1.30) Estimat Glomerular Filtration Rate mL/min (>60) Glucose Level 154 MG/DL (74-106) H Calcium Level 9.3 MG/DL (8.5-10.1) Current Medications Medications (Trade) Dose Ordered Sig/Nancy Route PRN Reason Start Time Stop Time Status Last Admin Dose Admin Acetaminophen (Tylenol) 650 mg Q4H PRN ORAL fever (temp>100.5F) 03/15/18 17:00 04/09/18 16:59 Dextrose (Dextrose 50%) 25 ml STAT PRN IV Hypoglycemia 03/15/18 17:00 04/12/18 16:59 Dextrose (Dextrose 50%) 50 ml STAT PRN IV Hypoglycemia 03/15/18 17:30 04/12/18 17:29 Diphenoxylate HCl/ Atropine (Lomotil) 2.5 mg Q4H PRN ORAL Diarrhea 03/18/18 12:53 04/17/18 12:52 03/19/18 03:59 Docusate Sodium (Colace) 100 mg THREE TIMES A DAY ORAL 03/15/18 18:00 04/13/18 12:59 03/21/18 17:30 Heparin Sodium (Porcine) (Heparin 5000 units/ml) 5,000 units EVERY 12 HOURS SUBQ 03/15/18 21:00 04/09/18 08:59 03/28/18 09:58 Insulin Aspart (NovoLOG) BEFORE MEALS AND HS SUBQ 03/15/18 17:30 04/12/18 17:29 03/28/18 12:21 Isosorbide Mononitrate (Imdur) 30 mg DAILY ORAL 03/16/18 09:00 04/14/18 08:59 03/28/18 09:55 Lansoprazole (Prevacid) 30 mg BID ORAL 03/15/18 18:00 04/13/18 17:59 03/28/18 09:56 Lidocaine (Xylocaine 5% cream) 1 applic Q6H TOPIC 03/15/18 20:00 04/11/18 13:59 03/28/18 09:55 Metformin HCl (Glucophage) 500 mg TIAC ORAL 03/23/18 16:30 04/22/18 16:29 03/28/18 12:20 Metoprolol Tartrate (Lopressor) 25 mg Q12HR ORAL 03/15/18 21:00 04/13/18 20:59 03/28/18 09:56 Nateglinide (Starlix) 120 mg TIAC ORAL 03/15/18 16:45 04/13/18 16:44 03/28/18 12:20 Nitroglycerin (Ntg) 0.4 mg Q5M PRN SL Prn Chest Pain 03/15/18 17:00 04/08/18 16:59 Nitroglycerin (Ntg) 1 patch Q24H TDERMAL 03/16/18 12:00 04/13/18 11:59 03/28/18 12:19 Ondansetron HCl (Zofran) 4 mg Q6H PRN IVP Nausea & Vomiting 03/15/18 17:00 04/08/18 16:59 Oxycodone/ Acetaminophen (Percocet 10/325) 1 tab Q4H PRN ORAL moderate break through pain 03/24/18 18:00 03/30/18 17:59 03/28/18 10:08 Pregabalin (Lyrica) 50 mg Q8HR ORAL 03/16/18 18:00 04/15/18 17:59 03/28/18 06:26 Sodium Hypochlorite (Dakin's Quarter Strength) 1 applic DAILY TOPIC 03/16/18 09:00 04/10/18 08:59 03/28/18 09:55 Vancomycin HCl (Vancomycin) 125 mg FOUR TIMES A DAY ORAL 03/21/18 14:00 03/30/18 22:00 03/28/18 12:22 Maranda Wiggins M.D. Mar 28, 2018 13:33
--- NOTE | 2018-03-28 13:44 | General Progress Note ---
Assessment/Plan Problem List: (1) Sepsis ICD Codes: A41.9 - Sepsis, unspecified organism SNOMED: 93687577 Qualifiers: Qualified Codes: A41.9 - Sepsis, unspecified organism (2) Cellulitis, leg ICD Codes: L03.119 - Cellulitis of unspecified part of limb SNOMED: 890659995 (3) UTI (urinary tract infection) ICD Codes: N39.0 - Urinary tract infection, site not specified SNOMED: 02339660 (4) Diabetes mellitus ICD Codes: E11.9 - Type 2 diabetes mellitus without complications SNOMED: 72017389 (5) Obesity ICD Codes: E66.9 - Obesity, unspecified SNOMED: 831504606, 736159406 (6) Acute encephalopathy ICD Codes: G93.40 - Encephalopathy, unspecified SNOMED: 13875281, 830760131 (7) ATN (acute tubular necrosis) ICD Codes: N17.0 - Acute kidney failure with tubular necrosis SNOMED: 33662866 Status: stable, progressing Assessment/Plan ot pt diet o2 pulm tx abx wound care dc to snf Subjective Constitutional: Reports: weakness Allergies: Coded Allergies: No Known Allergies (Unverified , 03/09/18) All Systems: reviewed and negative except above Subjective bed calm weak Objective Last 24 Hour Vital Signs Date Time Temp Pulse Resp B/P (MAP) Pulse Ox O2 Delivery O2 Flow Rate FiO2 03/28/18 12:19 134/69 03/28/18 11:36 97.9 72 20 134/69 96 97.9 03/28/18 11:07 98.1 03/28/18 10:08 98.1 03/28/18 09:56 71 144/71 03/28/18 09:55 144/71 03/28/18 08:00 98.1 71 20 144/71 94 98.1 03/28/18 04:00 98.3 74 19 137/77 94 Room Air 98.3 03/27/18 23:30 97.5 79 20 115/63 94 Room Air 97.5 03/27/18 21:00 77 130/65 03/27/18 19:14 96.8 77 20 130/65 96 Room Air 96.8 03/27/18 16:13 97.9 74 20 121/63 96 Room Air 97.9 Intake and Output 03/27/18 03/28/18 19:00 07:00 Intake Total 860 ml 320 ml Output Total 800 ml 500 ml Balance 60 ml -180 ml Intake Oral 860 ml 320 ml Output Urine Total 800 ml 500 ml # Voids 1 Laboratory Tests 03/28/18 05:10: White Blood Count 5.3, Red Blood Count 3.44L, Hemoglobin 9.2L, Hematocrit 29.7L , Mean Corpuscular Volume 87, Mean Corpuscular Hemoglobin 26.7L, Mean Corpuscular Hemoglobin Concent 30.9L, Red Cell Distribution Width 17.3H, Platelet Count 240, Mean Platelet Volume 9.7, Neutrophils (%) (Auto) 51.5, Lymphocytes (%) (Auto) 29.7, Monocytes (%) (Auto) 12.1H, Eosinophils (%) (Auto) 4.3H, Basophils (%) (Auto) 2.4H, Sodium Level 138, Potassium Level 4.4, Chloride Level 101, Carbon Dioxide Level 31, Blood Urea Nitrogen 11, Creatinine 1.2, Estimat Glomerular Filtration Rate , Glucose Level 154H, Calcium Level 9.3 Height (Feet): 6 Height (Inches): 1.00 Weight (Pounds): 327 General Appearance: alert EENT: normal ENT inspection Neck: normal alignment Cardiovascular: normal peripheral pulses, normal rate, regular rhythm Respiratory/Chest: chest wall non-tender, lungs clear, normal breath sounds Abdomen: normal bowel sounds, non tender, soft Extremities: normal inspection Edema: 1+ Arm (L), 1+ Arm (R), 1+ Leg (L), 1+ Leg (R), 1+ Pedal (L), 1+ Pedal ( R), 1+ Generalized Edema: trace edema Neurologic: responsive, motor weakness Skin: normal pigmentation, warm/dry Ok Curry DO Mar 28, 2018 13:44
--- NOTE | 2018-03-28 13:45 | General Surgery Progress Note ---
General Surgery-Progress Note Subjective Symptoms: improved, tolerating diet, passing flatus, BM Objective Last 24 Hour Vital Signs Date Time Temp Pulse Resp B/P (MAP) Pulse Ox O2 Delivery O2 Flow Rate FiO2 03/28/18 12:19 134/69 03/28/18 11:36 97.9 72 20 134/69 96 97.9 03/28/18 11:07 98.1 03/28/18 10:08 98.1 03/28/18 09:56 71 144/71 03/28/18 09:55 144/71 03/28/18 08:00 98.1 71 20 144/71 94 98.1 03/28/18 04:00 98.3 74 19 137/77 94 Room Air 98.3 03/27/18 23:30 97.5 79 20 115/63 94 Room Air 97.5 03/27/18 21:00 77 130/65 03/27/18 19:14 96.8 77 20 130/65 96 Room Air 96.8 03/27/18 16:13 97.9 74 20 121/63 96 Room Air 97.9 I&O Intake and Output 03/27/18 03/28/18 19:00 07:00 Intake Total 860 ml 320 ml Output Total 800 ml 500 ml Balance 60 ml -180 ml Intake Oral 860 ml 320 ml Output Urine Total 800 ml 500 ml # Voids 1 Wound: clean, dry Drains: none Cardiovascular: RSR Respiratory: clear Abdomen: soft, flat, non-tender, present bowel sounds Extremities: edema, no edema, no tenderness, no cyanosis Laboratory Tests Test 03/28/18 05:10 White Blood Count 5.3 K/UL (4.8-10.8) Red Blood Count 3.44 M/UL (4.70-6.10) L Hemoglobin 9.2 G/DL (14.2-18.0) L Hematocrit 29.7 % (42.0-52.0) L Mean Corpuscular Volume 87 FL (80-99) Mean Corpuscular Hemoglobin 26.7 PG (27.0-31.0) L Mean Corpuscular Hemoglobin Concent 30.9 G/DL (32.0-36.0) L Red Cell Distribution Width 17.3 % (11.6-14.8) H Platelet Count 240 K/UL (150-450) Mean Platelet Volume 9.7 FL (6.5-10.1) Neutrophils (%) (Auto) 51.5 % (45.0-75.0) Lymphocytes (%) (Auto) 29.7 % (20.0-45.0) Monocytes (%) (Auto) 12.1 % (1.0-10.0) H Eosinophils (%) (Auto) 4.3 % (0.0-3.0) H Basophils (%) (Auto) 2.4 % (0.0-2.0) H Sodium Level 138 MMOL/L (136-145) Potassium Level 4.4 MMOL/L (3.5-5.1) Chloride Level 101 MMOL/L (98-107) Carbon Dioxide Level 31 MMOL/L (21-32) Blood Urea Nitrogen 11 mg/dL (7-18) Creatinine 1.2 MG/DL (0.55-1.30) Estimat Glomerular Filtration Rate mL/min (>60) Glucose Level 154 MG/DL (74-106) H Calcium Level 9.3 MG/DL (8.5-10.1) Plan Problems: (1) Sepsis Assessment & Plan: 72M sepsis with fevers, leukocytosis, altered mental status. chronic bilateral lower extremity wounds with cellulitis. concerns for possible necrotizing fascitis initially. unlikely nec fasc given exam. wounds chronic and skin changes chronic. LRINEC score on admission 10 but given chronicity of wounds, other etiology of sepsis, and physical exam unlikely nec fasc. edema improving. cellulitis improving. overall much improved. leukocytosis resolved. pending labs -no acute surgical intervention necessary. -keep legs elevated -cont with dressings for now -will follow with you -d/c planning thank you for this consultation (2) Cellulitis, leg Leandro Scott Mar 28, 2018 13:45
--- NOTE | 2018-03-29 12:01 | Discharge Summary ---
Discharge Summary Hospital Course Date of Admission Mar 09, 2018 at 20:35 Date of Discharge Mar 28, 2018 at 14:35 Admitting Diagnosis Sepsis HPI Jamir Farmer is a 72 year old male who was admitted on Mar 09, 2018 at 20:35 for Sepsis Hospital Course dc summary #[id number] Discharge Medications Continued Medications: Acetaminophen* (Acetaminophen 325MG Tablet*) 325 Mg Tablet 650 MG ORAL Q4H PRN for Pain Scale (3-5), TAB (This prescription has been renewed) Atorvastatin Calcium* (Atorvastatin Calcium*) 40 Mg Tablet 40 MG ORAL BEDTIME, TAB (This prescription has been renewed) Diphenoxylate Hcl/Atropine (Lomotil Tablet) 1 Each Tablet 1 TAB ORAL EVERY 4 HOURS, #30 TAB 0 Refills (This prescription has been renewed) Docusate Sodium (Docusate Sodium) 100 Mg Tablet 100 MG ORAL TID, #30 TAB 0 Refills (This prescription has been renewed) Heparin Sod (Porcine) (Heparin Sodium*) 5 000/1 Ml Vial 5000 UNITS SUBQ EVERY 12 HOURS, VIAL (This prescription has been renewed) Isosorbide Dinitrate (Isosorbide Dinitrate) 20 Mg Tablet 30 MG PO DAILY, TAB (This prescription has been renewed) Lansoprazole* (Prevacid*) 30 Mg Capsule.dr 30 MG ORAL BID, CAP (This prescription has been renewed) Metformin Hcl (Glucophage) 1,000 Mg Tablet 500 MG ORAL TID, TAB (This prescription has been renewed) Metoprolol Succinate* (Metoprolol Succinate*) 25 Mg Tab.er.24h 25 MG ORAL EVERY 12 HOURS, TAB (This prescription has been renewed) Nateglinide (Starlix) 120 Mg Tablet 120 MG ORAL THREE TIMES A DAY, TAB (This prescription has been renewed) Nitroglycerin (Nitroglycerin Patch) 1 Each Patch.td24 1 EACH TD, PATCH (This prescription has been renewed) Ondansetron (Zofran) 4 Mg Tablet 4 MG ORAL Q6H PRN for Nausea & Vomiting, TAB (This prescription has been renewed ) Oxycodone HCl/Acetaminophen (Percocet 10-325 mg Tablet) 1 Each Tablet 1 EACH PO EVERY 4 HOURS, TAB (This prescription has been renewed) Pantoprazole* (Pantoprazole*) 40 Mg Tablet.dr 40 MG ORAL DAILY, TAB (This prescription has been renewed) Pregabalin (Lyrica) 20 Mg/1 Ml Solution 50 MG ORAL EVERY 8 HOURS, ML (This prescription has been renewed) Vancomycin Hcl (Vancomycin Hcl) 125 Mg Capsule 125 MG PO FOUR TIMES A DAY for 4 Days, CAP (This prescription has been renewed) Discharge Condition Upon Discharge: stable Discharge Disposition Patient was discharged to SNF/Subacute Facility(03) Ramona Cazares NP Mar 29, 2018 12:01
--- NOTE | 2018-03-29 20:46 | Discharge Summary 2 SIG ---
DATE OF ADMISSION: 03/09/2018 DATE OF DISCHARGE: 03/28/2018 REASON FOR ADMISSION: 72-year-old male with past medical history significant for hypertension and diabetes, was brought to emergency room for evaluation due to altered mental status. Upon evaluation, the patient was found to be febrile - 101.8, tachycardic - 120 to 130s, and blood pressure was on the low side. The laboratory workup revealed leukocytosis with WBC -26.0. Potassium- 5.8, BUN- 82, and creatinine- 2.5. Troponin negative. Pro BNP- 621. Mild anemia, hemoglobin -12 and hematocrit- 37.2. Chest x-ray revealed no acute cardiopulmonary pathology. Lactic acid -2.3. On physical exam, bilateral legs revealed evidence of cellulitis. Urinalysis revealed evidence of urinary tract infection. ADMITTING DIAGNOSES: The patient was admitted with diagnoses of, 1. Sepsis. 2. Possible urinary tract infection. 3. Bilateral lower extremity cellulitis. 4. Acute renal failure. 5. Hyperkalemia. 6. Altered mental status CONSULTANTS: 1. Zia Li M.D., Crane Engineer/Repack Room Worker. 2. Yong Oconnell M.D., Pattern Painter. 3. Jasiel Lyons M.D., Neurologist. 4. Pennie Liz M.D., Pain specialist. 5. Leandro Scott M.D., General Surgeon. 6. Bernardo Hammonds M.D, Infectious Disease specialist. 7. Reynaldo Mena M.D., Tailor Women'S Garment Alteration. 8. Rubens Maxwell D.P.M., Cast Associate. 9. Ashlyn Baker M.D., Psychiatrist. HOSPITAL COURSE: The patient was admitted initially to intensive care unit. Septic workup initiated. The patient was started on aggressive IV hydration. Blood pressure was closely monitored. The patient was noted to have elevated second troponin. Cardiology consult was requested. The patient had no cardiac complaints. EKG showed no acute changes. Serial troponin were done. Per telecom manager, elevation in troponin were minimal and levels were flat, likely secondary to renal failure. Elevated troponin was due to troponin leak secondary to renal failure. Echocardiogram revealed preserved ejection fraction of 55% and right ventricular systolic pressure of 55 consistent with moderate pulmonary hypertension. Blood pressure was managed with Imdur and Lopressor. Venous duplex of bilateral lower extremity was negative. Lipid panel revealed elevated triglycerides 168 and stable LDL. The patient (when more awake ) was counseled on low-fat low-cholesterol diet. TSH was within normal limits. Repack Room Worker closely followed. Supplemental oxygen and pulmonary toilet provided as needed. Infectious Disease doctor closely followed. Blood culture initially revealed strep group B. Urine culture was negative. Influenza screen was negative. Repeated blood culture showed Staph coagulase-negative. The patient demonstrated persistent significant diarrhea, requiring rectal tube. Stool for C. difficile was negative. The patient continued to have leukocytosis. Stool culture was negative. However, after starting oral vancomycin, leukocytosis resolved. According to Infectious Disease specialist, the patient presumably had C. diff colitis, despite negative C difficile test. Sensitivity of this test poor, only 70%. She recommended to complete course of 10 days of oral vancomycin. As mentioned above, leukocytosis resolved. Diarrhea resolved. Repeated urine culture showed Maye, likely colonized. No need for treatment. Surveillance blood culture on 03/14/2018 and 03/21/2018 were both negative. Bacteremia was likely secondary to bilateral lower extremity cellulitis, which improved clinically with IV antibiotics. Infectious Disease recommended to continue 10 days of oral vancomycin and then discontinue antibiotics and monitor the patient clinically. The patient clinically improved. Leukocytosis resolved. Fever resolved. Tailor [employer]teration closely followed. The patient was initially on aggressive IV hydration, which then tapered down. Renal ultrasound revealed no hydronephrosis and normal echogenicity bilaterally. Creatinine was trending down. According to machine stemmer, acute renal failure was likely due to diabetic nephropathy and prior to discharge, BUN from 82 down to 11. Creatinine from 2.5 down to 1.2. Urinalysis with +2 and +3 protein on two different occasions and 24-hours urine revealed 85.5 gram of protein. Renal parameters and electrolytes were closely monitored, electrolytes were corrected as needed and nephrotoxics were avoided. Neurologist closely followed the patient. Ammonia was within normal limits. LFTs were stable. Per neurologist, history and physical examination were consistent with acute toxic metabolic encephalopathy secondary to sepsis and underlying metabolic imbalances. Neurologist recommended to continue current treatment, continue antibiotic, and continue to monitor and correct metabolic abnormalities. General surgeon seen the patient initially for concern about necrotizing fasciitis. However, according to the surgeon, given clinical exam, it was unlikely necrotizing fasciitis since wounds look chronic with chronic skin changes. With time and antibiotics, edema and cellulitis were improving. Surgeon concluded that no acute surgical intervention was necessary at this time. He recommended to elevate legs to improve edema. Cast Associate seen the patient for diabetic foot ulcer on the right heel. There was a concern about osteomyelitis. Wound care provided as per acquisition editor's recommendation. Bone scan revealed no evidence of osteomyelitis. The patient was working with physical and occupational therapists. Fall precautions maintained. Arterial duplex revealed no evidence of ischemia. Blood sugar was managed with Starlix and metformin. Sliding scale of insulin was implemented as needed. Pain specialist closely followed. Pain management was optimized as per pain specialist recommendations due to the patient's narcotic tolerance and chronic pain syndrome. Pain was controlled. Police Lieutenant Patrol closely followed the patient. Anemia workup was consistent with anemia of chronic disease. Hemoglobin and hematocrit were closely monitored with goal to keep hemoglobin above 7. No need for transfusion. Psychiatrist seen and evaluated the patient and diagnosed the patient with major depressive with psychotic features, and optimized psychiatric medication regimen. The patient's condition was slowly improving. Initially, he was in intensive care unit, then moved to telemetry floor and then to Med/Surg floor. Supportive care provided. Bowel regimen instituted. DVT and GI prophylaxes provided. The patient was working with physical and occupational therapists. The patient clinically improved. Mental status back to baseline. No leukocytosis. No fever. Improved cellulitis of bilateral lower extremities. The patient was stable for discharge to shelter facility for short-term rehabilitation. FINAL DIAGNOSES: 1. Acute toxic metabolic encephalopathy, likely secondary to sepsis and acute renal failure. 2. Sepsis with bacteremia secondary to severe bilateral lower extremity cellulitis. 3. Bacteremia with strep group B. 4. Bilateral lower extremity cellulitis. 5. Diabetic foot ulcer, right heel ( negative for osteomyelitis) . 6. Diabetes mellitus type 2 with diabetic neuropathy. 7. Lactic acidosis, resolved. 8. Acute renal failure likely due to diabetic nephropathy, resolved. 9. Hypertension. 10. Hyperlipidemia. 11. Hyperkalemia, resolved. 12. Obesity. 13. Diarrhea requiring rectal tube, resolved. 14. Presumed Clostridium difficile colitis. 15. Anemia of chronic disease. 16. Elevated troponin/troponin leak secondary to renal failure. 17. Major depression with psychotic features. 18. Chronic pain syndrome. 19. Narcotic tolerance. 20. Obesity. DISCHARGE MEDICATIONS: See medication reconciliation list. DISCHARGE INSTRUCTIONS: The patient was discharged to shelter facility for short-term rehabilitation. Follow up with medical care provider at the facility. Ok Curry D.O. Ramona HutchinsVa New [facility] Healthcare Systemarmando NGeorge DR: ROMEL JOB#: [id number] CC: [email or web address]
== END 2018-03-28 14:35 | DRG 871 ==
LOC: EDBD 19:54 → EMR 20:21 → 2E 20:35 → EDBEDREQ 21:53 → 2E 22:59 → ICU 03-10 12:45 → 2W 03-12 14:16 → 2E 03-13 16:58 → 4W 03-15 15:58 → 4E 03-15 19:30 → 4W 03-24 18:35
DX: A40.1 Sepsis due to streptococcus, group B (principal); N17.0 Acute kidney failure with tubular necrosis; R65.21 Severe sepsis with septic shock; G92 Toxic encephalopathy; N39.0 Urinary tract infection, site not specified; L03.116 Cellulitis of left lower limb; L03.115 Cellulitis of right lower limb; L97.419 Non-pressure chronic ulcer of right heel and midfoot with unspecified severity; Z68.41 Body mass index [BMI] 40.0-44.9, adult; F33.3 Major depressive disorder, recurrent, severe with psychotic symptoms; E87.2 Acidosis; A04.72 Enterocolitis due to Clostridium difficile, not specified as recurrent; I10 Essential (primary) hypertension; E78.5 Hyperlipidemia, unspecified; K21.9 Gastro-esophageal reflux disease without esophagitis; E11.42 Type 2 diabetes mellitus with diabetic polyneuropathy; E11.621 Type 2 diabetes mellitus with foot ulcer; D64.9 Anemia, unspecified; E66.01 Morbid (severe) obesity due to excess calories; E88.09 Other disorders of plasma-protein metabolism, not elsewhere classified; G89.4 Chronic pain syndrome; E87.5 Hyperkalemia
CPT/HCPCS: 36415; 36600; 71045; 76770; 78315; 80048; 80053; 80061; 80076; 80202; 81001; 81003; 81050; 82140; 82533; 82550; 82553; 82607; 82728; 82803; 82962; 82977; 83605; 83690; 83735; 83880; 84100; 84133; 84156; 84300; 84439; 84443; 84484; 84550; 85007; 85025; 85651; 86140; 86710; 87040; 87045; 87086; 87181; 87324; 89050; 93005; 93306; 93925; 93970; 94664; 94760; 97803; 99285; J1815; J2405; S0077